=== PATIENT | female | born 1975 | race Caucasian/White ===

== ENCOUNTER 2023-07-14 08:49 | Outpatient (OUT) | payer OTHER, SELFPAY ==
[2023-07-14 09:16] LABS: Bilirubin Urine NEGATIVE (NEGATIVE); Blood Urine SMALL (NEGATIVE); Clarity Urine CLEAR (CLEAR); Color Urine YELLOW (YELLOW); Glucose Urine UA NEGATIVE (NEGATIVE); Ketones Urine NEGATIVE (NEGATIVE); Leukocyte Esterase Urine NEGATIVE (NEGATIVE); Nitrite Urine NEGATIVE (NEGATIVE); Protein Urine NEGATIVE (NEG/TRACE); Urobilinogen Urine 0.2 EU/dL (0.2-1.0)
[2023-07-14 09:17] LABS: Hematocrit 37.3 % (36.0-48.0); Mean Corpuscular HGB Conc 34.9 g/dL (29.9-35.2); Mean Corpuscular Hemoglobin 34.4 pg (26.7-34.0); Mean Corpuscular Volume 98.7 fL (81.0-99.0); Platelet Count 255 10^3/uL (150-450); Red Blood Count 3.78 10^6/uL (4.20-5.40); Red Cell Distribution Width 11.7 % (11.0-15.0); White Blood Count 5.7 10^3/uL (4.0-11.0)
[2023-07-14 09:28] LABS: Bacteria Urine TRACE #/HPF (NONE SEEN); Cast Seen? NONE SEEN #/LPF (NONE SEEN); Crystals Seen? None Seen #/HPF (None Seen); Mucus Urine NONE SEEN (NONE SEEN); Squamous Epithelial Cell Urine RARE #/LPF (NONE/RARE); WBC Urine NONE SEEN #/HPF (NONE SEEN)
[2023-07-14 10:26] LABS: Albumin Level 3.6 g/dL (3.4-5.0); Anion Gap 10.6; BUN Creatinine Ratio 11.6; Calcium 8.6 mg/dL (8.5-10.1); Chloride 100 mmol/L (98-107); Estimated GFR (African America 58 (>=60); Estimated GFR (Non-African Ame 48 (>=60); Glucose 85 mg/dL (74-106); Magnesium 1.8 mg/dL (1.8-2.4); Potassium 3.6 mmol/L (3.5-5.1); Sodium 135 mmol/L (136-145)
[2023-07-14 11:02] LABS: Creatinine Urine Random 359.44 mg/dL (20.00-300.00); Protein Creatinine Ratio Urine 0.05; Total Protein Urine Random 19.3 mg/dL (<=11.9)
== END 2023-07-14 08:50 | disposition home or self-care (01) ==
LOC: LAB 08:54
PROVIDERS: PCP Family Medicine; Visit Provider Internal Medicine
DX: N18.30 Chronic kidney disease, stage 3 unspecified (principal); K58.9 Irritable bowel syndrome, unspecified; N20.0 Calculus of kidney; E55.9 Vitamin D deficiency, unspecified
CPT/HCPCS: 36415; 80069; 81001; 82306; 82570; 83735; 84156; 85027

== ENCOUNTER 2023-07-27 08:08 | Outpatient (OUT) | payer OTHER, SELFPAY ==
[2023-07-27 09:06] LABS: Bilirubin Urine SMALL (NEGATIVE); Blood Urine SMALL (NEGATIVE); Color Urine LT. YELLOW (YELLOW); Glucose Urine UA NEGATIVE (NEGATIVE); Ketones Urine 15 mg/dL (NEGATIVE); Leukocyte Esterase Urine NEGATIVE (NEGATIVE); Nitrite Urine NEGATIVE (NEGATIVE); Protein Urine NEGATIVE (NEG/TRACE); Urobilinogen Urine 0.2 EU/dL (0.2-1.0); pH Urine 6.5 (5.0-9.0)
[2023-07-27 09:07] LABS: Clarity Urine SLIGHTLY CLOUDY (CLEAR); Sodium Urine Random 74 mmol/L (30-90)
[2023-07-27 09:13] LABS: Bacteria Urine NONE SEEN #/HPF (NONE SEEN); Cast Seen? NONE SEEN #/LPF (NONE SEEN); Crystals Seen? None Seen #/HPF (None Seen); Mucus Urine SMALL (NONE SEEN); RBC Urine 0-2 #/HPF (0-2); Squamous Epithelial Cell Urine FEW #/LPF (NONE/RARE); WBC Urine NONE SEEN #/HPF (NONE SEEN)
[2023-07-27 09:13] LABS: Thyroid Stimulating Hormone 1.006 uIU/mL (0.358-3.740)
[2023-08-01 16:08] LABS: Osmolality, Urine 683 mOsmol/kg (.)
== END 2023-07-27 08:09 | disposition home or self-care (01) ==
LOC: LAB 08:11
PROVIDERS: PCP Family Medicine; Visit Provider Internal Medicine
DX: N18.30 Chronic kidney disease, stage 3 unspecified (principal); R03.0 Elevated blood-pressure reading, without diagnosis of hypertension; N20.0 Calculus of kidney; E55.9 Vitamin D deficiency, unspecified; K58.9 Irritable bowel syndrome, unspecified; E87.1 Hypo-osmolality and hyponatremia; R31.29 Other microscopic hematuria
CPT/HCPCS: 36415; 81001; 82533; 83935; 84300; 84443

== ENCOUNTER 2023-08-01 12:51 | Outpatient (OUT) | payer OTHER, SELFPAY ==
--- NOTE | 2023-08-01 12:54 | US_ITS ---
The [address] [address] Patient Name: DEONTE PORTILLO MRN: [facility]:[id number] date: 1975 Sex: F Assigned Patient Location: US Current Patient Location: Accession/Order Number: [id number] Exam Date: 08/01/2023 12:55 Report Date: 08/02/2023 07:53 At the request of: SYLVESTER DANIEL Procedure: US renal BI EXAMINATION: US renal BI HISTORY: Microscopic Hematuria ; history of kidney stones COMPARISON: Ultrasound kidneys 05/09/2019 TECHNIQUE: Ultrasound examination was performed of the kidneys and urinary bladder. FINDINGS: RIGHT KIDNEY: Mild cortical thinning, 0.8 cm in thickness. No evidence of pelvocaliectasis, mass, or calculi. Incidental small cyst. Normal renal cortical parenchymal echogenicity. Color Doppler demonstrates blood flow within the kidney. Kidney: 10.9 x 4.2 x 4.5 cm LEFT KIDNEY: Limited evaluation due to overlying bowel gas. No evidence of pelvocaliectasis, mass, or calculi. Normal renal cortical parenchymal echogenicity. Color Doppler demonstrates blood flow within the kidney. Kidney: 10.4 x 4.4 x 4.7 cm BLADDER: No visible wall thickening, mass, or calculi. US/US renal BI IMPRESSION: 1. No appreciable urinary tract calculi or acute findings. 2. Mild cortical thinning of right kidney; nonspecific. Electronically authenticated by: KENNETH MONTANA Date: 08/02/2023 07:53
== END 2023-08-01 12:52 | disposition home or self-care (01) ==
LOC: US 12:52
PROVIDERS: PCP Family Medicine; Visit Provider Internal Medicine
DX: R31.29 Other microscopic hematuria (principal)
CPT/HCPCS: 76775

== ENCOUNTER 2023-08-17 07:56 | Outpatient (OUT) | payer OTHER, SELFPAY ==
--- NOTE | 2023-08-17 07:59 | MM_ITS ---
Patient Name DEONTE PORTILLO MR# Age Sex Date Time [id number] F 08/17/2023 08:09 At the Request Of DR EMELY IBARRA RADIOLOGY REPORT PROCEDURE: MM TOMOSYNTHESIS SCREENING BI COMPARISON: MG MAMM SCREEN 3D VERONICA CAD, 08/09/2022. MG MAMM SCREEN 3D VERONICA CAD, 06/01/2021. MG MAMM SCREEN VERONICA W CAD, 05/28/2020. MG MAMM SCREEN VERONICA W CAD, 12/14/2016. INDICATIONS: Screening Calculator Name NCI Breast Cancer Risk Assessment Tool 5 Year Breast Cancer Risk 1.00% Lifetime Breast Cancer Risk 10.30% Personal Breast Cancer No Personal Ovarian Cancer No Treatments None Family Cancers Grandmother-maternal with breast cancer at age ~60; Father with prostate cancer at age 60; Grandmother-paternal with colon cancer at age ~55. LOCATION: [facility] BREAST COMPOSITION: Extremely dense, which lowers the sensitivity of mammography. FINDINGS: DIAGNOSTIC CATEGORY 1--NEGATIVE. RIGHT BREAST: No significant suspicious finding. No significant change has occurred. LEFT BREAST: No significant suspicious finding. No significant change has occurred. RECOMMENDATIONS: ROUTINE MAMMOGRAM AND CLINICAL EVALUATION IN 12 MONTHS. PLEASE NOTE: A NORMAL MAMMOGRAM DOES NOT EXCLUDE THE POSSIBILITY OF BREAST CANCER. A CLINICALLY SUSPICIOUS PALPABLE LUMP SHOULD BE BIOPSIED. Dictated by: Pedro Lora M.D. on 08/17/2023 at 12:35 Approved by: Pedro Lora M.D. on 08/17/2023 at 12:36
== END 2023-08-17 07:57 | disposition home or self-care (01) ==
LOC: LAB 07:56
PROVIDERS: PCP Family Medicine; Visit Provider Obstetrics & Gynecology
DX: Z12.31 Encounter for screening mammogram for malignant neoplasm of breast (principal); Z80.3 Family history of malignant neoplasm of breast; Z80.0 Family history of malignant neoplasm of digestive organs; Z80.42 Family history of malignant neoplasm of prostate
CPT/HCPCS: 77063; 77067

== ENCOUNTER 2023-08-20 08:33 | Outpatient (OUT) | payer OTHER, SELFPAY ==
[2023-08-21 09:07] LABS: FSH 41.4 mIU/mL (.)
== END 2023-08-20 08:34 | disposition home or self-care (01) ==
LOC: LAB 08:34
PROVIDERS: PCP Family Medicine; Visit Provider Family Medicine
DX: N95.1 Menopausal and female climacteric states (principal); N92.6 Irregular menstruation, unspecified
CPT/HCPCS: 36415; 83001

== ENCOUNTER 2023-12-28 10:12 | Outpatient (OUT) | payer OTHER, SELFPAY ==
--- NOTE | 2023-12-28 10:17 | CT_ITS ---
The [address] [address] Patient Name: DEONTE PORTILLO MRN: [id number] date: 1975 Sex: F Assigned Patient Location: CT Current Patient Location: CT Accession/Order Number: [id number] Exam Date: 12/28/2023 10:20 Report Date: 12/28/2023 13:41 At the request of: AROLDO CERDA Procedure: CT abdomen pelvis wo con EXAMINATION: CT abdomen pelvis wo con HISTORY: hematuria R31.21 COMPARISON: No relevant comparison available. TECHNIQUE: Axial, Coronal, and Sagittal images were created without IV contrast. Dose reduction techniques were achieved by using automated exposure control and/or adjustment of mA and/or kV according to patient size and/or use of iterative reconstruction technique. FINDINGS: LUNG BASES: No visible pulmonary or pleural disease. LIVER: No enlargement, atrophy, abnormal density, or significant focal lesion. BILIARY: No dilatation or calcification. PANCREAS: No lesion, fluid collection, ductal dilatation, or atrophy. SPLEEN: No enlargement or focal lesion. ADRENALS: No mass or enlargement. KIDNEYS: Punctate left nonobstructing nephrolithiasis. No hydronephrosis or obstructive uropathy BOWEL/MESENTERY: No visible mass, obstruction, or bowel wall thickening. AORTA/VASCULAR: No aneurysm or dissection. RETROPERITONEUM: No mass or adenopathy. LYMPH NODES: No adenopathy. URINARY BLADDER: No visible focal wall thickening, lesion, or calculus. PELVIC ORGANS: No visible mass. Pelvic organs appropriate for patient age. ABDOMINAL WALL: No mass or hernia. BONES: No bony lesion or fracture. OTHER: Negative noncontrast exam CT/CT abdomen pelvis wo con IMPRESSION: No obstructive uropathy Electronically authenticated by: SHEREE BOLAND Date: 12/28/2023 13:41
--- OUTSIDE RECORDS SUMMARY | 2023-12-28 10:34 | XMS_ITS | CCD ---
Author Organization [facility] Care Team Providers Care [place] Name Role Phone JANESSA BROWER Unavailable Unavailable NO FAMILY DOCTOR, NO FAMILY DOCTOR Unavailable Unavailable CHECONAHUMJANESSA Unavailable Unavailable NO FAMILY DOCTOR, NO FAMILY DOCTOR Unavailable Unavailable Balaji Peraza Primary Care Provider MaríaZhang marksul Unavailable NORMAN OLIVIA Attending Unavailable PETZNICK, CADEN Primary Care Unavailable NORMAN OLIVIA Admitting Unavailable MARÍAETELVINA Attending Unavailable MARÍA, ETELVINA Admitting Unavailable PETZNICK, [facility] Primary Care Unavailable MARÍA, ETELVINA Consulting Unavailable WEST, DR SHEREE Mesa Consulting Unavailable PRINTY, DR HAN Attending Unavailable PRINTY, DR HAN Admitting Unavailable PETZNICK, [facility] Primary Care Unavailable PRINTY, DR HAN Consulting Unavailable WEST, DR SHEREE Mesa Admitting Unavailable WEST, DR SHEREE [place] Consulting Unavailable PETZNICK, [facility] Primary Care Unavailable WEST, DR SHEREE Mesa Attending Unavailable WEST, DR SHEREE Mesa Admitting Unavailable WEST, DR SHEREE [place] Consulting Unavailable PETZNICK, [facility] Primary Care Unavailable WEST, DR SHEREE Mesa Attending Unavailable WEST, DR SHEREE Mes[place] Consulting Unavailable PETZNICK, [facility] Primary Care Unavailable WEST, DR SHEREE Mesa Attending Unavailable WEST, DR SHEREE Mesa Admitting Unavailable Asaad, Imad Unavailable EMELY IBARRA Attending Unavailable MD Bienvenido Yanes Attending Provider [phone] PetznDO Caden jones Primary Care Provider Pettee Caden Primary Care Unavailable Asaad, Imad Attending Unavailable Asaad, Imad Admitting Unavailable PETCADEN MORRELL Primary Care Physician Ginny Sears Unavailable Unavailable Mitali Leach Attending Unavailable MARÍA, ETELVINA Referring Unavailable Deshaun CERDA Admitting Unavailable Deshaun CERDA Attending Unavailable Deshaun CERDA Attending Unavailable Deshaun CERDA Attending Unavailable ETELVINA DANIEL Referring Unavailable Allergies Allergy Classification Reported Allergen(s) Allergy Type Date of Onset Reaction(s) Facility (3 sources) Mold Extract; Translations: [Mold] Drug Allergy Nasal discharge (disorder) [facility] (1 source) No Known Medication Allergies; Translations: [No Known Medication Allergies] Propensity to adverse reactions (disorder) [facility] Repository Medications Current Medications Medication Drug Class(es) Dates Sig (Normalized) Sig (Original) Acetaminophen / oxyCODONE (2 sources) Opioid Agonist Start: 11-20-2021 Percocet 325 mg-5 mg Tab See Instructions, as needed for pain, 40 tab(s), Refill(s) 0, 1-2 tab(s) Oral q4hr, [id number], 157, cm, 11/13/21 8:21:00 EST, Height/Length Dosing, 74.4, kg, 11/13/21 8:21:00 EST, Weight Dosing Start Date: 11/20/21 Status: Ordered Latrice Allergy 180 MG (2 sources) take 1 tablet by mouth once daily Latrice Allergy 180 MG 1 tablet Orally Once a day Active Alpha Lipoic Acid 200 MG (2 sources) Alpha Lipoic Aci d 200 MG as directed Orally once a day Active azelastine hydrochloride 0.137 mg/actuat metered dose nasal spray (10 sources) Histamine-1 Receptor Antagonist Start: 10-17-2023 Azelastine Active 1 SPRAY INTRANASAL Twice daily October 17, 2023 12:00am Start: 11-11-2021 azelastine los al 2 puff(s), Nasal, Daily, Allergy symptoms Start Date: 11/11/21 Status: Ordered Start: 05-22-2018 take 2 puff(s) nasal route twice daily azelastine (ASTELIN,ASTEPRO) 0.1% nasal spray USE 2 PUFFS IN EACH NOSTRIL TWICE A DAY 5 05/22/2018 Active take 1 puff(s) nasal route twice daily Azelastine HCl 137 MCG/SPRAY 1 puff in each nostril Nasally Twice a day Active Comment on above: USE 2 PUFFS IN EACH NOSTRIL TWICE A DAY control pill (2 sources) Start: take 1 dose by mouth once daily control pill control pill, Oral, Daily Start Date: 10/12/16 Status: Ordered celecoxib 100 mg oral capsule (2 sources) Nonsteroidal Anti-inflammatory Drug Start: take 1 capsule by mouth twice daily as needed for pain CeleBREX 100 mg Cap 100 mg = 1 cap(s), Oral, BID, PRN for pain, # 60 cap(s), Refills(s) 0, Pharmacy: [id number], 157, cm, 11/13/21 8:21:00 EST, Height/Length Dosing, 74.4, kg, 11/13/21 8:21:00 EST, Weight Dosing Start Date: 11/20/21 Status: Ordered cholecalciferol 0.05 mg oral capsule (4 sources) Vitamin D Vitamin D3 50 MCG (1999) as directed Orally Active docusate sodium 100 mg oral capsule (2 sources) Start: take 1 capsule by mouth twice daily as needed for constipation Colace 100 mg Cap 100 mg = 1 cap(s), Oral, BID, PRN for constipation, # 20 cap(s), Refills(s) 0, Pharmacy: [id number], 157, cm, 11/13/21 8:21:00 EST, Height/Length Dosing, 74.4, kg, 11/13/21 8:21:00 EST, Weight Dosing Start Date: 11/20/21 Status: Ordered DULoxetine 30 mg delayed release oral capsule (10 sources) Serotonin and Norepinephrine Reuptake Inhibitor Start: take 30 mg by mouth once daily Duloxetine Active 30 MG PO Daily October 17, 2023 12:00am Start: 07-14-2018 take 1 capsule by mo [facility] once daily DULoxetine (CYMBALTA) 60 mg capsule Take 1 capsule by mouth once daily. 0 07/14/2018 Active Start: 10-07-2016 take 30 mg by mouth once daily Cymbalta 30 mg, Oral, Daily, Refills(s) 0, Depression Start Date: 10/07/16 Status: Ordered take 1 capsule by [facility] every twenty-four hours Cymbalta 30 MG 1 capsule Orally Once a day Active Comment on above: Take 1 capsule by mo [facility] once daily. Estradiol (2 sources) Estrogen Start: 4 estradiol Refills(s) 0 Start Date: 12/21/23 Status: Ordered ethinyl estradiol 0.005 mg / norethindrone acetate 1 mg oral tablet (1 source) Estrogen Start: 4 take 1 tablet by mouth once daily Norethindrone Ac-Eth Estradiol (Fyavolv) 1-5 mg-mcg tablet Active 1 TAB PO Daily October 17, 2023 12:00am fexofenadine hydrochloride 30 mg oral tablet (2 sources) Histamine-1 Receptor Antagonist Start: 2 take 30 mg by mouth once daily Latrice 30 mg, Oral, Daily, Allergy symptoms Start Date: 11/11/21 Status: Ordered krill oil 500 mg oral capsule (2 sources) Krill Oil [place]- 3 500 MG as directed Orally once a day Active L-Glutamine - (1 source) L-Glutamine - as directed Active Claritin (7 sources) Start: 4 Claritin Daily, Refills(s) 0 Start Date: 12/21/23 Status: Ordered Start: 10-17-2023 take 1 tablet by milo [facility] once daily Loratadine (Claritin) 10 mg Tablet Active 10 MG PO Daily October 17, 2023 12:00am take 1 tablet by milo every twenty-four hours Claritin 10 MG 1 tablet Orally Once a day Active Multi Vitamin Daily - (6 sources) take 1 tablet by mouth once daily Multi Vitamin Daily - 1 tablet Orally Once a day Active Multi Vitamin+ (2 sources) Start: 12-21-2023 Multi Vitamin+ Refill(s) 0 Start Date: 12/21/23 Status: Ordered polyethylene glycol 3350 230891 mg / potassium chloride 2970 mg / sodium bicarbonate 6740 mg / sodium chloride 5860 mg / sodium sulfate 33693 mg powder for oral solution (2 sources) Osmotic Laxative Start: 07-29-2023 take 236 g by mouth once daily PEG-3350/Electroly lisha 236 GM 4000 ML Orally once daily for 1 days Jul, Active Turmeric extract (1 source) Turmeric 400 MG as directed Orally Active Vitamin B Complex (6 sources) Vitamin B Comple x - as directed Orally Active Vitamin D (2 sources) Start: 12-21-2023 Vitamin D International_Unit , Oral, qWeek, Refills(s) 0 Start Date: 12/21/23 Status: Ordered Vitamin D3 125 MCG (5000 UT) (1 source) Vitamin D3 125 M CG (5000 UT) as directed Orally Active Vitamin D3 50 MCG (2000 UT) (1 source) Vitamin D3 50 MC G (1999 UT) as directed Orally Active Completed/Discontinued Medications Medication Drug Class(es) Dates Sig (Normalized) Sig (Original) ciprofloxacin 500 mg oral tablet (2 sources) Quinolone Antimicrobial Start: 12-21-2023 Cipro 500 mg Tab 500 mg = 1 tab(s), Oral, As Directed, Patient to take 1 tab the day before procedure and the 2nd tab the day of procedure once completed, # 2 tab(s), Refills(s) 0, Pharmacy: [id number], 158, cm, 12/21/23 9:03:00 EDT, Height/Length Dosing, 71.5, kg, 12/21/23 9:03:00 EDT, Weight Dosing Start Date: 12/21/23 Status: Ordered Ethinyl Estradiol / Ferrous fumarate / Norethindrone (7 sources) Estrogen Start: 06-07-2018 JUNEL FE 10/29, , 1 mg-20 mcg (21)/75 mg (7) per tablet take 1 tablet by milo th every twenty-four hours Lo Loestrin Fe 1 MG-10 MCG / 10 MCG 1 tablet Orally Once a day Active Problems Active Problems Problem Classification Problem Date Documented Da te Episodic/Chronic Anxiety disorders (2 sources) Anxiety 11-11-2021 Chronic Calculus of urinary tract (13 sources) Kidney stone; Translations: [Calculus of kidney] Onset: 08-13-2021 Resolved: 08-13-2021 Episodic Chronic kidney disease (7 sources) Chronic kidney disease stage 3; Translations: [Chronic kidney disease, stage 3 unspecified] 12-19-2023 Chronic Essential hypertension (2 sources) Hypertensive disorder 12-19-2023 Chronic Fluid and electrolyte disorders (4 sources) Hypo-osmolality and hyponatremia; Translations: [Hyponatremia] Episodic Genitourinary symptoms and ill-defined conditions (8 sources) Other microscopic hematuria; Translations: [Microscopic hematuria] Onset: 12-21-2023 Episodic Malaise and fatigue (1 source) Fatigue; Translations: [Chronic fatigue, unspecified] Onset: 05-18-2018 07-14-2018 Chronic Nutritional deficiencies (13 sources) Vitamin D deficiency; Translations: [Vitamin D deficiency, unspecified] Onset: 08-13-2021 Resolved: 08-13-2021 Chronic Other circulatory disease (3 sources) Elevated blood-pressure reading, without diagnosis of hypertension Episodic Other diseases of kidney and ureters (2 sources) Cyst of kidney 12-21-2023 Episodic Other diseases of kidney and ureters (1 source) Acquired renal cyst without neoplastic change; Translations: [Cyst of kidney, acquired] Onset: 12-21-2023 Episodic Other gastrointestinal disorders (8 sources) Irritable bowel syndrome; Translations: [Irritable bowel syndrome without diarrhea] 11-11-2021 Chronic Other gastrointestinal disorders (5 sources) Irritable bowel syndrome without diarrhea; Translations: [IRRITABLE BOWEL SYND W/O DIARRHEA] Onset: 08-13-2021 Resolved: 08-13-2021 Chronic Thyroid disorders (3 sources) Non-toxic uninodular goiter; Translations: [Nontoxic single thyroid nodule] Chronic Thyroid disorders (3 sources) Sick-euthyroid syndrome; Translations: [Sick-euthyroid syndrome] Onset: 05-18-2018 07-14-2018 Episodic Unclassified (2 sources) Superior glenoid labrum lesion of right shoulder, init / S43.431A(ICD-9) Onset: 10-05-2017 Unclassified (1 source) Strain of musc/fasc/tend long hd bicep, right arm, init / S46.111A(ICD-9) Onset: 10-05-2017 Unclassified (1 source) CHRN KIDNEY DISEASE STG 3 UNSP; Translations: [CHRN KIDNEY DISEASE STG 3 UNSP] Onset: 08-12-2022 Unclassified (1 source) Encounter for screening for malignant neoplasm of colon; Translations: [Encounter for screening for malignant neoplasm of colon] Onset: 10-17-2023 Unclassified (2 sources) Asymptomatic microscopic hematuria 12-21-2023 Past or Other Problems Problem Classification Problem Date Documented Date Episodic/Chronic Chronic kidney disease (5 sources) Chronic kidney disease; Translations: [Chronic kidney disease, stage 3 unspecified] Onset: 08-13-2021 Resolved: 08-13-2021 Other screening for suspected conditions (not mental disorders or infectious disease) (4 sources) Encounter for screening mammogram for malignant neoplasm of breast; Translations: [ENC SCR MAMMO MALIG NEOPLASM BREAST] Onset: 08-09-2022 Episodic Residual codes; unclassified (1 source) Family history of malignant neoplasm of breast; Translations: [FAMILY HX MALIG NEOPLASM OF BREAST] Onset: 08-12-2022 Episodic Residual codes; unclassified (1 source) Family history of malignant neoplasm of digestive organs; Translations: [FAM HX MALIG NEOPLASM DIGESTIV ORGN] Onset: 08-12-2022 Episodic Residual codes; unclassified (1 source) Family history of malignant neoplasm of prostate; Translations: [FAMILY HX MALIG NEOPLASM PROSTATE] Onset: 08-12-2022 Episodic Residual codes; unclassified (4 sources) Other specified postprocedural states; Translations: [OTH SPECIFIED POSTPROCEDURAL STATES] Onset: 01-04-2022 Episodic Unclassified (1 source) Superior glenoid labrum lesion of right shoulder, init; Translations: [Superior glenoid labrum lesion of right shoulder, init] Onset: 10-05-2017 Results Test Name Value Interpretation Reference Range Facility Urine Cytology ([facility])on 0 12-27-2023 Microscopic exam Cytology (U) [Interp] Diagnosis Info Invalid Interpretation Code [facility] Comment on above: Result Comment: A:Ur ine,Urine:Voided Interpretation - MicroScopic Description - Adequacy - Gross Description Site ID:A color Yellow fixative Alcohol Specimen designated Urine received in alcohol preservative and labeled with the patient?s name, consists of 50ml slightly cloudy yellow fluid. Electronically signed by : on: 12/27/2023 09:07:17 Performed By: #### 1 [id number] #### [facility] [address] [place] [address] Ambulatory Visit Summaryon 0 12-21-2023 Ambulatory Visit Summary DEONTE PORTILLO :1975 Visit Date:12/21/2023 Ambulatory Visit Instructions Your Diagnosis Asymptomatic microscopic hematuria Renal cyst Weak urine stream Tests Performed CT Abdomen/Pelvis w/o Contrast -- Results Pending -- Please visit your patient portal for your results or contact your primary care physician. Your Care Team Attending Physician - Deshaun CERDA MD Primary Care Physician - CADEN BENAVIDES DO Referring Physician - MARÍA TRAMMELL, ETELVINA This Is Your Medications List Non-Formulary Medication ( control pill) acetaminophen-oxycod one (Percocet 325 mg-5 mg Tab) azelastine nasal celecoxib (CeleBREX 100 mg Cap) docusate (Colace 100 mg Cap) duloxetine (Cymbalta) ergocalciferol (Vitamin D) estradiol fexofenadine (Latrice) loratadine (Claritin) multivitamin (Multi Vitamin+) Procedures Performed Adenoidectomy, Arthroscopy of shoulder, Colonoscopy, EGD - esophagogastroduoden oscopy, Oral surgery. Discharge Vitals Heart Rate (Peripheral) 58 Blood Pressure 130/88 Height 62 in Height 158 cm Weight 157.3 lb Weight 71.5 kg BMI 28.64 What to do next You Need to Schedule the Following Appointments Follow Up with PRASHANT TRAMMELL, Deshaun Aguirre, URL When: Where: [facility] [address], [place] [address]- Medications What How Much When Instructions Unchanged acetaminophen-oxycod one (Percocet 325 mg-5 mg Tab) See instructions 1-2 tab(s) Oral q4hr Unchanged azelastine nasal 2 Puffs Nasal Inhalation Every day Unchanged celecoxib (CeleBREX 100 mg Cap) 1 Capsules By Mouth 2 times a day as needed for for pain Unchanged docusate (Colace 100 mg Cap) 1 Capsules By Mouth 2 times a day as needed for for constipation Unchanged duloxetine (Cymbalta) 30 Milligram By Mouth Every day Unchanged ergocalciferol (Vitamin D) By Mouth Every week Unchanged estradiol Unchanged fexofenadine (Latrice) 30 Milligram By Mouth Every day Unchanged loratadine (Claritin) Every day Unchanged multivitamin (Multi Vitamin+) Unchanged Non-Formulary Medication ( control pill) By Mouth Every day Allergies Mold (Runny nose) Problems Ongoing - Any problem that you are currently receiving treatment for. Anxiety Asymptomatic microscopic hematuria CKD (chronic kidney disease) Euthyroid sick syndrome High blood pressure Hyponatremia Hypothyroid IBS (irritable bowel syndrome) Microscopic hematuria Nephrolithiasis Renal cyst Vitamin D deficiency Weak urine stream Patient Survey You may receive a survey via text or e-mail asking about your office visit. Please share your experience with us by completing your survey. We appreciate your feedback and thank you for choosing us for your care. Education Materials Hematuria, Adult Hematuria is blood in the urine. Blood may be visible in the urine, or it may be identified with a test. This condition can be caused by infections of the bladder, urethra, kidney, or prostate. Other possible causes include: ? Kidney stones. ? Cancer of the urinary tract. ? Too much calcium in the urine. ? Conditions that are passed from parent to child (inherited conditions). ? Exercise that requires a lot of energy. Infections can usually be treated with medicine, and a kidney stone usually will pass through your urine. If neither of these is the cause of your hematuria, more tests may be needed to identify the cause of your symptoms. It is very important to tell your health care provider about any blood in your urine, even if it is painless or the blood stops without treatment. Blood in the urine, when it happens and then stops and then happens again, can be a symptom of a very serious condition, including cancer. There is no pain in the initial stages of many urinary cancers. Follow these instructions at home: Medicines ? Take ykso-paw-tpdkrtv and prescription medicines only as told by your health care provider. ? If you were prescribed an antibiotic medicine, take it as told by your health care provider. Do not stop taking the antibiotic even if you start to feel better. Eating and drinking ? Drink enough fluid to keep your urine pale yellow. It is recommended that you drink 3?4 quarts (2.8?3.8 L) a day. If you have been diagnosed with an infection, drinking cranberry juice in addition to large amounts of water is recommended. ? Avoid caffeine, tea, and carbonated beverages. These tend to irritate the bladder. ? Avoid alcohol because it may irritate the prostate (in males). General instructions ? If you have been diagnosed with a kidney stone, follow your health care provider's instructions about straining your urine to catch the stone. ? Empty your bladder often. Avoid holding urine for long periods of time. ? If you are female: ? After a bowel movement, wipe from front to back and use each piece of toilet paper only once. (more content not included)... Normal [facility] Formson 12-21-2023 Forms [id number] #1.00TIFF Normal [facility] Patient Educationon 12-21-19 24 Patient Education Urology Hematuria, Adult Hematuria is blood in the urine. Blood may be visible in the urine, or it may be identified with a test. This condition can be caused by infections of the bladder, urethra, kidney, or prostate. Other possible causes include: ? Kidney stones. ? Cancer of the urinary tract. ? Too much calcium in the urine. ? Conditions that are passed from parent to child (inherited conditions). ? Exercise that requires a lot of energy. Infections can usually be treated with medicine, and a kidney stone usually will pass through your urine. If neither of these is the cause of your hematuria, more tests may be needed to identify the cause of your symptoms. It is very important to tell your health care provider about any blood in your urine, even if it is painless or the blood stops without treatment. Blood in the urine, when it happens and then stops and then happens again, can be a symptom of a very serious condition, including cancer. There is no pain in the initial stages of many urinary cancers. Follow these instructions at home: Medicines ? Take nasj-ora-hhvsnzi and prescription medicines only as told by your health care provider. ? If you were prescribed an antibiotic medicine, take it as told by your health care provider. Do not stop taking the antibiotic even if you start to feel better. Eating and drinking ? Drink enough fluid to keep your urine pale yellow. It is recommended that you drink 3?4 quarts (2.8?3.8 L) a day. If you have been diagnosed with an infection, drinking cranberry juice in addition to large amounts of water is recommended. ? Avoid caffeine, tea, and carbonated beverages. These tend to irritate the bladder. ? Avoid alcohol because it may irritate the prostate (in males). General instructions ? If you have been diagnosed with a kidney stone, follow your health care provider's instructions about straining your urine to catch the stone. ? Empty your bladder often. Avoid holding urine for long periods of time. ? If you are female: ? After a bowel movement, wipe from front to back and use each piece of toilet paper only once. ? Empty your bladder before and after sex. ? Pay attention to any changes in your symptoms. Tell your health care provider about any changes or any new symptoms. ? It is up to you to get the results of any tests. Ask your health care provider, or the department that is doing the test, when your results will be ready. ? Keep all follow-up visits. This is important. Contact a health care provider if: ? You develop back pain. ? You have a fever or chills. ? You have nausea or vomiting. ? Your symptoms do not improve after 3 days. ? Your symptoms get worse. Get help right away if: ? You develop severe vomiting and are unable to take medicine without vomiting. ? You develop severe pain in your back or abdomen even though you are taking medicine. ? You pass a large amount of blood in your urine. ? You pass blood clots in your urine. ? You feel very weak or like you might faint. ? You faint. Summary ? Hematuria is blood in the urine. It has many possible causes. ? It is very important that you tell your health care provider about any blood in your urine, even if it is painless or the blood stops without treatment. ? Take qlyp-oap-archebi and prescription medicines only as told by your health care provider. ? Drink enough fluid to keep your urine pale yellow. This information is not intended to replace advice given to you by your health care provider. Make sure you discuss any questions you have with your health care provider. Document Revised: 05/27/2021 Document Reviewed: 05/27/2021 [employer] Patient Education ? 2022 [employer] Normal [facility] Physician Referralon 024 Physician Referral [id number] 7#1.00TIFF Normal [facility] Urine Cytology ([facility])on 0 12-21-2023 Method of Extraction Voided Normal [facility] Comment on above: Performed By: #### 1 [id number] #### [facility] [address] [place] [address] Number of Jars 1 Invalid Interpretation Code [facility] Comment on above: Performed By: #### 1 [id number] #### [facility] [address] [place] [address] Specimen Urine Normal [facility] Comment on above: Performed By: #### 1 [id number] #### [facility] [address] Type of Service Technical Only Normal [facility] Comment on above: Performed By: #### 1 [id number] #### [facility] [address] [place] [address] HCG ( test) IA.rapi d Ql (U)Ordered By: Bienvenido Asaad on 10-17-2023 HCG ( test) Ql (U) Negative [facility] HCG,Urineon 10-17-2023 Beta HCG ( test) Ql (U) Negative Normal [facility] Comment on above: Result Comment: PERF ORMED BY: [place] [address] PATHOLOGIST LICENSED VETERINARY TECHNICIAN CHRISTIANO BALLARD M.D. Performed By: #### U HCG #### [address] HEMOGRAM AND PLATELon 2021 Hematocrit (Bld) [Volume fraction] 37.7 % Normal 36.0-48.0 [facility] Comment on above: Performed By: #### H H #### [facility] [address] [place] [address] Dr. Clarke Chung Hemoglobin (Bld) [Mass/Vol] 13.5 g/dL Normal 12.0-16.0 [facility] Comment on above: Performed By: #### H H #### [facility] [address] [place] [address] Dr. Clarke Chung MCH (RBC) [Entitic mass] 34.4 pg Critically high 26.7-34.0 [facility] Comment on above: Performed By: #### H H #### [facility] [address] [place] [address] Dr. Clarke Chung MCHC (RBC) [Mass/Vol] 35.8 g/dL Critically high 29.9-35.2 [facility] Comment on above: Performed By: #### H H #### [facility] [address] [place] [address] Dr. Clarke Chung MCV (RBC) [Entitic vol] 95.9 fL Normal 81.0-99.0 [facility] Comment on above: Performed By: #### H H #### [facility] [address] [address] [address] Clarke Chung PLT 262 103/ul Normal 150-450 [facility] Comment on above: Performed By: #### H H #### [facility] [address] [address] [address] Clarke Chung RBC 3.93 106/ul Critically low 4.20-5.40 [facility] Comment on above: Performed By: #### H H #### [facility] [address] [address] [address] Clarke Chung WBC 6.5 103/ul Normal 4.0-11.0 [facility] Comment on above: Performed By: #### H H #### [facility] [address] [place] [address] Dr. Clarke Chung MAGNESIUMon 08-09-2022 Magnesium [Mass/Vol] 1.9 mg/dL Normal 1.8-2.4 [facility] Comment on above: Performed By: #### M G, RENAL #### [facility] [address] [place] [address] Dr. Clarke Chung MG MAMM SCREEN 3D VERONICA CADon 08-09-2022 MG MAMM SCREEN 3D VERONICA CAD Patient: DEONTE PORTILLO Exam Date: 08/09/2022 : 1975 Gender:F Ordering : DR EMELY IBARRA Admission #: [id number] Family : Order #: [id number] CLICK HERE TO VIEW EXAM RADIOLOGY REPORT PROCEDURE: MAMMOGRAM SCREENING 3D BILATERAL CAD COMPARISON: MG MAMM SCREEN 3D VERONICA CAD, 06/01/2021. MG MAMM SCREEN VERONICA W CAD, 05/28/2020. INDICATIONS: Screening mammography Calculator Name NCI Breast Cancer Risk Assessment Tool 5 Year Breast Cancer Risk 0.90% Lifetime Breast Cancer Risk 10.50% Personal Breast Cancer No Personal Ovarian Cancer No Treatments None Family Cancers Grandmother-maternal with breast cancer at age 60; Father with prostate cancer at age 60; Grandmother-paternal with colon cancer at age 55. LOCATION: [facility] BREAST COMPOSITION: Extremely dense, which lowers the sensitivity of mammography. FINDINGS: DIAGNOSTIC CATEGORY 1--NEGATIVE. NO CHANGE FROM COMPARISON ASSESSMENT. Scattered benign-appearing lymph nodes are present. RIGHT BREAST: No significant suspicious finding. LEFT BREAST: No significant suspicious finding. RECOMMENDATIONS: ROUTINE MAMMOGRAM AND CLINICAL EVALUATION IN 12 MONTHS. PLEASE NOTE: A NORMAL MAMMOGRAM DOES NOT EXCLUDE THE POSSIBILITY OF BREAST CANCER. A CLINICALLY SUSPICIOUS PALPABLE LUMP SHOULD BE BIOPSIED. Dictated by: Sheree Boland MD on 08/09/2022 at 14:11 Approved by: Sheree Boland MD on 08/09/2022 at 14:13 Normal [facility] RENAL FUNCTION PANELon 08-09 Albumin [Mass/Vol] 3.7 g/dL Normal 3.4-5.0 [facility] Comment on above: Performed By: #### M G, RENAL #### [facility] [address] [address] [address] Clarke Chung Calcium [Mass/Vol] 8.8 mg/dL Normal 8.5-10.1 [facility] Comment on above: Performed By: #### M G, RENAL #### [facility] [address] [address] [address] Clarke Chung Chloride [Moles/Vol] 101 mmol/L Normal 98-107 [facility] Comment on above: Performed By: #### M G, RENAL #### [facility] [address] [address] [address] Clarke hCung CO2 [Moles/Vol] 29.7 mmol/L Normal 21.0-32.0 [facility] Comment on above: Performed By: #### M G, RENAL #### [facility] [address] [address] [address] Clarke Chung Creatinine [Mass/Vol] 1.07 mg/dL Critically high 0.55-1.02 [facility] Comment on above: Performed By: #### M G, RENAL #### [facility] [address] [address] [address] Clarke Chung EGFR-AF EGYPTIAN >60 Normal >=60 [facility] Comment on above: Performed By: #### M G, RENAL #### [facility] [address] [address] [address] Clarke Chung EGFR-NON AF EGYPTIAN 55 mL/min/1.73m2 Critically low >=60 [facility] Comment on above: Performed By: #### M G, RENAL #### [facility] [address] [address] [address] Clarke Chung Glucose [Mass/Vol] 79 mg/dL Normal 74-106 [facility] Comment on above: Performed By: #### M G, RENAL #### [facility] [address] [address] [address] Clarke Chung Phosphate [Mass/Vol] 2.6 mg/dL Normal 2.6-4.7 [facility] Comment on above: Performed By: #### M G, RENAL #### [facility] [address] [address] [address] Clarke Chung Potassium [Moles/Vol] 3.8 mmol/L Normal 3.5-5.1 [facility] Comment on above: Performed By: #### M G, RENAL #### [facility] [address] [address] [address] Clarke Chung Sodium [Moles/Vol] 134 mmol/L Critically low 136-[address] [facility] Comment on above: Performed By: #### M G, RENAL #### [facility] [address] [address] [address] Clarke Chung Urea nitrogen [Mass/Vol] 14.0 mg/dL Normal 7.0-18.0 [facility] Comment on above: Performed By: #### M G, RENAL #### [facility] [address] [address] [address] Clarke Chung UA RANDOM W/MICROSCOPICon BACTERIA TRACE Abnormal NONE SEEN [facility] Comment on above: Performed By: #### U AMIC #### [facility] [address] [address] [address] Clarke Chung Bilirubin Ql (U) Negative Normal NEGATIVE [facility] Comment on above: Performed By: #### U AMIC #### [facility] [address] [address] [address] Clarke Chung CAST NONE SEEN Normal NONE SEEN [facility] Comment on above: Performed By: #### U AMIC #### [facility] [address] [address] [address] Clarke Chung Clarity (U) CLEAR Normal CLEAR [facility] Comment on above: Performed By: #### U AMIC #### [facility] [address] [address] [address] Clarke Chung Color (U) DK. YELLOW Normal YELLOW [facility] Comment on above: Performed By: #### U AMIC #### [facility] [address] [place] [address] Dr. Clarke Chung Crystals LM Nom (Urine sed) NONE SEEN Normal NONE SEEN [facility] Comment on above: Performed By: #### U AMIC #### [facility] [address] [address] [address] Clarke Chung Epithelial cells LM Ql (Urine sed) RARE Normal NONE SEEN /RARE [facility] Comment on above: Performed By: #### U AMIC #### [facility] [address] [place] [address] Dr. Clarke Chung Glucose Ql (U) Negative Normal NEGATIVE [facility] Comment on above: Performed By: #### U AMIC #### [facility] [address] [address] [address] Clarke Chung Hemoglobin Ql (U) Negative Normal NEGATIVE [facility] Comment on above: Performed By: #### U AMIC #### [facility] [address] [address] [address] Clarke Chung Ketones Ql (U) 15 mg/dl Abnormal NEGATIVE [facility] Comment on above: Performed By: #### U AMIC #### [facility] [address] [place] [address] Dr. Clarke Chung LEUKOCYTES Negative Normal NEGATIVE [facility] Comment on above: Performed By: #### U AMIC #### [facility] [address] [place], [place] [id number] Dr. Clarke Chung MUCOUS NONE SEEN Normal NONE SEEN [facility] Comment on above: Performed By: #### U AMIC #### [facility] [address] [address] [address] Clarke Chung Nitrite Ql (U) Negative Normal NEGATIVE [facility] Comment on above: Performed By: #### U AMIC #### [facility] [address] [place] [address] Dr. Clarke Chung pH (U) 7.5 [pH] Normal 5-9 [facility] Comment on above: Performed By: #### U AMIC #### [facility] [address] [place] [address] Dr. Clarke Chung RBC 0-2 Normal 0-2 [facility] Comment on above: Performed By: #### U AMIC #### [facility] [address] [place] [address] Dr. Clarke Chung SPEC GRAVITY 1.010 Normal 1.005-<=1.025 [facility] Comment on above: Performed By: #### U AMIC #### [facility] [address] [place] [address] Dr. Clarke Chung UA PROTEIN Negative Normal NEGATIVE/ TRACE [facility] Comment on above: Performed By: #### U AMIC #### [facility] [address] [place] [address] Dr. Clarke Chung Urobilinogen Qn (U) 0.2 {Jhonny'U}/dL Normal 0.2 - 1.0 [facility] Comment on above: Performed By: #### U AMIC #### [facility] [address] [place] [address] Dr. Clarke Chung WBC 0-2 Abnormal NONE SEEN [facility] Comment on above: Performed By: #### U AMIC #### [facility] [address] [place] [address] Dr. Clarke Chung URINE T PROTEIN CREAT RATIOo n 08-09-2022 Protein (U) [Mass/Vol] 13.8 mg/dL Critically high <=12.0 [facility] Comment on above: Performed By: #### U RTPCR #### [facility] [address] [address] [address] Clarke Chung UR PROT CREAT RAT 0.13 Normal [facility] Comment on above: Performed By: #### U RTPCR #### [facility] [address] [address] [address] Clarke Chung URINE CREAT 106.93 mg/dL Normal 20.00-300.00 [facility] Comment on above: Performed By: #### U RTPCR #### [facility] [address] [address] [address] Clarke Chung VITAMIN D 25 OHon 08-09-2022 VIT D 25-OH 69.2 ng/mL Normal [facility] Comment on above: Performed By: #### V ITAD #### [facility] [address] [place] [address] Dr. Clarke Chung VIT D RANGES SEE BELOW Normal [facility] Comment on above: Result Comment: <20 ng/mL Vit D deficient 20 - <30 ng/mL Vit D insufficient 30 - 100 ng/mL Vit D sufficient >100 ng/mL Potential Toxicity Performed By: #### V ITAD #### [facility] [address] [place] [address] Dr. Clarke Chung Vital Signs Date Time Vital Sign Value Performing Clinician Facility 12-21-2023 09:14-0400 Diastolic blood pressure 88 mm[Hg] Deshaun CERDA [facility] 12-21-2023 09:14-0400 Mean blood pressure 102 mm[Hg] Deshaun CERDA [facility] 12-21-2023 09:14-0400 Systolic blood pressure 130 mm[Hg] Deshaun CERDA [facility] 12-21-2023 09:00-0400 Blood Pressure Location Deshaun CERDA [facility] 12-21-2023 09:00-0400 Diastolic blood pressure 102 mm[Hg] Deshaun CERDA [facility] 12-21-2023 09:00-0400 Heart rate 58 /min Deshaun CERDA [facility] 12-21-2023 09:00-0400 Systolic blood pressure 140 mm[Hg] Deshaun CERDA [facility] 10-17-2023 09:50-0500 Diastolic blood pressure 73 mm[Hg] DO Caden Petznick Work Phone: [facility] 10-17-2023 09:50-0500 Heart rate 702 /min DO Caden Petznick Work Phone: [facility] 10-17-2023 09:50-0500 Respiratory rate 20 /min DO Caden Petznick Work Phone: [facility] 10-17-2023 09:50-0500 SaO2% (BldA) [Mass fraction] 99 % DO Caden Petznick Work Phone: [facility] 10-17-2023 09:50-0500 Systolic blood pressure 131 mm[Hg] DO Caden Petznick Work Phone: [facility] 10-17-2023 07:28-0500 Body height 157.48 cm DO Caden Petznick Work Phone: [facility] 10-17-2023 07:28-0500 Body temperature 97.8 [degF] DO Caden Petznick Work Phone: [facility] 10-17-2023 07:28-0500 Body weight 70.3 kg DO Caden Petznick Work Phone: [facility] 07-21-2023 09:00-0400 Body height 157.48 cm Etelvina Daniel Other [facility] 07-21-2023 09:00-0400 Body mass index (BMI) [Ratio] 29.52 kg/m2 Etelvina María Other [facility] 07-21-2023 09:00-0400 Body temperature 98.2 [degF] Etelvina María Other [facility] Other 07-21-2023 09:00-0400 Body weight 73.21 kg Etelvina María Other [facility] Other 07-21-2023 09:00-0400 Diastolic blood pressure 89 mm[Hg] Etelvina María Other [facility] Other 07-21-2023 09:00-0400 Respiratory rate 18 /min Etelvina María Other [facility] Other 07-21-2023 09:00-0400 SaO2% (BldA) [Mass fraction] 99 % Etelvina María Other [facility] 07-21-2023 09:00-0400 Systolic blood pressure 138 mm[Hg] Etelvina María Other [facility] 08-19-2022 10:00-0500 Body height 157.48 cm Etelvina María Other [facility] Other 08-19-2022 10:00-0500 Body mass index (BMI) [Ratio] 29.77 kg/m2 Etelvina María Other [facility] Other 08-19-2022 10:00-0500 Body temperature 97.9 [degF] Etelvina María Other [facility] Other 08-19-2022 10:00-0500 Body weight 73.85 kg Etelvina María Other [facility] Other 08-19-2022 10:00-0500 Diastolic blood pressure 95 mm[Hg] Etelvina María Other [facility] Other 08-19-2022 10:00-0500 Respiratory rate 18 /min Etelvina María Other [facility] Other 08-19-2022 10:00-0500 SaO2% (BldA) [Mass fraction] 97 % Etelvina María Other [facility] Other 08-19-2022 10:00-0500 Systolic blood pressure 148 mm[Hg] Etelvina María Other [facility] Other 08-13-2021 10:00-0400 Body height 157.48 cm Etelvina María Other [facility] Other 08-13-2021 10:00-0400 Body mass index (BMI) [Ratio] 29.04 kg/m2 Etelvina María Other [facility] Other 08-13-2021 10:00-0400 Body temperature 97.4 [degF] Etelvina María Other [facility] Other 08-13-2021 10:00-0400 Body weight 72.03 kg Etelvina María Other [facility] Other 08-13-2021 10:00-0400 Diastolic blood pressure 90 mm[Hg] Etelvina María Other [facility] Other 08-13-2021 10:00-0400 Respiratory rate 18 /min Etelvina María Other [facility] Other 08-13-2021 10:00-0400 SaO2% (BldA) [Mass fraction] 99 % Etelvina María Other [facility] Other 08-13-2021 10:00-0400 Systolic blood pressure 140 mm[Hg] Etelvina María Other [facility] Other Encounters Encounter Date Encounter Type Care Provider Facility Start: 01-24-2024 ambulatory Deshaun CERDA Facili ty:[facility] Start: 12-21-2023 End: 12-22-2023 ambulatory Deshaun CERDA Facility:[facility] Start: 12-21-2023 End: 12-21-2023 Lab Drop off Deshaun CERDA [facility] Start: 12-21-2023 End: 12-21-2023 Patient encounter procedure Deshaun CERDA [facility] Start: 11-09-2023 ambulatory Mitali M. Lue Facility:[facility] Start: 10-21-2023 ambulatory Mitali Lue Facility:[facility] Start: 10-17-2023 End: 10-17-2023 ambulatory Caden Benavides Facility:[facility] Start: 10-17-2023 End: 10-17-2023 Admission to same day surgery center DO Caden Benavides Work Phone: [facility] Work Phone: Start: 10-17-2023 End: 10-17-2023 ambulatory DO Caden Benavides Work Phone: [facility] Work Phone: Start: 10-11-2023 End: 10-11-2023 ambulatory EMELY J PRINTY Not Available Start: 09-05-2023 End: 09-05-2023 ambulatory EMELY PRINTY Not Available Start: 08-04-2023 End: 08-04-2023 ambulatory Etelvina María Other [facility] Other Start: 08-04-2023 Telephone encounter Etelvina María [facility] Start: 08-02-2023 ambulatory Mitali Leach Facility:[facility] Start: 07-27-2023 End: 07-27-2023 ambulatory Imad Asaad Other [facility] Other Start: 07-27-2023 Telephone encounter Imad Asaad [facility] Start: 07-21-2023 End: 07-21-2023 ambulatory Etelvina María Other [facility] Other Start: 07-21-2023 Office outpatient visit 15 minutes Etelvina María [facility] Start: 12-02-[address] SHEREE BOLAND Facilit y:[facility] Start: 08-19-2022 End: 08-19-2022 ambulatory Etelvina María Other [facility] Other Start: 08-19-2022 Office outpatient visit 15 minutes Etelvina María [facility] Start: 08-09-2022 End: 08-10-2022 ambulatory ETELVINA MARÍA Facility:[facility] Start: 07-15-2022 End: 10-24-[address] SHEREE BOLAND Facility:[facility] Start: 02-12-2022 End: 05-24-[address] SHEREE BOLAND Facility:[facility] Start: 01-04-2022 End: 03-19-2022 ambulatory NORMAN OLIVIA Facility:[facility] Start: 08-13-2021 End: 08-13-2021 ambulatory Etelvina Daniel Other [facility] Other Start: 08-13-2021 Office outpatient visit 15 minutes Etelvina María [facility] Start: 07-15-2018 End: 07-15-2018 Telephone encounter Carrie Tran MD Work Phone: Endocrinology Comment on above: Radiology US Start: 11-16-2017 Ambulatory JANESSA BROWER Facility :8 Start: 10-05-2017 Ambulatory JANESSA KESSLERANHUM Facility :8 Procedures Date Procedure Procedure Detail Performing Clinician Start: 10-17-2023 Screening colonoscopy DO Caden Robbietee Work Phone: Start: 02-07-2017 Mammography Carrie Tran MD Work Phone: Adenoid excision Deshaun ASH Arthroscopy of shoulder Gayatri CERDA Comment on above: LEFT SHOULDER ARTHROSCOPY WITH SUBOCROMI AL DECOMPRESSION AND LABRAL REPAIR Colonoscopy Deshaun CERDA Esophagogastroduodenoscopy P jac CERDA Oral surgery (qualifier value) Deshaun CERDA Plan of Treatment Date Care Activity Detail Author Start: 10-17-2023 [facility] Start: 11-10-2021 HPV TESTING HPV TESTING [facility] Start: 11-10-2021 PAP TESTING PAP TESTING [facility] Start: 06-10-2021 Influenza vaccination INFLUENZ A (Season Ended) [facility] Start: 02-07-2018 Mammography MAMMOGRAM [facility] Start: 1995 Urine microalbumin profile DTAP,TDAP,TD (1 - Tdap) [facility] Start: 1994 HEPATITIS C [facility] Start: 1994 HIV SCREENING HIV SCREENING [facility] Start: 1988 Adult depression screening assessment DEPRESSION SCREENING [facility] Patient Education Hemorrhoids (DC) [facility] Work Phone: Immunizations Immunization Date Immunization Notes Care Provider Mary Ann andre 08-01-2023 influenza virus vaccine, unspecified formulation Deshaungregg CERDA [facility] 07-11-2022 influenza virus vaccine, unspecified formulation Deshaun PRASHANT [facility] 07-31-2021 SARS-CoV-2 (COVID-19 ) mRNA-1273 vaccine Deshaun CERDA [facility] 11-06-2020 SARS-CoV-2 (COVID-19 ) mRNA-1273 vaccine Deshaun CERDA [facility] 10-08-2020 SARS-CoV-2 (COVID-19 ) mRNA-1273 vaccine Deshaun PRAHSANT [facility] 08-10-2017 influenza virus vaccine, unspecified formulation Deshaun CERDA [facility] 07-23-2016 influenza virus vaccine, unspecified formulation Deshaun CERDA [facility] Payers Date Payer Category Payer Self-pay [id number] 2017 Unknown MMO MMO [place] [id number] 2017-Present PPO [id number] 1975 Unknown [id number] 1975 Unknown [id number] [id number] 1975 Unknown [id number] [id number] 1975 Unknown [id number] [id number] 1975 Unknown [id number] [id number] 1975 Unknown [id number] [id number] 1975 Unknown [id number] [id number] 1975 Unknown [id number] 2.16.840.1.291945.3.579.2.1259 1975 Unknown [id number] 2.16.840.1.501433.3.579.2.727 1975 Unknown [id number] [id number] 1975 Unknown [id number] [id number] 1975 Unknown [id number] [id number] 1975 Unknown [id number] 2.16.840.1.157434.3.579.2.727 1975 Unknown [id number] [id number] 1959 Self-pay [id number] 1959 Unknown [id number] [id number] Unknown [id number] Unknown [employer] [id number] Unknown [id number] Social History Date Type Detail Facility Start: 07-14-2018 End: 12-21-2023 Tobacco smoking status WVIS Never smoker [facility] Start: 07-14-2018 Tobacco use and exposure Never used [facility] Start: 07-14-2018 Alcohol intake Current non-dr dinker of alcohol (finding) [facility] Start: 1975 Sex Assigned At Not on file C [facility] Sex Assigned At [facility] Start: 1975 Sex Assigned At Female F [facility] Tobacco smoking status Never [facility] Medical Equipment Procedure Code Equipment Code Equipment Origin al Text Equipment Identifier Dates SHOULDER ARTHROS COPY W/ POSSIBLE REPAIR Norman Olivia DO 11/20/21 Non Biological Shoulder L [id number] FDA Start: 11-20-2021 Goals Date Patient Goal Desired Activity /State Functional Status Date Assessment Result Facility 12-21-2023 Functional Status N/A [facility] Clinical Notes 07-17-2018 to 12-21-2023 Note Date & Type Note Facility 12-21-2023 Note Chief Complaint Referral HPI Staff Deonte is a 48 y.o. female new patient here for persistent microscopic hematuria. Referred by María Main. BUN 14.0 & CRE 1.21 done on 07/14/23. Renal US done on 08/01/23 @ [facility]. Dysuria: denies pain or burning Incomplete bladder emptying: sometimes Hematuria: denies visible blood, UA shows SMALL Frequency: 5x a day Urgency: denies Nocturia: denies Stream: denies hesitancy, sometimes has weak stream Leaking: yes Post void dripping: denies Wearing pads/ Depends: denies Urge incontinence: denies Stress incontinence: yes Incontinence without Sensory Awareness: denies Abdominal pain: denies Flank pain: denies Sexual complaints: denies History of Present Illness Tests reviewed: reviewed UA, referral records, GUERITA, blood work I have reviewed the previous health record information and history for this patient from Dr. María Main. I have reviewed and verified the staff HPI to be accurate for this encounter. There have been no associated fever, chills, flank pain, or blood in the urine. Denies any urinary infections since last encounter. Review of Systems PHQ Score Initial Depression Screen Score: 0 SCORE ROS - Provider Constitutional: denies weight loss, denies hot flashes. Eyes: denies eye problems. Gastrointestinal: denies nausea, denies vomiting. Cardiovascular: denies chest pain or angina. Integumentary: no dryness Musculoskeletal: denies musculoskeletal symptoms. ENMT: denies otolaryngeal symptoms. Respiratory: no shortness of breath. Heme/Lymph: denies easy bleeding tendency, denies easy bruising tendency. Psychiatric: no confusion, no anxiety. Genitourinary: See HPI. Physical Exam Vitals & Measurements HR: 58(Peripheral) BP: 130/88 HT: 62 in HT: 158 cm WT: 71.5 kg WT: 157.3 lb BMI: 28.64 General Appearance: alert , no acute distress, well nourished, well developed female. Head: normocephalic . Eyes: normal orbit and globe. ENMT: normal examination of external ears. Chest: Lungs CTA, respirations non labored . Cardiovascular: regular rate and rhythm. Abdomen: soft , non distended, no tenderness, no mass or organomegaly, no hernia. Genitourinary: bladder nonpalpable, no flank tenderness. Lymph Nodes: unremarkable palpation of the cervical area. Skin: warm, dry, no bruising. Psychiatric: cooperative, affect appropriate for age, normal judgement, euthymic mood. Assessment/Plan Deonte is a 48 yo female new pt referred by Dr. María Main due to persistent microscopic hematuria. 1. Asymptomatic microscopic hematuria (R31.21: Asymptomatic microscopic hematuria) 07/14/23 - BUN 14. Crea 1.21. eGFR 58. Micro UA 07/14/23 - RBC 2-5. WBC none. Squam Epi rare. Bacteria trace. Micro UA 07/27/23 - RBC 0-2. WBC none. Squam Epi few. Bacteria none. GUERITA 08/01/23 [facility] - No appreciable urinary tract calculi or acute findings. Mild cortical thinning of R kidney, nonspecific. Incidental small R renal cyst. UA shows small blood, neg for infection. Denies gross hematuria. Started seeing Dr. Daniel 3-4 yrs ago to frequently having high blood creatinine. Has only had one UTI. Reviewed GUERITA with pt. Mild cortical thinning likely related to subpar kidney function. Shares she had another GUERITA in the past that showed kidney stones but current GUERITA was not as clear due to bowel content. Has never passed stones that she is aware of. Has had incidents where she voids granular particles. Shares when she drinks a lot of fluids, she voids [id number] but when she doesn't drink a lot she voids q2-3hr. Explained hematuria workup. The patient is aware that a distinct etiology of the hematuria may not be clear upon conclusion of the workup. Will initiate hematuria workup to include upper urinary tract imaging, as well as evaluation of the urinary cells with urine cytology and possible a FISH test. A cystoscopy will be scheduled to rule out lower urinary tract pathology. The rationale for this workup has been discussed, and all questions have been answered. Informed consent will be obtained. Prophylactic antibiotics will be given. -Will schedule CT AP wo con. -Will send urine for cytology. -Will schedule cysto with possible UD. The risks and benefits for cystoscopy have been discussed. The risks include bleeding, infection, and irritation of the bladder and urinary channel, among others. The patient, after being informed of procedural details and after questions have been answered, wishes to proceed. Full informed consent has been obtained. Will order Local anesthesia. Prophylactic abx sent to [facility]. 2. Renal cyst (N28.1: Cyst of kidney, acquired) [facility] 08/01/23 [facility] - Incidental small R renal cyst. 3. Weak urine stream (R39.12: Poor urinary stream) Shares sometimes it takes a long time to empty and has a weak stream. Feels she empties completely unless she holds her bladder. Follow-up With When Contact Information Deshaun CERDA MD, L [facility] [address], (more content not included)... [facility] Comment on above: Result Comment: Elec tronically Signed By: Deshaun CERDA MD\.br\Date and Time Signed: 12/21/23 09:37 EDT\.br\Electronically Co-Signed By: Kady Macdonald\.br\Date and Time Co-Signed: 12/21/23 09:36 EDT 12-21-2023 Hospital Discharg e instructions Patient Education 12/21/2023 08:39:34 Hematuria, Adult Hematuria, Adult Hematuria is blood in the urine. Blood may be visible in the urine, or it may be identified with a test. This condition can be caused by infections of the bladder, urethra, kidney, or prostate. Other possible causes include: Kidney stones. Cancer of the urinary tract. Too much calcium in the urine. Conditions that are passed from parent to child (inherited conditions). Exercise that requires a lot of energy. Infections can usually be treated with medicine, and a kidney stone usually will pass through your urine. If neither of these is the cause of your hematuria, more tests may be needed to identify the cause of your symptoms. It is very important to tell your health care provider about any blood in your urine, even if it is painless or the blood stops without treatment. Blood in the urine, when it happens and then stops and then happens again, can be a symptom of a very serious condition, including cancer. There is no pain in the initial stages of many urinary cancers. Follow these instructions at home: Medicines Take ybkg-jah-ydsbmof and prescription medicines only as told by your health care provider. If you were prescribed an antibiotic medicine, take it as told by your health care provider. Do not stop taking the antibiotic even if you start to feel better. Eating and drinking Drink enough fluid to keep your urine pale yellow. It is recommended that you drink 3 4 quarts (2.8 3.8 L) a day. If you have been diagnosed with an infection, drinking cranberry juice in addition to large amounts of water is recommended. Avoid caffeine, tea, and carbonated beverages. These tend to irritate the bladder. Avoid alcohol because it may irritate the prostate (in males). General instructions If you have been diagnosed with a kidney stone, follow your health care provider's instructions about straining your urine to catch the stone. Empty your bladder often. Avoid holding urine for long periods of time. If you are female: ?After a bowel movement, wipe from front to back and use each piece of toilet paper only once. ?Empty your bladder before and after sex. Pay attention to any changes in your symptoms. Tell your health care provider about any changes or any new symptoms. It is up to you to get the results of any tests. Ask your health care provider, or the department that is doing the test, when your results will be ready. Keep all follow-up visits. This is important. Contact a health care provider if: You develop back pain. You have a fever or chills. You have nausea or vomiting. Your symptoms do not improve after 3 days. Your symptoms get worse. Get help right away if: You develop severe vomiting and are unable to take medicine without vomiting. You develop severe pain in your back or abdomen even though you are taking medicine. You pass a large amount of blood in your urine. You pass blood clots in your urine. You feel very weak or like you might faint. You faint. Summary Hematuria is blood in the urine. It has many possible causes. It is very important that you tell your health care provider about any blood in your urine, even if it is painless or the blood stops without treatment. Take sete-nnr-akouvlx and prescription medicines only as told by your health care provider. Drink enough fluid to keep your urine pale yellow. This information is not intended to replace advice given to you by your health care provider. Make sure you discuss any questions you have with your health care provider. Document Revised: 05/27/2021 Document Reviewed: 05/27/2021 [employer] Patient Education 2022 [employer]. Follow Up Care 09/06/2023 12:54:24 With:PRASHANT TRAMMELL, Deshaun Aguirre, URL Address: [facility] [address] [place] [address]- When: Unknown [facility] 10-17-2023 Procedure note [facility] 07-21-2023 Evaluation note Encounter Date Diagnosis Assessment Notes Jul, Chronic kidney disease, stage 3 unspecified (ICD-10 - N18.30) She has a longstanding CKD with b/l serum creatinine 1.0-1.2 mg/dL. She has no evidence of proteinuria on UA. Her renal ultrasound showed normal echogenicity of renal, with no no evidence of obstructive uropathy or mass.. Suspicion for chronic glomerulonephritis is low as she has stable renal function with bland UA. I will not pursue for kidney biopsy now as it would be low yield. Jul, High blood pressure (not hypertension) (ICD-10 - R03.0) Her blood pressure sometimes runs high in the office but been normal at home. I advised to continue to monitor blood pressure at home and stays above 140/90 mmHg then call office will start on antihypertensive medication. Jul, Nephrolithiasis (ICD-10 - N20.0) I have advised her to adequately hydrate herself and drinks close to 64 ounces of fluids. Jul, Vitamin D deficiency (ICD-10 - E55.9) Her vitamin D level is high normal but calcium phosphorus within normal limit. Advised her to decrease the vitamin D to 1000 unit daily Jul, IBS (irritable bowel syndrome) (ICD-10 - K58.9) Continue to follow with PCP Jul, Hyponatremia (ICD-10 - E87.1) She has hyponatremia either due to the medication induced SIADH or primary polydipsia. Other differential diagnoses are hypothyroidism and adrenal insufficiency. I have ordered urine sodium and urine osmolarity, TSH and cortisol. Jul, Microscopic hematuria (ICD-10 - R31.29) He has a microscopic hematuria possibly due to the passage of the gravels. We will repeat the UA. She denies any symptoms of UTI or menstruation. [facility] 10-12-2023 Evaluation note* Encounter Date Diagnosis Assessment Notes Treatment Notes Treatment Clinical Notes Jul, Chronic kidney disease, stage 3 unspecified (ICD-10 - N18.30) She has a longstanding CKD with b/l serum creatinine 1.0-1.2 mg/dL. She has no evidence of proteinuria on UA. Her renal ultrasound showed normal echogenicity of renal, with no no evidence of obstructive uropathy or mass.. Advised her to avoid NSAIDs or any other nephrotoxic medications. Jul, High blood pressure (not hypertension) (ICD-10 - R03.0) Her blood pressure sometimes runs high in the office but been normal at home. I advised to continue to monitor blood pressure at home and stays above 140/90 mmHg then call office will start on antihypertensive medication. Jul, Nephrolithiasis (ICD-10 - N20.0) I have advised her to adequately hydrate herself and drinks close to 64 ounces of fluids. Jul, Vitamin D deficiency (ICD-10 - E55.9) Her vitamin D level is high normal but calcium phosphorus within normal limit. Advised her to decrease the vitamin D to 1000 unit daily Jul, IBS (irritable bowel syndrome) (ICD-10 - K58.9) Continue to follow with PCP Jul, Hyponatremia (ICD-10 - E87.1) She has hyponatremia either due to the medication induced SIADH or primary polydipsia. Other differential diagnoses are hypothyroidism and adrenal insufficiency. I have ordered urine sodium and urine osmolarity, TSH and cortisol. Jul, Microscopic hematuria (ICD-10 - R31.29) He has a microscopic hematuria possibly due to the passage of the gravels. We will repeat the UA. She denies any symptoms of UTI or menstruation. [facility] 11-10-2022 Evaluation note* Encounter Date Diagnosis Assessment Notes Treatment Notes Treatment Clinical Notes Aug, Chronic kidney disease, stage 3 unspecified (ICD-10 - N18.30) She has a longstanding CKD with b/l serum creatinine 1.0-1.2 mg/dL. She has no evidence of proteinuria hematuria on UA. Her renal ultrasound showed normal echogenicity of renal, with no no evidence of obstructive uropathy or mass.. Suspicion for chronic glomerulonephritis as she has stable renal function with bland UA. I will not pursue for kidney biopsy now as it would be low yield. I have advised her to contact me if she gets diagnosis of any autoimmune disease. She has a burning sensation in the urine but no evidence of UTI. Advised that if she continues to have symptoms she may benefit with a urology evaluation for urethral stricture. Aug, High blood pressure (not hypertension) (ICD-10 - R03.0) Her blood pressure runs high but been normal at home. I advised to continue to monitor blood pressure at home and stays above 140/90 mmHg then call office will start on antihypertensive medication. Aug, Nephrolithiasis (ICD-10 - N20.0) I have advised her to adequately hydrate herself and drinks close to 72 ounces of fluids. Aug, Vitamin D deficiency (ICD-10 - E55.9) She currently takes oral vitamin D supplement. We will check the serum calcium and PTH. Aug, IBS (irritable bowel syndrome) (ICD-10 - K58.9) Continue to follow with PCP [facility] 11-04-2021 Evaluation note* Encounter Date Diagnosis Assessment Notes Treatment Notes Treatment Clinical Notes Aug, Chronic kidney disease, stage 3 unspecified (ICD-10 - N18.30) She has a longstanding CKD with b/l serum creatinine 1.2 mg/dL. She has no evidence of proteinuria hematuria on UA. Her renal ultrasound showed normal echogenicity of renal, with no no evidence of obstructive uropathy or mass.. Suspicion for chronic glomerulonephritis as she has stable renal function with bland UA. I will not pursue for kidney biopsy now as it would be low yield. I have advised her to contact me if she gets diagnosis of any autoimmune disease. Aug, IBS (irritable bowel syndrome) (ICD-10 - K58.9) Continue to follow with PCP Aug, Nephrolithiasis (ICD-10 - N20.0) I have advised her to adequately hydrate herself and drinks close to 72 ounces of fluids. Aug, Vitamin D deficiency (ICD-10 - E55.9) She currently takes oral vitamin D supplement. We will check the serum calcium and PTH. [facility] 10-08-2018 Miscellaneous Notes* Telephone Encounter - Kayy Hernandez - 07/17/2018 2:36 PM EDT Called patient to schedule US she is going to have the US done at another facility. She wanted the order faxed to [phone]. Order was faxed on 07-17-2018. * Telephone Encounter - Carrie Tran - 07/15/2018 5:01 PM EDT Please schedule US thyroid. [facility] Future Appointments Appointment Date:01/24/2024 01:30:00 PM Scheduled Provider:Deshaun CERDA MD [facility] Type:URO Procedure 15 min Diagnostic Tests Pending * Urine Cytology ([facility]) [facility] Future App[facility]ments Appointment Date:01/24/2024 01:30:00 PM Scheduled Provider:Deshaun CERDA MD [facility] Appoint[facility] Type:URO Procedure 15 min [facility] Evaluation note* Diagnosis Nontoxic single thyroid nodule- Primary Nontoxic uninodular goiter documented in this encounter [facility] noteNo InformationNort [employer] Other Evaluation noteNo assessment information available [facility] Work Phone: History and physical note Author Bienvenido Yanes [facility] October 17, 2023 8:49am Note Date/Time October 17, 2023 8: 49am [facility] [address] [place] [address] Gastroenterology H&P Signed Patient: Deonte Portillo MR#: [id number] : 1975 Acct:[id number] Age/Sex: 48 / F Adm Date: 4 Loc: Room: Type: [facility] Attending Dr: Bienvenido Yanes MD Copies to: MD Caden Sarmiento, DO~ Date of Service: 10/17/2023 HISTORY & PHYSICAL: Patient's history with special attention to the cardiovascular, pulmonary systems and the current problem was reviewed with the patient immediately prior to the procedure. Present medications and doses reviewed in the EMR. Allergies and pertinent laboratory tests were also reviewedat this time in the EMR. The physical examination, as below, was then performed. Indication, assessment and HPI: 48-year-old female with history of colonic polyps here for surveillance colonoscopy Family history of GI malignancy? No PHYSICAL EXAMINATION Mouth and Pharynx : Moist mucus membranes, normal dentition Cardiac: Regular rate, regular rhythm Pulmonary: Clear to auscultation bilaterally, no wheezing Neurological: Alert and oriented x3, no focal deficits noted Abdomen: Abdomen soft, non-tender REVIEW OF SYSTEMS Constitutional: Denies malaise, fevers Cardiovascular: Denies chest pain, palpitations Respiratory: Denies shortness of breath, wheezing Gastrointestinal: Per HPI Genitourinary: Denies dysuria, polyuria Musculoskeletal: Denies joint swelling, joint stiffness Neurological: Denies numbness, tingling Integumentary: Denies rashes, skin lesions Endocrine: Denies fatigue, weight loss Written informed consent obtained from the patient. Risks (including but not limited to perforation, infection, bloating, bleeding, need for emergent surgeryand loss of life), benefits and alternatives explained and questions answered. The patient verbalized understanding. Based on history patient is an appropriate candidate for the procedure. Bienvenido Yanes M.D. Documented By: Bienvenido Yanes MD 10/17/23848 Signed By: <Electronically signed by Bienvenido Yanes MD> 10/17/23848 [facility] Work Phone: [facility] general Narrative - Reported* Type Description Date Medical History anxiety Medical History euthyroid syndrome Medical History MODERATE DYSPLASIA Medical History IRRITABLE BOWEL SYNDROME Medical History HYPOTHYROID Medical History NEPHROLISTHASIS Medical History ESS 2014 Medical History ABNORMAL PAP 2013 Surgical History adenoidectomy Surgical History COLONOSCOPY X4 WITH BIOPSY Surgical History LEEP Surgical History EGD 1999 Surgical History X2 Hospitalization History childbirth X 2 Hospitalization History SEE ABOVE [facility] N[facility] - Reported* Type Description Date Medical History anxiety Medical History euthyroid syndrome Medical History MODERATE DYSPLASIA Medical History IRRITABLE BOWEL SYNDROME Medical History HYPOTHYROID Medical History NEPHROLISTHASIS Medical History ESS 2014 Medical History ABNORMAL PAP 2013 Surgical History adenoidectomy Surgical History COLONOSCOPY X4 WITH BIOPSY Surgical History LEEP Surgical History EGD 1999 Surgical History X2 Surgical History LEFT SHOULDER SURGERY 11/2021 Hospitalization History childbirth X 2 Hospitalization History SEE ABOVE [facility] Hospital course Narrative No data available for this section [facility] Hospital Discharge instructions Additional Instructions DISCHARGE INSTRUCTIONS FOR COLONOSCOPY WHAT TO EXPECT: - You may feel full, gassy or cramping after your procedure. In some cases, this may be from a few hours to a day. Walking may help relieve the discomfort. - If you have polyp(s) removed you may note some minor bloody discharge after your first bowel movements. - You should begin to recover from anesthesia within 1 hour of the procedure, however may feel groggy for the next 24 hours. DO's AND DON'Ts: - Call your doctor right away if you have a hard abdomen, severe pain, are passing lots of bright red blood or clots. - Call your doctor if you develop any rashes, hives or difficulty breathing. - Let your doctor know if you have not had a bowel movement by 3 days after your procedure. - If you take 81 mg aspirin for your heart it is safe to resume this medication. - If you take other blood thinner medications your doctor will instruct you when these can safely be resumed. - Do NOT drive for 24 hours. - Do NOT operate machinery such as power tools, lawn mowers, snow blowers, sewing machines, etc. for 24 hours. - Avoid alcoholic beverages and drugs for allergies, nerves, or sleep. - Do NOT stay alone. Do NOT leave your child unattended. - Do NOT make important personal or business decisions or sign any legal documents. - Eat solid foods and drink liquids in smaller amounts than usual until normal appetite returns. If you should experience an upset stomach, liquids high in sugar content (soda, Petar-Aid, non-acid juices) are recommended. - You can resume normal activities tomorrow. FOLLOW UP & RECOMMENDATIONS: -Notify the doctor if you have any problems. -Repeat colonoscopy in 5 years. -Follow up with PCP. -Office number [phone]. [facility] Work Phone: Hospital Discharge instructions No data available for this section [facility] No data available for this section [facility] [place] Summary Purpose Family History No Family History Records Found Relationship Condition Age at Onset Recorded Date/T katelyn grandparent Malignant neoplasm of colon Unknown family member Malignant neoplasm of colon Unknown father Malignant neoplasm of prostate Unknown Not Specified Family history of thyroid disease Unknow n grandparent Malignant neoplasm of breast Unknown Multiple sclerosis Unknown grandparent Cerebrovascular accident (CVA) Unknown grandparent Pulmonary emphysema Unknown Advance Directives No Advanced Directives Records Found Advance Directive Response Recorded Date/ Time Advance Directives No September 1:12pm Chief Complaint and Reason for Visit Chief Complaint Screening Additional Source Comments INFORMATION SOURCE (unrecogn ized section and content) DATE CREATED AUTHOR 04/03/2018 [facility] DATE CREATED AUTHOR AUTHOR'S ORGANIZ ATION 12/03/2022 [facility] DATE CREATED AUTHOR AUTHOR'S ORGANIZ ATION 10/12/2023 [facility] DATE CREATED AUTHOR AUTHOR'S ORGANIZ ATION 10/28/2023 [facility] DATE CREATED AUTHOR AUTHOR'S ORGANIZ ATION 12/28/2023 Mike Salas [facility] Source Comments (unrecognize d section and content) In the event this informatio n is protected by the Federal Confidentiality of Alcohol and Drug Abuse Patient Records regulations: The Federal rules restrict any use of the information to criminally investigate or prosecute any alcohol or drug abuse patient.[facility] Reason for Visit (unrecogniz ed section and content) Reason Onset Date Comments Radiology US 07/15/2018 Care Teams (unrecognized sec tion and content) Team Status: Active Member Role Status Dates Caden Benavides DO Primary Care Provider Active Team Status: Inactive Member Role Status Dates Bienvenido Yanes MD Attending Provider Active Caden Benavides DO Primary Care Provider Active FOR RECORDS PERTAINING TO PATIENTS WHO ARE OR HAVE BEEN ENROLLED IN A CHEMICAL DEPENDENCY/SUBSTANCEABUSE PROGRAM, SOME INFORMATION MAY BE OMITTED. This clinical summary was aggregated from multiple sources. Caution should be exercised in using it in the provision of clinical care. This summary normalizes information from multiple sources, and as a consequence, information in this document may materially change the coding, format and clinical context of patient data. In addition, data may be omitted in some cases. CLINICAL DECISIONS SHOULD BE BASED ON THE PRIMARY CLINICAL RECORDS. [facility]. provides no warranty or guarantee of the accuracy or completeness of information in this document.
== END 2023-12-28 10:13 | disposition home or self-care (01) ==
LOC: CT 10:12
PROVIDERS: PCP Family Medicine; Visit Provider Urology
DX: R31.21 Asymptomatic microscopic hematuria (principal)
CPT/HCPCS: 74176

== ENCOUNTER 2024-02-04 09:15 | Outpatient (OUT) | payer OTHER, SELFPAY ==
--- OUTSIDE RECORDS SUMMARY | 2024-02-04 09:19 | XMS_ITS | CCD ---
Author Organization [facility] Care Team Providers Care Strategy Lead Name Role Phone JANESSA BROWER Unavailable Unavailable NO FAMILY DOCTOR, NO FAMILY DOCTOR Unavailable Unavailable CHECONAHUMJANESSA Unavailable Unavailable NO FAMILY DOCTOR, NO FAMILY DOCTOR Unavailable Unavailable Balaji Peraza Primary Care Provider [phone] MaríaZhangul Unavailable NORMAN OLIVIA Attending Unavailable PETZNICK, CADEN Primary Care Unavailable NORMAN OLIVIA Admitting Unavailable MARÍAETELVINA Attending Unavailable MARÍA, ETELVINA Admitting Unavailable PETZNICK, [facility] Primary Care Unavailable MARÍA, ETELVINA Consulting Unavailable WEST, DR SHEREE Mesa Consulting Unavailable PRINTY, DR HAN Attending Unavailable PRINTY, DR HAN Admitting Unavailable PETZNICK, [facility] Primary Care Unavailable PRINTY, DR HAN Consulting Unavailable WEST, DR SHEREE Mesa Admitting Unavailable WEST, DR SHEREE Mesa Consulting Unavailable PETZNICK, [facility] Primary Care Unavailable WEST, DR SHEREE Mesa Attending Unavailable WEST, DR SHEREE Mesa Admitting Unavailable WEST, DR SHEREE Mesa Consulting Unavailable PETZNICK, [facility] Primary Care Unavailable WEST, DR SHEREE Mesa Attending Unavailable WEST, DR SHEREE Mesa Consulting Unavailable PETZNICK, [facility] Primary Care Unavailable WEST, DR SHEREE Mesa Attending Unavailable WEST, DR SHEREE Mesa Admitting Unavailable Asaad, Imad Unavailable EMELY IBARRA Attending Unavailable MD Bienvenido Yanes Attending Provider PetDO Caden oliveira Primary Care Provider [phone] Pettee Caden Primary Care Unavailable Asaad, Imad Attending Unavailable Asaad, Imad Admitting Unavailable CADEN BENAVIDES Primary Care Physician Ginny Sears Unavailable Unavailable Deshaun SANTOS Attending Unavailable MARÍA, ETELVINA Referring Unavailable Deshaun SANTOS Attending Unavailable ETELVINA DANIEL Referring Unavailable Mitali Leach Attending Deshaun Simons Attending Deshaun Simons Admitting Unavailable Deshaun SANTOS Attending Unavailable Allergies Allergy Classification Reported Allergen(s) Allergy Type Date of Onset Reaction(s) Facility (4 sources) Mold Extract; Translations: [Mold] Drug Allergy Nasal discharge (disorder) [facility] (1 source) No Known Medication Allergies; Translations: [No Known Medication Allergies] Propensity to adverse reactions (disorder) [facility] Repository Medications Current Medications Medication Drug Class(es) Dates Sig (Normalized) Sig (Original) Acetaminophen / oxyCODONE (3 sources) Opioid Agonist Start: 11-20-2021 Percocet 325 [...] hydrochloride 0.137 mg/actuat metered dose nasal spray (11 sources) Histamine-1 Receptor Antagonist Start: 10-17-2023 Azelastine [...] EACH NOSTRIL TWICE A DAY control pill (3 sources) Start: 017 take 1 dose by mouth once daily control pill control pill, Oral, Daily Start Date: 10/12/16 Status: Ordered celecoxib 100 mg oral capsule (3 sources) Nonsteroidal Anti-inflammatory Drug Start: take 1 capsule by mouth twice daily as needed for pain CeleBREX 100 mg Cap 100 mg = 1 cap(s), Oral, BID, PRN for pain, # 60 cap(s), Refills(s) 0, Pharmacy: [facility]/pharmacy #[id number], 157, cm, 11/13/21 8:21:00 EST, Height/Length Dosing, 74.4, kg, 11/13/21 8:21:00 EST, Weight Dosing Start Date: 11/20/21 Status: Ordered cholecalciferol 0.05 mg oral capsule (4 sources) Vitamin D Vitamin D3 50 MCG (1999) as directed Orally Active docusate sodium 100 mg oral capsule (3 sources) Start: take 1 capsule by mouth twice daily as needed for constipation Colace 100 mg Cap 100 mg = 1 cap(s), Oral, BID, PRN for constipation, # 20 cap(s), Refills(s) 0, Pharmacy: [facility]/pharmacy #[id number], 157, cm, 11/13/21 8:21:00 EST, Height/Length Dosing, 74.4, kg, 11/13/21 8:21:00 EST, Weight Dosing Start Date: 11/20/21 Status: Ordered DULoxetine 30 mg delayed release oral capsule (11 sources) Serotonin and Norepinephrine Reuptake Inhibitor Start: take 30 mg by mouth once daily Duloxetine Active 30 MG PO Daily October 17, 2023 12:00am Start: 07-14-2018 take 1 capsule by mo [facility] once daily DULoxetine (CYMBALTA) 60 mg capsule Take 1 capsule by mouth once daily. 0 07/14/2018 Active Start: 10-07-2016 take 30 mg by mouth once daily Cymbalta 30 mg, Oral, Daily, Refills(s) 0, Depression Start Date: 10/07/16 Status: Ordered take 1 capsule by [facility] every twenty-four hours Cymbalta 30 MG 1 capsule Orally Once a day Active Comment on above: Take 1 capsule by mo [facility] once daily. Estradiol (3 sources) Estrogen Start: 4 estradiol Refills(s) 0 Start Date: 12/21/23 Status: Ordered ethinyl estradiol 0.005 mg / norethindrone acetate 1 mg oral tablet (1 source) Estrogen Start: 4 take 1 tablet by mouth once daily Norethindrone Ac-Eth Estradiol (Fyavolv) 1-5 mg-mcg tablet Active 1 TAB PO Daily October 17, 2023 12:00am fexofenadine hydrochloride 30 mg oral tablet (3 sources) Histamine-1 Receptor Antagonist Start: 2 take 30 mg by mouth once daily Latrice 30 mg, Oral, Daily, Allergy symptoms Start Date: 11/11/21 Status: Ordered krill oil 500 mg oral capsule (2 sources) Krill Oil [place]- 3 500 MG as directed Orally once a day Active L-Glutamine - (1 source) L-Glutamine - as directed Active Claritin (8 sources) Start: 4 Claritin Daily, Refills(s) 0 Start Date: 12/21/23 Status: Ordered Start: 10-17-2023 take 1 tablet by [facility] once daily Loratadine (Claritin) 10 mg Tablet Active 10 MG PO Daily October 17, 2023 12:00am take 1 tablet by milo every twenty-four hours Claritin 10 MG 1 tablet Orally Once a day Active Multi Vitamin Daily - (6 sources) take 1 tablet by mouth once daily Multi Vitamin Daily - 1 tablet Orally Once a day Active Multi Vitamin+ (3 sources) Start: 12-21-2023 Multi Vitamin+ Refill(s) 0 Start Date: 12/21/23 Status: Ordered polyethylene glycol 3350 [id number] mg / potassium chloride 2970 mg / sodium bicarbonate 6740 mg / sodium chloride 5860 mg / sodium sulfate 80760 mg powder for oral solution (2 sources) Osmotic Laxative Start: 07-29-2023 take 236 g by mouth once daily PEG-3350/Electroly lisha 236 GM 4000 ML Orally once daily for 1 days Jul, Active Turmeric extract (1 source) Turmeric 400 MG as directed Orally Active Vitamin B Complex (6 sources) Vitamin B Comple x - as directed Orally Active Vitamin D (3 sources) Start: 12-21-2023 Vitamin D International_Unit , Oral, qWeek, Refills(s) 0 Start Date: 12/21/23 Status: Ordered Vitamin D3 125 MCG (5000 UT) (1 source) Vitamin D3 125 M CG (5000 UT) as directed Orally Active Vitamin D3 50 MCG (2000 UT) (1 source) Vitamin D3 50 MC G (2000 UT) as directed Orally Active Completed/Discontinued Medications Medication Drug Class(es) Dates Sig (Normalized) Sig (Original) ciprofloxacin 500 mg oral tablet (2 sources) Quinolone Antimicrobial Start: 12-21-2023 Cipro 500 mg Tab 500 mg = 1 tab(s), Oral, As Directed, Patient to take 1 tab the day before procedure and the 2nd tab the day of procedure once completed, # 2 tab(s), Refills(s) 0, Pharmacy: [id number], 158, cm, 12/21/23 9:03:00 EDT, Height/Length Dosing, 71.5, kg, 12/21/23 9:03:00 EDT, Weight Dosing Start Date: 12/21/23 Status: Ordered Ethinyl Estradiol / Ferrous fumarate / Norethindrone (7 sources) Estrogen Start: 06-07-2018 FE 10/29, 28, 1 mg-20 mcg (21)/75 mg (7) per tablet take 1 tablet by milo th every twenty-four hours Lo Loestrin Fe 1 MG-10 MCG / 10 MCG 1 tablet Orally Once a day Active Problems Active Problems Problem Classification Problem Date Documented Da te Episodic/Chronic Anxiety disorders (3 sources) Anxiety 11-11-2021 Chronic Calculus of urinary tract (15 sources) Kidney stone; Translations: [Calculus of kidney] Onset: 08-13-2021 Resolved: 08-13-2021 Episodic Chronic kidney disease (8 sources) Chronic kidney disease stage 3; Translations: [Chronic kidney disease, stage 3 unspecified] 12-19-2023 Chronic Essential hypertension (3 sources) Hypertensive disorder 12-19-2023 Chronic Fluid and electrolyte disorders (5 sources) Hypo-osmolality and hyponatremia; Translations: [Hyponatremia] Episodic Genitourinary symptoms and ill-defined conditions (12 sources) Other microscopic hematuria; Translations: [Microscopic hematuria] Onset: 03-13-2024 Episodic Malaise and fatigue (1 source) Fatigue; Translations: [Chronic fatigue, unspecified] Onset: 05-18-2018 07-14-2018 Chronic Nutritional deficiencies (14 sources) Vitamin D deficiency; Translations: [Vitamin D deficiency, unspecified] Onset: 08-13-2021 Resolved: 08-13-2021 Chronic Other circulatory disease (3 sources) Elevated blood-pressure reading, without diagnosis of hypertension Episodic Other diseases of kidney and ureters (3 sources) Cyst of kidney 12-21-2023 Episodic Other diseases of kidney and ureters (2 sources) Acquired renal cyst without neoplastic change; Translations: [Cyst of kidney, acquired] Onset: 12-21-2023 Episodic Other gastrointestinal disorders (9 sources) Irritable bowel syndrome; Translations: [Irritable bowel syndrome without diarrhea] 11-11-2021 Chronic Other gastrointestinal disorders (5 sources) Irritable bowel syndrome without diarrhea; Translations: [IRRITABLE BOWEL SYND W/O DIARRHEA] Onset: 08-13-2021 Resolved: 08-13-2021 Chronic Thyroid disorders (4 sources) Non-toxic uninodular goiter; Translations: [Nontoxic single thyroid nodule] Chronic Thyroid disorders (4 sources) Sick-euthyroid syndrome; Translations: [Sick-euthyroid syndrome] Onset: [...] malignant neoplasm of colon] Onset: 10-17-2023 Unclassified (3 sources) Asymptomatic microscopic hematuria 12-21-2023 Past or [...] Test Name Value Interpretation Reference Range Facility Consent for Procedure/Surger yon 01-25-2024 Consent for Procedure/Surgery [id number] #1.00TIFF Normal [facility] Ambulatory Visit Summaryon 0 01-24-2024 Ambulatory Visit Summary DEONTE PORTILLO :1975 Visit Date:01/24/2024 Ambulatory Visit Instructions Your Diagnosis Asymptomatic microscopic hematuria Nephrolithiasis Renal cyst Weak urine stream Tests Performed XR Abdomen 1 View -- Results Pending -- Please visit your patient portal for your results or contact your primary care physician. Your Care Team Attending Physician - Deshaun SANTOS MD Primary Care Physician - CADEN BENAVIDES DO This Is Your Medications List Contact prescribing physician if questions or concerns Non-Formulary Medication ( control pill) acetaminophen-oxycod one (Percocet 325 mg-5 mg Tab) azelastine nasal celecoxib (CeleBREX 100 mg Cap) docusate (Colace 100 mg Cap) duloxetine (Cymbalta) ergocalciferol (Vitamin D) estradiol fexofenadine (Latrice) loratadine (Claritin) multivitamin (Multi Vitamin+) [Image Removed: STOP]Stop taking these medications ciprofloxacin (Cipro 500 mg Tab) Procedures Performed Cystoscopy (01/24/2024), Adenoidectomy, Arthroscopy of shoulder, Colonoscopy, EGD - esophagogastroduoden oscopy, Oral surgery. Discharge Vitals Temperature (Temporal Artery) 37 ?C Heart Rate (Peripheral) 70 Respiratory Rate 16 Blood Pressure 118/93 Height 158 cm Height 62 in Weight 71 kg Weight 156.2 lb BMI 28.44 What to do next Scheduled Follow-Up Appointments Tuesday 10:45 AM EDT With: Deshaun SANTOS MD Where: [facility] Ambulatory Visit Summary DEONTE PORTILLO :1975 Visit Date:01/24/2024 Ambulatory Visit Instructions Your Diagnosis Asymptomatic microscopic hematuria Nephrolithiasis Renal cyst Weak urine stream Tests Performed XR Abdomen 1 View -- Results Pending -- Please visit your patient portal for your results or contact your primary care physician. Your Care Team Attending Physician - Deshaun SANTOS MD Primary Care Physician - CADEN BENAVIDES DO This Is Your Medications List Contact prescribing physician if questions or concerns Non-Formulary Medication ( control pill) acetaminophen-oxycod one (Percocet 325 mg-5 mg Tab) azelastine nasal celecoxib (CeleBREX 100 mg Cap) docusate (Colace 100 mg Cap) duloxetine (Cymbalta) ergocalciferol (Vitamin D) estradiol fexofenadine (Latrice) loratadine (Claritin) multivitamin (Multi Vitamin+) [Image Removed: STOP]Stop taking these medications ciprofloxacin (Cipro 500 mg Tab) Procedures Performed Cystoscopy (01/24/2024), Adenoidectomy, Arthroscopy of shoulder, Colonoscopy, EGD - esophagogastroduoden oscopy, Oral surgery. Discharge Vitals Temperature (Temporal Artery) 37 ?C Heart Rate (Peripheral) 70 Respiratory Rate 16 Blood Pressure 118/93 Height 158 cm Height 62 in Weight 71 kg Weight 156.2 lb BMI 28.44 What to do next You Need to Schedule the Following Appointments Follow Up with Deshaun SANTOS MD R, URL When: Where: [facility] [address], [place] [address]- [phone] Medications What How Much When Instructions Unchanged acetaminophen-oxycod one (Percocet 325 mg-5 mg Tab) See instructions 1-2 tab(s) Oral q4hr Contact prescribing physician if questions or concerns Unchanged azelastine nasal 2 Puffs Nasal Inhalation Every day Contact prescribing physician if questions or concerns Unchanged celecoxib (CeleBREX 100 mg Cap) 1 Capsules By Mouth 2 times a day as needed for for pain Contact prescribing physician if questions or concerns Unchanged docusate (Colace 100 mg Cap) 1 Capsules By Mouth 2 times a day as needed for for constipation Contact prescribing physician if questions or concerns Unchanged duloxetine (Cymbalta) 30 Milligram By Mouth Every day Contact prescribing physician if questions or concerns Unchanged ergocalciferol (Vitamin D) By Mouth Every week Contact prescribing physician if questions or concerns Unchanged estradiol Contact prescribing physician if questions or concerns Unchanged fexofenadine (Latrice) 30 Milligram By Mouth Every day Contact prescribing physician if questions or concerns Unchanged loratadine (Claritin) Every day Contact prescribing physician if questions or concerns Unchanged multivitamin (Multi Vitamin+) Contact prescribing physician if questions or concerns Unchanged Non-Formulary Medication ( control pill) By Mouth Every day Contact prescribing physician if questions or concerns What How Much When Comments Stop Taking ciprofloxacin (Cipro 500 mg Tab) 1 Tablets By Mouth As Directed Patient to take 1 tab the day before procedure and the 2nd tab the day of procedure once completed Medications and Immunizations Administered Given lidocaine Top 2% Gel w/Appl 6 mL, 6 mL, Topical. For: Asymptomatic microscopic hematuria Allergies Mold (Runny nose) Problems Ongoing - [...] choosing us for your care. Education Materials Cystoscopy Cystoscopy is a procedure that is used to help diagnose and sometimes treat conditions that affect the lower urinary tract. The lower urinary tract includes the bladder and the urethra. The urethra is the tube that drains urine from the bladder. Cystoscopy is done using a thin, tube-shaped instrument with a light and camera at the end (cystoscope). The cystoscope may be hard or flexible, depending on the goal of the procedure. The cystoscope is inserted through the urethra, into the bladder. Cystoscopy may be recommended if you have: ? Urinary tract infections that keep coming back. ? Blood in the urine (hematuria). ? An inability to control when you urinate (urinary incontinence) or an overactive bladder. ? Unusual cells found in a urine sample. ? A blockage in the urethra, such as a urinary stone. ? Painful urination. ? An abnormality in the bladder found during an intravenous pyelogram (IVP) or CT scan. Cystoscopy may also be done to remove a s (more content not included)... Normal [facility] Urology Office/Clinic Noteon 01-24-2024 Urology Office/Clinic Note Chief Complaint Pt is here for cystoscopy HPI Staff Cystoscopy. Abx taken. CT done 12/28/23 showed punctate nonobstructing left nephrolithiasis. Negative cytology done 12/21/23 History of Present Illness Tests reviewed: reviewed CT scan, cytology I have reviewed the previous health record information and history for this patient from Dr. Santos. I have reviewed and verified the staff HPI to be accurate for this encounter. Review of Systems PHQ Score Initial [...] See HPI. Physical Exam Vitals & Measurements T: 37 ?C(Temporal Artery) HR: 70(Peripheral) RR: 16 BP: 118/93 HT: 62 in HT: 158 cm WT: 71 kg WT: 156.2 lb BMI: 28.44 General Appearance: alert , no acute distress, well nourished, well developed female. Genitourinary: bladder nonpalpable, no flank pain. Procedure Operative Information Anesthesia Type: Local Procedure: Local Cystoscopy Complications: None Surgical risks, benefits, details of the procedure have been explained to the patient. Full informed consent has been obtained. Intraoperative Information Prepped: Patient is brought back to the endoscopy suite. Patient is placed in modified dorso/lithotomy position. Patient prepped in the usual fashion with Betadine solution. 2% Xylocaine Jelly is placed per Urethra. After waiting several minutes, the Cystoscope is introduced. The Urethra is: Tight, barely able to accommodate scope but no dilation required The Bladder: No tumors or stones, Trabeculated: None (0) mod uterine imprint noted posteriorly The Ureteral orifices: Show efflux of clear urine Specimens Removed: None Removal: Cystoscope is removed. The patient tolerated it well. Postoperative Information Patient is discharged home with antibiotic coverage. Follow up arranged. Assessment/Plan Initially referred by Dr. María Main due to [...] kidney, nonspecific. Incidental small R renal cyst. Started seeing Dr. Daniel 3-4 yrs ago to frequently having high blood creatinine. Has only had one UTI. Cytology 12/22/23 - neg. CT AP wo con 12/28/23 [facility] - No bladder wall thickening, lesion, or calculus. Reviewed imaging results, not suspicious for bladder malignancy. Pt had IO cysto today without complications. Prophy abx taken prior to procedure. No bladder tumors or stones found. Overall hematuria workup is negative. 2. Nephrolithiasis (N20.0: Calculus of kidney) GUERITA 08/01/23 [facility] - No appreciable urinary tract calculi or acute findings. CT AP wo con 12/28/23 [facility] - Punctate nonobstructing L renal stones. No hydro. Shared she had a GUERITA in the past that showed kidney stones but current GUERITA was not as clear due to bowel content. Has never passed stones that she is aware of. Has had incidents where she voids granular particles. Reviewed CT scan results. No indication for intervention given size of stone. -KUB in 1 year 3. Renal cyst (N28.1: Cyst of kidney, acquired) GUERITA 08/01/23 [facility] - Incidental small R renal cyst. [1] 4. Weak urine stream (R39.12: Poor urinary stream) Shares sometimes it takes a long time to empty and has a weak stream. Feels she empties completely unless she holds her bladder. [2] Follow-up With When Contact Information Deshaun SANTOS MD, URL [facility] [address], [place] [address] [phone] Additional Instructions: 1 yr w/ KUB Patient Education Cystoscopy I, Rissa Hill, personally scribed for Dr. Santos on 01/24/2024 14:26:23. . Documentation recorded by the scribe, Rissa Hill, accurately reflects the services(s) I performed and decisions made by me. Authenticated by Dr. Santos on 01/24/2024 14:28:10. Problem List/Past Medical History Ongoing Anxiety Asymptomatic microscopic hematuria CKD (chronic kidney disease) Euthyroid sick syndrome High blood pressure Hyponatremia Hypothyroid IBS (irritable bowel syndrome) Microscopic hematuria Nephrolithiasis Renal cyst Vitamin D deficiency Weak urine stream Historical No qualifying data Procedure/Surgical History (more content not included)... Normal [facility] Comment on above: Result Comment: Elec tronically Signed By: Deshaun SANTOS MD\.br\Date and Time Signed: 01/24/24 14:28 EDT\.br\Electronically Co-Signed By: Rissa Hill\.br\Date and Time Co-Signed: 01/24/24 14:26 EDT RAD - CT Reporton 12-29-2023 RAD - CT Report [id number] #1.00TIFF Normal [facility] Urine Cytology ([facility])on 0 12-27-2023 Microscopic exam Cytology (U) [Interp] Diagnosis Info Invalid Interpretation Code [facility] Comment on above: Result Comment: A:Ur ine,Urine:Voided Interpretation - MicroScopic Description - Adequacy - Gross Description Site ID:A color Yellow fixative Alcohol Specimen designated Urine received in alcohol preservative and labeled with the patient?s name, consists of 50ml slightly cloudy yellow fluid. Electronically signed by : on: 12/27/2023 09:07:17 Performed By: #### 1 [id number] #### [facility] [address] [place] [address] Ambulatory Visit Summaryon 0 12-21-2023 Ambulatory Visit Summary DEONTE PORTILLO :1975 Visit Date:12/21/2023 Ambulatory Visit Instructions Your Diagnosis Asymptomatic microscopic hematuria Renal cyst Weak urine stream Tests Performed CT Abdomen/Pelvis w/o Contrast -- Results Pending -- Please visit your patient portal for your results or contact your primary care physician. Your Care Team Attending Physician - PRASHANT TRAMMELL, Deshaun Aguirre Primary Care Physician - CADEN BENAVIDES DO [...] Follow Up with PRASHANT TRAMMELL, Deshaun Aguirre, YAIMA When: Where: [facility] [address] [place] [address]- Medications What How Much When Instructions Unchanged [...] these instructions at home: Medicines ? Take xdes-rkz-gxrbdrb and prescription medicines only as told by [...] only once. (more content not included)... Normal [facility] Formson 12-21-2023 Forms [id number] #1.00TIFF Normal [facility] Patient Educationon 12-21-19 24 Patient Education Urology [...] these instructions at home: Medicines ? Take fpiz-typ-ffzwnnj and prescription medicines only as told by [...] the blood stops without treatment. ? Take srdt-qfn-bmbmmqi and prescription medicines only as told by your health care provider. ? Drink enough fluid to keep your urine pale yellow. This information is not intended to replace advice given to you by your health care provider. Make sure you discuss any questions you have with your health care provider. Document Revised: 05/27/2021 Document Reviewed: 05/27/2021 [employer] Patient Education ? 2022 [employer] Normal [facility] Physician Referralon 024 Physician Referral [id number] 7#1.00TIFF Normal [facility] Urine Cytology ([facility])on 0 12-21-2023 [facility] Method of Extraction Voided Normal [facility] Comment on above: Performed By: #### 1 [id number] #### [facility] [address] Number of Jars 1 Invalid Interpretation Code [facility] Comment on above: Performed By: #### 1 [id number] #### [facility] [address] Specimen Urine Normal [facility] Comment on above: Performed By: #### 1 [id number] #### [facility] [address] [place] [address] Type of Service Technical Only Normal [facility] Comment on above: Performed By: #### 1 [id number] #### [facility] [address] [place] [address] HCG ( test) IA.rapi d Ql (U)Ordered By: Bienvenido Yanes on 10-17-2023 HCG ( test) Ql (U) Negative [facility] HCG,Urineon 10-17-2023 Beta HCG ( test) Ql (U) Negative Normal [facility] Comment on above: Result Comment: PERF ORMED BY: [address] [address] PATHOLOGIST MICROSCOPIST CHRISTIANO BALLARD M.D. Performed By: #### U HCG #### [address] [address] [facility] HEMOGRAM AND PLATELon 2021 Hematocrit (Bld) [Volume fraction] 37.7 % Normal 36.0-48.0 [facility] Comment on above: Performed By: #### H H #### [facility] [address] [place] [address] Dr. Clarke Chung Hemoglobin (Bld) [Mass/Vol] 13.5 g/dL Normal 12.0-16.0 [facility] Comment on above: Performed By: #### H H #### [facility] [address] [place] [address] Dr. Clarke Chung MCH (RBC) [Entitic mass] 34.4 pg Critically high 26.7-34.0 [facility] Comment on above: Performed By: #### H H #### [facility] [address] [place] [address] Dr. Clarke Chung MCHC (RBC) [Mass/Vol] 35.8 g/dL Critically high 29.9-35.2 [facility] Comment on above: Performed By: #### H H #### [facility] [address] [place] [address] Dr. Clarke Chung MCV (RBC) [Entitic vol] 95.9 fL Normal 81.0-99.0 [facility] Comment on above: Performed By: #### H H #### [facility] [address] [place] [address] Dr. Clarke Chung PLT 262 103/ul Normal 150-450 [facility] Comment on above: Performed By: #### H H #### [facility] [address] [place] [address] Dr. Clarke Chung RBC 3.93 106/ul Critically low 4.20-5.40 [facility] Comment on above: Performed By: #### H H #### [facility] [address] [place] [address] Dr. Clarke Chung WBC 6.5 103/ul Normal 4.0-11.0 [facility] Comment on above: Performed By: #### H H #### [facility] [address] [place] [address] Dr. Clarke Chung MAGNESIUMon 08-09-2022 Magnesium [Mass/Vol] 1.9 mg/dL Normal 1.8-2.4 [facility] Comment on above: Performed By: #### M G, RENAL #### [facility] [address] [address] [address] Clarke Chung MG MAMM SCREEN 3D VERONICA CADon 08-09-2022 MG MAMM SCREEN 3D VERONICA CAD Patient: DEONTE PORTILLO Exam Date: 08/09/2022 : 1975 Gender:F Ordering : DR EMELY IBARRA Admission #: [id number] Family : Order #: [id number] CLICK HERE TO VIEW EXAM RADIOLOGY REPORT [...] colon cancer at age 56. LOCATION: [facility] BREAST COMPOSITION: Extremely dense, which lowers the [...] MD on 08/09/2022 at 14:13 Normal [facility] RENAL FUNCTION PANELon 08-09 Albumin [Mass/Vol] 3.7 g/dL Normal 3.4-5.0 [facility] Comment on above: Performed By: #### M G, RENAL #### [facility] [address] [address] [address] Clarke Chung Calcium [Mass/Vol] 8.8 mg/dL Normal 8.5-10.1 [facility] Comment on above: Performed By: #### M G, RENAL #### [facility] [address] [address] [address] Clarke Chung Chloride [Moles/Vol] 101 mmol/L Normal 98-107 [facility] Comment on above: Performed By: #### M G, RENAL #### [facility] [address] [place] [address] Dr. Clarke Chung CO2 [Moles/Vol] 29.7 mmol/L Normal 21.0-32.0 [facility] Comment on above: Performed By: #### M Ramo, RENAL #### [facility] [address] [address] [address] Clarke Chung Creatinine [Mass/Vol] 1.07 mg/dL Critically high 0.55-1.02 [facility] Comment on above: Performed By: #### Claribel Ralph, RENAL #### [facility] [address] [place] [address] Dr. Clarke Chung EGFR-AF NAMIBIAN >60 Normal >=60 [facility] Comment on above: Performed By: #### Claribel Ralph, RENAL #### [facility] [address] [place] [address] Dr. Clarke Chung EGFR-NON AF NAMIBIAN 55 mL/min/1.73m2 Critically low >=60 [facility] Comment on above: Performed By: #### Claribel Ralph, RENAL #### [facility] [address] [place] [address] Dr. Clarke Chung Glucose [Mass/Vol] 79 mg/dL Normal 74-106 [facility] Comment on above: Performed By: #### Claribel Ralph, RENAL #### [facility] [address] [place] [address] Dr. Clarke Chung Phosphate [Mass/Vol] 2.6 mg/dL Normal 2.6-4.7 [facility] Comment on above: Performed By: #### Claribel Ralph, RENAL #### [facility] [address] [place] [address] Dr. Clarke Chung Potassium [Moles/Vol] 3.8 mmol/L Normal 3.5-5.1 [facility] Comment on above: Performed By: #### Claribel Ralph, RENAL #### [facility] [address] [place] [address] Dr. Clarke Chung Sodium [Moles/Vol] 134 mmol/L Critically low 136-145 [facility] Comment on above: Performed By: #### M G, RENAL #### [facility] [address] [place] [address] Dr. Clarke Chung Urea nitrogen [Mass/Vol] 14.0 mg/dL Normal 7.0-18.0 [facility] Comment on above: Performed By: #### M G, RENAL #### [facility] [address] [place] [address] Dr. Clarke Chung UA RANDOM W/MICROSCOPICon BACTERIA TRACE Abnormal NONE SEEN [facility] Comment on above: Performed By: #### U AMIC #### [facility] [address] [place] [address] Dr. Clarke Chung Bilirubin Ql (U) Negative Normal NEGATIVE [facility] Comment on above: Performed By: #### U AMIC #### [facility] [address] [place] [address] Dr. Clarke Chung CAST NONE SEEN Normal NONE SEEN [facility] Comment on above: Performed By: #### U AMIC #### [facility] [address] [place] [address] Dr. Clarke Chung Clarity (U) CLEAR Normal CLEAR [facility] Comment on above: Performed By: #### U AMIC #### [facility] [address] [place] [address] Dr. Clarke Chung Color (U) DK. YELLOW Normal YELLOW [facility] Comment on above: Performed By: #### U AMIC #### [facility] [address] [place] [address] Dr. Clarke Chung Crystals LM Nom (Urine sed) NONE SEEN Normal NONE SEEN [facility] Comment on above: Performed By: #### U AMIC #### [facility] [address] [place] [address] Dr. Clarke Chung Epithelial cells LM Ql (Urine sed) RARE Normal NONE SEEN /RARE [facility] Comment on above: Performed By: #### U AMIC #### [facility] [address] [place], [place] [id number] Dr. Clarke Chung Glucose Ql (U) Negative Normal NEGATIVE [facility] Comment on above: Performed By: #### U AMIC #### [facility] [address] [address] [address] Clarke Chung Hemoglobin Ql (U) Negative Normal NEGATIVE [facility] Comment on above: Performed By: #### U AMIC #### [facility] [address] [address] [address] Clarke Chung Ketones Ql (U) 15 mg/dl Abnormal NEGATIVE [facility] Comment on above: Performed By: #### U AMIC #### [facility] [address] [address] [address] Clarke Chung LEUKOCYTES Negative Normal NEGATIVE [facility] Comment on above: Performed By: #### U AMIC #### [facility] [address] [place] [address] Dr. Clarke Chung MUCOUS NONE SEEN Normal NONE SEEN [facility] Comment on above: Performed By: #### U AMIC #### [facility] [address] [address] [address] Clarke Chung Nitrite Ql (U) Negative Normal NEGATIVE [facility] Comment on above: Performed By: #### U AMIC #### [facility] [address] [place] [address] Dr. Clarke Chung pH (U) 7.5 [pH] Normal 5-9 [facility] Comment on above: Performed By: #### U AMIC #### [facility] [address] [place] [address] Dr. Clarke Chung RBC 0-2 Normal 0-2 [facility] Comment on above: Performed By: #### U AMIC #### [facility] [address] [place] [address] Dr. Clarke Chung SPEC GRAVITY 1.010 Normal 1.005-<=1.025 [facility] Comment on above: Performed By: #### U AMIC #### [facility] [address] [place] [address] Dr. Clarke Chung UA PROTEIN Negative Normal NEGATIVE/ TRACE [facility] Comment on above: Performed By: #### U AMIC #### [facility] [address] [address] [address] Clarke Chung Urobilinogen Qn (U) 0.2 {Jhonny'U}/dL Normal 0.2 - 1.0 [facility] Comment on above: Performed By: #### U AMIC #### [facility] [address] [place] [address] Dr. Clarke Chung WBC 0-2 Abnormal NONE SEEN [facility] Comment on above: Performed By: #### U AMIC #### [facility] [address] [place] [address] Dr. Clarke Chung URINE T PROTEIN CREAT RATIOo n 08-09-2022 Protein (U) [Mass/Vol] 13.8 mg/dL Critically high <=12.0 [facility] Comment on above: Performed By: #### U RTPCR #### [facility] [address] [place] [address] Dr. Clarke Chung UR PROT CREAT RAT 0.13 Normal [facility] Comment on above: Performed By: #### U RTPCR #### [facility] [address] [place] [address] Dr. Clarke Chung URINE CREAT 106.93 mg/dL Normal 20.00-300.00 [facility] Comment on above: Performed By: #### U RTPCR #### [facility] [address] [place] [address] Dr. Clarke Chung VITAMIN D 25 OHon 08-09-2022 VIT D 25-OH 69.2 ng/mL Normal [facility] Comment on above: Performed By: #### V ITAD #### [facility] [address] [place] [address] Dr. Clarke Chung VIT D RANGES SEE BELOW Normal [facility] Comment on above: Result Comment: <20 ng/mL Vit D deficient 20 - <30 ng/mL Vit D insufficient 30 - 100 ng/mL Vit D sufficient >100 ng/mL Potential Toxicity Performed By: #### V ITAD #### [facility] [address] [address] [address] Clarke Chung Vital Signs Date Time Vital Sign Value Performing Clinician Facility 01-24-2024 13:15-0400 Body temperature 98.6 [degF] Deshaun SANTOS [facility] 01-24-2024 13:15-0400 Diastolic blood pressure 93 mm[Hg] Deshaun SANTOS [facility] 01-24-2024 13:15-0400 Heart rate 70 /min Deshaun SANTOS [facility] 01-24-2024 13:15-0400 Respiratory rate 16 /min Deshaun SANTOS [facility] 01-24-2024 13:15-0400 Systolic blood pressure 118 mm[Hg] Deshaun SANTOS [facility] 12-21-2023 09:14-0400 Diastolic blood pressure 88 mm[Hg] Deshaun SANTOS [facility] 12-21-2023 09:14-0400 Mean blood pressure 102 mm[Hg] Deshaun SANTOS [facility] 12-21-2023 09:14-0400 Systolic blood pressure 130 mm[Hg] Deshaun SANTOS [facility] 12-21-2023 09:00-0400 Blood Pressure Location Deshaun SANTOS [facility] 12-21-2023 09:00-0400 Diastolic blood pressure 102 mm[Hg] Deshaun SANTOS [facility] 12-21-2023 09:00-0400 Heart rate 58 /min Deshaun SANTOS [facility] 12-21-2023 09:00-0400 Systolic blood pressure 140 mm[Hg] Deshaun SANTOS [facility] 10-17-2023 09:50-0500 Diastolic blood pressure 73 mm[Hg] DO Caden Petznick Work Phone: [facility] 10-17-2023 09:50-0500 Heart rate 702 /min DO Caden Petznick Work Phone: [facility] 10-17-2023 09:50-0500 Respiratory rate 20 /min DO Caden Petznick Work Phone: [facility] 10-17-2023 09:50-0500 SaO2% (BldA) [Mass fraction] 99 % DO Caden Petznick Work Phone: [facility] 10-17-2023 09:50-0500 Systolic blood pressure 131 mm[Hg] DO Caden Petznick Work Phone: [facility] 10-17-2023 07:28-0500 Body height 157.48 cm DO Caden Petznick Work Phone: [facility] 10-17-2023 07:28-0500 Body temperature 97.8 [degF] DO Caden Petznick Work Phone: [facility] 10-17-2023 07:28-0500 Body weight 70.3 kg DO Caden Petznick Work Phone: [facility] 07-21-2023 09:00-0400 Body height 157.48 cm Etelvina María Other [facility] Other 07-21-2023 09:00-0400 Body mass index (BMI) [Ratio] 29.52 kg/m2 Etelvina María Other [facility] Other 07-21-2023 09:00-0400 Body temperature 98.2 [degF] Etelvina María Other [facility] Other 07-21-2023 09:00-0400 Body weight 73.21 kg Etelvina María Other [facility] Other 07-21-2023 09:00-0400 Diastolic blood pressure 89 mm[Hg] Etelvina María Other [facility] Other 07-21-2023 09:00-0400 Respiratory rate 18 /min Etelvina María Other [facility] Other 07-21-2023 09:00-0400 SaO2% (BldA) [Mass fraction] 99 % Etelvina María Other [facility] Other 07-21-2023 09:00-0400 Systolic blood pressure 138 mm[Hg] Etelvina María Other [facility] Other 08-19-2022 10:00-0500 Body height 157.48 cm Etelvina María Other [facility] Other 08-19-2022 10:00-0500 Body mass index (BMI) [Ratio] 29.77 kg/m2 Etelvina María Other [facility] Other 08-19-2022 10:00-0500 Body temperature 97.9 [degF] Etelvina María Other [facility] Other 08-19-2022 10:00-0500 Body weight 73.85 kg Etelvina María Other [facility] Other 08-19-2022 10:00-0500 Diastolic blood pressure 95 mm[Hg] Etelvina María Other [facility] Other 08-19-2022 10:00-0500 Respiratory rate 18 /min Etelvina María Other [facility] Other 08-19-2022 10:00-0500 SaO2% (BldA) [Mass fraction] 97 % Etelvina María Other [facility] Other 08-19-2022 10:00-0500 Systolic blood pressure 148 mm[Hg] Etelvina María Other [facility] Other 08-13-2021 10:00-0400 Body height 157.48 cm Etelvina María Other [facility] Other 08-13-2021 10:00-0400 Body mass index (BMI) [Ratio] 29.04 kg/m2 Etelvina María Other [facility] Other 08-13-2021 10:00-0400 Body temperature 97.4 [degF] Etelvina María Other [facility] Other 08-13-2021 10:00-0400 Body weight 72.03 kg Etelvina María Other [facility] Other 08-13-2021 10:00-0400 Diastolic blood pressure 90 mm[Hg] Etelvina María Other [facility] Other 11-04-2021 10:00-0400 Respiratory rate 18 /min Etelvina María Other [facility] Other 08-13-2021 10:00-0400 SaO2% (BldA) [Mass fraction] 99 % Etelvina María Other [facility] Other 08-13-2021 10:00-0400 Systolic blood pressure 140 mm[Hg] Etelvina María Other [facility] Other Encounters Encounter Date Encounter Type Care Provider Facility Start: 01-21-2025 ambulatory Deshaun Toddi ty:[facility] Start: 01-24-2024 End: 01-25-2024 ambulatory Deshaun SANTOS Facility:[facility] Start: 01-24-2024 End: 01-24-2024 Patient encounter procedure Deshaun SANTOS [facility] Start: 12-21-2023 End: 12-22-2023 ambulatory Deshaun SANTOS Facility:[facility] Start: 12-21-2023 End: 12-21-2023 Lab Drop off Deshaun SANTOS [facility] Start: 12-21-2023 End: 12-21-2023 Patient encounter procedure Deshaun SANTOS [facility] Start: 11-09-2023 ambulatory ETELVINA MARÍA Facility:[facility] Start: 10-21-2023 ambulatory Deshaun SANTOS Facility :[facility] Start: 10-17-2023 End: 10-17-2023 ambulatory Caden Benavides Facility:[facility] Start: 10-17-2023 End: 10-17-2023 Admission to same day surgery center DO Caden Benavides Work Phone: [facility] Work Phone: Start: 10-17-2023 End: 10-17-2023 ambulatory DO Caden Benavides Work Phone: [facility] Work Phone: Start: 10-11-2023 End: 10-11-2023 ambulatory EMELY J PRINTY Not Available Start: 09-05-2023 End: 09-05-2023 ambulatory EMELY PRINTY Not Available Start: 08-04-2023 End: 08-04-2023 ambulatory Etelvina María Other [facility] Other Start: 08-04-2023 Telephone encounter Etelvina María [facility] Start: 08-02-2023 ambulatory Deshaun PRASHANT Facility :[facility] Start: 07-27-2023 End: 07-27-2023 ambulatory Imad Asaad Other [facility] Other Start: 07-27-2023 Telephone encounter Imad Asaad [id number] Start: 07-21-2023 End: 07-21-2023 ambulatory Etelvina María Other [facility] Other Start: 07-21-2023 Office outpatient visit 15 minutes Etelvina María [facility] Start: 12-02-[address] SHEREE BOLAND Facilit y:[facility] Start: 08-19-2022 End: 08-19-2022 ambulatory Etelvina María Other [facility] Other Start: 08-19-2022 Office outpatient visit 15 minutes Etelvina María [facility] Start: 08-09-2022 End: 08-10-2022 ambulatory ETELVINA MARÍA Facility:[facility] Start: 07-15-2022 End: 10-24-[address] SHEREE BOLAND Facility:[facility] Start: 02-12-2022 End: 05-24-[address] SHEREE BOLAND Facility:[facility] Start: 01-04-2022 End: 03-19-2022 ambulatory NORMAN OLIVIA Facility:[facility] Start: 08-13-2021 End: 08-13-2021 ambulatory Etelvina María Other [employer] [employer] Other Start: 08-13-2021 Office outpatient visit 15 minutes Etelvina María [facility] Start: 07-15-2018 End: 07-15-2018 Telephone encounter Carrie Tran MD Work Phone: Endocrinology Comment on above: Radiology US Start: 11-16-2017 Ambulatory JANESSA BROWER Facility :8 Start: 10-05-2017 Ambulatory JANESSA LEONARDA Facility :8 Procedures Date Procedure Procedure Detail Performing Clinician Start: 01-24-2024 Transurethral cystoscopy Deshaun SANTOS Start: 10-17-2023 Screening colonoscopy DO Caden Benavides Work Phone: Start: 02-07-2017 Mammography Carrie Tran MD Work Phone: Adenoid excision Deshaun ASH Arthroscopy of shoulder Patr robert SANTOS Comment on above: LEFT SHOULDER ARTHROSCOPY WITH SUBOCROMI AL DECOMPRESSION AND LABRAL REPAIR Colonoscopy Deshaun SANTOS Esophagogastroduodenoscopy P jac SANTOS Oral surgery (qualifier value) Deshaun SANTOS Plan of Treatment Date Care Activity Detail Author Start: 10-17-[address] [facility] Start: 11-10-2021 HPV TESTING HPV TESTING [facility] Start: 11-10-2021 PAP TESTING PAP TESTING [facility] Start: 06-10-2021 Influenza vaccination INFLUENZ A (Season Ended) [facility] Start: 02-07-2018 Mammography MAMMOGRAM [facility] Start: 1995 Urine microalbumin profile DTAP,TDAP,TD (1 - Tdap) [facility] Start: 1994 HEPATITIS C SCREENING HEPATITIS C SC REENING [facility] Start: 1994 HIV SCREENING HIV SCREENING [facility] Start: 1988 Adult depression screening assessment DEPRESSION SCREENING [facility] Patient Education Hemorrhoids (DC) [facility] Work Phone: Immunizations Immunization Date Immunization Notes Care Provider Mary Ann andre 08-01-2023 influenza virus vaccine, unspecified formulation Deshaun SANTOS [facility] 07-11-2022 influenza virus vaccine, unspecified formulation Deshaun SANTOS [facility] 07-31-2021 SARS-CoV-2 (COVID-19 ) mRNA-1273 vaccine Deshaun SANTOS [facility] 11-06-2020 SARS-CoV-2 (COVID-19 ) mRNA-1273 vaccine Deshaun SANTOS [facility] 10-08-2020 SARS-CoV-2 (COVID-19 ) mRNA-1273 vaccine Deshaun SANTOS [facility] 08-10-2017 influenza virus vaccine, unspecified formulation Deshaun SANTOS [facility] 07-23-2016 influenza virus vaccine, unspecified formulation Deshaun SANTOS [facility] Payers Date Payer Category Payer Self-pay [id number] 2017 Unknown MMO MMO [place] [id number] 2017-Present PPO [id number] 1975 Unknown [id number] 1975 Unknown [id number] [id number] 1975 Unknown [id number] [id number] 1975 Unknown [id number] [id number] 1975 Unknown [id number] 2.16.840.1.127938.3.579.2.593 1975 Unknown [id number] 2.16.840.1.196630.3.579.2.593 1975 Unknown [id number] 2.16.840.1.085754.3.579.2.1259 1975 Unknown [id number] 2.16.840.1.101415.3.579.2.1259 1975 Unknown [id number] 2.16.840.1.631675.3.579.2.727 1975 Unknown [id number] 2.16.840.1.037443.3.579.2.727 1975 Unknown [id number] 2.16.840.1.648072.3.579.2.727 1975 Unknown [id number] 2.16.840.1.784571.3.579.2.727 1975 Unknown [id number] 2.16.840.1.704756.3.579.2.727 1975 Unknown [id number] 2.16.840.1.055432.3.579.2.727 1975 Unknown [id number] [id number] 1958 Self-pay [id number] 1959 Unknown [id number] [id number] Unknown [id number] Unknown [employer] [id number] Unknown [id number] Social History Date Type Detail Facility Start: 07-14-2018 End: 01-24-2024 Tobacco smoking status NHIS Never smoker 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 Start: 1975 Sex Assigned At Female F [facility] Tobacco smoking status Never [facility] Medical Equipment Procedure Code Equipment Code Equipment Origin al Text Equipment Identifier Dates SHOULDER ARTHROS COPY W/ POSSIBLE REPAIR Norman Olivia DO William 11/20/21 Non Biological Shoulder L [id number] [facility] Start: 11-20-2021 Goals Date Patient Goal Desired Activity /State Functional Status Date Assessment Result Facility 01-24-2024 Functional Status N/A [facility] 12-21-2023 Functional Status N/A [facility] Clinical Notes 07-17-2018 to 01-24-2024 Note Date & Type Note Facility 01-24-2024 Hospital Discharg e instructions Patient Education 01/24/2024 14:10:04 Cystoscopy Cystoscopy Cystoscopy is a procedure that is used to help diagnose and sometimes treat conditions that affect the lower urinary tract. The lower urinary tract includes the bladder and the urethra. The urethra is the tube that drains urine from the bladder. Cystoscopy is done using a thin, tube-shaped instrument with a light and camera at the end (cystoscope). The cystoscope may be hard or flexible, depending on the goal of the procedure. The cystoscope is inserted through the urethra, into the bladder. Cystoscopy may be recommended if you have: Urinary tract infections that keep coming back. Blood in the urine (hematuria). An inability to control when you urinate (urinary incontinence) or an overactive bladder. Unusual cells found in a urine sample. A blockage in the urethra, such as a urinary stone. Painful urination. An abnormality in the bladder found during an intravenous pyelogram (IVP) or CT scan. Cystoscopy may also be done to remove a sample of tissue to be examined under a microscope (biopsy). Tell a health care provider about: Any allergies you have. All medicines you are taking, including vitamins, herbs, eye drops, creams, and ygxt-ial-brvnyva medicines. Any problems you or family members have had with anesthetic medicines. Any blood disorders you have. Any surgeries you have had. Any medical conditions you have. Whether you are or may be . What are the risks? Generally, this is a safe procedure. However, problems may occur, including: Infection. Bleeding. Allergic reactions to medicines. Damage to other structures or organs. What happens before the procedure? Medicines Ask your health care provider about: Changing or stopping your regular medicines. This is especially important if you are taking diabetes medicines or blood thinners. Taking medicines such as aspirin and ibuprofen. These medicines can thin your blood. Do not take these medicines unless your health care provider tells you to take them. Taking cqrf-bro-gfypcpl medicines, vitamins, herbs, and supplements. Tests You may have an exam or testing, such as: X-rays of the bladder, urethra, or kidneys. CT scan of the abdomen or pelvis. Urine tests to check for signs of infection. General instructions Follow instructions from your health care provider about eating or drinking restrictions. Ask your health care provider what steps will be taken to help prevent infection. These steps may include: ?Washing skin with a germ-killing soap. ?Taking antibiotic medicine. Plan to have a responsible adult take you home from the hospital or clinic. What happens during the procedure? You will be given one or more of the following: ?A medicine to help you relax (sedative). ?A medicine to numb the area (local anesthetic). The area around the opening of your urethra will be cleaned. The cystoscope will be passed through your urethra into your bladder. Germ-free (sterile) fluid will flow through the cystoscope to fill your bladder. The fluid will stretch your bladder so that your health care provider can clearly examine your bladder pérez. Your doctor will look at the urethra and bladder. Your doctor may take a biopsy or remove stones. The cystoscope will be removed, and your bladder will be emptied. The procedure may vary among health care providers and hospitals. What can I expect after the procedure? After the procedure, it is common to have: Some soreness or pain in your abdomen and urethra. Urinary symptoms. These include: ?Mild pain or burning when you urinate. Pain should stop within a few minutes after you urinate. This may last for up to 1 week. ?A small amount of blood in your urine for several days. ?Feeling like you need to urinate but producing only a small amount of urine. Follow these instructions at home: Medicines Take qxvn-fcx-tcmwyro and prescription medicines only as told by your health care provider. If you were prescribed an antibiotic medicine, take it as told by your health care provider. Do not stop taking the antibiotic even if you start to feel better. General instructions Return to your normal activities as told by your health care provider. Ask your health care provider what activities are safe for you. If you were given a sedative during the procedure, it can affect you for several hours. Do not drive or operate machinery until your health care provider says that it is safe. Watch for any blood in your urine. If the amount of blood in your urine increases, call your health care provider. Follow instructions from your health care provider about eating or drinking restrictions. If a tissue sample was removed for testing (biopsy) during your procedure, it is up to you to get your test results. Ask your health care provider, or the department that is doing the test, when your results will be ready. Drink enough fluid to keep your urine pale yellow. Keep all follow-up visits. This is important. Contact a health care provider if: You have pain that gets worse or does not get better with medicine, especially pain when you urinate. You have trouble urinating. You have more blood in your urine. Get help right away if: You have blood clots in your urine. You have abdominal pain. You have a fever or chills. You are unable to urinate. Summary Cystoscopy is a procedure that is used to help diagnose and sometimes treat conditions that affect the lower urinary tract. Cystoscopy is done using a thin, tube-shaped instrument with a light and camera at the end. After the procedure, it is common to have some soreness or pain in your abdomen and urethra. Watch for any blood in your urine. If the amount of blood in your urine increases, call your health care provider. If you were prescribed an antibiotic medicine, take it as told by your health care provider. Do not stop taking the antibiotic even if you start to feel better. This information is not intended to replace advice given to you by your health care provider. Make sure you discuss any questions you have with your health care provider. Document Revised: 06/09/2022 Document Reviewed: 05/08/2021 [employer] Patient Education 2022 [employer]. Follow Up Care 12/21/2023 09:45:00 With:PRASHATN TRAMMELL, Deshaun Aguirre, URL Address: [facility] [address], [place] [address]- [phone] When: Unknown [facility]na 01-24-2024 Note Urology Cystoscopy Cystoscopy is a procedure that is used to help diagnose and sometimes treat conditions that affect the lower urinary tract. The lower urinary tract includes the bladder and the urethra. The urethra is the tube that drains urine from the bladder. Cystoscopy is done using a thin, tube-shaped instrument with a light and camera at the end (cystoscope). The cystoscope may be hard or flexible, depending on the goal of the procedure. The cystoscope is inserted through the urethra, into the bladder. Cystoscopy may be recommended if you have: ? Urinary tract infections that keep coming back. ? Blood in the urine (hematuria). ? An inability to control when you urinate (urinary incontinence) or an overactive bladder. ? Unusual cells found in a urine sample. ? A blockage in the urethra, such as a urinary stone. ? Painful urination. ? An abnormality in the bladder found during an intravenous pyelogram (IVP) or CT scan. Cystoscopy may also be done to remove a sample of tissue to be examined under a microscope (biopsy). Tell a health care provider about: ? Any allergies you have. ? All medicines you are taking, including vitamins, herbs, eye drops, creams, and sugd-vom-owxjodp medicines. ? Any problems you or family members have had with anesthetic medicines. ? Any blood disorders you have. ? Any surgeries you have had. ? Any medical conditions you have. ? Whether you are or may be . What are the risks? Generally, this is a safe procedure. However, problems may occur, including: ? Infection. ? Bleeding. ? Allergic reactions to medicines. ? Damage to other structures or organs. What happens before the procedure? Medicines Ask your health care provider about: ? Changing or stopping your regular medicines. This is especially important if you are taking diabetes medicines or blood thinners. ? Taking medicines such as aspirin and ibuprofen. These medicines can thin your blood. Do not take these medicines unless your health care provider tells you to take them. ? Taking dmge-yme-vbmhesf medicines, vitamins, herbs, and supplements. Tests You may have an exam or testing, such as: ? X-rays of the bladder, urethra, or kidneys. ? CT scan of the abdomen or pelvis. ? Urine tests to check for signs of infection. General instructions ? Follow instructions from your health care provider about eating or drinking restrictions. ? Ask your health care provider what steps will be taken to help prevent infection. These steps may include: ? Washing skin with a germ-killing soap. ? Taking antibiotic medicine. ? Plan to have a responsible adult take you home from the hospital or clinic. What happens during the procedure? ? You will be given one or more of the following: ? A medicine to help you relax (sedative). ? A medicine to numb the area (local anesthetic). ? The area around the opening of your urethra will be cleaned. ? The cystoscope will be passed through your urethra into your bladder. ? Germ-free (sterile) fluid will flow through the cystoscope to fill your bladder. The fluid will stretch your bladder so that your health care provider can clearly examine your bladder pérez. ? Your doctor will look at the urethra and bladder. Your doctor may take a biopsy or remove stones. ? The cystoscope will be removed, and your bladder will be emptied. The procedure may vary among health care providers and hospitals. What can I expect after the procedure? After the procedure, it is common to have: ? Some soreness or pain in your abdomen and urethra. ? Urinary symptoms. These include: ? Mild pain or burning when you urinate. Pain should stop within a few minutes after you urinate. This may last for up to 1 week. ? A small amount of blood in your urine for several days. ? Feeling like you need to urinate but producing only a small amount of urine. Follow these instructions at home: Medicines ? Take dmev-oov-mwgbmfq and prescription medicines only as told by your health care provider. ? If you were prescribed an antibiotic medicine, take it as told by your health care provider. Do not stop taking the antibiotic even if you start to feel better. General instructions ? Return to your normal activities as told by your health care provider. Ask your health care provider what activities are safe for you. ? If you were given a sedative during the procedure, it can affect you for several hours. Do not drive or operate machinery until your health care provider says that it is safe. ? Watch for any blood in your urine. If the amount of blood in your urine increases, call your health care provider. ? Follow instructions from your health care provider about eating or drinking restrictions. ? If a tissue sample was removed for testing (biopsy) during your procedure, it is up to you to get your test results. Ask your health care provider, or the department th (more content not included)... [facility] 12-21-2023 Note Chief Complaint Referral HPI Staff Deonte is a 48 y.o. female new patient here for persistent microscopic hematuria. Referred by María Main. BUN 14.0 & CRE 1.21 done on 07/14/23. Renal US done on 08/01/23 @ [facility]. Dysuria: denies pain or burning Incomplete bladder [...] drinks a lot of fluids, she voids [id number] but when she doesn't drink a lot [...] order Local anesthesia. Prophylactic abx sent to [facility]. 2. Renal cyst (N28.1: Cyst of kidney, acquired) GUERITA 08/01/23 TB - Incidental small R renal cyst. 3. Weak urine stream (R39.12: Poor urinary stream) Shares sometimes it takes a long time to empty and has a weak stream. Feels she empties completely unless she holds her bladder. Follow-up With When Contact Information Deshaun SANTOS MD, [facility] [address], (more content not included)... [facility] Comment on above: Result Comment: Elec tronically Signed By: Deshaun SANTOS MD\.br\Date and Time Signed: 12/21/23 09:37 EDT\.br\Electronically [...] Follow these instructions at home: Medicines Take hyql-dty-aqmihof and prescription medicines only as told by [...] or the blood stops without treatment. Take lnbd-fbr-jkoiyil and prescription medicines only as told by your health care provider. Drink enough fluid to keep your urine pale yellow. This information is not intended to replace advice given to you by your health care provider. Make sure you discuss any questions you have with your health care provider. Document Revised: 05/27/2021 Document Reviewed: 05/27/2021 [employer] Patient Education 2022 [employer]. Follow Up Care 09/06/2023 12:54:24 With:PRASHANT TRAMMELL, Deshaun Aguirre, ARLYNL Address: [facility] [address] , [place] [address]- When: Unknown [facility] 10-17-2023 Procedure [address] [facility] 07-21-2023 Evaluation note Encounter Date Diagnosis Assessment [...] denies any symptoms of UTI or menstruation. [facility] Other 10-12-2023 Evaluation note* Encounter Date Diagnosis [...] denies any symptoms of UTI or menstruation. [facility] Other 11-10-2022 Evaluation note* Encounter Date Diagnosis [...] - K58.9) Continue to follow with PCP [facility] 11-04-2021 Evaluation note* Encounter Date Diagnosis [...] will check the serum calcium and PTH. [facility] Other 10-08-2018 Miscellaneous Notes* Telephone Encounter - Kayy Hernandez - 07/17/2018 2:36 PM EDT Called patient to schedule US she is going to have the US done at another facility. She wanted the order faxed to [phone]. Order was faxed on 07-17-2018. * Telephone Encounter - Carrie Tran - 07/15/2018 5:01 PM EDT Please schedule US thyroid. [facility] Future Appointments Appointment Date:01/24/2024 01:30:00 PM Scheduled Provider:Deshaun SANTOS MD Location:[facility] Appointment Type:URO Procedure 15 min Diagnostic Tests Pending * Urine Cytology [facility]ments Appointment Date:01/24/2024 01:30:00 PM Scheduled Provider:Deshaun SANTOS MD Location:[facility] Appointment Type:URO Procedure 15 min [facility] Evaluation + Plan note Future Appointments Appointment Date:01/21/2025 10:45:00 AM Scheduled Provider:Deshaun SANTOS MD Location:[facility] Appointment Type:URO Office Visit [facility] Evaluation note* Diagnosis Nontoxic single thyroid nodule- Primary Nontoxic uninodular goiter documented in this encounter [facility] noteNo InformationNorth Soapets Other Evaluation noteNo assessment information available [facility] Work Phone: History and physical note Author Bienvenido Yanes [facility] October 17, 2023 8:49am Note Date/Time October 17, 2023 8: 49am [facility] [address] [place] [address] Gastroenterology H&P Signed Patient: Deonte Portillo MR#: [id number] : 1975 Acct:[id number] Age/Sex: 48 / F Adm Date: 4 Loc: Room: Type: [facility] Attending Dr: Bienvenido Yanes MD Copies to: MD Caden Sarmiento, ~ Date of Service: 10/17/2023 HISTORY & PHYSICAL: [...] <Electronically signed by Bienvenido Yanes MD> 10/17/23848 [facility] Work Phone: [facility] general Narrative - Reported* Type Description Date [...] childbirth X 2 Hospitalization History SEE ABOVE [facility] Other [facility] general Narrative - Reported* Type Description Date [...] childbirth X 2 Hospitalization History SEE ABOVE [facility] Other Hospital course Narrative No data available for this section [facility] Hospital Discharge instructions Additional Instructions DISCHARGE INSTRUCTIONS [...] NOT operate machinery such as power tools, [employer] mowers, snow blowers, sewing machines, etc. for [...] years. -Follow up with PCP. -Office number [phone]. [facility] Work Phone: Hospital Discharge instructions No data available for this section [facility] No data available for this section [facility] Summary Purpose Family History No Family History [...] section and content) DATE CREATED AUTHOR 04/03/2018 [facility] DATE CREATED AUTHOR AUTHOR'S ORGANIZ ATION 12/03/2022 [facility] DATE CREATED AUTHOR AUTHOR'S ORGANIZ ATION 10/12/2023 [facility] DATE CREATED AUTHOR AUTHOR'S ORGANIZ ATION 10/28/2023 [facility] DATE CREATED AUTHOR AUTHOR'S ORGANIZ ATION 01/25/2024 Mike Salas [facility] Source Comments (unrecognize d section and content) In the event this informatio n is protected by the Federal Confidentiality of Alcohol and Drug Abuse Patient Records regulations: The Federal rules restrict any use of the information to criminally investigate or prosecute any alcohol or drug abuse patient.[facility] Reason for Visit (unrecogniz ed section [...] BE BASED ON THE PRIMARY CLINICAL RECORDS. [employer] provides no warranty or guarantee of the accuracy or completeness of information in this document.
[2024-02-04 10:18] LABS: Creatinine Urine Random 84.46 mg/dL (20.00-300.00); Protein Creatinine Ratio Urine 0.14; Total Protein Urine Random 11.5 mg/dL (<=11.9)
[2024-02-04 12:01] LABS: Magnesium 1.9 mg/dL (1.8-2.4); Phosphorus 3.4 mg/dL (2.6-4.7); Uric Acid 4.5 mg/dL (2.6-6.0)
[2024-02-04 12:30] LABS: Bilirubin Urine NEGATIVE (NEGATIVE); Blood Urine TRACE-I (NEGATIVE); Clarity Urine CLEAR (CLEAR); Color Urine LT. YELLOW (YELLOW); Glucose Urine UA NEGATIVE (NEGATIVE); Ketones Urine NEGATIVE (NEGATIVE); Leukocyte Esterase Urine NEGATIVE (NEGATIVE); Nitrite Urine NEGATIVE (NEGATIVE); Protein Urine NEGATIVE (NEG/TRACE); Specific Gravity Urine 1.015 (1.005-1.025); Urobilinogen Urine 0.2 EU/dL (0.2-1.0); pH Urine 7.5 (5.0-9.0)
[2024-02-04 12:43] LABS: Bacteria Urine TRACE #/HPF (NONE SEEN); Cast Seen? NONE SEEN #/LPF (NONE SEEN); Crystals Seen? None Seen #/HPF (None Seen); Mucus Urine NONE SEEN (NONE SEEN); Squamous Epithelial Cell Urine FEW #/LPF (NONE/RARE); WBC Urine 0-2 #/HPF (NONE SEEN)
[2024-02-05 16:07] LABS: PTH, Intact 16 pg/mL (15-65)
== END 2024-02-04 09:16 | disposition home or self-care (01) ==
PROVIDERS: PCP Family Medicine; Visit Provider Internal Medicine
DX: N18.30 Chronic kidney disease, stage 3 unspecified (principal); R03.0 Elevated blood-pressure reading, without diagnosis of hypertension; N20.0 Calculus of kidney; E55.9 Vitamin D deficiency, unspecified; K58.9 Irritable bowel syndrome, unspecified; E87.1 Hypo-osmolality and hyponatremia; R31.29 Other microscopic hematuria
CPT/HCPCS: 36415; 81001; 82306; 82570; 83735; 83970; 84100; 84156; 84550; 85027

== ENCOUNTER 2024-02-04 09:36 | Outpatient (OUT) | payer OTHER, SELFPAY ==
--- OUTSIDE RECORDS SUMMARY | 2024-02-04 09:39 | XMS_ITS | CCD ---
Author Organization [facility] Care Team Providers Care Cloth Finisher Name Role Phone JANESSA BROWER Unavailable Unavailable NO FAMILY DOCTOR, NO FAMILY DOCTOR Unavailable Unavailable CHECONAHUMJANESSA Unavailable Unavailable NO FAMILY DOCTOR, NO FAMILY DOCTOR Unavailable Unavailable Balaji Peraza Primary Care Provider MaríaZhangul Unavailable NORMAN OLIVIA Attending Unavailable PETZNICK, CADEN Primary Care Unavailable NORMAN OLIVIA Admitting Unavailable MARÍAETELVINA Attending Unavailable MARÍA, ETELVINA Admitting Unavailable PETZNICK, [facility] Primary Care Unavailable MARÍA, ETELVINA Consulting Unavailable WEST, DR SHEREE Mesa Consulting Unavailable PRINTY, DR HAN Attending Unavailable PRINTY, DR HAN Admitting Unavailable PETZNICK, [facility] Primary Care Unavailable PRINTY, DR HAN Consulting Unavailable WEST, DR SHEREE Mes[place] Admitting Unavailable WEST, DR SHEREE [place] Consulting Unavailable PETZNICK, [facility] Primary Care Unavailable WEST, DR SHEREE Mesa Attending Unavailable WEST, DR SHEREE Mesa Admitting Unavailable WEST, DR SHEREE [place] Consulting Unavailable PETZNICK, [facility] Primary Care Unavailable WEST, DR SHEREE Mesa Attending Unavailable WEST, DR SHEREE Mesa Consulting Unavailable PETZNICK, [facility] Primary Care Unavailable WEST, DR SHEREE Mesa Attending Unavailable WEST, DR SHEREE Mesa Admitting Unavailable Asaad, Imad Unavailable EMELY IBARRA Attending Unavailable MD Bienvenido Yanes Attending Provider PetDO Caden oliveira Primary Care Provider Pettee Caden Primary Care [...] Translations: [Mold] Drug Allergy Nasal discharge (disorder) [facility] (1 source) No Known Medication Allergies; Translations: [No Known Medication Allergies] Propensity to adverse reactions (disorder) [facility] Repository Medications Current Medications Medication Drug Class(es) [...] # 60 cap(s), Refills(s) 0, Pharmacy: [facility]/pharmacy #[id number], 157, cm, 11/13/21 8:21:00 EST, Height/Length [...] # 20 cap(s), Refills(s) 0, Pharmacy: [facility]/pharmacy #[id number], 157, cm, 11/13/21 8:21:00 EST, Height/Length Dosing, 74.4, kg, 11/13/21 8:21:00 EST, Weight Dosing Start Date: 11/20/21 Status: Ordered DULoxetine 30 mg delayed release oral capsule (11 sources) Serotonin and Norepinephrine Reuptake Inhibitor Start: take 30 mg by mouth once daily Duloxetine Active 30 MG PO Daily October 17, 2023 12:00am Start: 07-14-2018 take 1 capsule by mo [facility] once daily DULoxetine (CYMBALTA) 60 mg capsule Take 1 capsule by mouth once daily. 0 07/14/2018 Active Start: 10-07-2016 take 30 mg by mouth once daily Cymbalta 30 mg, Oral, Daily, Refills(s) 0, Depression Start Date: 10/07/16 Status: Ordered take 1 capsule by [facility] every twenty-four hours Cymbalta 30 MG 1 capsule Orally Once a day Active Comment on above: Take 1 capsule by mo [facility] once daily. Estradiol (3 sources) Estrogen Start: [...] mg oral capsule (2 sources) Krill Oil [place]- 3 500 MG as directed Orally once [...] Date: 12/21/23 Status: Ordered polyethylene glycol 3350 814297 mg / potassium chloride 2970 mg / sodium bicarbonate 6740 mg / sodium chloride 5860 mg / sodium sulfate 87033 mg powder for oral solution (2 sources) [...] completed, # 2 tab(s), Refills(s) 0, Pharmacy: [facility], 158, cm, 12/21/23 9:03:00 EDT, Height/Length [...] for Procedure/Surger yon 01-25-2024 Consent for Procedure/Surgery [id number] #1.00TIFF Normal [facility] Ambulatory Visit Summaryon 0 01-24-2024 Ambulatory Visit [...] Deshaun SANTOS MD Where: [facility] Ambulatory Visit Summary DEONTE PORTILLO [...] [facility] [address], [place] [address]- [phone] Medications What How Much When Instructions Unchanged [...] a s (more content not included)... Normal [facility] Urology Office/Clinic Noteon 01-24-2024 Urology Office/Clinic Note [...] Urology [address], [place] [address] [phone] Additional Instructions: 2 yr w/ KUB Patient [...] Procedure/Surgical History (more content not included)... Normal [facility] Comment on above: Result Comment: Elec tronically Signed By: Deshaun SANTOS MD\.br\Date and Time Signed: 01/24/24 14:28 EDT\.br\Electronically Co-Signed By: Rissa Hill\.br\Date and Time Co-Signed: 01/24/24 14:26 EDT RAD - CT Reporton 12-29-2023 RAD - CT Report [id number] #1.00TIFF Normal [facility] Urine Cytology ([facility])on 0 12-27-2023 Microscopic exam Cytology (U) [Interp] Diagnosis Info Invalid Interpretation Code [facility] Comment on above: Result Comment: A:Ur ine,Urine:Voided Interpretation - MicroScopic Description - Adequacy - Gross Description Site ID:A color Yellow fixative Alcohol Specimen designated Urine received in alcohol preservative and labeled with the patient?s name, consists of 50ml slightly cloudy yellow fluid. Electronically signed by : on: 12/27/2023 09:07:17 Performed By: #### 1 [id number] #### [facility] [address] [place] [address] Ambulatory Visit Summaryon 0 12-21-2023 Ambulatory Visit [...] When: Where: [facility] [address] [place] [address]- Medications What How Much When Instructions Unchanged [...] these instructions at home: Medicines ? Take isai-syy-usufqnc and prescription medicines only as told by [...] only once. (more content not included)... Normal [facility] Formson 12-21-2023 Forms [id number] #1.00TIFF Normal [facility] Patient Educationon 12-21-19 24 Patient Education Urology [...] these instructions at home: Medicines ? Take qycc-hxw-ukhjzwg and prescription medicines only as told by [...] the blood stops without treatment. ? Take mthi-mpg-dwnttjv and prescription medicines only as told by your health care provider. ? Drink enough fluid to keep your urine pale yellow. This information is not intended to replace advice given to you by your health care provider. Make sure you discuss any questions you have with your health care provider. Document Revised: 05/27/2021 Document Reviewed: 05/27/2021 [employer] Patient Education ? 2022 [employer] Normal [facility] Physician Referralon 024 Physician Referral [id number] 7#1.00TIFF Normal [facility] Urine Cytology ([facility])on 0 12-21-2023 UC Method of Extraction Voided Normal [facility] Comment on above: Performed By: #### 1 [id number] #### [facility] [address] Number of Jars 1 Invalid Interpretation Code [facility] Comment on above: Performed By: #### 1 [id number] #### [facility] [address] Specimen Urine Normal [facility] Comment on above: Performed By: #### 1 [id number] #### [facility] [address] [place] [address] Type of Service Technical Only Normal [facility] Comment on above: Performed By: #### 1 [id number] #### [facility] [address] [place] [address] HCG ( test) IA.rapi d Ql (U)Ordered By: Bienvenido Yanes on 10-17-2023 HCG ( test) Ql (U) Negative [facility] HCG,Urineon 10-17-2023 Beta HCG ( test) Ql (U) Negative Normal [facility] Comment on above: Result Comment: PERF ORMED BY: [address] [address] PATHOLOGIST TYPER CHRISTIANO BALLARD M.D. Performed By: #### U HCG #### [address] [address] [facility] HEMOGRAM AND PLATELon 2021 Hematocrit (Bld) [Volume fraction] 37.7 % Normal 36.0-48.0 [facility] Comment on above: Performed By: #### H H #### [facility] [address] [place] [address] Dr. Clarke Chung Hemoglobin (Bld) [Mass/Vol] 13.5 g/dL Normal 12.0-16.0 [facility] Comment on above: Performed By: #### H H #### [facility] [address] [place] [address] Dr. Clarke Chung MCH (RBC) [Entitic mass] 34.4 pg Critically high 26.7-34.0 [facility] Comment on above: Performed By: #### H H #### [facility] [address] [place] [address] Dr. Clarke Chung MCHC (RBC) [Mass/Vol] 35.8 g/dL Critically high 29.9-35.2 [facility] Comment on above: Performed By: #### H H #### [facility] [address] [place] [address] Dr. Clarke Chung MCV (RBC) [Entitic vol] 95.9 fL Normal 81.0-99.0 [facility] Comment on above: Performed By: #### H H #### [facility] [address] [place] [address] Dr. Clarke Chung PLT 262 103/ul Normal 150-450 [facility] Comment on above: Performed By: #### H H #### [facility] [address] [place] [address] Dr. Clarke Chung RBC 3.93 106/ul Critically low 4.20-5.40 The [facility] Comment on above: Performed By: #### H H #### [facility] [address] [place] [address] Dr. Clarke Chung WBC 6.5 103/ul Normal 4.0-11.0 [facility] Comment on above: Performed By: #### H H #### [facility] [address] [place] [address] Dr. Clarke Chung MAGNESIUMon 08-09-2022 Magnesium [Mass/Vol] 1.9 mg/dL Normal 1.8-2.4 [facility] Comment on above: Performed By: #### M G, RENAL #### [facility] [address] [address] [address] Clarke Chung MG MAMM SCREEN 3D VERONICA CADon 08-09-2022 MG MAMM SCREEN 3D VERONICA CAD Patient: DEONTE PORTILLO Exam Date: 08/09/2022 : 1975 Gender:F Ordering : DR EMELY IBARRA Admission #: [id number] Family : Order #: [id number] CLICK HERE TO VIEW EXAM RADIOLOGY REPORT [...] colon cancer at age 56. LOCATION: [facility] BREAST COMPOSITION: Extremely dense, which lowers [...] PALPABLE LUMP SHOULD BE BIOPSIED. Dictated by: Shreee Boland MD on 08/09/2022 at 14:11 Approved by: Sheree Boland MD on 08/09/2022 at 14:13 Normal [facility] RENAL FUNCTION PANELon 08-09 Albumin [Mass/Vol] 3.7 g/dL Normal 3.4-5.0 The [facility] Comment on above: Performed By: #### M G, RENAL #### [facility] [address] [address] [address] Clarke Chung Calcium [Mass/Vol] 8.8 mg/dL Normal 8.5-10.1 [facility] Comment on above: Performed By: #### M G, RENAL #### [facility] [address] [address] [address] Clarke Chung Chloride [Moles/Vol] 101 mmol/L Normal 98-107 [facility] Comment on above: Performed By: #### M G, RENAL #### [facility] [address] [place] [address] Dr. Clarke Chung CO2 [Moles/Vol] 29.7 mmol/L Normal 21.0-32.0 [facility] Comment on above: Performed By: #### M Ramo, RENAL #### [facility] [address] [address] [address] Clarke Chung Creatinine [Mass/Vol] 1.07 mg/dL Critically high 0.55-1.02 [facility] Comment on above: Performed By: #### Claribel Ralph, RENAL #### [facility] [address] [place] [address] Dr. Clarke Chung EGFR-AF CYMRAES >60 Normal >=60 [facility] Comment on above: Performed By: #### Claribel Ralph, RENAL #### [facility] [address] [place] [address] Dr. Clarke Chung EGFR-NON AF CYMRAES 55 mL/min/1.73m2 Critically low >=60 [facility] Comment on above: Performed By: #### Claribel Ralph, RENAL #### [facility] [address] [place] [address] Dr. Clarke Chung Glucose [Mass/Vol] 79 mg/dL Normal 74-106 [facility] Comment on above: Performed By: #### Claribel Ralph, RENAL #### [facility] [address] [place] [address] Dr. Clarke Chung Phosphate [Mass/Vol] 2.6 mg/dL Normal 2.6-4.7 [facility] Comment on above: Performed By: #### Claribel Ralph, RENAL #### [facility] [address] [place] [address] Dr. Clarke Chung Potassium [Moles/Vol] 3.8 mmol/L Normal 3.5-5.1 [facility] Comment on above: Performed By: #### Claribel Ralph, RENAL #### [facility] [address] [place] [address] Dr. Clarke Chung Sodium [Moles/Vol] 134 mmol/L Critically low 136-145 Th e [facility] Comment on above: Performed By: #### M G, RENAL #### [facility] [address] [place] [address] Dr. Clarke Chung Urea nitrogen [Mass/Vol] 14.0 mg/dL Normal 7.0-18.0 [facility] Comment on above: Performed By: #### M G, RENAL #### [facility] [address] [place] [address] Dr. Clarke Chung UA RANDOM W/MICROSCOPICon BACTERIA TRACE Abnormal NONE SEEN [facility] Comment on above: Performed By: #### U AMIC #### [facility] [address] [place] [address] Dr. Clarke Chung Bilirubin Ql (U) Negative Normal NEGATIVE [facility] Comment on above: Performed By: #### U AMIC #### [facility] [address] [place] [address] Dr. Clarke Chung CAST NONE SEEN Normal NONE SEEN [facility] Comment on above: Performed By: #### U AMIC #### [facility] [address] [place] [address] Dr. Clarke Chung Clarity (U) CLEAR Normal CLEAR [facility] Comment on above: Performed By: #### U AMIC #### [facility] [address] [place] [address] Dr. Clarke Chung Color (U) DK. YELLOW Normal YELLOW [facility] Comment on above: Performed By: #### U AMIC #### [facility] [address] [place] [address] Dr. Clarke Chung Crystals LM Nom (Urine sed) NONE SEEN Normal NONE SEEN [facility] Comment on above: Performed By: #### U AMIC #### [facility] [address] [place] [address] Dr. Clarke Chung Epithelial cells LM Ql (Urine sed) RARE Normal NONE SEEN /RARE [facility] Comment on above: Performed By: #### U AMIC #### [facility] [address] [place], [place] [id number] Dr. Clarke Chung Glucose Ql (U) Negative Normal NEGATIVE The [facility] Comment on above: Performed By: #### U AMIC #### [facility] [address] [address] [address] Clarke Chung Hemoglobin Ql (U) Negative Normal NEGATIVE [facility] Comment on above: Performed By: #### U AMIC #### [facility] [address] [address] [address] Clarke Chung Ketones Ql (U) 15 mg/dl Abnormal NEGATIVE The [facility] Comment on above: Performed By: #### U AMIC #### [facility] [address] [address] [address] Clarke Chung LEUKOCYTES Negative Normal NEGATIVE [facility] Comment on above: Performed By: #### U AMIC #### [facility] [address] [place] [address] Dr. Clarek Chung MUCOUS NONE SEEN Normal NONE SEEN [facility] Comment on above: Performed By: #### U AMIC #### [facility] [address] [address] [address] Clarke Chung Nitrite Ql (U) Negative Normal NEGATIVE The [facility] Comment on above: Performed By: #### U AMIC #### [facility] [address] [place] [address] Dr. Clarke Chung pH (U) 7.5 [pH] Normal 5-9 [facility] Comment on above: Performed By: #### U AMIC #### [facility] [address] [place] [address] Dr. Clarke Chung RBC 0-2 Normal 0-2 [facility] Comment on above: Performed By: #### U AMIC #### [facility] [address] [place] [address] Dr. Clarke Chung SPEC GRAVITY 1.010 Normal 1.005-<=1.025 [facility] Comment on above: Performed By: #### U AMIC #### [facility] [address] [place] [address] Dr. Clarke Chung UA PROTEIN Negative Normal NEGATIVE/ TRACE [facility] Comment on above: Performed By: #### U AMIC #### [facility] [address] [address] [address] Clarke Chung Urobilinogen Qn (U) 0.2 {Jhonny'U}/dL Normal 0.2 - 1.0 [facility] Comment on above: Performed By: #### U AMIC #### [facility] [address] [place] [address] Dr. Clarke Chung WBC 0-2 Abnormal NONE SEEN [facility] Comment on above: Performed By: #### U AMIC #### [facility] [address] [place] [address] Dr. Clarke Chung URINE T PROTEIN CREAT RATIOo n 08-09-2022 Protein (U) [Mass/Vol] 13.8 mg/dL Critically high <=12.0 [facility] Comment on above: Performed By: #### U RTPCR #### [facility] [address] [place] [address] Dr. Clarke Chung UR PROT CREAT RAT 0.13 Normal [facility] Comment on above: Performed By: #### U RTPCR #### [facility] [address] [place] [address] Dr. Clarke Chung URINE CREAT 106.93 mg/dL Normal 20.00-300.00 [facility] Comment on above: Performed By: #### U RTPCR #### [facility] [address] [place] [address] Dr. Clarke Chung VITAMIN D 25 OHon 08-09-2022 VIT D 25-OH 69.2 ng/mL Normal [facility] Comment on above: Performed By: #### V ITAD #### [facility] [address] [place] [address] Dr. Clarke Chung VIT D RANGES SEE BELOW Normal [facility] Comment on above: Result Comment: <20 ng/mL Vit D deficient 20 - <30 ng/mL Vit D insufficient 30 - 100 ng/mL Vit D sufficient >100 ng/mL Potential Toxicity Performed By: #### V ITAD #### [facility] [address] [address] [address] Clarke Chung Vital Signs Date Time Vital Sign Value Performing Clinician Facility 01-24-2024 13:15-0400 Body temperature 98.6 [degF] Deshaun SANTOS [facility] 01-24-2024 13:15-0400 Diastolic blood pressure 93 mm[Hg] Deshaun SANTOS [facility] 01-24-2024 13:15-0400 Heart rate 70 /min Deshaun SANTOS [facility] 01-24-2024 13:15-0400 Respiratory rate 16 /min Deshaun SANTOS [facility] 01-24-2024 13:15-0400 Systolic blood pressure 118 mm[Hg] Deshaun SANTOS [facility] 12-21-2023 09:14-0400 Diastolic blood pressure 88 mm[Hg] Deshaun SANTOS [facility] 12-21-2023 09:14-0400 Mean blood pressure 102 mm[Hg] Deshaun SANTOS [facility] 12-21-2023 09:14-0400 Systolic blood pressure 130 mm[Hg] Deshaun SANTOS [facility] 12-21-2023 09:00-0400 Blood Pressure Location Deshaun SANTOS [facility] 12-21-2023 09:00-0400 Diastolic blood pressure 102 mm[Hg] Deshaun SANTOS [facility] 12-21-2023 09:00-0400 Heart rate 58 /min Deshaun SANTOS [facility] 12-21-2023 09:00-0400 Systolic blood pressure 140 mm[Hg] Deshaun SANTOS [facility] 10-17-2023 09:50-0500 Diastolic blood pressure 73 mm[Hg] DO Caden Petznick Work Phone: [facility] 10-17-2023 09:50-0500 Heart rate 702 /min DO Caden Petznick Work Phone: [facility] 10-17-2023 09:50-0500 Respiratory rate 20 /min DO Caden Petznick Work Phone: [facility] 10-17-2023 09:50-0500 SaO2% (BldA) [Mass fraction] 99 % DO Caden Petznick Work Phone: [facility] 10-17-2023 09:50-0500 Systolic blood pressure 131 mm[Hg] DO Caden Petznick Work Phone: [facility] 10-17-2023 07:28-0500 Body height 157.48 cm DO Caden Petznick Work Phone: [facility] 10-17-2023 07:28-0500 Body temperature 97.8 [degF] DO Caden Petznick Work Phone: [facility] 10-17-2023 07:28-0500 Body weight 70.3 kg DO Caden Petznick Work Phone: [facility] 07-21-2023 09:00-0400 Body height 157.48 cm Etelvina María Other [facility] Other 07-21-2023 09:00-0400 Body mass index (BMI) [Ratio] 29.52 kg/m2 Etelvina María Other [facility] Other 07-21-2023 09:00-0400 Body temperature 98.2 [degF] Etelvina María Other [facility] Other 07-21-2023 09:00-0400 Body weight 73.21 kg Etelvina María Other [facility] Other 07-21-2023 09:00-0400 Diastolic blood pressure 89 mm[Hg] Etelvina María Other [facility] Other 07-21-2023 09:00-0400 Respiratory rate 18 /min Etelvina María Other [facility] Other 07-21-2023 09:00-0400 SaO2% (BldA) [Mass fraction] 99 % Etelvina María Other [facility] Other 07-21-2023 09:00-0400 Systolic blood pressure 138 mm[Hg] Etelvina María Other [facility] Other 08-19-2022 10:00-0500 Body height 157.48 cm Etelvina María Other [facility] Other 08-19-2022 10:00-0500 Body mass index (BMI) [Ratio] 29.77 kg/m2 Etelvina María Other [facility] Other 08-19-2022 10:00-0500 Body temperature 97.9 [degF] Etelvina María Other [facility] Other 08-19-2022 10:00-0500 Body weight 73.85 kg Etelvina María Other [facility] Other 08-19-2022 10:00-0500 Diastolic blood pressure 95 mm[Hg] Etelvina María Other [facility] Other 08-19-2022 10:00-0500 Respiratory rate 18 /min Etelvina María Other [facility] Other 08-19-2022 10:00-0500 SaO2% (BldA) [Mass fraction] 97 % Etelvina María Other [facility] Other 08-19-2022 10:00-0500 Systolic blood pressure 148 mm[Hg] Etelvina María Other [facility] Other 08-13-2021 10:00-0400 Body height 157.48 cm Etelvina María Other [facility] Other 08-13-2021 10:00-0400 Body mass index (BMI) [Ratio] 29.04 kg/m2 Etelvina María Other [facility] Other 08-13-2021 10:00-0400 Body temperature 97.4 [degF] Etelvina María Other [facility] Other 08-13-2021 10:00-0400 Body weight 72.03 kg Etelvina María Other [facility] Other 08-13-2021 10:00-0400 Diastolic blood pressure 90 mm[Hg] Etelvina María Other [facility] Other 11-04-2021 10:00-0400 Respiratory rate 18 /min Etelvina María Other [facility] Other 08-13-2021 10:00-0400 SaO2% (BldA) [Mass fraction] 99 % Etelvina María Other [facility] Other 08-13-2021 10:00-0400 Systolic blood pressure 140 mm[Hg] Etelvina María Other [facility] Other Encounters Encounter Date Encounter Type Care Provider Facility Start: 01-21-2025 ambulatory Deshaun Toddi ty:[facility] Start: 01-24-2024 End: 01-25-2024 ambulatory Deshaun SANTOS Facility:[facility] Start: 01-24-2024 End: 01-24-2024 Patient encounter procedure Deshaun SANTOS [facility] Krishna Start: 12-21-2023 End: 12-22-2023 ambulatory Deshaun SANTOS [place] Start: 12-21-2023 End: 12-21-2023 Lab Drop off Deshaun SANTOS [facility] Start: 12-21-2023 End: 12-21-2023 Patient encounter procedure Deshaun SANTOS [facility] Krishna Start: 11-09-2023 ambulatory ETELVINA MARÍA Facility:[facility] Start: 10-21-2023 ambulatory Deshaun SANTOS Facility :[facility] Start: 10-17-2023 End: 10-17-2023 ambulatory Caden Benavides Facility:[facility] Start: 10-17-2023 End: 10-17-2023 Admission to same day surgery center DO Caden Benavides Work Phone: [facility] Work Phone: Start: 10-17-2023 End: 10-17-2023 ambulatory DO Caden Benavides Work Phone: [facility] Work Phone: Start: 10-11-2023 End: 10-11-2023 ambulatory EMELY J PRINTY Not Available Start: 09-05-2023 End: 09-05-2023 ambulatory EMELY PRINTY Not Available Start: 08-04-2023 End: 08-04-2023 ambulatory Etelvina Mraía Other [facility] Other Start: 08-04-2023 Telephone encounter Etelvina María [facility] Start: 08-02-2023 ambulatory Deshaun PRASHANT Facility :[facility] Start: 07-27-2023 End: 07-27-2023 ambulatory Imad Asaad Other [facility] Other Start: 07-27-2023 Telephone encounter Imad Asaad [facility] Start: 07-21-2023 End: 07-21-2023 ambulatory Etelvina María Other [facility] Other Start: 07-21-2023 Office outpatient visit 15 minutes Etelvina María [facility] Start: 12-02-[address] SHEREE BOLAND Facilit y:[facility] Start: 08-19-2022 End: 08-19-2022 ambulatory Etelvina María Other [facility] Other Start: 08-19-2022 Office outpatient visit 15 minutes Etelvina María [facility] Start: 08-09-2022 End: 08-10-2022 ambulatory ETELVINA MARÍA Facility:[facility] Start: 07-15-2022 End: 10-24-[address] SHEREE BOLAND Facility:[facility] Start: 02-12-2022 End: 05-24-[address] SHEREE BOLAND Facility:[facility] Start: 01-04-2022 End: 03-19-2022 ambulatory NORMAN OLIVIA Facility:[facility] Start: 08-13-2021 End: 08-13-2021 ambulatory Etelvina María Other [place] [employer] Other Start: 08-13-2021 Office outpatient visit 15 [...] Date Care Activity Detail Author Start: 10-17-2023 [facility] Start: 11-10-2021 HPV TESTING HPV TESTING [facility] Start: 11-10-2021 PAP TESTING PAP TESTING [facility] Start: 06-10-2021 Influenza vaccination INFLUENZ A (Season Ended) [facility] Start: 02-07-2018 Mammography MAMMOGRAM [facility] Start: 1995 Urine microalbumin profile DTAP,TDAP,TD (1 - Tdap) [facility] Start: 1994 HEPATITIS C SCREENING HEPATITIS C SC REENING [facility] Start: 1994 HIV SCREENING HIV SCREENING [facility] Start: 1988 Adult depression screening assessment DEPRESSION SCREENING [facility] Patient Education Hemorrhoids (DC) [facility] Work Phone: Immunizations Immunization Date Immunization Notes Care Provider Mary Ann andre 08-01-2023 influenza virus vaccine, unspecified formulation Deshaun SANTOS [facility] 07-11-2022 influenza virus vaccine, unspecified formulation Deshaun SANTOS [facility] 07-31-2021 SARS-CoV-2 (COVID-19 ) mRNA-1273 vaccine Deshaun SANTOS [facility] 11-06-2020 SARS-CoV-2 (COVID-19 ) mRNA-1273 vaccine Deshaun SANTOS [facility] 10-08-2020 SARS-CoV-2 (COVID-19 ) mRNA-1273 vaccine Deshaun SANTOS [facility] 08-10-2017 influenza virus vaccine, unspecified formulation Deshaun SANTOS [facility] 07-23-2016 influenza virus vaccine, unspecified formulation Deshaun SANTOS [facility] Payers Date Payer Category Payer Self-pay [id number] 2017 Unknown MMO MMO [place] [id number] 2017-Present PPO [id number] 1976 Unknown [id number] [id number] 1976 Unknown [id number] 2.16.840.1.173869.3.579.2.593 1976 Unknown [id number] 2.16.840.1.488764.3.579.2.593 1976 Unknown [id number] 2.16.840.1.233577.3.579.2.593 1976 Unknown [id number] 2.16.840.1.705860.3.579.2.593 1976 Unknown [id number] 2.16.840.1.240883.3.579.2.593 1976 Unknown [id number] 2.16.840.1.003636.3.579.2.1259 1976 Unknown [id number] 2.16.840.1.224582.3.579.2.1259 1976 Unknown [id number] 2.16.840.1.476451.3.579.2.727 1976 Unknown [id number] 2.16.840.1.855589.3.579.2.727 1976 Unknown [id number] 2.16.840.1.915632.3.579.2.727 1976 Unknown [id number] 2.16.840.1.645694.3.579.2.727 1976 Unknown [id number] 2.16.840.1.569024.3.579.2.727 1976 Unknown [id number] 2.16.840.1.535277.3.579.2.727 1976 Unknown [id number] 2.16.840.1.982545.3.579.2.727 1959 Self-pay [id number] 1959 Unknown [id number] 2.16.840.1.487993.19 Unknown [id number] Unknown [employer] [id number] Unknown [id number] 2.16.840.1.966241.3.579.2.531 Social History Date Type Detail Facility Start: 07-14-2018 End: 01-24-2024 Tobacco smoking status NHIS Never smoker [facility] Start: 07-14-2018 Tobacco use and exposure Never used [facility] Start: 07-14-2018 Alcohol intake 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 Tobacco smoking status Never [facility] Medical Equipment Procedure Code Equipment Code Equipment Origin al Text Equipment Identifier Dates SHOULDER ARTHROS COPY W/ POSSIBLE REPAIR Noramn Olivia DO William 11/20/21 Non Biological Shoulder L [id number] [facility] Start: 11-20-2021 Goals Date Patient Goal Desired Activity /State Functional Status Date Assessment Result Facility 01-24-2024 Functional Status N/A [facility] 12-21-2023 Functional Status N/A [facility] Clinical Notes 07-17-2018 to 01-24-2024 Note Date [...] including vitamins, herbs, eye drops, creams, and epur-med-mvatbeb medicines. Any problems you or family members [...] provider tells you to take them. Taking rwgo-ptf-wyabplk medicines, vitamins, herbs, and supplements. Tests You [...] Follow these instructions at home: Medicines Take saak-cwh-bwyftep and prescription medicines only as told by [...] provider. Document Revised: 06/09/2022 Document Reviewed: 05/08/2021 [employer] Patient Education 2022 [employer]. Follow Up Care 12/21/2023 09:45:00 With:PRASHANT TRAMMELL, Deshaun Aguirre, URL Address: [facility] [address], [place] [address]- [phone] When: Unknown [facility] Krishna 01-24-2024 Note Urology Cystoscopy [...] including vitamins, herbs, eye drops, creams, and zfwu-rhf-sqcfnlq medicines. ? Any problems you or family [...] tells you to take them. ? Taking qswk-vnb-fuyrgbo medicines, vitamins, herbs, and supplements. Tests You [...] these instructions at home: Medicines ? Take cdfb-sgy-dgvsaed and prescription medicines only as told by [...] the department th (more content not included)... [facility] 12-21-2023 Note Chief Complaint Referral HPI Staff Deonte is a 48 y.o. female new patient here for persistent microscopic hematuria. Referred by María Main. BUN 14.0 & CRE 1.21 done on 07/14/23. Renal US done on 08/01/23 @ [facility]. Dysuria: denies pain or burning Incomplete bladder [...] drinks a lot of fluids, she voids i47wzc-7wj but when she doesn't drink a lot [...] order Local anesthesia. Prophylactic abx sent to [facility]. 2. Renal cyst (N28.1: Cyst of kidney, acquired) [facility] 08/01/23 TB - Incidental small R renal cyst. 3. Weak urine stream (R39.12: Poor urinary stream) Shares sometimes it takes a long time to empty and has a weak stream. Feels she empties completely unless she holds her bladder. Follow-up With When Contact Information Deshaun SANTOS MD, [facility] [address], (more content not included)... [facility] Comment on above: Result Comment: Elec tronically [...] Follow these instructions at home: Medicines Take ipsq-rft-pvhjbbr and prescription medicines only as told by [...] or the blood stops without treatment. Take asaw-otw-mpnzpws and prescription medicines only as told by your health care provider. Drink enough fluid to keep your urine pale yellow. This information is not intended to replace advice given to you by your health care provider. Make sure you discuss any questions you have with your health care provider. Document Revised: 05/27/2021 Document Reviewed: 05/27/2021 [employer] Knowledge Patient Education 2022 [employer]. Follow Up Care 09/06/2023 12:54:24 With:PRASHANT TRAMMELL, Deshaun Aguirre, ARLYNL Address: [facility] [address] , [place] [address]- When: Unknown [facility] 10-17-2023 Procedure note [facility] 07-21-2023 Evaluation note Encounter Date [...] denies any symptoms of UTI or menstruation. [facility] Other 10-12-2023 Evaluation note* Encounter Date Diagnosis [...] denies any symptoms of UTI or menstruation. [facility] Other 11-10-2022 Evaluation note* Encounter Date Diagnosis [...] - K58.9) Continue to follow with PCP [facility] Other 11-04-2021 Evaluation note* Encounter Date Diagnosis [...] will check the serum calcium and PTH. [facility] Other 10-08-2018 Miscellaneous Notes* Telephone Encounter - Kayy Hernandez - 07/17/2018 2:36 PM EDT Called patient to schedule US she is going to have the US done at another facility. She wanted the order faxed to [phone]. Order was faxed on 07-17-2018. * Telephone Encounter - Carrie Tran - 07/15/2018 5:01 PM EDT Please schedule US thyroid. [facility] Future Appointments Appointment Date:01/24/2024 01:30:00 PM Scheduled Provider:Deshaun SANTOS MD Location:[facility] Appointment Type:URO Procedure 15 min Diagnostic Tests Pending * Urine Cytology [facility]) [facility] App[facility]ments Appointment Date:01/24/2024 01:30:00 PM Scheduled Provider:Deshaun SANTOS MD Location:[facility] Appointment Type:URO Procedure 15 min [facility] Evaluation + Plan note Future Appointments Appointment Date:01/21/2025 10:45:00 AM Scheduled Provider:Deshaun SANTOS MD Location:[facility] Appointment Type:URO Office Visit [facility] Evaluation note* Diagnosis Nontoxic single thyroid nodule- Primary Nontoxic uninodular goiter documented in this encounter [facility] noteNo InformationNorth [employer] Other Evaluation noteNo assessment information available [facility] Work Phone: History and physical note Author Bienvenido Yanes [facility] October 17, 2023 8:49am Note Date/Time October 17, 2023 8: 49am [facility] [address] [place] [address] Gastroenterology H&P Signed Patient: Deonte Portillo MR#: [id number] : 1975 Acct:[id number] Age/Sex: 48 / F Adm Date: 4 Loc: Room: Type: [facility] Attending Dr: Bienvenido Yanes MD Copies [...] <Electronically signed by Bienvenido Yanes MD> 10/17/23848 [facility] Work Phone: [facility] general Narrative - Reported* Type Description Date [...] childbirth X 2 Hospitalization History SEE ABOVE [facility] Other [place] general Narrative - Reported* Type Description Date [...] childbirth X 2 Hospitalization History SEE ABOVE [facility] Other Hospital course Narrative No data available for this section [facility] Hospital Discharge instructions Additional Instructions [...] NOT operate machinery such as power tools, [employer] mowers, snow blowers, sewing machines, etc. for [...] years. -Follow up with PCP. -Office number [phone]. [facility] Work Phone: Hospital Discharge instructions No data available for this section [facility] No data available for this section [facility] Summary Purpose Family History No Family History [...] section and content) DATE CREATED AUTHOR 04/03/2018 [facility] DATE CREATED AUTHOR AUTHOR'S ORGANIZ ATION 12/03/2022 [facility] DATE CREATED AUTHOR AUTHOR'S ORGANIZ ATION 10/12/2023 [facility] DATE CREATED AUTHOR AUTHOR'S ORGANIZ ATION 10/28/2023 [facility] DATE CREATED AUTHOR AUTHOR'S ORGANIZ ATION 01/25/2024 Mike Salas [facility] Source Comments (unrecognize d section and content) In the event this informatio n is protected by the Federal Confidentiality of Alcohol and Drug Abuse Patient Records regulations: The Federal rules restrict any use of the information to criminally investigate or prosecute any alcohol or drug abuse patient.[facility] Reason for Visit (unrecogniz ed section and [...] BE BASED ON THE PRIMARY CLINICAL RECORDS. [employer] provides no warranty or guarantee of the accuracy or completeness of information in this document.
[2024-02-04 10:27] LABS: Chol HDL Ratio 2.1; Cholesterol 164 mg/dL (<=200); HDL Cholesterol 79 mg/dL (40-60); Triglycerides 23 mg/dL (<=150); VLDL CHOLESTEROL 4.6 mg/dL
[2024-02-04 11:09] LABS: Basophils Percent Auto 0.8 % (0.2-2.0); Eosinophils Absolute Auto 0.2 10^3/uL (0.0-0.7); Eosinophils Percent Auto 3.3 % (0.9-7.0); Hematocrit 36.1 % (36.0-48.0); Hemoglobin 12.6 g/dL (12.0-16.0); Immature Granulocytes Abs Auto 0.01 10^3/uL (0.00-0.03); Immature Granulocytes Pct Auto 0.2 % (0.0-0.5); Lymphocytes Absolute Auto 2.8 10^3/uL (1.2-3.8); Lymphocytes Percent Auto 57.2 % (20.5-60.0); Mean Corpuscular HGB Conc 34.9 g/dL (29.9-35.2); Mean Corpuscular Volume 97.3 fL (81.0-99.0); Mean Platelet Volume 9.9 fL (9.5-13.5); Monocytes Absolute Auto 0.4 10^3/uL (0.3-0.8); Monocytes Percent Auto 8.1 % (1.7-12.0); Neutrophils Absolute Auto 1.5 10^3/uL (1.4-6.5); Neutrophils Percent Auto 30.4 % (43.0-75.0); Platelet Count 253 10^3/uL (150-450); Red Blood Count 3.71 10^6/uL (4.20-5.40); Red Cell Distribution Width 11.5 % (11.0-15.0); White Blood Count 4.8 10^3/uL (4.0-11.0)
[2024-02-04 12:01] LABS: Alanine Aminotransferase 23 U/L (14-59); Albumin Globulin Ratio 0.9; Albumin Level 3.7 g/dL (3.4-5.0); Alkaline Phosphatase 53 U/L (46-116); Anion Gap 11.8; Aspartate Amino Transferase 23 U/L (15-37); BUN Creatinine Ratio 19.1; Bilirubin Total 0.6 mg/dL (0.2-1.0); Calcium 9.6 mg/dL (8.5-10.1); Carbon Dioxide 28.4 mmol/L (21.0-32.0); Chloride 103 mmol/L (98-107); Estimated GFR (African America >60 (>=60); Estimated GFR (Non-African Ame 53 (>=60); Globulin 4.1 g/dL; Glucose 102 mg/dL (74-106); Potassium 4.2 mmol/L (3.5-5.1); Sodium 139 mmol/L (136-145); Total Protein 7.8 g/dL (6.4-8.2)
== END 2024-02-04 09:37 | disposition home or self-care (01) ==
LOC: LAB 09:37
PROVIDERS: PCP Family Medicine; Visit Provider Family Medicine
DX: Z00.00 Encounter for general adult medical examination without abnormal findings (principal); N18.30 Chronic kidney disease, stage 3 unspecified; R03.0 Elevated blood-pressure reading, without diagnosis of hypertension; N20.0 Calculus of kidney; E55.9 Vitamin D deficiency, unspecified; K58.9 Irritable bowel syndrome, unspecified; E87.1 Hypo-osmolality and hyponatremia; R31.29 Other microscopic hematuria
CPT/HCPCS: 36415; 80053; 80061; 81001; 82306; 82570; 83735; 83970; 84100; 84156; 84550; 85025

== ENCOUNTER 2024-08-28 09:24 | Outpatient (OUT) | payer OTHER, SELFPAY ==
--- NOTE | 2024-08-28 09:27 | MM_ITS ---
Patient Name: DEONTE PORTILLO MR#: [id number] : 1975 Exam Date: 08/28/2024 Ordering Doctor: DR EMELY IBARRA RADIOLOGY REPORT PROCEDURE: MM TOMOSYNTHESIS SCREENING BI COMPARISON: MM TOMOSYNTHESIS SCREENING BI, 08/17/2023. MG MAMM SCREEN 3D VERONICA CAD, 08/09/2022. MG MAMM SCREEN 3D VERONICA CAD, 06/01/2021. MG MAMM SCREEN VERONICA W CAD, 12/14/2016. INDICATIONS: Screening Calculator Name NCI Breast Cancer Risk Assessment Tool 5 Year Breast Cancer Risk 1.00% Lifetime Breast Cancer Risk 10.20% Personal Breast Cancer No Personal Ovarian Cancer No Treatments None Family Cancers Grandmother-maternal with breast cancer at age ~60; Father with prostate cancer at age 60; Grandmother-paternal with colon cancer at age ~55. LOCATION: [facility] BREAST COMPOSITION: The breasts are extremely dense, which lowers the sensitivity of mammography. FINDINGS: DIAGNOSTIC CATEGORY 1--NEGATIVE. RIGHT BREAST: No significant suspicious finding. No significant change has occurred. LEFT BREAST: No significant suspicious finding. No significant change has occurred. RECOMMENDATIONS: ROUTINE MAMMOGRAM AND CLINICAL EVALUATION IN 12 MONTHS. PLEASE NOTE: A NORMAL MAMMOGRAM DOES NOT EXCLUDE THE POSSIBILITY OF BREAST CANCER. A CLINICALLY SUSPICIOUS PALPABLE LUMP SHOULD BE BIOPSIED. Dictated by: Pedro Lora M.D. on 08/28/2024 at 15:44 Approved by: Pedro Lora M.D. on 08/28/2024 at 15:45
== END 2024-08-28 09:25 | disposition home or self-care (01) ==
LOC: MAMMO 09:24
PROVIDERS: PCP Family Medicine; Visit Provider Obstetrics & Gynecology
DX: Z12.31 Encounter for screening mammogram for malignant neoplasm of breast (principal); Z80.3 Family history of malignant neoplasm of breast; Z80.42 Family history of malignant neoplasm of prostate; Z80.0 Family history of malignant neoplasm of digestive organs
CPT/HCPCS: 77063; 77067

== ENCOUNTER 2025-02-07 07:54 | Outpatient (OUT) | payer OTHER, SELFPAY ==
[2025-02-07 08:21] LABS: Hematocrit 37.6 % (36.0-48.0); Hemoglobin 13.2 g/dL (12.0-16.0); Mean Corpuscular HGB Conc 35.1 g/dL (29.9-35.2); Mean Corpuscular Hemoglobin 34.6 pg (26.7-34.0); Mean Corpuscular Volume 98.7 fL (81.0-99.0); Mean Platelet Volume 9.3 fL (9.5-13.5); Platelet Count 207 10^3/uL (150-450); Red Blood Count 3.81 10^6/uL (4.20-5.40); Red Cell Distribution Width 11.4 % (11.0-15.0); White Blood Count 4.6 10^3/uL (4.0-11.0)
[2025-02-07 09:17] LABS: Creatinine Urine Random 151.76 mg/dL (20.00-300.00); Protein Creatinine Ratio Urine 0.11; Total Protein Urine Random 16.3 mg/dL (<=11.9)
[2025-02-07 09:18] LABS: Bilirubin Urine NEGATIVE (NEGATIVE); Blood Urine TRACE-I (NEGATIVE); Clarity Urine CLEAR (CLEAR); Color Urine LT. YELLOW (YELLOW); Glucose Urine UA NEGATIVE (NEGATIVE); Ketones Urine NEGATIVE (NEGATIVE); Leukocyte Esterase Urine NEGATIVE (NEGATIVE); Nitrite Urine NEGATIVE (NEGATIVE); Protein Urine NEGATIVE (NEG/TRACE); Specific Gravity Urine 1.015 (1.005-1.025); Urobilinogen Urine 0.2 EU/dL (0.2-1.0); pH Urine 7.5 (5.0-9.0)
[2025-02-07 09:54] LABS: Bacteria Urine TRACE #/HPF (NONE SEEN); Mucus Urine NONE SEEN (NONE SEEN); WBC Urine 0-2 #/HPF (NONE SEEN)
[2025-02-07 09:55] LABS: Cast Seen? NONE SEEN #/LPF (NONE SEEN); Crystals Seen? None Seen #/HPF (None Seen); Squamous Epithelial Cell Urine FEW #/LPF (NONE/RARE); Urine Culture Indicated NO
[2025-02-07 10:30] LABS: Albumin Level 3.7 g/dL (3.4-5.0); Anion Gap 10.3; BUN Creatinine Ratio 14.5; Calcium 8.8 mg/dL (8.5-10.1); Carbon Dioxide 29.8 mmol/L (21.0-32.0); Chloride 103 mmol/L (98-107); Estimated GFR (African America 60 (>=60 mL/min/1.73m^2); Estimated GFR (Non-African Ame 49 (>=60 mL/min/1.73m^2); Glucose 99 mg/dL (74-106); Magnesium 1.8 mg/dL (1.8-2.4); Phosphorus 2.8 mg/dL (2.6-4.7); Potassium 4.1 mmol/L (3.5-5.1); Sodium 139 mmol/L (136-145); Uric Acid 3.2 mg/dL (2.6-6.0)
[2025-02-08 11:08] LABS: PTH, Intact 24 pg/mL (15-65)
== END 2025-02-07 07:55 | disposition home or self-care (01) ==
LOC: LAB 08:01
PROVIDERS: PCP Family Medicine; Visit Provider Internal Medicine
DX: N20.0 Calculus of kidney (principal); R03.0 Elevated blood-pressure reading, without diagnosis of hypertension; K58.9 Irritable bowel syndrome, unspecified; R31.29 Other microscopic hematuria; E87.1 Hypo-osmolality and hyponatremia; E55.9 Vitamin D deficiency, unspecified
CPT/HCPCS: 36415; 80069; 81001; 82306; 82570; 83735; 83970; 84156; 84550; 85027

== ENCOUNTER 2025-09-09 08:25 | Outpatient (OUT) | payer OTHER, SELFPAY ==
--- OUTSIDE RECORDS SUMMARY | 2025-08-26 14:20 | XMS_ITS | Encounter Summary ---
Author Organization [facility] Address [address] [place] [id number] Care Team Providers Care A R Collections Rep Name Role Phone Lisandro Plunkett DO Primary Care Provid er Source Comments In the event this information is protected by the Federal Confidentiality of Alcohol and Drug AbusePatient Records regulations: The Federal rules restrict any use of the information to criminally investigate or prosecute any alcohol or drug abuse patient.[facility] Reason for Visit * ReasonCommentsNew PatientSecond opinion for increased creatinine level Encounter Details DateTypeDepartmentCare Team (Latest Contact Info)Rorgbguypvy75/17/2025 2:20 PM ESTOffice Visit Kidney Medicine [address] [place] [address] Silke Cornejo MD [address] [place] [address] Personal history of kidney stones (Primary Dx); Elevated serum creatinine; Depression, unspecified depression type Social History Tobacco UseTypesPacks/DayYears UsedDateSmoking Tobacco: NeverSmokeless Tobacco: NeverAlcohol UseStandard Drinks/WeekCommentsNo0 (1 standard drink = 0.6 oz pure alcohol)Area Deprivation IndexAnswerDate RecordedNational Score (1-100), lower number is lower lakp678601/14/2025State Score (1-10), lower number is lower risk4 01/14/2025Data from: https://www.neighborhoodatlas.medicine.[facility]/. Last address used for [address] [facility] [address]CommentsNoSex and Gender InformationValueDate RecordedSex Assigned at BirthNot on fileLegal Sex Rvfnxm1411/21/2014 11:11 AM ESTGender IdentityNot on fileSexual OrientationNot on filedocumented as of this encounter Last Filed Vital Signs Vital SignReadingTime TakenCommentsBlood Pptmmhpp692/8708/26/2025 2:15 PM EST rlvvlwpKjgrc9852/17/2025 2:15 PM ESTaverageTemperature--Respiratory Rate--Oxygen Saturation--Inhaled Oxygen Concentration--Onptyi98.5 kg (151 lb 0.2 oz) 08/26/2025 2:15 PM LZFJbcvzu374.8 cm (5' 2.5 )08/26/2025 2:15 PM ESTBody Mass Index27.18110/26/2024 2:15 PM ESTdocumented in this encounter [place] Notes * Silke Cornejo MD - 08/26/2025 2:40 PM EST [facility] REASON FOR CONSULT: I am asked to see this patient in consultation for my opinion regarding elevated creatinine. My recommendations will be communicated by way of shared medical record, fax, or mail. REQUESTING PHYSICIAN: No ref. provider found PRIMARY CARE PHYSICIAN: Lisandro Plunkett, DO, DO CHIEF COMPLAINT: Elevated creatinine HPI: Ms. Donovan is a 50 year old female with depression on duloxetine and personal history of incidental kidney stones ( around 5 mm) found on renal US came for second opinion regarding elevated creatinine level. Pt reports remote history of using NSAID over 10 years ago for pain which she stopped long before creatinine elevation. No hx of HF, DM, HTN or other chronic illness. She exercises ad her weight is at goal. As per chart review, her creatinine has been around 1.1 - 1.2 over last 4 years. No proteinuria andother electrolytes are stable. PAST MEDICAL HISTORY: No past medical history on file. PAST SURGICAL HISTORY: PAST SURGICAL HISTORY Procedure Laterality Date PAST SURGICAL HISTORY OF 2021 Shoulder sx FAMILY HISTORY: FAMILY HISTORY Problem Relation Age of Onset Difficulty with anesthesia No Family History SOCIAL HISTORY: SOCIAL HISTORY[1] MEDICATIONS: Cholecalciferol, Vitamin D3, 25 mcg (1,000 unit) cap Take 500 Units by mouth once daily. norethindrone acetate-ethinyl estradiol 1-5 mg-mcg tab Take 1 tablet by mouth once daily. fexofenadine (LEON) 180 mg tablet Take 1 tablet by mouth once daily. DULoxetine (CYMBALTA) 60 mg capsule Take 1 capsule by mouth once daily. azelastine 0.1% nasal spray Use 1 spray in each nostril two times a day. fluticasone (FLONASE ALLERGY RELIEF) 50 mcg/actuation nasal spray Use 1 spray in each nostril once daily. azelastine (ASTELIN,ASTEPRO) 0.1% nasal spray USE 2 PUFFS IN EACH NOSTRIL TWICE A DAY ALLERGIES: ALLERGIES Allergen Reactions Cat Dander Intolerance, Unknown Mold Intolerance, Other: See Comments, Unknown REVIEW OF SYSTEMS: Constitutional: No chills and fever. HENT: No congestion, hearing loss and sinus pressure. Eyes: No pain and visual disturbance. Respiratory: No cough, chest tightness or shortness of breath. Cardiovascular: No chest pain and leg swelling. Gastrointestinal: No abdominal pain, constipation, nausea or vomiting. Genitourinary: No dysuria and frequency. Musculoskeletal: No joint swelling and myalgias. Neurological: No focal weakness or numbness PHYSICAL EXAM: BP 136/87 (BP Site: Right Arm, BP Position: Sitting, BP Cuff Size: Regular Adult) Pulse 81 Ht 158.8 cm (5' 2.5 ) Wt 68.5 kg (151 lb 0.2 oz) BMI 27.18 kg/m?? @BPTRU@ GA: No Acute Distress Skin: Warm, Moist HEENT: [place] Conj. CV- RRR, +S1/S2 Lungs - Normal effort, Good air entry Abd- Soft, non tender, + Bowel sounds Extr- No edema. Neuro- Awake and alert DATA: Diagnostic tests reviewed for today's visit: Creatinine 1.2 stable over last 4 - 5 years. ASSESSMENT: 1. Elevated creatinine - creatinine around 1.2 with eGFR in upper 50's over last several years. Hadhx of NSAID use several years before she was told to have lower eGFR. No proteinuria. CKD cause unclear, likely from under estimation due to muscle mass. Will check Cystatin c eGFR and RFP as well quantify proteinuria. 2. Personal Hx of Kidney stones - pt reports kidney stones found on renal US. 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 Advised her to keep adequate hydration and follow up with her weighbridge operator regarding further work and management. 3. Depression - controlled on current meds. CC: REFERRING PROVIDER: No ref. provider found PRIMARY CARE PHYSICIAN: Lisandro Plunkett DO, DO [1] Social History Tobacco Use Smoking status: Never Smokeless tobacco: Never Vaping Use Vaping status: Never Used Substance Use Topics Alcohol use: No Drug use: No documented in this encounter Plan of Treatment NameTypePriorityAssociated DiagnosesOrder ScheduleCYSTATIN CLabRoutine Personal history of kidney stones Elevated serum creatinine Depression, unspecified depression type Expected: 08/26/2025, Expires: 11/25/2025RENAL FUNCTION PANELLabRoutine Personal history of kidney stones Elevated serum creatinine Depression, unspecified depression type Expected: 08/26/2025, Expires: 11/25/2025PROTEIN / CREATININE RATIOLabRoutine Personal history of kidney stones Elevated serum creatinine Depression, unspecified depression type Expected: 11/26/2025, Expires: 02/25/2026LBUMIN/CREATININE RATIO, URINELab Routine Personal history of kidney stones Elevated serum creatinine Depression, unspecified depression type Expected: 08/26/2025, Expires: 11/25/2025documented as of this encounter Visit Diagnoses Diagnosis Personal history of kidney stones- Primary Personal history of urinary calculi Elevated serum creatinine Other nonspecific findings on examination of blood Depression, unspecified depression type documented in this encounter Care Teams Team MemberRelationshipSpecialtyStart DateEnd Date Lisandro Plunkett DO [address] [place] [address] PCP - GeneralFamily Medicine03/20/25documented as of this encounter
--- NOTE | 2025-09-09 08:27 | MM_ITS ---
Patient Name: DEONTE PORTILLO MR#: [id number] : 1975 Exam Date: 09/09/2025 Ordering Doctor: DR EMELY IBARRA RADIOLOGY REPORT PROCEDURE: MM TOMOSYNTHESIS SCREENING BI COMPARISON: MM TOMOSYNTHESIS SCREENING BI, 08/28/2024. MM TOMOSYNTHESIS SCREENING BI, 08/17/2023. MG MAMM SCREEN 3D VERONICA CAD, 08/09/2022. MG MAMM SCREEN VERONICA W CAD, 12/14/2016. INDICATIONS: Screening Calculator Name NCI Breast Cancer Risk Assessment Tool 5 Year Breast Cancer Risk 1.00% Lifetime Breast Cancer Risk 10.00% Personal Breast Cancer No Personal Ovarian Cancer No Treatments None Family Cancers Grandmother-maternal with breast cancer at age ~60; Father with prostate cancer at age 60; Grandmother-paternal with colon cancer at age ~55. LOCATION: [facility] BREAST COMPOSITION: The breasts are extremely dense, which lowers the sensitivity of mammography. FINDINGS: RIGHT BREAST: No significant suspicious finding. LEFT BREAST: No significant suspicious finding. DIAGNOSTIC CATEGORY 1--NEGATIVE. NO CHANGE FROM COMPARISON ASSESSMENT. RECOMMENDATIONS: ROUTINE MAMMOGRAM AND CLINICAL EVALUATION IN 12 MONTHS. Dictated by: Dejon Dixon MD on 09/09/2025 at 13:22 Approved by: Dejon Dixon MD on 09/09/2025 at 13:29
--- OUTSIDE RECORDS SUMMARY | 2025-09-09 08:28 | XMS_ITS | Clinical Summary ---
Author Organization [facility] Address [address] [place] [address] Care Team Providers Care Grape Picker Name Role Phone Lisandro Plunkett DO Unavailable [phone] Lisandro Plunkett DO Primary Care Provider [phone]- [phone] Otis Valdivia MD Unavailable [phone] Allergies Active AllergyReactionsCriticalityNoted DateCommentsCat HexykkDqewgim21/15/2021 Dust Mite GsvctilFpprzad70/15/2021Molds & SmutsRunny nose,Mzbrirg6408/24/2021 Medications MedicationSigDispense QuantityRefillsLast FilledStart DateEnd DateStatus DULoxetine (Cymbalta) [address] capsule Indications:Major depressive disorder, single episode, mild,AnxietyTake 1 capsule (20 mg) by mouth Daily Do not crush or chew. 90 capsule 5Active loratadine (Claritin) 10 MG tablet Take by mouthActive norethindrone-ethinyl estradiol (Femhrt 1/5) 1-5 MG-MCG tablet Indications:Menopausal symptomsTake 1 tablet by mouth Daily 84 tablet 5Active azelastine (Astelin) 0.1 % nasal spray 08/21/2025Discontinued(Therapy completed) norethindrone-ethinyl estradiol (Femhrt 1/5) 1-5 MG-MCG tablet Indications:Menopausal symptomsTake 1 tablet by mouth Daily 84 tablet Discontinued(Reorder) DULoxetine (Cymbalta) [address] capsule Indications:AnxietyTake 1 capsule (30 mg) by mouth Daily Do not crush or chew. 90 capsule Discontinued(Therapy completed) Active Problems ProblemNoted DateDiagnosed DateAsymptomatic microscopic detsyevjq65/30/2025High blood hyjfgett56/30/7055Gwbgxoqltyrk82/30/2025Vitamin D zppyaeyimj57/30/2025Weak urine cpgqro0705/08/2025Irritable bowel aybygram94/30/2025Nephrolithiasis 05/08/2025Renal cyst05/08/2025Euthyroid sick /30/2025Hypothyroid 05/08/2025KD (chronic kidney disease)05/08/20255005Ybdujuu74/23/2025llergic rhinitis due to dust mite01/24/2025llergic rhinitis due to animal hair and adbysa3701/24/2025llergic rhinitis due to mold01/24/2025llergic rhinitis due to animal (cat) (dog) hair and njjxtz7204/18/2023eviated nasal xmqkhq0808/24/2021Major depressive disorder, single episode, mild04/22/2021Kidney stone05/14/2019Stage 3 chronic kidney rarninw6905/14/2019Hypertrophy of nasal qhwrwacnfq40/26/2019Other specified disorders of nose and nasal rwvvynm8301/02/2019Poisoning by other pfly-jfzohh-pnil drugs, accidental (unintentional), initial zkzugaigr20/26/2019 Chronic ucyzdyaf42/26/9875Rppymalhau46/14/2018Internal derangement of right rtdpvnco84/29/2017Seasonal allergic xeknpxqc90/08/8448Ygcfunmwns72/04/2016 Chronic hkuevcx1408/19/2015Irritable bowel syndrome with constipation and diarrhea 08/19/2015Raynaud's paapyugv50/10/2015Sick-euthyroid cqlgcovw17/10/2015 Encounters DateTypeDepartmentCare NdttGfmcjluztlk21/12/2025 4:15 PM ESTOffice Visit [facility] [address] [place] [address] Otis Valdivia MD Well woman exam with routine gynecological exam (Primary Dx); Cervical cancer screening; Screening for HPV (human papillomavirus); Other screening mammogram; Menopausal /12/2025amboo flowsheet [facility] [address] [place] [address] Otis Valdivia MD 08/21/2025Travelfrom Last 3 Months Family History Medical HistoryRelationNameCommentsNo Known ProblemsBrotherNo Known Problems DaughterCancerFatherTom meachamProstate cancerFatherTom meachamprostateBreast cancerFather's SisterToni FraileyColon cancerFather's SisterToni FraileyStroke Maternal GrandfatherGrandfatherBreast cancerMaternal GrandmotherGrandmother Mental illnessMaternal GrandmotherGrandmotherThyroid diseaseMotherMother HypertensionOtherspouseColon cancerPaternal GrandmotherGrandmotherRheum arthritisPaternal GrandmotherGrandmotherNo Known ProblemsSonRelationNameStatus CommentsBrother1 brotherDaughterAlive1 daughterFatherTom meachamAliveFather's SisterToni FraileyMaternal GrandfatherGrandfatherMaternal GrandmotherGrandmother MotherMotherAliveOtherspousePaternal GrandmotherGrandmotherSonAlive1 son Social History Tobacco UseTypesPacks/DayYears UsedDateSmoking Tobacco: NeverSmokeless Tobacco: Never Tobacco Cessation:Counseling Given: No Alcohol UseStandard Drinks/WeekCommentsNot Currently2 (1 standard drink = 0.6 oz pure alcohol)1-2 drinks less than monthly in the past year, Caffeine intake: 1-2 cups per day energy drinkSocial Connection and Isolation PanelAnswerDate RecordedIn a typical week, how many times do you talk on the phone with family, friends, or neighbors?More than three times a week12/04/2023How often do you get together with friends or relatives?Once a week12/04/2023How often do you attend samaritan or sabianist services?1 to 4 times per year12/04/2023o you belong to any clubs or organizations such as samaritan groups, unions, fraternal or athletic melchor ups, or school groups?No12/04/2023How often do you attend meetings of the clubs or organizations you belong to?Patient lxfzptek19/25/2024re you , , , , never , or living with a partner? 12/04/2023UDIT-CAnswerDate RecordedQ1: How often do you have a drink containing alcohol?2-4 times a month12/04/2023Q2: How many drinks containing alcohol do you have on a typical day when you are drinking?1 or Q3: How often do you have six or more drinks on one occasion?Less than wumisrm5412/04/2023Overall Financial Resource Strain (CARDIA)AnswerDate RecordedHow hard is it for you to pay for the very basics like food, housing, medical care, and heating?Not hard at all12/04/2023HQ-2AnswerDate RecordedPatient Health Questionnaire-2 Score0 05/08/2025[facility] [place] [facility] - Occupational Stress QuestionnaireAnswerDate RecordedDo you feel stress - tense, restless, nervous, or anxious, or unable to sleep at night because yourmind is troubled all the time - these days?Only a rdikvo7412/04/2023Exercise Vital SignAnswerDate Recorded On average, how many days per week do you engage in moderate to strenuous exercise (like a brisk walk)?6 days12/04/2023On average, how many minutes do you engage in exercise at this level?60 min12/04/2023Hunger Vital SignAnswerDate RecordedWithin the past 12 months, you worried that your food would run out before you got the money to buymore.Never true12/04/2023Within the past 12 months, the food you bought just didn't last and you didn't have money to get more.Never true12/04/2023RAPARE - TransportationAnswerDate RecordedIn the past 12 months, has lack of transportation kept you from medical appointments or from getting medications?No12/04/2023In the past 12 months, has lack of transportation kept you from meetings, work, or from getting things needed for daily living?No12/04/2023Housing Stability Vital SignAnswerDate RecordedIn the last 12 months, was there a time when you were not able to pay the mortgage or rent on time?No12/04/2023In the last 12 months, how many places have you lived?1 12/04/2023In the last 12 months, was there a time when you did not have a steady place to sleep or slept in ashelter (including now)?No4Comments NoSex and Gender InformationValueDate RecordedSex Assigned at BirthFemale 04/18/2023 8:42 AM EDTLegal LbnNrmfqj13/15/2023 7:20 PM EDTGender IdentityFemale 04/18/2023 8:42 AM EDTSexual VwkqfdkglmrBqjzxszd73/10/2023 8:42 AM EDT Last Filed Vital Signs Vital SignReadingTime TakenCommentsBlood Kpcfjroi462/7808/21/2025 4:06 PM EST Iijzb8214/30/2025 9:36 AM MMJAqcaoskoxde57.9 ??C (98.5 ??F)05/08/2025 9:36 AM EDTRespiratory Rate--Oxygen Zbriyvcirc64%05/08/2025 9:36 AM EDTInhaled Oxygen Concentration--Qdsecg98.7 kg (147 lb)08/21/2025 4:06 PM YSJHmiaaf881.5 cm (5' 2 )05/08/2025 9:36 AM EDTBody Mass Index26.8905/08/2025 9:36 AM EDT Plan of Treatment DateTypeDepartmentCare Team (Latest Contact Info)Goxqotuoaxf46/16/2026 10:00 AM ESTOffice Visit [facility] [address] [place] [address] Otis Valdivia MD [address] [place] [address] Health MaintenanceDue DateLast DoneCommentsCT Tsadrvgujflt1975FIT-DNA 1975FIT1975FOBT04/13/19767686Lrehhpqsdextm1976COVID-19 Vaccine ( season), 11/06/2020, 10/08/2020Pap Smear08/03/2025 08/03/20221039Nevbeftau50/19/583468/, 08/28/2024, 08/17/2023, Additional history existsCervical Cancer Qaenbiukf19/12/2030HPV/Wsssnf45 Vimbrlhgcrv59/08/774301/olorectal Cancer Zcjyeuibn31/08/2034Influenza FqtmawmEkcatatgr89/02/2025, 08/14/2024, 08/01/2023, Additional history exists Pneumococcal Vaccine: Pediatrics (0 to 5 Years) and At-Risk Patients (6 to 64 Years)Aged OutNo longer eligible based on patient's age to complete this topic Procedures Procedure NamePriorityDate/TimeAssociated DiagnosisCommentsIGP, APT HPV,RFX 16/18,22Sbmvgdd56/12/2025 12:00 AM EST Cervical cancer screening Screening for HPV (human papillomavirus) BI MAMMOGRAM SCREENING PNIQOKBIBDwqmgyp17/19/2024 9:37 AM ESTCOLONOSCOPYRoutine 10/17/2023 9:23 AM ESTTHINPREP TIS PAP AND HPV MRNA E6/E7 REFLEX HPV 16,18/45 (87380)Wafbsol0708/03/2022 from Last 3 Months or Most Recently Relevant to Health Maintenance Results * IGP, APT HPV,RFX 16/18,45 (08/21/2025 12:00 AM EST)ComponentValueRef RangeTest MethodAnalysis TimePerformed AtPathologist SignatureDiagnosis:CommentLABCORP Comment:NEGATIVE FOR INTRAEPITHELIAL LESION OR MALIGNANCY.Specimen Adequacy: CommentLABCORPComment: Satisfactory for evaluation. ??Endocervical and/or squamous metaplastic cells (endocervical component) are present. Clinician Provided ICD10:CommentLABCORPComment: Z12.4 Z11.51 Performed By:CommentLABCORPComment:Feroz Ocampo, Senior Web Analyst (ASCP)Cyto Comments. LABCORPNote:CommentLABCORPComment: The Pap smear is a screening test designed to aid in the detection of premalignant and malignant conditions of the uterine cervix. ??It is not a diagnostic procedure and should not be used as the sole means of detecting cervical cancer. ??Both false-positive and false-negative reports do occur. Test Methodology:CommentLABCORPComment: This liquid based ThinPrep(R) pap test was interpreted using the e[employer](R) Genius(TM) Cervical Algorithm whole slide imaging system. HPV AptimaNegativeNegativeLABCORPComment: This nucleic acid amplification test detects fourteen high-risk HPV types (16,18,31,33,35,39,45,51,52,56,58,59,66,68) without differentiation. Specimen (Source)Anatomical Location / LateralityCollection Method / Volume Collection TimeReceived TimeVaginal Fluid/ Narrative [facility] - 08/23/2025 9:08 AM EST Performed at: 01 - [address] ??[id number] Material Worker: Padmaja Russ MD, Phone: ??[phone] Performed at: ??02 - [facility] ??[id number] Material Worker: Padmaja Russ MD, Phone: ??[phone] Specimen Comment: No. of containers..01 ThinPrep Vial Authorizing ProviderResult TypeResult StatusOtis Valdivia MDLAB BLOOD ORDERABLESFinal ResultPerforming OrganizationAddressCity/State/ZIP CodePhone Number [facility] * Bilateral screening mammogram (08/28/2024 9:37 AM EST)Anatomical Region LateralityModalityBreastBilateralMammography Narrative Authorizing ProviderResult TypeResult StatusMattaida Plunkett DOIMG BI PROCEDURESFinal Result * Colonoscopy (10/17/2023 9:23 AM EST)Anatomical RegionLateralityModality Endoscopy Narrative Authorizing ProviderResult TypeResult StatusMattaida Plunkett DOENDOSCOPY PROCEDURE ORDERABLESFinal Result * THINPREP TIS PAP AND HPV MRNA E6/E7 REFLEX HPV 16,18/45 (63739) (08/03/2022) ComponentValueRef RangeTest MethodAnalysis TimePerformed AtPathologist SignatureCLINICAL INFORMATION:None givenNOMS LEGACY EXTERNAL LABLMP:None given [facility] LABPREV. PAP:None givenN[facility] EXTERNAL LABPREV. BX: None givenN[facility] EXTER[facility] LABSOURCE:None givenN[facility] STATEMENT OF ADEQUACY:SEE COMMENTNOMS LEGACY EXTERNAL LABComment: Satisfactory for evaluation. Endocervical/transformation zone component present. INTERPRETATION/RESULT:Negative for intraepithelial lesion or malignancy.[facility] LABCOMMENT:This Pap test has been evaluated with computer assisted technology.[facility] LABCYTOTECHNOLOGIST:SEE COMMENTNOMS LEGACY EXTERNAL LABComment: GUILLERMINA DUONG(ASCP) CT Screening Location: [facility] [address], [place] [address]. COMMENTSEE COMMENTNOMS LEGACY EXTERNAL LABComment: EXPLANATORY NOTE: The Pap is a screening test for cervical cancer. It is not a diagnostic test and is subject to false negative and false positive results. It is most reliable when a satisfactory sample, regularly obtained, is submitted with relevant clinical findings and history, and when the Pap result is evaluated along with historic and current clinical information. HPV MRNA E6/E7Not DetectedNot DetectedNOMS LEGACY EXTERNAL LABComment: Methodology: Host And Hostess-Mediated Amplification This assay detects E6/E7 viral messenger RNA (mRNA) from 14 high-risk HPV types (16,18,31,33,35,39,45,51,52,56,58,59,66,68). Cervical sources are required for HPV testing. If a vaginal source from a patient who has had a total hysterectomy with removal of cervix was submitted, please contact the testing laboratory for alternative testing options. For additional information, please refer to http://education.ioSafe.HUNT Mobile Ads/faq/GQO912r2 (This link if provided for information/ educational purposes only.) Specimen (Source)Anatomical Location / LateralityCollection Method / Volume Collection TimeReceived Time08/03/2022 Narrative Authorizing ProviderResult TypeResult StatusOtis COLINDRES LABSFinal ResultPerforming OrganizationAddressCity/State/ZIP CodePhone Number [facility] from Last 3 Months or Most Recently Relevant to Health Maintenance Insurance * Guarantor: Dayanna Donovan AAccount TypeRelation to PatientDate of BirthPhone Billing AddressPersonal/PobcypOymz1975 [address] [address] Care Teams Team MemberRelationshipSpecialtyStart DateEnd Lisandro Plunkett DO [address] [facility] [address] [place] [address] PCP - Medical [place] [employer]03/10/2312 Lisandro Plunkett DO [address] [facility] [address] [place] [address] PCP - General04/18/23 Otis Valdivia MD [address] [facility] [address] [place] [address] Obstetrics and Gynecology11/01/23
--- OUTSIDE RECORDS SUMMARY | 2025-09-09 08:28 | XMS_ITS | Clinical Summary ---
Author Organization [facility] Address [address] [place] [address] Phone Care Team Providers Care Family Preservation Worker Name Role Phone Unavailable Primary Care Provider Unavailabl e Social History Tobacco UseTypesPacks/DayYears UsedDateSmoking Tobacco: Never Assessed CommentsUnknownSex and Gender InformationValueDate RecordedSex Assigned at Not on fileLegal IxlGhndxt24/26/2022 3:25 PM ESTGender IdentityNot on fileSexual OrientationNot on file Plan of Treatment Not on file
--- OUTSIDE RECORDS SUMMARY | 2025-09-09 08:28 | XMS_ITS | Clinical Summary ---
Author Organization [facility] Address [address] [place] [address] Care Team Providers Care Flake Or Shred Roll Operator Name Role Phone Lisandro Plunkett Primary Care Provid er Allergies Active AllergyReactionsCriticalityNoted DateCommentsCat DanderIntolerance, Fkgttgd6408/24/2021MoldIntolerance,Other: See Comments,Bquuquh3008/24/2021 Medications MedicationSigDispense QuantityRefillsLast FilledStart DateEnd DateStatus azelastine (ASTELIN,ASTEPRO) 0.1% nasal spray USE 2 PUFFS IN EACH NOSTRIL TWICE A FJU100Active DULoxetine (CYMBALTA) 60 mg capsule Take 1 capsule by mouth once daily.07/14/2018Active fluticasone (FLONASE ALLERGY RELIEF) 50 mcg/actuation nasal spray Use 1 spray in each nostril once daily. 1 each 5Active azelastine 0.1% nasal spray Use 1 spray in each nostril two times a day. 90 mL 5Active fexofenadine (LEON) 180 mg tablet Take 1 tablet by mouth once daily. 30 tablet 5Active norethindrone acetate-ethinyl estradiol 1-5 mg-mcg tab Take 1 tablet by mouth once daily.4Active Cholecalciferol, Vitamin D3, 25 mcg (1,000 unit) cap Take 500 Units by mouth once daily.4Active Active Problems ProblemNoted DateDiagnosed SjglLpbvalv35/23/2025 Assessment & Plan (04/01/2025 1:37 PM EDT): Assessment: Controlled with cymbalta Allergic rhinitis due to animal hair and qrqkui9901/24/2025llergic rhinitis due to mold01/24/2025llergic rhinitis due to dust mite01/24/2025Deviated nasal vqsgng6801/14/2025Hypertrophy of nasal nbgwmesphq04/07/2025hronic fatigue 05/18/2018Sick-euthyroid ktymjqfg43/09/2018 Encounters DateTypeDepartmentCare KhzkIjwibotuhnn96/17/2025 2:20 PM ESTOffice Visit [facility] [address] [place] [address] Silke Cornejo MD Personal history of kidney stones (Primary Dx); Elevated serum creatinine; Depression, unspecified depression type08/19/2025Travelfrom Last 3 Months Family History Medical HistoryRelationCommentsDifficulty with anesthesiaNo Family History Social History Tobacco UseTypesPacks/DayYears UsedDateSmoking Tobacco: NeverSmokeless Tobacco: NeverAlcohol UseStandard Drinks/WeekCommentsNo0 (1 standard drink = 0.6 oz pure alcohol)Area Deprivation IndexAnswerDate RecordedNational Score (1-100), lower number is lower taij440601/14/2025State Score (1-10), lower number is lower risk4 01/14/2025Data from: https://www.neighborhoodatlas.medicine.[facility].edu/. Last address used for [address] [facility] [address]01/14/2025CommentsNoSex and Gender InformationValueDate RecordedSex Assigned at BirthNot on fileLegal Sex Jgiwmw2911/21/2014 11:11 AM ESTGender IdentityNot on fileSexual OrientationNot on file Last Filed Vital Signs Vital SignReadingTime TakenCommentsBlood Bgthcldn394/8708/26/2025 2:15 PM EST fjqzexkDgvim1479/17/2025 2:15 PM YKHivydcszDpxpoyfsyus28.7 ??C (99.9 ??F) 04/19/2025 12:34 PM EDTRespiratory Uurr335804/19/2025 1:45 PM EDTOxygen Saturation 96%04/19/2025 1:45 PM EDTInhaled Oxygen Concentration--Gohshm19.5 kg (151 lb 0.2 oz)08/26/2025 2:15 PM CEDUhvngg343.8 cm (5' 2.5 )08/26/2025 2:15 PM ESTBody Mass Index27.18110/26/2024 2:15 PM EST Plan of Treatment Health MaintenanceDue DateLast DoneCommentsDepression Rjwlldtaz82/05/1994HIV Slsztnjbx55/05/1994Hepatitis C Smhrkmzvq88/05/1994DTaP,Tdap,Td Vaccine (1 - Tdap)1995Hepatitis B Vaccine (1 of 3 - 19+ 3-dose series)1995 Cervical Cancer Cqdtgmzfl33CT Tgfgubfeqjha46/05/2021Cologuard (FIT-DNA)04/13/20214906Egidxvxealn80/05/2021olorectal Cancer Hcajjuuev32/05/2021 Diabetes Pqyjpjlow57/05/2021Fecal Occult Blood2021ipid Screening 04/13/20219688Czdohbedwpllg21/05/2021ovid-19 Vaccine ( season)2025 08/08/2023, 07/31/2021, 11/06/2020, Additional history existsInfluenza Vaccine (#1)511/02/2024, 08/01/2023, 07/11/2022, Additional history exists Mammogram Yjyrwnnto07, 08/09/2022, 08/03/2022, Additional history exists Insurance Care Teams Team MemberRelationshipSpecialtyStart DateEnd Date Lisandro Plunkett DO [address] [facility] [address] [place] [address] PCP - GeneralFamily Medicine03/20/25
--- OUTSIDE RECORDS SUMMARY | 2025-09-09 08:29 | XMS_ITS | CCD ---
Author Organization [facility] Care Team Providers Care Supervisor [employer] Name Role Phone JANESSA BROWER Unavailable Unavailable NO FAMILY DOCTOR, NO FAMILY DOCTOR Unavailable Unavailable JANESSA BROWER Unavailable Unavailable NO FAMILY DOCTOR, NO FAMILY DOCTOR Unavailable Unavailable Balaji Peraza Primary Care Provider [phone] MaríaZhang marksul Unavailable NORMAN TALBERT Attending Unavailable PETZNROBERT, ACDEN Primary Care Unavailable NORMAN TALBERT Admitting Unavailable MARÍAETELVINA Attending Unavailable MARÍAETELVINA Admitting Unavailable PETZNICK, CADEN Primary Care Unavailable MARÍA, ETELVINA Consulting Unavailable WEST, DR SHEREE [place] Consulting Unavailable PRINTY, DR HAN Attending Unavailable PRINTY, DR HAN Admitting Unavailable PETZNICK, [facility] Primary Care Unavailable PRINTY, DR HAN Consulting Unavailable WEST, DR SHEREE Mes[place] Admitting Unavailable WEST, DR SHEREE [place] Consulting Unavailable PETZNICK, [facility] Primary Care Unavailable WEST, DR SHEREE Mesa Attending Unavailable WEST, DR SHEREE Mesa Admitting Unavailable WEST, DR SHEREE [place] Consulting Unavailable PETZNICK, [facility] Primary Care Unavailable WEST, DR SHEREE Mesa Attending Unavailable WEST, DR SHEREE Mes[place] Consulting Unavailable PETZNICK, [facility] Primary Care Unavailable WEST, DR SHEREE Mesa Attending Unavailable WEST, DR SHEREE Mesa Admitting Unavailable Asaad, Imad Unavailable MD Bienvenido Yanes Attending Provider [phone] DO Caden Benavides Primary Care Provider [phone] PetCaden oliveira Primary Care Unavailable Asaad, Imad Attending Unavailable Asahomer, Imad Admitting Unavailable CADEN BENAVIDES Primary Care Physician [phone] Ginny Sears Unavailable Unavailable Deshaun CERDA Attending Unavailable MARÍA, ETELVINA Referring Unavailable Deshaun CERDA Attending Unavailable ETELVINA DANIEL Referring Unavailable Mitali Leach Attending Unavailable Deshaun CERDA Attending Unavailable Deshaun CERDA R Admitting Unavailable Deshaun CERDA R Attending Unavailable Caden Benavides DO Unavailable PetCaden oliveira DO Primary Care Provider Otis Ibarra MD Unavailable [phone] Amanda TRAMMELL, Balaji Fan Primary Care Provider Caden Benavides DO Primary Care Provid er NOEMI, EDDIE W Admitting Unavailable NGO, EDDIE W Attending Unavailable PETZNICK, CADEN TAPIA Primary Care Unavai lablisa NGO, EDDIE W Referring Unavailable PETZNICK, CADEN TAPIA [facility] Unavai lablisa NGO, EDDIE W Attending Unavailable NGO, EDDIE W Referring Unavailable PETZNICK, CADEN TAPIA [facility] NAKUL Mann Attending Unavailable AMANDA, [facility] Unavailab lisa NGO, EDDIE W Attending Unavailable CHARIK, MOHAMAD Referring Unavailable [facility] Unavailab le RE, RIM S Attending Unavailable FRANCO GRACIAD Referring Unavailable [facility] Unavailab CADEN Luna Attending Unavailable OTIS IBARRA Attending Unavailable Allergies Allergy ClassificationReported Allergen(s)Allergy TypeDate of OnsetReaction(s) Facility (12 sources)Mold Extract; Translations: [Mold]Drug Temqqvi84-11-1893Auaer discharge (disorder), Intolerance, Other: See Comments, [facility] ([facility])No Known Medication Allergies; Translations: [No Known Medication Allergies]Propensity to adverse reactions (disorder)[facility] Repository (7 sources)House dust miteAllergy to flvynlrgs44-27-9800ApyxkhmDPWP Healthcare (7 sources)Mold ExtractDrug Hydabby07-57-2486Vkkxe nose, [facility] (7 sources)Cat Hair ExtractAllergy to pzfiqdzxd99-62-4354AfymqskDGWD Healthcare Work Phone: (6 sources)Beninese house dust mite allergenic extract / house dust mite allergenic extract; Translations: [ALLERG XT,D.FARINAE-D.PTERONYS]Drug Ibbiqde00-60-8172RnugqndGwtgnquot Clinic (8 sources)Cat Dander; Translations: [CAT DANDER]Drug Gzbuejz49-78-4272 Intolerance, [facility] Medications Current Medications MedicationDrug Class(es)DatesSig (Normalized)Sig (Original)Acetaminophen / oxyCODONE (3 sources)Opioid AgonistStart: 09-23-2348Mpkgwzuh 325 mg-5 mg Tab See Instructions, as needed for pain, 40 tab(s), Refill(s) 0, 1-2 tab(s) Oral q4hr, [id number], 157, cm, 11/13/21 8:21:00 EST, Height/Length Dosing, 74.4, kg, 11/13/21 8:21:00 EST, Weight Dosing Start Date: 11/20/21 Status: Ordered Latrice Allergy 180 MG (2 sources)take 1 tablet by mouth once dailyAllegra Allergy 180 MG 1 tablet Orally Once a day ActiveAlpha Lipoic Acid 200 MG (2 sources)Alpha Lipoic Acid 200 MG as directed Orally once a day Active azelastine hydrochloride 0.137 mg/actuat metered dose nasal spray (20 sources)Histamine-1 Receptor AntagonistStart: 78-07-7385xgav 1 spray(s) nasal route twice dailyazelastine 0.1% nasal spray Use 1 spray in each nostril two times a day. 90 mL 3 01/24/2025 ActiveStart: 49-12-3755Qsywldcnkz 137 mcg (0.1 %) aerosol,spray Active 1 SPRAY INTRANASAL Twice daily October 17, 2023 1:00amStart: 11-90-6868ipqurqkzfy nasal 2 puff(s), Nasal, Daily, Allergy symptoms Start Date: 11/11/21 Status: OrderedStart: 02-61-7218qlvt 2 puff(s) nasal route twice dailyazelastine (ASTELIN,ASTEPRO) 0.1% nasal spray USE 2 PUFFS IN EACH NOSTRIL TWICE A DAY 5 05/22/2018 Activeazelastine (Astelin) 0.1 % nasal spray Activetake 1 puff(s) nasal route twice dailyAzelastine HCl 137 MCG/SPRAY 1 puff in each nostril Nasally Twice a day ActiveComment on above:USE 2 PUFFS IN EACH NOSTRIL TWICE A DAYbirth control pill (3 sources)Start: 41-99-9828ltxw 1 dose by mouth once dailybirth control pill control pill, Oral, Daily Start Date: 10/12/16 Status: Orderedcefadroxil 500 mg oral capsule (1 source)Cephalosporin AntibacterialStart: 04-19-2025 End: 71-59-4150pjpk 1 capsule by mouth twice dailycefADROxil (DURICEF) 500 mg capsule Take 1 capsule by mouth two times a day for 7 days. 14 capsule 0 04/19/2025 04/26/2025 Activecelecoxib 100 mg oral capsule (3 sources)Nonsteroidal Anti-inflammatory DrugStart: 56-38-0505pkem 1 capsule by mouth twice daily as needed for painCeleBREX 100 mg Cap 100 mg = 1 cap(s), Oral, BID, PRN for pain, # 60 cap(s), Refills(s) 0, Pharmacy: [id number], 157, cm, 11/13/21 8:21:00 EST, Height/Length Dosing, 74.4, kg, 11/13/21 8:21:00 EST, Weight Dosing Start Date: 11/20/21 Status: Orderedcholecalciferol 0.025 mg oral capsule (6 sources)Vitamin DStart: 56-02-5012zomd 1 capsule by mouth once daily Cholecalciferol (Vitamin D3) 25 mcg (1,000 unit) capsule Active 25 MCG PO Daily February 16, 2024 12:00amVitamin D3 50 MCG (2000 UT) as directed Orally Active docusate sodium 100 mg oral capsule (3 sources)Start: 70-16-7885rrlu 1 capsule by mouth twice daily as needed for constipationColace 100 mg Cap 100 mg = 1 cap(s), Oral, BID, PRN for constipation, # 20 cap(s), Refills(s) 0, Pharmacy: [facility]/pharm[facility] #[id number], 157, cm, 11/13/21 8:21:00 EST, Height/Length Dosing, 74.4, kg, 11/13/21 8:21:00 EST, Weight Dosing Start Date: 11/20/21 Status: OrderedDULoxetine 20 mg delayed release oral capsule (20 sources)Serotonin and Norepinephrine Reuptake InhibitorStart: 05-08-2025 End: 49-82-5256huvd 1 capsule by mouth once dailyDULoxetine (Cymbalta) [address] capsule Indications: Major depressive disorder, single episode, mild, Anxiety Take 1 capsule (20 mg) by mouth Daily Do not crush or chew. 90 capsule 3 05/08/2025 08/06/2025 ActiveStart: 03-54-0710nlmm 1 capsule by mouth once daily DULoxetine (Cymbalta) [address] capsule Indications: Anxiety Take 1 capsule (30 mg) by mouth Daily Do not crush or chew. 90 capsule 04/30/2025 ActiveStart: 10-17-2023 End: 65-06-2784oqoe 1 capsule by mouth once dailyDuloxetine 30 mg capsule,delayed release(DR/EC) Active 30 MG PO Daily October 17, 2023 1:00am Start: 37-81-1219yjpb 1 capsule by mouth once dailyDULoxetine (CYMBALTA) 60 mg capsule Take 1 capsule by mouth once daily. 07/14/2018 ActiveStart: 10-07-2016 take 30 mg by mouth once dailyCymbalta 30 mg, Oral, Daily, Refills(s) 0, Depression Start Date: 10/07/16 Status: Orderedtake 1 capsule by mouth every twenty-four hoursCymbalta 30 MG 1 capsule Orally Once a day ActiveComment on above:Take 1 capsule by mouth once daily.Estradiol (3 sources)EstrogenStart: 94-37-3105tvoavqzhv Refills(s) 0 Start Date: 12/21/23 Status: Orderedethinyl estradiol 0.005 mg / norethindrone acetate 1 mg oral tablet (14 sources)EstrogenStart: 10-17-2023 End: 74-82-9526peauidgevzhbw-ethinyl estradiol (Femhrt 1/) 1-5 MG-MCG tablet Indications: Menopausal symptoms Take 1 tablet by mouth Daily 84 tablet 3 08/14/2024 Activefexofenadine hydrochloride 180 mg oral tablet (7 sources)Histamine-1 Receptor AntagonistStart: 77-50-9813dxrl 1 tablet by mouth once dailyfexofenadine (LATRICE) 180 mg tablet Take 1 tablet by mouth once daily. 30 tablet 3 01/24/2025 ActiveStart: 32-59-7731llsb 30 mg by mouth once dailyAllegra 30 mg, Oral, Daily, Allergy symptoms Start Date: 11/11/21 Status: Orderedfluticasone propionate 0.05 mg/actuat metered dose nasal spray (6 sources)CorticosteroidStart: 50-45-0778qvvx 1 spray(s) nasal route once daily fluticasone (FLONASE ALLERGY RELIEF) 50 mcg/actuation nasal spray Use 1 spray in each nostril once daily. 1 each 3 01/14/2025 Activekrill oil 500 mg oral capsule (2 sources)Krill Oil Hustle-3 500 MG as directed Orally once a day ActiveL- Glutamine - (1 source)L-Glutamine - as directed ActiveClaritin (10 sources)Start: 34-46-5914Emvchyfd Daily, Refills(s) 0 Start Date: 12/21/23 Status: OrderedStart: 15-10-1435hmut 1 tablet by mouth once dailyLoratadine (Claritin) 10 mg Tablet Active 10 MG PO Daily October 17, 2023 1:00amtake 1 tablet by mouth every twenty-four hoursClaritin 10 MG 1 tablet Orally Once a day ActiveMulti Vitamin Daily - (6 sources)take 1 tablet by mouth once dailyMulti Vitamin Daily - 1 tablet Orally Once a day ActiveMulti Vitamin+ (3 sources)Start: 12-08-6630Lceib Vitamin+ Refill(s) 0 Start Date: 12/21/23 Status: OrderedMultivitamin (Daily Multi-Vitamin) tablet (2 sources)Start: 47-85-5004vwex 1 tablet by mouth once dailyMultivitamin (Daily Multi-Vitamin) tablet Active 1 TAB PO Daily February 16, 2024 12:00ampolyethylene glycol 3350 844389 mg / potassium chloride 2970 mg / sodium bicarbonate 6740 mg / sodium chloride 5860 mg / sodium sulfate 50524 mg powder for oral solution (2 sources)Osmotic LaxativeStart: 45-81-8170bwug 236 g by mouth once dailyPEG- 3350/Electrolytes 236 GM 4000 ML Orally once daily for 1 days Jul, Activesodium chloride 0.111 meq/ml nasal spray (1 source)Start: 04-19-2025 End: 92-63-6737cmbrsl chloride (SALINE NASAL) 0.65 % nasal spray Use 3 sprays in the nose every 2 hours while awake. 405 mL 04/19/2025 05/19/2025 ActiveTurmeric extract (1 source)Turmeric 400 MG as directed Orally ActiveVitamin B Comp And C No.3 (B Complex Plus Vitamin C) 91-14-16-5-300 mg capsule (2 sources)Start: 50-95-1909Qmiriko B Comp And C No.3 (B Complex Plus Vitamin C) 59-35-40-5-300 mg capsule Active 1 CAP PO Daily February 16, 2024 12:00am give with food (meal/snack)Vitamin B Complex (6 sources)Vitamin B Complex - as directed Orally ActiveVitamin D (3 sources)Start: 21-41-9482Ftaqpfu D International_Unit, Oral, qWeek, Refills(s) 0 Start Date: 12/21/23 Status: OrderedVitamin D3 125 MCG (5000 UT) (1 source)Vitamin D3 125 MCG (5000 UT) as directed Orally ActiveVitamin D3 50 MCG (2000 UT) (1 source)Vitamin D3 50 MCG (2000 UT) as directed Orally Active Completed/Discontinued Medications MedicationDrug Class(es)DatesSig (Normalized)Sig (Original)ciprofloxacin 500 mg oral tablet (2 sources)Quinolone AntimicrobialStart: 32-01-0292Ynxpe 500 mg Tab 500 mg = 1 tab(s), Oral, As Directed, Patient to take 1 tab the day before procedure and the 2nd tab the day of procedure once completed, # 2 tab(s), Refills(s) 0, Pharmacy: [id number], 158, cm, 12/21/23 9:03:00 EDT, Height/Length Dosing, 71.5, kg, 12/21/23 9:03:00 EDT, Weight Dosing Start Date: 12/21/23 Status: OrderedEthinyl Estradiol / Ferrous fumarate / Norethindrone (12 sources)EstrogenStart: 06-07-2018 End: 51-41-2430XZIOP FE 10/29, 28, 1 mg-20 mcg (21)/75 mg (7) per tablet 06/07/2018 04/01/2025 DiscontinuedStart: 10-76-4356SDHSA FE 1/20, 28, 1 mg-20 mcg (21)/75 mg (7) per tablet 06/07/2018 ActiveStart: 07-79-5374QGNWN FE 1/20, 28, 1 mg-20 mcg (21)/75 mg (7) per tablettake 1 tablet by mouth every twenty- four hoursLo Loestrin Fe 1 MG-10 MCG / 10 MCG 1 tablet Orally Once a day Active Problems Active Problems Problem ClassificationProblemDateDocumented DateEpisodic/ChronicAnxiety disorders (12 sources)Anxiety; Translations: [Anxiety disorder, unspecified]Onset: 261335-35-0061MuzoegmBlxzenpm of urinary tract (20 sources)Kidney stone; Translations: [Calculus of kidney]Onset: 05-14-2019 Resolved: 88-72-4113NltmecakCnuzlth kidney disease (20 sources)Chronic kidney disease stage 3; Translations: [Chronic kidney disease, stage 3 unspecified]Onset: 288375-67-0245PwhsjgrYpciexdoi hypertension (6 sources)Hypertensive disorder; Translations: [Essential (primary) hypertension]Onset: 710761-65-8918PvhhrikRepqs and electrolyte disorders (12 sources)Hypo-osmolality and hyponatremia; Translations: [Hyponatremia]Onset: 76-68-4220DkpqxponEpilxdopjhahv symptoms and ill-defined conditions (20 sources)Other microscopic hematuria; Translations: [Microscopic hematuria] Onset: 80-09-6017XonqpnjbKlerhsu and fatigue (14 sources)Fatigue; Translations: [Chronic fatigue, unspecified]Onset: 209747-33-0471AnlqncpPvhusdkiag disorders (2 sources)Menopausal symptom; Translations: [Menopausal and female climacteric states]71-64-5048ByvlshjXcah disorders (16 sources)Depressive disorder; Translations: [Depression]Onset: 05-13-2016 69-83-9483RgcdqpfKcruchlfpfr deficiencies (20 sources)Vitamin D deficiency; Translations: [Vitamin D deficiency, unspecified]Onset: 08-13-2021 Resolved: 81-52-0890WgklsoiXugex circulatory disease (7 sources)Raynaud's disease; Translations: [Raynaud's syndrome without gangrene]Onset: 343523-78-8132YkhnyxqCpzag circulatory disease (4 sources)Elevated blood-pressure reading, without diagnosis of hypertension; Translations: [Elevated blood pressure reading without diagnosis of hypertension]EpisodicOther circulatory disease (2 sources)Elevated blood-pressure reading without diagnosis of hypertension; Translations: [Elevated blood-pressure reading, without diagnosis of hypertension]68-57-8319NuazxtfvUdvnw diseases of kidney and ureters (6 sources)Cyst of kidney; Translations: [Cyst of kidney, acquired]Onset: 177613-50-2137RuehreufVjfcb diseases of kidney and ureters (2 sources)Acquired renal cyst without neoplastic change; Translations: [Cyst of kidney, acquired]Onset: 81-41-4731NjgxzeupZezgq gastrointestinal disorders (20 sources)Irritable bowel syndrome; Translations: [Irritable bowel syndrome without diarrhea]Onset: 231956-62-1075TyzlnubVbtln gastrointestinal disorders (7 sources)Irritable bowel syndrome without diarrhea; Translations: [Irritable bowel syndrome]Onset: 08-13-2021 Resolved: 78-25-1081IpcbcwiRtmcy nervous system disorders (1 source)Other acute postprocedural pain; Translations: [Acute post-operative pain]Onset: 94-36-0664HweiicqcAxhzf non-traumatic joint disorders (7 sources)Derangement of right shoulder joint; Translations: [Other specific joint derangements of right shoulder, not elsewhere classified]Onset: 09-07-2017 81-71-2680NtynqkdXuezu screening for suspected conditions (not mental disorders or infectious disease) (6 sources)Encounter for screening mammogram for malignant neoplasm of breast; Translations: [Breast neoplasm screening status]Onset: 77-53-6732OsscnkiuZznlk upper respiratory disease (15 sources)Allergic rhinitis due to animal hair and dander; Translations: [Allergic rhinitis due to animal (cat) (dog) hair and dander]Onset: 04-18-2023 90-25-3796LkllaeyPbgok upper respiratory disease (7 sources)Chronic rhinitis; Translations: [Chronic rhinitis]Onset: 01-02-2019 62-14-1126CpfzthlVjsyb upper respiratory disease (7 sources)Seasonal allergic rhinitis; Translations: [Other seasonal allergic rhinitis]Onset: 646727-55-2423JssciwrEnkjq upper respiratory disease (2 sources)Allergic rhinitis; Translations: [Allergic rhinitis, unspecified] 05-06-3940LioglfkUyczg upper respiratory disease (8 sources)Allergic rhinitis caused by mold; Translations: [Other allergic rhinitis]Onset: 275870-37-0051QrulmciBsvnr upper respiratory disease (8 sources)Allergic rhinitis due to house dust mite; Translations: [Other allergic rhinitis]Onset: 598435-96-3980HmudrcjFizis upper respiratory disease (1 source)Chronic rhinitis; Translations: [Chronic rhinitis]Onset: 01-24-2025 ChronicOther upper respiratory disease (1 source)Allergic rhinitis, unspecified; Translations: [Allergic rhinitis, unspecified seasonality, unspecified trigger]Onset: 37-72-6403MflkfgtHnmem upper respiratory disease (3 sources)Incompetence of nasal valve; 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] 75-12-5367KaalhwopOzapb upper respiratory disease (2 sources)Nasal obstruction; Translations: [Other specified disorders of nose and nasal sinuses]86-00-5884KtvsuesfJylmz upper respiratory disease (1 source)Other specified disorders of nose and nasal sinuses; Translations: [Nasal obstruction]Onset: 94-85-9523XtzgcibaJitwuhm disorders (7 sources)Non-toxic uninodular goiter; Translations: [Nontoxic single thyroid nodule]Onset: 62-86-8714AkgmaxbDgzzwmo disorders (20 sources)Sick-euthyroid syndrome; Translations: [Sick-euthyroid syndrome] Onset: 763921-10-8665LhfcfkobKsdsglpxviod (2 sources)Superior glenoid labrum lesion of right shoulder, init / S43.431A(ICD-9)Onset: 37-99-2126Fawgxlegzvwi (1 source)Strain of musc/fasc/tend long hd bicep, right arm, init / S46.111A(ICD-9)Onset: 58-97-3012Xwgyshhgciyp (1 source)CHRN KIDNEY DISEASE STG 3 UNSP; Translations: [CHRN KIDNEY DISEASE STG 3 UNSP]Onset: 44-07-3070Nfcsmcnhgcuo (1 source)Encounter for screening for malignant neoplasm of colon; Translations: [Encounter for screening formalignant neoplasm of colon]Onset: 10-17-2023 Unclassified (3 sources)Asymptomatic microscopic zbfupyklx19-72-0216Yxyovwufafcr (1 source)Nasal valve collapse; 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]Onset: 01-21-2025 Past or Other Problems Problem ClassificationProblemDateDocumented DateEpisodic/ChronicChronic kidney disease (5 sources)Chronic kidney disease; Translations: [Chronic kidney disease, stage 3 unspecified]Onset: 08-13-2021 Resolved: 20-68-5507Ywwib nutritional; endocrine; and metabolic disorders (7 sources)Overweight; Translations: [Overweight]Onset: EpisodicOther upper respiratory disease (15 sources)Deviated nasal septum; Translations: [Deviated nasal septum]Onset: 033131-81-0375TvdjindaRrrma upper respiratory disease (15 sources)Hypertrophy of nasal turbinates; Translations: [Hypertrophy of nasal turbinates]Onset: 795438-00-7804AcalchtkFoxbu upper respiratory disease (7 sources)Disorder of face; Translations: [Other specified disorders of nose and nasal sinuses]Onset: 093419-01-5968QzebpyyyYrprajbwt by other medications and drugs (7 sources)Poisoning by drug AND/OR medicinal substance; Translations: [Poisoning by other dbzx-ksjjir-tqsd drugs, accidental (unintentional), initial encounter]Onset: 669151-46-1484EryzjjoiGxmfqofa codes; unclassified (1 source)Family history of malignant neoplasm of breast; Translations: [FAMILY HX MALIG NEOPLASM OF BREAST]Onset: 88-30-7312GlejkjwnClfuhkmt codes; unclassified (1 source)Family history of malignant neoplasm of digestive organs; Translations: [FAM HX MALIG NEOPLASM DIGESTIV ORGN]Onset: 38-21-8420Tmzsltef Residual codes; unclassified (1 source)Family history of malignant neoplasm of prostate; Translations: [FAMILY HX MALIG NEOPLASM PROSTATE]Onset: 57-11-8976DnbwdqwsVlzeswgd codes; unclassified (4 sources)Other specified postprocedural states; Translations: [OTH SPECIFIED POSTPROCEDURAL STATES]Onset: 30-29-2676XpfadkxaVmoeevddbyvw (1 source)Superior glenoid labrum lesion of right shoulder, init; Translations: [Superior glenoid labrum lesion of right shoulder, init]Onset: 10-05-2017 Results Test NameValueInterpretationReference RangeFacilityCNOVon 94-05-0564NLZKWmoazd Visit (OTOLMN) DEONTE DONOVAN ([id number]) 1975 F Date Time Provider Department 04/26/25 4:00 PM EDDIE NGO OTOLMN During your visit today, we recorded the following information about you: Leonora Richard OCCA 04/26/2025 5:39 PM Signed Tobacco Use: Never Was smoking cessation packet given? N/A - Patient is a non-smoker or quit >1 year ago. Was a referral initiated?N/A Patient is a non-smoker Eddie Ngo MD 04/26/2025 5:39 PM Signed Section of Facial Plastic AND Reconstructive Surgery Head and Neck [place], [facility] FOLLOW-UP VISIT CC: post-op HISTORY: Deonte Donovan is a 50 year old female who returns today following nasal surgery. Overall, recovering well. No significant concerns or complaints. Facial Plastic History ID: 04/19/25 1. Repair of nasal vestibular stenosis, bilateral 2. Septoplasty 3. Bilateral inferior turbinate reduction and out fracture I reviewed the patient's past medical history, past surgical history, social history, family medical history, allergies, and current medications. PHYSICAL EXAM: vitals were not taken for this visit. Nose - Aquaplast, steri-strips and Griffin splints removed. Columellar sutures trimmed. Expected post-operative swelling of dorsum and tip; incisions well healing; septum is straight and bilateral nasal cavities are patent after suctioning of mucoid debris; turbinates well reduced and lateralized IMAGING: I personally reviewed the following radiologic exams: NA IMPRESSION AND PLAN: Deonte Donovan is a 50 year old female that is recovering well following nasal surgery. We discussed continued care for the nose with ointment and nasal saline spray and use of humidifier. Return to clinic in 3 months Eddie Ngo MD Facial Plastic and Reconstructive Surgery Head and Neck [place] [facility] 04/26/2025 PROCEDURES: NA Referring Provider: EDDIE NGO [[id number]] Allergies As of Date: 04/26/2025 Noted Allergy Reaction CAT DANDER 08/24/2021 5 - Intolerance 16 - Unknown MOLD 08/24/2021 5 - Intolerance 14 - Other: See Comments 16 - Unknown Date Reviewed: 04/26/2025 Reviewed by: Leonora Richard OCCA - Fully Assessed Reason for Visit: Follow Up [171] Cmt: Post op, patient has some discomfort Primary Visit Diagnosis:Nasal obstruction [J34.89] Prescriptions as of 04/26/2025 - sodium chloride (SALINE NASAL) 0.65 % nasal spray Use 3 sprays in the nose every 2 hours while awake. - cefADROxil (DURICEF) 500 mg capsule Take 1 capsule by mouth two times a day for 7 days. - norethindrone acetate-ethinyl estradiol 1-5 mg-mcg tab Take 1 tablet by mouth once daily. - azelastine 0.1% nasal spray Use 1 spray in each nostril two times a day. - fexofenadine (LATRICE) 180 mg tablet Take 1 tablet by mouth once daily. - fluticasone (FLONASE ALLERGY RELIEF) 50 mcg/actuation nasal spray Use 1 spray in each nostril once daily. - azelastine (ASTELIN,ASTEPRO) 0.1% nasal spray USE 2 PUFFS IN EACH NOSTRIL TWICE A DAY - DULoxetine (CYMBALTA) 60 mg capsule Take 1 capsule by mouth once daily. 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 Author Type: Registered Nurse Type: [id number] Filed: 04/19/2025 08:57 Note Text: Scopolamine Patch Removal Keep the patch in place for up to 72 hours following surgery. Be sure to wash your hands thoroughly with soap and water after handling the patch, and clean the area behind the ear where the patch was originally attached. Medication residue on fingers can lead to pupils dilating if fingers come in contact with your eyes. At the end of 3 days, or when the scopolamine patch is no longer needed, (usually the day after surgery) remove the patch and throw it away. Wrap the patch in tissue or paper to avoid exposing anyone else to the remaining medication. Wash your hands and the area behind your ear thoroughly to remove any traces of scopolamine from the area. When it is time to discard the patch, throw in the trash away from children or pets. What side effects can this medication cause? Scopolamine patches may cause side effects. Tell your doctor if any of these symptoms are severe or do not go away: drowsiness disorientation dry mouth blurred vision dilated pupils confusion hallucinations difficulty urinating rash If you experience any of the following symptoms, remove the patch and call your doctor immediately: eye pain dizziness rapid pulseNormalAvon HospitalANES POSTPROC EVALon 90-56-8232IFKD POSTPROC EVAL HNO ID: [id number] Author: POOJA MORRIS MD Service: Anesthesiology Author Type: Physician Type: Anesthesia Postprocedure Evaluation Filed: 04/19/2025 16:23 Note Text: POST ANESTHESIA EVALUATION NOTE : 1975 Procedure Summary Date: 04/19/25 Room / Location: AV OR03 / AV OR Anesthesia Start: 952 Anesthesia Stop: 1234 Procedures: REPAIR NASAL VESTIBULAR STENOSIS (Bilateral: Nose) ABLATION, INFERIOR TURBINATES, BY TISSUE VOLUME REDUCTION; SUBMUCOSAL (Bilateral: Nose) SEPTOPLASTY (Nose) Diagnosis: Nasal valve collapse Nasal septal deviation Nasal obstruction Hypertrophy of both inferior nasal turbinates (Nasal valve collapse [J34.829]) (Nasal septal deviation [J34.2]) (Nasal obstruction [J34.89]) (Hypertrophy of both inferior nasal turbinates [J34.3]) Surgeons: Eddie Ngo MD Responsible Provider: Pooja Morris MD Anesthesia Type: general ASA Status: 2 Anesthesia Type: general Airway Type: ETT Last Vitals Vitals Value Taken Time BP 105/60 04/19/25 1330 Temp 37.7 ?C (99.9 ?F) 04/19/25 1234 Pulse 87 04/19/25 1315 Resp 16 04/19/25 1345 SpO2 96 % 04/19/25 1345 Post Anesthesia Patient Status Patient Evaluation: PACU. PACU/ICU Patient Condition: stable. Anticipated Disposition: phase 2 then home. Neurological Status: aware and responsive. Pulmonary Status: breathing comfortably on room air Airway Control: returned to baseline unsupported. Cardiovascular Status: stable. Pain Management: clinically adequate Postoperative Hydration: acceptable. Intraoperative Events: no significant anesthesia events Post Operative Nausea/Vomiting Status: no significant post operative nausea or vomiting Recommendation: further care per PACU/ICU/floor team. Anesthesia Observations No Documentation SIGNATURE: Pooja Morris MD PATIENT NAME: Deonte Donovan DATE: April 19, 2025 TIME: 4:23 PM CSN: [id number] Hill [facility] Center PRE-OPon [id number] PRE-OPHNO ID: [id number] Author: POOJA MORRIS MD Service: Anesthesiology Author Type: Physician Type: Anesthesia Preprocedure Evaluation Filed: 04/19/2025 08:59 Note Text: ANESTHESIOLOGY DAY OF SURGERY NOTE : 1975 Procedure Information Date/Time: 04/19/25 0915 Procedures: REPAIR NASAL VESTIBULAR STENOSIS (Bilateral: Nose) ABLATION, INFERIOR TURBINATES, BY TISSUE VOLUME REDUCTION; SUBMUCOSAL (Bilateral: Nose) SEPTOPLASTY (Nose) Location: AV OR03 / AV OR Surgeons: Eddie Ngo MD Estimated body mass index is 27.25 kg/m? as calculated from the following: Height as of this encounter: 157.5 cm (5' 2 ). Weight as of this encounter: 67.6 kg (149 lb). Most recent hematocrit and potassium results: No results found for this basename: HCT,HEMATOCRIT,K,POTASSIUM Relevant Problems ANESTHESIA (within normal limits) PULMONARY (+) Deviated nasal septum ENT (+) Hypertrophy of nasal turbinates Endocrinology (+) Sick-euthyroid syndrome Other (+) Chronic fatigue I - PHYSICAL EVALUATION AIRWAY Patient intubated: No. Tracheostomy tube not present Mallampati: III. TM distance: >3 FB. Neck ROM: full ROM without neurological symptoms. Mouth opening: adequate. Short neck: no. Thick neck: no DENTAL Dental findings: teeth intact. Additional exam findings: yes. CARDIOVASCULAR Rhythm: regular Rate: normal PULMONARY Breath sounds clear to auscultation. II - ANESTHESIA PLAN ASA Score: 2 Anesthetic Plan: general Airway type: ETT The patient is not a current smoker. NPO Status: adequate Beta Padma Monitoring Plan Monitoring plan: standard ASA. Post Procedure Analgesic Plan Postoperative analgesic plan: multimodal analgesia and per surgical service. Informed Consent Anesthetic risks, benefits, alternatives, personnel and consent discussed: yes. Patient / Responsible Republican agrees to proceed: yes Patient / Surrogate agrees to blood products: Yes DNR status not reviewed with patient and/or family prior to surgery. Significant changes in the patient condition since the History and Physical, not otherwise documented in primary service progress note: no. Potential Anesthesia issues that may suggest increased risk of complications or contraindication to planned procedure: surgical field avoidance. field avoidance. The anesthetic will be complicated due to field avoidance because the surgical procedure will be around the airway (head, neck, or shoulder girdle). There will be no direct access to the patient's airway therefore increasing the technical difficulty. Vitals Value Taken Time BP 127/81 04/19/25816 Pulse Resp 18 04/19/25816 Temp 36.4 ?C (97.5 ?F) 04/19/25816 SpO2 100 % 04/19/25816 Facility-Administered Medications as of 04/19/2025 Medication Dose Route Frequency lidocaine (PF) 10 mg/mL (1 %) 1-2 mg injection (XYLOCAINE) 0.1-0.2 mL INTRADERMAL PRN lactated ringers iv infusion 5-30 mL/hr INTRAVENOUS CONTINUOUS NaCl 0.9% iv flush bag 20 mL INTRAVENOUS PRN ceFAZolin iv piggyback 2 g in D5W (iso-osmotic) 100 mL (ANCEF) 2 g INTRAVENOUS Pre-Op Once [COMPLETED] acetaminophen 1,000 mg tab(s) (TYLENOL) 1,000 mg ORAL Pre-Op Once scopolamine (delivers 1 mg over 3 days) 1 patch (TRANSDERM-SCOP) 1 patch TRANSDERMAL ONCE scopolamine - VERIFY patch OTHER q 8 H [START ON 04/20/2025] scopolamine - REMOVE PATCH OTHER ONCE Outpatient Medications as of 04/19/2025 Medication Sig norethindrone acetate-ethinyl estradiol 1-5 mg-mcg tab Take 1 tablet by mouth once daily. fluticasone (FLONASE ALLERGY RELIEF) 50 mcg/actuation nasal spray Use 1 spray in each nostril once daily. azelastine (ASTELIN,ASTEPRO) 0.1% nasal spray USE 2 PUFFS IN EACH NOSTRIL TWICE A DAY DULoxetine (CYMBALTA) 60 mg capsule Take 1 capsule by mouth once daily. I have interviewed and examined the patient. I have reviewed the medical record and/or the pre-anesthesia evaluation, pertinent labs, and test results. This contains updated information obtained within 48 hours of Surgery/Procedure. SIGNATURE: Pooja Morris MD PATIENT NAME: Deonte Donovan DATE: April 19, 2025 TIME: 8:35 AM CSN: [id number] of [facility] PHYSICALon 04-19-2025 HISTORY PHYSICALHNO ID: [id number] Author: EDDIE NGO MD Service: Otolaryngology Author Type: Physician Type: H&P Filed: 04/19/2025 09:31 Note Text: PATIENT NAME: Deonte Donovan UPDATED HISTORY AND PHYSICAL EXAMINATION SERVICE DATE: 04/19/2025 SERVICE TIME: 9:30 AM PHYSICAL EXAM MUST BE COMPLETED ON ADMISSION The History and Physical (completed in the past 30 days) has been reviewed and the patient has been examined. The contents accurately reflect the patient's condition with the following additions or revisions since the HANDP was completed. Examination indicates no changes. This HANDP can be found in the Electronic Medical Record. Eddie Ngo MD Facial Plastic and Reconstructive Surgery Head [facility] Neck [place] [facility] HospitalOPERATIVE NOon [id number] NOHNO ID: [id number] Author: EDDIE NGO MD Service: Otolaryngology Author Type: Physician Type: Operative Report Filed: 04/19/2025 12:18 Note Text: [facility] OPERATIVE/PROCEDURE REPORT LOG ID: [id number] SURGERY/PROCEDURE DATE: 04/19/2025 INCISION/PROCEDURE START TIME: 10:21 AM INCISION CLOSE/PROCEDURE END TIME: SURGEON(S)/PROCEDURALIST(S) AND MEDICAL RECORD ADMINISTRATOR(S): Surgeons and Role: * Eddie Ngo MD - Primary * Vahe Blanco MD - Resident - Assisting No Additional Staff ANESTHESIA: General [facility] OP REPORT Performed by: Eddie Ngo MD Authorized by: Eddie Ngo MD Functional Nasal Surgery with Valve Repair 1. Repair of nasal vestibular stenosis, bilateral 2. Septoplasty 3. Bilateral inferior turbinate reduction and out fracture Pre-Op Diagnosis/Indication: Nasal obstruction, Nasal valve collapse, Deviated nasal septum and Turbinate hypertrophy Post-Op Diagnoses: Same as pre-op OPERATIVE FINDINGS/ADDITIONAL DETAILS The patient was identified in the preoperative holding area by name and date of . The patient was brought into the operating room and placed in the supine position on the operating table. The anesthesia team performed induction and endotracheal intubation. A time-out was performed to again confirm the correct patient, planned procedure, and necessary equipment. The columella was marked for a chevron-type incision. The skin and soft tissue envelope (SSTE), the septum, and the inferior turbinates were injected with 1% lidocaine with epinephrine 1:100:000. The nose was prepped and draped. Bilateral marginal incisions were made. The columella incision was made at the marked site and carried along the medial crura into the marginal incisions bilaterally. From midline, dissection was carried over both lower lateral cartilages deep to the SMAS. The SSTE was then retracted superiorly as it was released off the lower lateral and upper lateral cartilages up to the bony dorsum. The lower lateral cartilages were to define the anterior septal angle. A knife was used to gain access to the subperichondrial plane of the septum bilaterally and wide flaps were raised back to the bony septum and down to the maxillary crest. A 1 cm dorsal-caudal L strut was preserved and the remainder of the quadrangular cartilage was harvested for grafting. Remaining cartilaginous and bony deflection of the septum and maxillary crest were removed. Attention was turned to the reconstruction. The caudal portion of the L-strut was secured in midline to the nasal spine. A caudal septal extension graft was affxied to the caudal aspect of the septum. The lateral aspects of the lower lateral cartilages were scored and and then slide under flaps were made. The lower lateral cartilages were then reapproximated. Alar rim grafts were fashioned and placed into precise tunnels bilaterally. The marginal, vestibular, and columellar incisions were closed. A quilting stitch was used to close the septum. Finally, attention was turned to the inferior turbinate reduction. Stab incisions were made at the head of each inferior turbinate. A submucosal tunnel was created. The microdebrider was used to perform a submucosal resection of both bony and soft tissue. The turbinates were then outfractured bilaterally. Griffin splints were placed bilaterally and secured across the septum. Steri-strips and an aquaplast splint was placed over the dorsum. This concluded the procedure. The patient was handed back to the anesthesia team for emergence. Primary - Open Preservation: No Grafts - Structure: septal extension (CSEG) Lateral Crural Repositioning: No Extracorporeal septoplasty / subtotal septal reconstruction: No Cartilage grafts: septal only Functional Valve repair: Yes Osteotomies: No Turbinate Reduction: Yes Septal Perf Repair: No Flaring Suture: Yes POST PROCEDURE DETAILS Patient Tolerance of Procedure: patient tolerated the procedure well with no immediate complications Sponge/Instrument/Needle Counts: Final Counts Correct Estimated Blood Loss (mLs): 20 Specimens: None Surgeon/Rad Technologist Participation: The primary Surgeon/Proceduralist performed the procedure with assistance. COMPLETED BY: Eddie Ngo MD PATIENT NAME: Deonte Donovan DATE: April 19, 2025 TIME: 12:14 PM [facility]GE: 50 [facility]HIST[facility]ICALon [facility]-2025 HISTORY PHYSICALHNO ID: [id number] Author: KARIE LÓPEZ APRN.CNP Service: ? Author Type: Nurse Practitioner Type: H&P Filed: 04/01/2025 13:38 Note Text: HISTORY AND PHYSICAL EXAMINATION SERVICE DATE: 04/01/2025 SERVICE TIME: 1:21 PM PRIMARY CARE PHYSICIAN: Caden Benavides DO DO REASON FOR VISIT: Deonte Donovan is a 49 year old female who is scheduled for Bilateral - REPAIR NASAL VESTIBULAR STENOSIS Bilateral - ABLATION, INFERIOR TURBINATES, BY TISSUE VOLUME REDUCTION; SUBMUCOSAL SEPTOPLASTY at the request of Dr. Eddie Ngo for consultation. My final recommendation will be communicated back to the requesting physician by way of shared medical record or letter. Assessment Patient has the following medical conditions which may affect benoit-operative course: Anxiety Assessment: Controlled with cymbalta ANESTHESIA FINDINGS: Intubation History: No history of difficult intubation Significant Anesthesia Considerations: none Airway History: No history of difficult airway [place] Activity Status Index: METS: Walk indoors, such as around the house (1.75 METs) Do light work around the house, such as dusting or washing dishes (2.70 METs) Take care of self; that is eating, dressing, bathing, using the toilet (2.75 METs) Walk a block or two on level ground (2.75 METs) Do moderate work around the house, such as vacuuming, sweeping floors, or carrying in groceries (3.50 METs) Climb a flight of stairs or walk up a hill (5.50 METs) DASI Score: 18.95 Patient denies any chest pain or undue shortness of breath with the above physical activity. STOP-Bang Score: Denies snoring loudly Denies feeling tired, fatigued, or sleepy during the daytime Has not been observed to stop breathing or choking/gasping during sleep Denies having high blood pressure BMI less than or equal to 35 kg/m2 Patient 50 years old or younger Does not have a large neck Non-male patient STOP-Bang Score: 0 [id number] Score: Age: <65 Sex: female CHF history: No Hypertension history: No Stroke/TIA/thromboembolism history: No Vascular disease history: No Diabetes history: No [id number] Score: 1 ARISCAT Score: Age: <=50 Preoperative SpO2: >=96% Preoperative anemia: No Surgical incision: peripheral Duration of surgery: 2-3 hrs Emergency procedure: No ARISCAT Score: I - PHYSICAL EVALUATION AIRWAY Patient intubated: No. Tracheostomy tube not present Mallampati: I. TM distance: >3 FB. Neck ROM: full ROM without neurological symptoms. Mouth opening: adequate. Short neck: no. Thick neck: no Lip Bite Test: I Microretrognathia/Micronagthia/Recessed Chin: No DENTAL Dental findings: teeth intact. II - ANESTHESIA PLAN Beta Padma Monitoring Plan Post Procedure Analgesic Plan Prepared for surgery: This patient is optimally prepared for surgery. CONSULTS: Patient does not require consults for optimization at this time. The Following Tests/Procedures Have Been Initiated: Labs not indicated per [facility] protocol, EKG not indicated per [facility] protocol Planned Anesthetic: Per anesthesia choice Subjective CHIEF COMPLAINT: Nasal valve collapse/Nasal obstruction HPI: 49 year old year old presents to [facility] for evaluation. Patient has had nasal congestion for many years. Has elected for surgical intervention. No past medical history on file. PAST SURGICAL HISTORY Procedure Laterality Date PAST SURGICAL HISTORY OF 2021 Shoulder sx FAMILY HISTORY Problem Relation Age of Onset Difficulty with anesthesia No Family History SOCIAL HISTORY: Social History Tobacco Use Smoking status: Never Smokeless tobacco: Never Substance Use Topics Alcohol use: No Drug use: No Prior to Admission medications as of 01/21/25 1334 Medication Sig Last Dose Taking norethindrone acetate-ethinyl estradiol 1-5 mg-mcg tab Take 1 tablet by mouth once daily. Yes azelastine 0.1% nasal spray Use 1 spray in each nostril two times a day. Yes fexofenadine (LATRICE) 180 mg tablet Take 1 tablet by mouth once daily. Yes fluticasone (FLONASE ALLERGY RELIEF) 50 mcg/actuation nasal spray Use 1 spray in each nostril once daily. Yes azelastine (ASTELIN,ASTEPRO) 0.1% nasal spray USE 2 PUFFS IN EACH NOSTRIL TWICE A DAY Yes DULoxetine (CYMBALTA) 60 mg capsule Take 1 capsule by mouth once daily. Yes No medication comments found. ALLERGIES Allergen Reactions Allerg Xt,D.Farinae* Unknown Cat Dander Intolerance, Unknown Mold Intolerance, Other: See Comments, Unknown Covid Immunization Dates Current Care Gaps Covid-19 Vaccine ( season) Overdue since 06/10/2024 08/08/2023 Outside Immunization: COVID-19, mRNA, LNP-S, PF, 50 mcg/0.5 mL 07/31/2021 Imm Admin: COVID-19 original vaccine, full dose, monovalent (MODERNA) 11/06/2020 Imm Admin: COVID-19 original vaccine, full dose, monovalent (MODERNA) 10/08/2020 Imm Admin: COVID-19 original vaccine, full dose, monovalent (MODERNA) (more content not included)...NormalSt. Mary'S Medical Center, Ironton CampusErythrocyte distribution width Auto (RBC) [Ratio]on 99-93-8374Nqtaunvzrxt distribution width (RBC) [Ratio]Erythrocyte distribution width [Ratio] by Automated count11.0-15.0 [facility] HospitalEstimated glomerular filtration rate (GFR) non- Americanon 70-93-1542YOY/1.73 sq M.predicted among non-blacks MDRD (S/P/Bld) [Vol rate/Area]Estimated glomerular filtration rate (GFR) non- AmericanLow>=60 mL/min/1.73m 2FGalion HospitalHematocrit Auto (Bld) [Volume fraction]on 56-78-4480Pyccmyhsht (Bld) [Volume fraction]Hematocrit [Volume Fraction] of Blood by Automated count36.0-48.0[facility] HospitalHemoglobin [Mass/volume] in Bloodon 57-90-4099Jlcatbjtpe (Bld) [Mass/Vol] Hemoglobin [Mass/volume] in Blood12.0-16.0[facility] - Chemistry and Chemistry - challengeon 24-56-6463Zlyedqd [Mass/Vol] 3.7 g/dL3.4-5.0[facility] HospitalCalcium [Mass/Vol]8.8 mg/dL 8.5-10.1FGalion HospitalChloride [Moles/Vol]103 mmol/L98-107 [facility] HospitalCO2 [Moles/Vol]29.8 mmol/L21.0-32.0[facility] HospitalCreatinine [Mass/Vol]1.17 mg/dLHigh0.55-1.02[facility] HospitalGFR/1.73 sq M.predicted MDRD (S/P/Bld) [Vol rate/Area]60 mL/min/{1.73_m2}>=60 mL/min/1.73m 2FGalion HospitalGlucose [Mass/Vol]99 mg/bF79-862CkxvxywwjAultman HospitalMagnesium [Mass/Vol]1.8 mg/dL1.8-2.4FGalion HospitalPotassium [Moles/Vol]4.1 mmol/L 3.5-5.1FTrumbull Memorial Hospitalodium [Moles/Vol]139 mmol/E634-639 [facility] HospitalUrate [Mass/Vol]3.2 mg/dL2.6-6.0[facility] HospitalUrea nitrogen [Mass/Vol]17.0 mg/dL7.0-18.0[facility] HospitalUrea nitrogen/Creatinine [Mass ratio]14.5 mg/mgAultman HospitalLaboratory - Urinalysison 75-05-8794Dcwypwt (U) [Mass/Vol]16.3 mg/dLHigh<=11.9[facility] HospitalLeukocytes [#/volume] corrected for nucleated erythrocytes in Blood by Automated counon 23-40-7059UHO corrected for nucl RBC Auto (Bld) [#/Vol]Leukocytes [#/volume] corrected for nucleated erythrocytes in Blood by Automated coun4.0-11.0[facility] HospitalMCH Auto (RBC) [Entitic mass]on 57-34-9310OVJ (RBC) [Entitic mass]MCH [Entitic mass] by Automated rjyzxMztm96.7-34.0[facility] HospitalMCHC Auto (RBC) [Mass/Vol]on 77-90-3613DNXC (RBC) [Mass/Vol]MCHC [Mass/volume] by Automated count29.9-35.2FGalion HospitalMCV Auto (RBC) [Entitic vol]on 38-87-4165EXK (RBC) [Entitic vol] MCV [Entitic volume] by Automated count81.0-99.0[facility] HospitalNo Panel Informationon 553296-Ttwctks Vitamin D Total84.6 ng/mL [facility] HospitalComment on above:<20 ng/mL Vit D lpekoqhmq11- <30 ng/mL Vit D bhphpcxadjzh02-470 ng/mL Vit D sufficient>100 ng/mL Potential ToxicityParathyroid Hormone (Intact)24 pg/oI85-92BlqbuamvnAultman HospitalComment on above:Performed at: [place] [facility] [address] [id number] Director: Martir Duarte PhD, Phone: [phone] Phosphorus Level2.8 mg/dL2.6-4.7FGalion HospitalUrine Random Kcaddgmngg092.76 mg/dL20.00-300.00[facility] HospitalPlatelet mean volume Auto (Bld) [Entitic vol]on 06-31-7927Ocenwfda mean volume (Bld) [Entitic vol]Platelet mean volume [Entitic volume] in Blood by Automated countLow9.5-13.5 [facility] HospitalPlatelets Auto (Bld) [#/Vol]on 02-07-2025 Platelets (Bld) [#/Vol]Platelets [#/volume] in Blood by Automated qjekl419-078 [facility] HospitalRBC Auto (Bld) [#/Vol]on 94-93-9546RJU (Bld) [#/Vol]Erythrocytes [#/volume] in Blood by Automated countLow4.20-5.40[facility] Children's Hospitalerum or plasma anion gap determinationon 90-71-9441Immqm gap [Moles/Vol]Serum or plasma anion gap determinationAultman HospitalUrine protein/creatinine ratioon 41-69-2037Gyeoqwg/Creatinine (U) [Ratio]Urine protein/creatinine ratioAultman HospitalCNOVon 27-55-3272PMCFNxeohs Visit (OTPREJ) DEONTE DONOVAN ([id number]) 1975 F Date Time Provider Department 01/21/25 1:30 PM EDDIE NGO OTPREJ During your visit today, we recorded the following information about you: Eddie Ngo MD 01/22/2025 11:01 PM Signed Section of Facial Plastic AND Reconstructive Surgery Head and Neck [place], [facility] NEW PATIENT CONSULTATION CC: nasal obstruction Referring Provider: Nakul Gracia [address] [facility] [id number] My recommendations will be communicated to the referring provider via the electronic medical record or US mail. HISTORY OF PRESENT ISSUE: Deonte Donovan is a 49 year old female who presents for evaluation of nasal congesiton. Longstanding Right side worse No nasal surgery or injury Was using afrin but has recently stopped Now on flonase and astelin No significant improvement on nasal sprays She does have allergies, and is scheduled to see Allergy No sinusitis No cosmetic concerns I reviewed the patient's past medical history, past surgical history, social history, family medical history, allergies, and current medications. PHYSICAL EXAM: General vitals were not taken for this visit. Head and Neck Nose - External Thin pinched midvault, cephalic malposition of lower lateral cartilages with parentheses deformity and minimal external nasal valve support Anterior rhinoscopy Septum - caudally midline; posteriorly right, left spur Inferior turbinates - ++ hypertrophy Internal nasal valve - narrow right ; narrow left Mucosa - pink Maneuvers Forceful inspiration - severe collapse of the internal and external nasal valve(s) Modified Peter maneuver - + right; + left IMAGING: I personally reviewed the following radiologic exams: None REVIEW OF RECORDS: I personally reviewed the office encounters from 1 independent providers: Nyla IMPRESSION AND PLAN: Deonte Donovan is a 49 year old female who presents with nasal obstruction secondary to nasal septal deviation, severe bilateral nasal valve collapse, and inferior turbinate hypertrophy. She would benefit from a septoplasty, nasal valve repair, and turbinate reduction to improve her nasal airway. Adolescent Coordinator grafts, caudal septal extension, battens vs alar rim grafts. She understands the goal of surgery is not to change the appearance of her nose. Risks, benefits, alternatives and personnel were discussed with the patient and he would like to proceed with the procedure. surgical request was submitted to the surgical schedulers. Eddie Ngo MD Facial Plastic and Reconstructive Surgery Head and Neck [place] [facility] 01/21/2025 Referring Provider: NAKUL GRACIA [[id number]] Allergies As of Date: 01/21/2025 Noted Allergy Reaction ALLERG XT,D.FARINAE-D.PTERONYS 08/24/2021 16 - Unknown CAT DANDER 08/24/2021 5 - Intolerance 16 - Unknown MOLD 08/24/2021 5 - Intolerance 14 - Other: See Comments 16 - Unknown Date Reviewed: 01/21/2025 Reviewed by: Kathie Forman OCCA - Fully Assessed Reason for Visit: Consult [173] Primary Visit Diagnosis:Nasal septal deviation [J34.2] Other Visit Diagnoses:Nasal valve collapse [J34.829] Nasal obstruction [J34.89] Hypertrophy of both inferior nasal turbinates [J34.3] Order(s):CONSULT TO ENT [9008] Order #: [id number]: 1 SURGICAL REQUEST - ELECTIVE (05/2020) [2093252] Order #: [id number]: 1 Prescriptions as of 01/22/2025 - fluticasone (FLONASE ALLERGY RELIEF) 50 mcg/actuation nasal spray Use 1 spray in each nostril once daily. - azelastine (ASTELIN,ASTEPRO) 0.1% nasal spray USE 2 PUFFS IN EACH NOSTRIL TWICE A DAY - , 1 mg-20 mcg (21)/75 mg (7) per tablet - DULoxetine (CYMBALTA) 60 mg capsule Take 1 capsule by mouth once daily. Problem List As Of Date 01/21/2025 Noted Resolved Chronic fatigue [R53.82] 05/18/2018 Sick-euthyroid syndrome [E07.81] 05/18/2018 Deviated nasal septum [J34.2] 01/14/2025 Hypertrophy of nasal turbinates [J34.3] 01/14/2025 Level of Service: OFFICE/OP CONSLTJ NEW/EST PT MOD MDM 40 MINUTES [35902] Encounter Status:Closed by EDDIE NGO on 01/22/25[facility] Dom [id number] Visit (OTOLLN) DEONTE DONOVAN ([id number]) 1975 F Date Time Provider Department 01/14/25 3:50 PM NAKUL GRACIA During your visit today, we recorded the following information about you: Temperature 98.2 degrees Nakul Gracia MD 01/14/2025 3:54 PM Signed SECTION OF RHINOLOGY, SINUS AND SKULL BASE SURGERY Head and Neck [place] NOTE HPI: Patient is a 49 year old F with history of nasal congestion and septal deviation as well as nasal valve collapse diagnosed by Ent in [facility] and apparently that did not solvethe situation, Still has nasal congestion. She is currently taking Azelastine doing well with that nasal spray but still nasal congtestion Has difficulty breathing at night. Has history of allergic rhinitis. In terms of sinus problems, she complains of On afrin daily No past medical history on file. No past surgical history on file. No family history on file. Social History Tobacco Use Smoking status: Never Smokeless tobacco: Never Substance Use Topics Alcohol use: No Drug use: No Current Outpatient Medications Medication Sig Dispense Refill fluticasone (FLONASE ALLERGY RELIEF) 50 mcg/actuation nasal spray Use 1 spray in each nostril once daily. 1 each 3 azelastine (ASTELIN,ASTEPRO) 0.1% nasal spray USE 2 PUFFS IN EACH NOSTRIL TWICE A DAY 10/29, 28, 1 mg-20 mcg (21)/75 mg (7) per tablet DULoxetine (CYMBALTA) 60 mg capsule Take 1 capsule by mouth once daily. No current facility-administered medications for this visit. ALLERGIES Allergen Reactions Allerg Xt,D.Farinae* Unknown Cat Dander Intolerance, Unknown Mold Intolerance, Other: See Comments, Unknown ROS: CONSTITUTIONAL: No fevers, chills, nightsweats, unintended weight loss EYES: No diplopia or blurry vision. PHYSICAL EXAM: 01/14/25 1546 Temp: 36.8 ?C (98.2 ?F) ? General appearance: well developed, well nourished, without obvious deformities ? Nasal exam: The mucosa is pink, the septum is Yes deviated, and the visible turbinates are Yes hypertrophied on anterior rhinoscopy + MODIFIED PETER MANEUVER ? Oral cavity and oropharynx: the oral mucosa, tongue, tonsil area, and posterior pharyngeal mucosa are without lesions. SNOT-22 Nasal Score Ear/Facial Score Sleep Score Function Score Emotion Score Total Score 01/09/2025 19 4 16 7 7 53 (J30.9) Allergic rhinitis, unspecified seasonality, unspecified trigger (primary encounter diagnosis) (J34.2) Deviated nasal septum (J34.3) Hypertrophy of nasal turbinates - Will need to stop the afrin - No sinonasal complaint other than nasal congestion. 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 moderate to sever Nakul Gracia MD Allergies As of Date: 01/14/2025 Noted Allergy Reaction ALLERG XT,D.FARINAE-D.PTERONYS 08/24/2021 16 - Unknown CAT DANDER 08/24/2021 5 - Intolerance 16 - Unknown MOLD 08/24/2021 5 - Intolerance 14 - Other: See Comments 16 - Unknown Date Reviewed: 01/14/2025 Reviewed by: Le Katz MA - Fully Assessed Reason for Visit: Deviated Septum [3957] Primary Visit Diagnosis:Allergic rhinitis, unspecified seasonality, unspecified trigger [J30.9] Other Visit Diagnoses:Deviated nasal septum [J34.2] Hypertrophy of nasal turbinates [J34.3] Nasal valve collapse [J34.829] Order(s):CONSULT TO ALLERGY/IMMUNOLOGY [9000] Order #: [id number]: 1 FUTURE fluticasone (FLONASE ALLERGY RELIEF) 50 mcg/actuation nasal sprayUse 1 spray in each nostril once daily.Disp: 1 eachRfl: 3 CONSULT TO ENT [9001] Order #: [id number]: 1 FUTURE Prescriptions as of 01/14/2025 - fluticasone (FLONASE ALLERGY RELIEF) 50 mcg/actuation nasal spray Use 1 spray in each nostril once daily. - azelastine (ASTELIN,ASTEPRO) 0.1% nasal spray USE 2 PUFFS IN EACH NOSTRIL TWICE A DAY - 10/29, 28, 1 mg-20 mcg (21)/75 mg (7) per tablet - DULoxetine (CYMBALTA) 60 mg capsule Take 1 capsule by mouth once daily. Problem List As Of Date 01/14/2025 Noted Resolved Chronic fatigue [R53.82] 05/18/2018 Sick-euthyroid syndrome [E07.81] 05/18/2018 Deviated nasal septum [J34.2] 01/14/2025 Hypertrophy of nasal turbinates [J34.3] 01/14/2025 Prescriptions ordered this encounter Disp Refills Start End FLUTICASONE PROPIONATE 50 MCG/ACTUAT* 1 ea* 3 01/14/2025 Route: EACH NOSTRIL Sig: Use 1 spray in each nostril once daily. Encounter Status:Closed by NAKUL GRACIA on 01/14/25[facility] TOMOSYNTHESIS SCREENING BIon [id number] [address] Mammography Report Signed Patient: DEONTE DONOVAN MR#: [id number] : 1975 Acct:[id number] Age/Sex: 49 / F ADM Date: 08/28/24 Loc: MAMMO Attending Dr: OTIS IBARRA Ordering Physician: OTIS IBARRA Results: Date of Service: 08/28/24 Follow Up: Procedure(s): MM tomosynthesis screening BI Accession Number(s): [id number] cc: CADEN BENAVIDES ; OTIS IBARRA Patient Name: DEONTE DONOVAN MR#: [id number] : 1975 Exam Date: 08/28/2024 Ordering Doctor: DR OTIS IBARRA RADIOLOGY REPORT PROCEDURE: MM TOMOSYNTHESIS SCREENING BI COMPARISON: MM TOMOSYNTHESIS SCREENING BI, 08/17/2023. MG MAMM SCREEN 3D VERONICA CAD, 08/09/2022. MG MAMM SCREEN 3D VERONICA CAD, 06/01/2021. MG MAMM SCREEN VERONICA W CAD, 12/14/2016. INDICATIONS: Screening Calculator Name NCI Breast Cancer Risk Assessment Tool 5 Year Breast Cancer Risk 1.00% Lifetime Breast Cancer Risk 10.20% Personal Breast Cancer No Personal Ovarian Cancer No Treatments None Family Cancers Grandmother-maternal with breast cancer at age 60; Father with prostate cancer at age 60; Grandmother-paternal with colon cancer at age 55. LOCATION: [facility] BREAST COMPOSITION: The breasts are extremely dense, which lowers the sensitivity of mammography. FINDINGS: DIAGNOSTIC CATEGORY 1--NEGATIVE. RIGHT BREAST: No significant suspicious finding. No significant change has occurred. LEFT BREAST: No significant suspicious finding. No significant change has occurred. RECOMMENDATIONS: ROUTINE MAMMOGRAM AND CLINICAL EVALUATION IN 12 MONTHS. PLEASE NOTE: A NORMAL MAMMOGRAM DOES NOT EXCLUDE THE POSSIBILITY OF BREAST CANCER. A CLINICALLY SUSPICIOUS PALPABLE LUMP SHOULD BE BIOPSIED. Dictated by: Pedro Lora M.D. on 08/28/2024 at 15:44 Approved by: Pedro Lora M.D. on 08/28/2024 at 15:45 Dictated By: Pedro Lora M.D. Signed By: 08/28/24 1546 DD/ 1545 TD/TT: Relay Tester Helper:TBHRadiology, Radiologist, MD - 08/28/2024 [place] [address] Mammography Report Signed Patient: DEONTE DONOVAN MR#: [id number] : 1975 Acct:[id number] Age/Sex: 49 / F ADM Date: 08/28/24 Loc: MAMMO Attending Dr: OTIS IBARRA Ordering Physician: OTIS IBARRA Results: Date of Service: 08/28/24 Follow Up: Procedure(s): MM tomosynthesis screening BI Accession Number(s): [id number] cc: CADEN BENAVIDES ; OTIS IBARRA Patient Name: DEONTE DONOVAN MR#: [id number] : 1975 Exam Date: 08/28/2024 Ordering Doctor: DR OTIS IBARRA RADIOLOGY REPORT PROCEDURE: MM TOMOSYNTHESIS SCREENING BI COMPARISON: MM TOMOSYNTHESIS SCREENING BI, 08/17/2023. MG MAMM SCREEN 3D VERONICA CAD, 08/09/2022. MG MAMM SCREEN 3D VERONICA CAD, 06/01/2021. MG MAMM SCREEN VERONICA W CAD, 12/14/2016. INDICATIONS: Screening Calculator Name NCI Breast Cancer Risk Assessment Tool 5 Year Breast Cancer Risk 1.00% Lifetime Breast Cancer Risk 10.20% Personal Breast Cancer No Personal Ovarian Cancer No Treatments None Family Cancers Grandmother-maternal with breast cancer at age 60; Father with prostate cancer at age 60; Grandmother-paternal with colon cancer at age 55. LOCATION: [facility] BREAST COMPOSITION: The breasts are extremely dense, which lowers the sensitivity of mammography. FINDINGS: DIAGNOSTIC CATEGORY 1--NEGATIVE. RIGHT BREAST: No significant suspicious finding. No significant change has occurred. LEFT BREAST: No significant suspicious finding. No significant change has occurred. RECOMMENDATIONS: ROUTINE MAMMOGRAM AND CLINICAL EVALUATION IN 12 MONTHS. PLEASE NOTE: A NORMAL MAMMOGRAM DOES NOT EXCLUDE THE POSSIBILITY OF BREAST CANCER. A CLINICALLY SUSPICIOUS PALPABLE LUMP SHOULD BE BIOPSIED. Dictated by: Pedro Lora M.D. on 08/28/2024 at 15:44 Approved by: Pedro Lora M.D. on 08/28/2024 at 15:45 Dictated By: Pedro Lora M.D. Signed By: 08/28/24 1546 DD/ 1545 TD/TT: Relay Tester Helper: [facility] CenterRadiology Study observation (narrative)[facility] TOMOSYNTHESIS SCREENING BIOrdered By: Radiologist Radiology on 27-17-4780CTCQ Spotistic Work Phone: automated epithelial cells count in urine sediment (number/area)on 79-22-6529Rpqdoixmzd cells Auto (Urine sed) [#/Area]FEW #/LPF NONE/RAREAultman HospitalAutomated leukocytes count in urine sediment (number/area)on 03-51-6163BCC Auto (Urine sed) [#/Area]2-5 #/HPF0-2 [facility]ultman HospitalAutomated urine specific gravity by refractometryon 76-59-2877Defnnjmo gravity Refractometry automated (U) [Rel density]1.0151.005-1.025Aultman HospitalBilirubin Auto test strip (U) [Mass/Vol]on 15-73-4033Qowxfrjzr (U) [Mass/Vol]NegativeNEGATIVE [facility] HospitalCast typing in urine sediment by light microscopyon 19-88-1356Edsul LM Nom (Urine sed)NONE SEEN #/LPFNONE SEENAultman HospitalColor Auto (U)on 63-09-0425Asjcj (U)LT. YELLOWYELLOW [facility] HospitalKetones Auto test strip (U) [Mass/Vol]on 20-28-8038Swipqtl (U) [Mass/Vol]NegativeNEGATIVEAultman HospitalLaboratory - Chemistry and Chemistry - challengeon 88-44-4715Rtaycicbw [Mass/Vol]1.9 mg/dL1.8-2.4FGalion HospitalUrate [Mass/Vol]4.5 mg/dL2.6-6.0[facility] HospitalLaboratory - Urinalysison 48-99-0378Jobpklp (U) [Mass/Vol]11.5 mg/dL<=11.9Aultman HospitalMucus LM Ql (Urine sed)on 59-52-0212Iiowv Ql (Urine sed)NONE SEENNONE [facility] HospitalNo Panel Informationon 755020-Qvlpkqf Vitamin D Total69.4 ng/mLAultman HospitalComment on above:<20 ng/mL Vit D -<30 ng/mL Vit D mynoljosutoa93-297 ng/mL Vit D sufficient>100 ng/mL Potential ToxicityParathyroid Hormone (Intact)16 pg/mL15-65 [facility]ult[facility] HospitalComment on above:Performed at: [place] [facility] [place] [id number] Director: Martir Duarte PhD, Phone: [phone] Level3.4 mg/dL2.6-4.7FGalion HospitalUrine Random Onoxfqlcxh49.46 mg/dL20.00-300.00[facility]ultman HospitalProtein Auto test strip (U) [Mass/Vol]on 60-75-3028Robuctj (U) [Mass/Vol] NegativeNEG/TRACEAkron Children's Hospitalpecific gravity Auto test strip (U) [Rel density]on 40-15-8388Jukrhyhm gravity (U) [Rel density]CLEARCLEAR [facility] HospitalUrine bacteria detection by automated methodon 82-13-8361Gihsdawh Auto Ql (U)TRACE #/HPFNONE [facility] CenterUrine glucose measurement by test strip (mass/volume)on 82-25-4581Wnkutav Test strip (U) [Mass/Vol]NegativeNEGATIVEFormerly Memorial Hospital Of Wake Countys Regional Medical CenterUrine hemoglobin detection by automated test stripon 94-37-3621Lubbkrjqpn Auto test strip Ql (U)TRACE-INEGATIVEAultman HospitalUrine nitrite detection by automated test stripon 64-94-4152Qczwdbb Auto test strip Ql (U) NegativeNEGATIVEAultman HospitalUrine protein/creatinine ratio on 84-16-1475Tzbsfbw/Creatinine (U) [Ratio]0.14[facility] Urine sediment crystal identification by light microscopyon 89-31-4844Ryvnyklb LM Nom (Urine sed)None Seen #/HPFNone [facility]HealthUrine sediment leukocyte count by microscopy (number/high power field)on 02-04-2024 WBC LM.HPF (Urine sed) [#/Area]0-2 #/HPFNONE [facility] Medical CenterUrobilinogen Auto test strip (U) [Mass/Vol]on 39-58-8411Pngyamaxcviy Qn (U)0.2 {Jhonny'U}/dL0.2-1.0[facility]ultman HospitalpH Auto test strip (U)on 43-10-6150nZ (U)7.5 [pH]5.0-9.0[facility]ult[facility] HospitalConsent for Procedure/Surgeryon 97-03-5725Baqvcgi for Procedure/Surgery [id number]#1.00[facility] County HospitalAmbulatory Visit Summaryon 21-68-3327Hbrijncksj Visit Summary DEONTE DONOVAN :1975 Visit Date:01/24/2024 Ambulatory Visit Instructions Your [...] or concerns Non-Formulary Medication ( control pill) acetaminophen-oxycodone (Percocet 325 mg-5 mg Tab) azelastine nasal celecoxib (CeleBREX 100 mg Cap) docusate (Colace 100 mg Cap) duloxetine (Cymbalta) ergocalciferol (Vitamin D) estradiol fexofenadine (Latrice) loratadine (Claritin) multivitamin (Multi Vitamin+) [Image Removed: STOP]Stop taking these medications ciprofloxacin (Cipro 500 mg Tab) Procedures Performed Cystoscopy (01/24/2024), Adenoidectomy, Arthroscopy of shoulder, Colonoscopy, EGD - esophagogastroduodenoscopy, Oral surgery. Discharge Vitals Temperature (Temporal Artery) 37 ?C Heart Rate (Peripheral) 70 Respiratory Rate 16 Blood Pressure 118/93 Height 158 cm Height 62 in Weight 71 kg Weight 156.2 lb BMI 28.44 What to do next Scheduled Follow-Up Appointments Tuesday 10:45 AM EDT With: Deshaun CERDA MD [facility] DE[facility]TE DON[facility]AN :1975 Visit Date:01/24/2024 Ambulatory Visit Instructions Your [...] or concerns Non-Formulary Medication ( control pill) acetaminophen-oxycodone (Percocet 325 mg-5 mg Tab) azelastine nasal celecoxib (CeleBREX 100 mg Cap) docusate (Colace 100 mg Cap) duloxetine (Cymbalta) ergocalciferol (Vitamin D) estradiol fexofenadine (Latrice) loratadine (Claritin) multivitamin (Multi Vitamin+) [Image Removed: STOP]Stop taking these medications ciprofloxacin (Cipro 500 mg Tab) Procedures Performed Cystoscopy (01/24/2024), Adenoidectomy, Arthroscopy of shoulder, Colonoscopy, EGD - esophagogastroduodenoscopy, Oral surgery. Discharge Vitals Temperature (Temporal Artery) 37 ?C Heart Rate (Peripheral) 70 Respiratory Rate 16 Blood Pressure 118/93 Height 158 cm Height 62 in Weight 71 kg Weight 156.2 lb BMI 28.44 What to do next You Need to Schedule the Following Appointments Follow Up with PRASHANT TRAMMELL, YAIMA Simms When: Where: [facility] [address], [place] [address]- [phone] Medications What How Much When Instructions Unchanged acetaminophen-oxycodone (Percocet 325 mg-5 mg Tab) See instructions 1- 2 tab(s) Oral q4hr Contact prescribing physician if [...] Mouth Every week Contact prescribing physician if questionsor concerns Unchanged estradiol Contact prescribing physician if [...] to remove a s (more content not included)...Normal [facility] InstituteUrology Office/Clinic Noteon 30-24-6085Qsqmspg Office/Clinic NoteChief Complaint Pt is here for cystoscopy HPI Staff Cystoscopy. Abx taken. CT done 12/28/23 showed punctate nonobstructing left nephrolithiasis. Negative cytology done 12/21/23 History of Present Illness Tests reviewed: reviewed CT scan, cytology I have reviewed the previous health record information and history for this patient from Dr. Cerda. I have reviewed and verified the staff [...] abx taken prior to procedure. No bladder tumorsor stones found. Overall hematuria workup is negative. 2. Nephrolithiasis (N20.0: Calculus of kidney) GUERITA 08/01/23 [facility] - No appreciable urinary tract calculi or acute findings. CT AP wo con 03/20/24 [facility] - Punctate nonobstructing L renal stones. [...] bladder. [2] Follow-up With When Contact Information PRASHANT TRAMMELL, Deshaun Aguirre, URL [facility] [address], [place] [phone] Additional Instructions: 1 yr w/ KUB Patient Education Cystoscopy I, Rissa Hill, personally scribed for Dr. Cerda on 01/24/2024 14:26:23. . Documentation recorded by the scribeRissa, accurately reflects the services(s) I performed and decisions made by me. Authenticated by Dr. Cerda on 01/24/2024 14:28:10. Problem List/Past Medical History Ongoing Anxiety Asymptomatic microscopic hematuria CKD (chronic kidney disease) Euthyroid sick syndrome High blood pressure Hyponatremia Hypothyroid IBS (irritable bowel syndrome) Microscopic hematuria Nephrolithiasis Renal cyst Vitamin D deficiency Weak urine stream Historical No qualifying data Procedure/Surgical History (more content not included)...[facility] SouthwoodsComment on above:Result Comment: Electronically Signed By: Deshaun CERDA MD\.br\Date and Time Signed: 01/24/24 14:28 EDT\.br\Electronically Co-Signed By: Rissa Hill\.br\Date and Time Co-Signed: 01/24/24 14:26 EDTRAD - CT Reporton [id number] - CT Report [id number]#1.00TIFFNoProMedica Bay Park HospitalUrine Cytology ([facility])on 99-52-0337Dtvweurhsdk exam Cytology (U) [Interp]Diagnosis InfoInvalid Interpretation CodeMike [facility] Comment on above:Result Comment: A:Urine,Urine:Voided Interpretation - MicroScopic Description - Adequacy - Gross Description Site ID:A color Yellow fixative Alcohol Specimen designated Urine received in alcohol preservative and labeled with the patient?s name, consists of 50ml slightly cloudy yellow fluid. Electronically signed by : on: 12/27/2023 09:07:17Performed By: #### [id number] #### [facility] [address], [place] [address]Twrswlgdrs Visit Summaryon 37-59-6397Skzbjsjvhn Visit Summary DEONTE DONOVAN :1975 Visit Date:12/21/2023 Ambulatory Visit Instructions Your [...] Medications List Non-Formulary Medication ( control pill) acetaminophen-oxycodone (Percocet 325 mg-5 mg Tab) azelastine nasal celecoxib (CeleBREX 100 mg Cap) docusate (Colace 100 mg Cap) duloxetine (Cymbalta) ergocalciferol (Vitamin D) estradiol fexofenadine (Latrice) loratadine (Claritin) multivitamin (Multi Vitamin+) Procedures Performed Adenoidectomy, Arthroscopy of shoulder, Colonoscopy, EGD - esophagogastroduodenoscopy, Oral surgery. Discharge Vitals Heart Rate (Peripheral) 58 Blood Pressure 130/88 Height 62 in Height 158 cm Weight 157.3 lb Weight 71.5 kg BMI 28.64 What to do next You Need to Schedule the Following Appointments Follow Up with PRASHANT TRAMMELL, Deshaun Aguirre, URL When: Where: [facility] [address] , [place] [address]- Medications What How Much When Instructions Unchanged acetaminophen-oxycodone (Percocet 325 mg-5 mg Tab) See instructions 1- 2 tab(s) Oral q4hr Unchanged azelastine nasal 2 [...] of the bladder, urethra, kidney, or prostate. Otherpossible causes include: ? Kidney stones. ? Cancer [...] blood in your urine, even if it ispainless or the blood stops without treatment. Blood in the urine, when it happens and then stops and then happens again, can be a symptom of a very serious condition, including cancer. There is no pain in the initial stages of many urinary cancers. Follow these instructions at home: Medicines ? Take wvay-nuc-fwocmdl and prescription medicines only as told by your health care provider. ? If you were prescribed an antibiotic medicine, take it as told by your health care provider. Do notstop taking the antibiotic even if you start to feel better. Eating and drinking ? Drink enough fluid to keep your urine pale yellow. It is recommended that you drink 3?4 quarts (2.8?3.8 L) a day. If you have been diagnosed with an infection, drinking cranberry juice in addition tolarge amounts of water is recommended. ? Avoid [...] toilet paper only once. (more content not included)...[facility] SouthwoodsFormson [id number]#1.00TIFFNoProMedica Bay Park HospitalPatient Educationon 42-31-7379Qutkyca EducationUrology Hematuria, Adult Hematuria is blood in the urine. Blood may be visible in the urine, or it may be identified with a test. This condition can be caused by infections of the bladder, urethra, kidney, or prostate. Otherpossible causes include: ? Kidney stones. ? Cancer [...] blood in your urine, even if it ispainless or the blood stops without treatment. Blood in the urine, when it happens and then stops and then happens again, can be a symptom of a very serious condition, including cancer. There is no pain in the initial stages of many urinary cancers. Follow these instructions at home: Medicines ? Take noem-gab-vemnlst and prescription medicines only as told by [...] Ask your health care provider, or the departmentthat is doing the test, when your results [...] the blood stops without treatment. ? Take oyia-imo-asmhgdw and prescription medicines only as told by your health care provider. ? Drink enough fluid to keep your urine pale yellow. This information is not intended to replace advice given to you by your health care provider. Make sure you discuss any questions you have with your health care provider. Document Revised: 05/27/2021 Document Reviewed: 05/27/2021 [employer]FilterEasy Patient Education ? 2022 [employer].[facility] Physician Referralon 12-58-5291Iecetyvwh Referral [id number]#1.00TIFFisher-Titus Medical CenterUrine Cytology ([facility])on 13-11-6995CR Method of ExtractionVoidedNormal [facility] CenterComment on above:Performed By: #### [id number] #### [facility] [address], [place] [address]NX Number of Wgcu7Yhpplbf Interpretation [facility] Medical CenterComment on above:Performed By: #### [id number] #### [facility] [address], [place] [address]ZL SpecimenUrineThe Surgical Hospital at SouthwoodsComment on above:Performed By: #### [id number] #### [facility] [address], [place] [address]NA Type of ServiceTechnical OnlyThe Surgical Hospital at SouthwoodsComment on above:Performed By: #### [id number] #### [facility] [address], [place] [address]PNQ ( test) IA.rapid Ql (U)Ordered By: Imhomer Asaad on 53-86-2955TSP ( test) Ql (U)NegativeAultman Hospital HCG,Urineon 45-46-4846Qjil HCG ( test) Ql (U)NegativeNormKindred Hospital LimaComment on above:Result Comment: PERFORMED BY: [facility] [address] [place] [address] PATHOLOGIST [employer] SERVICE TECHNICIAN CHRISTIANO BALLARD M.D.Performed By: #### UHCG #### [facility] [address] [place] [address] USAHEMOGRAM AND PLATELon 45-29-2711Vgyfcagflq (Bld) [Volume fraction]37.7 %Rzgaab46.0-48.0The [facility] HospitalComment on above:Performed By: #### HH #### [facility] [address] [place] [address] Dr. Clarke ChungHemoglobin (Bld) [Mass/Vol]13.5 g/fAAwwppb08.0-16.0The [facility] HospitalComment on above:Performed By: #### HH #### [facility] [address] [place] [address] Dr. Clarke Quick (RBC) [Entitic mass]34.4 pgCritically high26.7-34.0The [facility] HospitalComment on above:Performed By: #### HH #### [facility] [address] [place] [address] Dr. Clarke Quick (RBC) [Mass/Vol]35.8 g/dLCritically high29.9-35.2The [facility] HospitalComment on above:Performed By: #### HH #### [facility] [address] [place] [address] Dr. Clarke QuickV (RBC) [Entitic vol]95.[address]sqcwg18.0-99[address] HospitalComment on above:Performed By: #### HH #### [facility] [address] [place] [address] Dr. Clarke ChungPLT262 103/wgBxjlpg895-453Reu St. Francis HospitalComment on above: Performed By: #### HH #### [facility] [address] [place] [address] Dr. Clarke ChungRBC3.93 106/ulCritically low4.20-5.40The [facility]. Francis HospitalComment on above:Performed By: #### HH #### [facility] [address] [place] [address] Dr. Clarke ChungWBC6.5 103/ulNormal4.0-11.0The [facility] HospitalComment on above: Performed By: #### HH #### [facility] [address] [place] [address] [address] Clarke ChungMAGNESIUMon 12-71-3117Zqwnhggbc [Mass/Vol]1.9 mg/dLNormal1.8-2.[address] [facility] HospitalComment on above:Performed By: #### MG, RENAL #### [facility] [id number] Clarke ChungMG MAMM SCREEN 3D VERONICA CADon 66-55-7262UA MAMM SCREEN 3D VERONICA CAD Patient: DEONTE DONOVAN Exam Date: 08/09/2022 : 1975 Gender:F Ordering : DR OTIS IBARRA Admission #: [id number] Family : Order #: [id number] CLICK HERE TO VIEW EXAM RADIOLOGY REPORT [...] colon cancer at age 56. LOCATION: [facility] BREAST COMPOSITION: Extremely dense, which lowers [...] LUMP SHOULD BE BIOPSIED. Dictated by: Sheree Saucedo MD on 08/09/2022 at 14:11 Approved by: Sheree Saucedo MD on 08/09/2022 at 14:13NoMer[facility] RENAL FUNCTION PANELon 56-90-5768Jojblor [Mass/Vol]3.7 g/dLNormal3.4-5.0[facility] HospitalComment on above:Performed By: #### MG, RENAL #### [facility] [address] [address] [address] Clarke ChungCalcium [Mass/Vol]8.8 mg/dLNormal8.5-10.1[facility] Comment on above:Performed By: #### MG, RENAL #### [facility] [address] [address] [address] Clarke ChungChloride [Moles/Vol]101 mmol/XTceyse67-848UhgAvita Health System [facility] Comment on above:Performed By: #### MG, RENAL #### [facility] [address] [address] [address] Clarke ChungCO2 [Moles/Vol]29.7 mmol/OBvzlex01.0-32.0[facility] Comment on above:Performed By: #### MG, RENAL #### [facility] [address] [address] [address] Clarke ChungCreatinine [Mass/Vol]1.07 mg/dLCritically high0.55-1.02[facility] HospitalComment on above:Performed By: #### MG, RENAL #### [facility] [address] [place] [address] Dr. Mir ChangEGFR-AF SOUTH KOREAN>60Normal>=60[facility] HospitalComment on above:Performed By: #### MG, RENAL #### [facility] [address] [address] [address] Mir ChangEGFR-NON AF BQGFBLJD80 mL/min/1.84n3Drshuqezrx low>=60The [facility] HospitalComment on above:Performed By: #### MG, RENAL #### [facility] [address] [address] [address] Clarke ChungGlucose [Mass/Vol]79 mg/aNUyvhea50-906HmaAvita Health System [facility] Hospital Comment on above:Performed By: #### MG, RENAL #### [facility] [address] [address] [address] Clarke ChungPhosphate [Mass/Vol]2.6 mg/dLNormal2.6-4.7[facility] Comment on above:Performed By: #### MG, RENAL #### [facility] [address] [place] [address] Dr. Clarke Lawsonassium [Moles/Vol]3.8 mmol/LNormal3.5-5.1[facility] Comment on above:Performed By: #### MG, RENAL #### [facility] [address] [place] [address] Dr. Clarke ChungSodium [Moles/Vol]134 mmol/LCritically fwn806-131Zuc St[facility] HospitalComment on above:Performed By: #### MG, RENAL #### [facility] [address] [place] [address] Dr. Clarke ChungUrea nitrogen [Mass/Vol]14.0 mg/dLNormal7.0-18.0[facility] HospitalComment on above:Performed By: #### MG, RENAL #### [facility] [address] [place] [address] Dr. Clarke Rodriguez RANDOM W/MICROSCOPICon 45-87-2505ZGRULGCKKUIFHGyjvwypoXBWO SEENAvita Health System Galion HospitalComment on above:Performed By: #### UAMIC #### [facility] [address] [place] [address] Dr. Clarke Olsenirubin Ql (U)NegativeNormalNEGATIVEAvita Health System [facility] Hospital Comment on above:Performed By: #### UAMIC #### [facility] [address] [place] [address] Dr. Clarke ChungCASTNONE SEENNormalNONE SEENAvita Health System Galion HospitalComment on above:Performed By: #### UAMIC #### [facility] [address] [place] [address] Dr. Clarke Mark (U)CLEARNormalCLEARThe St. Francis HospitalComment on above: Performed By: #### UAMIC #### [facility] [address] [place] [address] Dr. Clarke Camacho (U)DK. YELLOWNormalYELLOWThe St. Francis HospitalComment on above:Performed By: #### UAMIC #### [facility] [address] [address] [address] Clarke ChungCrystals LM Nom (Urine sed)NONE SEENNormalNONE SEENAvita Health System Galion HospitalComment on above:Performed By: #### UAMIC #### [facility] [address] [address] [address] Mir ChangEpithelial cells LM Ql (Urine sed)RARENormalNONE SEEN /RAREAvita Health System Galion HospitalComment on above:Performed By: #### UAMIC #### [facility] [address] [address] [address] Clarke ChungGlucose Ql (U)NegativeNormalNEGATIVEAvita Health System Galion HospitalComment on above:Performed By: #### UAMIC #### [facility] [address] [place] [address] Dr. Clarke ChungHemoglobin Ql (U)NegativeNormalNEGKettering Health Springfield Comment on above:Performed By: #### UAMIC #### [facility] [address] [place] [address] Dr. Clarke ChungKetones Ql (U)15 mg/dlAbnormalNEGKettering Health Springfield Comment on above:Performed By: #### UAMIC #### [facility] [address] [place] [address] Dr. Clarke ChungLEUKOCYTESNegativeNormalNEGKettering Health SpringfieldComment on above:Performed By: #### UAMIC #### [facility] [address] [address] [address] Clarke ChungMUCOUSNONE SEENNormalNONE SEENAvita Health System Galion HospitalComment on above:Performed By: #### UAMIC #### [facility] [address] [address] [address] Clarke ChungNitrite Ql (U)NegativeNormalNEGATIVEAvita Health System Galion HospitalComment on above:Performed By: #### UAMIC #### [facility] [address] [address] [address] Clarke ChungpH (U)7.5 [pH]Normal5-9The St. Francis HospitalComment on above: Performed By: #### UAMIC #### [facility] [address] [address] [address] Clarke ChungPudvjUYF8-7Uysokn2-5Rhz St. Francis HospitalComment on above:Performed By: #### UAMIC #### [facility] [address] [place] [address] Dr. Clarke ChungSPEC GRAVITY1.413Okkgcm0.005-<=1.025The [facility]. Francis HospitalComment on above:Performed By: #### UAMIC #### [facility] [address] [place] [address] Dr. Clarke Rodriguez PROTEINNegativeNormalNEGATIVE/ TRACEThe St. [facility] Comment on above:Performed By: #### UAMIC #### [facility] [address] [place] [address] Dr. Clarke Odellbilinogen Qn (U)0.2 {Jhonny'U}/dLNormal0.2 - 1.0The [facility] HospitalComment on above:Performed By: #### UAMIC #### [facility] [address] [place] [address] Dr. Clarke ChungWBC0-2Ab[address] Francis HospitalComment on above: Performed By: #### UAMIC #### [facility] [address] [place] [address] Dr. Clarke Dangelo T PROTEIN CREAT RATIOon 28-88-9888Ogkcgdb (U) [Mass/Vol] 13.8 mg/dLCritically high<=12.0The St[facility] HospitalComment on above:Performed By: #### URTPCR #### [facility] [address] [place] [address] Dr. Clarke Kelley PROT CREAT RAT0.13NormalThe St. Francis HospitalComment on above: Performed By: #### URTPCR #### [facility] [address] [place] [address] Dr. Clarke Dangelo PBQLQ484.93 mg/dKRphcpi60.00-300.00[facility] Comment on above:Performed By: #### URTPCR #### [facility] [address] [address] [address] Clarke ChungVITAMIN D 25 OHon 76-59-0391OKB D 25-OH69.2 ng/mLNMercy Health Allen HospitalComment on above:Performed By: #### VITAD #### [facility] [address] [address] [address] Clarke Jaimes D [place] CentervilleComment on above: Result Comment: <20 ng/mL Vit D deficient 20 - <30 ng/mL Vit D insufficient 30 - 100 ng/mL Vit D sufficient >100 ng/mL Potential ToxicityPerformed By: #### VITAD #### [facility] [address] [place] [address] Dr. Clarke Chung Vital Signs Date TimeVital SignValuePerforming KxqfeheypKvjtpoet99-41-1048 09:36-0400Body .5 cmMattneo Benavides DO Work Phone: [facility] CenterHckupfjvjx50-66-3011 09:36-0400Body mass index (BMI) [Ratio]27.8 kg/f4Tjcisugaida Benavides DO Work Phone: [phone] CenterNiqhfncywo52-93-0408 09:36-0400Body temperature 98.49 [degF]Caden Benavides DO Work Phone: [phone] CenterDxaqscnxfi22-91-9753 09:36-0400Body .95 kgMattaida Benavides DO Work Phone: [phone] County Memorial HospitalWcgprnaurj34-08-6384 09:36-0400Diastolic blood sicmiyfo32 mm[Hg]Caden Fangrobert DO Work Phone: FYPike County Memorial HospitalDdpfwoqleo95-53-8828 09:36-0400Heart rate60 /min Cadne Benavides DO Work Phone: DSPike County Memorial HospitalSvvtzxolpx94-17-7772 09:36-2881ToF6% (BldA) [Mass fraction]99 %Caden Benavides DO Work Phone: noPike County Memorial HospitalXnjypbewlw85-42-2655 09:36-0400Systolic blood bbauqqcx010 mm[Hg]Caden Benavides DO Work Phone: noPike County Memorial HospitalDezjqcrdtn13-32-7487 13:21-0400Body xyxers737.5 cmPacc 1 Work Phone: [facility]06-23-2025 13:21-0400Body mass index (BMI) [Ratio]27.42 kg/m2Pacc 1 Work Phone: [facility]06-23-2025 13:21-0400Body temperature 98.4 [degF]Pacc 1 Work Phone: [facility]06-23-2025 13:21-0400Body kg Pacc 1 Work Phone: [facility]06-23-2025 13:21-0400Diastolic blood chxotkap87 mm[Hg]Pacc 1 Work Phone: [facility]06-23-2025 13:21-0400Heart rate78 /min Pacc 1 Work Phone: [facility]06-23-2025 13:21-0400Respiratory rate 16 /minPacc 1 Work Phone: [facility]06-23-2025 13:21-9344GdX9% (BldA) [Mass fraction]99 %Pacc 1 Work Phone: [facility]06-23-2025 13:21-0400Systolic blood uqxebmfz037 mm[Hg]Pacc 1 Work Phone: [facility]05-22-2025 09:32-0400Body .48 [facility]20[facility] 09:32-0400Body mass index (BMI) [Ratio]27.6 kg/r2ThufxyidjAultman Hospital05-22-2025 09:32-0400Body fktouxqoikp57.3 [degF][facility]05-22-2025 09:32-0400Body qxchme30.6 kgAult[facility] Hospital05-22-2025 09:32-0400Diastolic blood mm[Hg][facility]05-22-2025 09:32-0400 Heart rate51 /[facility]05-22-2025 09:32-0400 Respiratory rate16 /[facility]05-22-2025 09:32-0400 SaO2% (BldA) [Mass fraction]97 %[facility]05-22-2025 09:32-0400Systolic blood yhrqwhnh217 mm[Hg][facility] 01-14-2025 15:46-0400Body bcecreekkkr02.2 [degF]Nakul Gracia MD Work Phone: cMain [facility] Medical CenterRgpzgp02-22-5046 11:28-0500Body mass index (BMI) [Ratio]27.25 kg/q6OtsebOtis Ibarra MD Work Phone: [facility] CenterOzgcytzzyd24-32-3494 11:28-0500Body qvzulr52.59 kgOtis Ibarra MD Work Phone: [facility] CenterCjlpsznoex26-72-1718 11:28-0500Diastolic blood bmxpibwi74 mm[Hg]Otis Ibarra MD Work Phone: [facility] CenterEzewslynmf24-21-9200 11:28-0500Systolic blood nymjlneu053 mm[Hg]Otis Ibarra MD Work Phone: [facility] CenterSiopghydcx28-59-4989 09:30-0400Body jqhrko623.48 cmA[facility]05-09-2024 09:30-0400Body mass index (BMI) [Ratio]28.9 kg/g6QjyihxciwAultman Hospital05-09-2024 09:30-0400Body crceqlafhlf92.1 [degF][facility]05-09-2024 09:30-0400Body emdwom42.66 kgAultman Hospital05-09-2024 09:30-0400Diastolic blood khkutiry83 mm[Hg][facility]05-09-2024 09:30-0400 Heart rate58 /[facility]05-09-2024 09:30-0400 Respiratory rate16 /minAultman Hospital05-09-2024 09:30-0400 SaO2% (BldA) [Mass fraction]100 %[facility]05-09-2024 09:30-0400Systolic blood phhugbjx815 mm[Hg][facility] 01-24-2024 13:15-0400Body wswcliazwly61.6 [degF]Deshaun CERDA [facility]04-16-2024 13:15-0400Diastolic blood mm[Hg]Deshaun CERDA [facility]04-16-2024 13:15-0400Heart rate70 /minPatrick CERDA [facility]04-16-2024 13:15-0400Respiratory rate16 /minPatrick CERDA [facility]04-16-2024 13:15-0400Systolic blood pqbwyqbs395 mm[Hg]Deshaun CERDA [facility]03-13-2024 09:14-0400Diastolic blood yjtccoyl95 mm[Hg]Deshaun CERDA [facility]03-13-2024 09:14-0400Mean blood mm[Hg]Deshaun CERDA [facility]03-13-2024 09:14-0400Systolic blood cnbqzlyf516 mm[Hg]Deshaun CERDA [facility]03-13-2024 09:00-0400Blood Pressure LocationPatrick CERDA [facility]03-13-2024 09:00-0400Diastolic blood wzyinall228 mm[Hg]Deshaun CERDA [facility]03-13-2024 09:00-0400Heart rate58 /minPatricdelfina CERDA [facility]03-13-2024 09:00-0400Systolic blood pilkksop549 mm[Hg]Deshaun CERDA [facility]01-08-2024 09:50-0500Diastolic blood ieotehwi46 mm[Hg]DO Caden Petznick Work Phone: [phone] [place], [place] 8914101-08-2024 09:50-0500 Heart bxcl375 /minDO Caden Petznick Work Phone: [phone] [place], [place] 8914101-08-2024 09:50-0500 Respiratory rate20 /minDO Caden Petznick Work Phone: [phone] [place], [place] 8914101-08-2024 09:50-0500 SaO2% (BldA) [Mass fraction]99 %DO Caden Petznick Work Phone: [phone] [place], [place] 8914101-08-2024 09:50-0500 Systolic blood mxfkuktu315 mm[Hg]DO Caden Petznick Work Phone: [phone] [place], [place] 8914101-08-2024 07:28-0500 Body .48 cmDO Caden Petznick Work Phone: [phone] [place], [place] 8914101-08-2024 07:28-0500 Body yysnxavndfq04.8 [degF]DO Caden Petznick Work Phone: [phone] [place], [place] 8914101-08-2024 07:28-0500 Body kumlqf22.3 kgDO Caden Petznick Work Phone: [phone] [place], [place] 8914110-12-2023 09:00-0400 Body gplbya825.48 cmAbdul María Other [employer] Other 10-12-2023 09:00-0400Body mass index (BMI) [Ratio] 29.52 kg/n9Ywwey María Other [employer] Other 10-12-2023 09:00-0400Body qbmopwsutwl86.2 [degF]Etelvina María Other [employer] Other 10-12-2023 09:00-0400Body yisdla96.21 kgAbdul María Other [employer] Other 10-12-2023 09:00-0400Diastolic blood sxnjepcz18 mm[Hg] Etelvina María Other [employer] Other 10-12-2023 09:00-0400Respiratory rate18 /minAbdul María Other [employer] Other 10-12-2023 09:00-3688CjT6% (BldA) [Mass fraction]99 % Etelvina María Other [employer] Other 10-12-2023 09:00-0400Systolic blood dncmrnsi488 mm[Hg] Etelvina María Other [employer] Other 11-10-2022 10:00-0500Body luylef522.48 cmAbdul María Other [employer] Other 11-10-2022 10:00-0500Body mass index (BMI) [Ratio] 29.77 kg/u9Liwpz María Other [employer] Other 11-10-2022 10:00-0500Body bprvprizxwu42.9 [degF]Etelvina María Other [facility] [employer] Other 11-10-2022 10:00-0500Body gkthag21.85 kgAbdul María Other [employer] Other 11-10-2022 10:00-0500Diastolic blood haaiuinp37 mm[Hg] Etelvina María Other [employer] Other 11-10-2022 10:00-0500Respiratory rate18 /minAbdul María Other [employer] Other 11-10-2022 10:00-0206VvM0% (BldA) [Mass fraction]97 % Etelvina María Other [employer] Other 11-10-2022 10:00-0500Systolic blood racsteet356 mm[Hg] Etelvina María Other [employer] Other 11-04-2021 10:00-0400Body .48 cmAbdul María Other [employer] Other 11-04-2021 10:00-0400Body mass index (BMI) [Ratio] 29.04 kg/i5Wwkhz María Other [employer] Other 11-04-2021 10:00-0400Body ztwhnjepsds08.4 [degF]Etelvina Maraí Other [employer] Other 11-04-2021 10:00-0400Body zqagxn64.03 kgAbdul María Other [employer] Other 11-04-2021 10:00-0400Diastolic blood mm[Hg] Etelvina María Other [employer] Other 11-04-2021 10:00-0400Respiratory rate18 /minAbdul María Other [employer] Other 11-04-2021 10:00-9191EeF2% (BldA) [Mass fraction]99 % Etelvina María Other [facility] [employer] Other 11-04-2021 10:00-0400Systolic blood piaxlclk935 mm[Hg] Etelvina María Other [employer] Other Encounters Encounter DateEncounter TypeCare ProviderFacilityStart: 05-08-2025 End: 78-12-8127Zbcght flowsheetMaradha C Petznick DO Work Phone: [facility] 230Start: 05-08-2025 End: 86-40-8977Sabtmo flowsheetMatthew C Petznick DO Work Phone: [facility] 230Start: 05-08-2025 End: 91-84-9814Ckzhcsa encounter statusMattheneo C Petznick DO Work Phone: [facility] Work Phone: Start: 05-08-2025 End: 49-65-6210Zpxtzvzv preventive med est patient 40-64yrsMatthew C Petznick DO Work Phone: [facility] 230Comment on above: Routine general medical examination at a health care facility (Primary Dx); Major depressive disorder, single episode, mild ; Anxiety; Stage 3a chronic kidney disease ([facility])Start: 05-08-2025 End: 90-87-4832dkyrbldiisNEOZKCY Jovita BENAVIDESEfrain AvailableStart: 04-26-2025 End: 17-40-8738Vbkprl follow up visit related to original Lily Ngo MD Work Phone: otolaryngologyComment on above:Nasal obstruction (Primary Dx)Start: 04-26-2025 End: 17-66-7697gxxylyybwtHKWR W LIUFacility:[facility] HospitalStart: 04-19-2025 End: 08-68-6057uwotfxqcicOHDU W LIUFacility:[facility] Hospitaltart: 04-01-2025 End: 46-13-3407Howbimhvo to establishmentPa [place] 1 Work Phone: Pre AnesthesiaStart: 04-01-2025 End: 17-76-8245Lkxdbybonn consultationPa [place] 1 Work Phone: Pre AnesthesiaComment on above:Pre-op evaluation (Primary Dx); AnxietyStart: 04-01-2025 End: 55-57-3192Znknizefrxnrp examination doneProsser [facility] Hospital [place] 1 Work Phone: [facility] Work Phone: Start: 04-01-2025 End: 23-24-1538dzboklhlewDZPY W LIUFacility:[facility] Hospitaltart: 31-75-4647Blqmoqtbg for other preprocedural examinationSJEANETH NGOSt. Mary'S Medical Center, Ironton CampusStart: 03-12-2025 End: 47-68-1828Qemsggqcj to same day surgery centerSjeaneth Ngo MD Work Phone: Facial Plastics/ReconstructionComment on above:Surgery Pre-AuthorizationStart: 03-12-2025 End: 00-48-2043kwrkzizqrqWvst W Liu MD Work Phone: Facial Plastics/ReconstructionStart: 02-28-2025 End: 43-51-3544ncjgrhsbvlVjxhuvgtvKettering Health [facility] Work Phone: Start: 02-28-2025 End: 88-94-9554Qqidqcy encounter procedureAtrium Health [facility] Nephrology Brennan Work Phone: Start: 63-47-4604Vpo-patient / Non-visitAtrium Health [facility] Work Phone: Start: 01-24-2025 End: 48-80-3282Ikkbmn consultation new/estab patient 40 Juan Carlos Sosa MD Work Phone: AllergyComment on above:Allergic rhinitis due to animal hair and dander (Primary Dx); Allergic rhinitis due to mold; Allergic rhinitis due to dust miteStart: 01-24-2025 End: 37-17-8174cvizggwlurOVT S ISHAKFacility:[facility] Hospitaltart: 01-21-2025 End: 80-88-2170Lambtg consultation new/estab patient 61 Sheryl Ngo MD Work Phone: Facial Plastics/ReconstructionComment on above:Nasal septal deviation (Primary Dx); Nasal valve collapse; Nasal obstruction; Hypertrophy of both inferior nasal turbinatesStart: 01-21-2025 End: 39-59-8184exakojrmawSmcgfdg R WATERSFacility:[place]vueStart: 01-14-2025 End: 40-85-8629dlppzzkelkJOOAEYL CHAABANFacility:[facility] Hospitaltart: 01-14-2025 End: 53-67-1433Nwnfrgp encounter procedureNakul Gracia MD Work Phone: OtolaryngologyComment on above:Allergic rhinitis, unspecified seasonality, unspecified trigger (Primary Dx); Deviated nasal septum; Hypertrophy of nasal turbinates; Nasal valve collapseStart: 08-28-2024 End: 57-48-1638Mcztjllyz Result EncounterOtis Ibarra MD Work Phone: [facility] External Department UnsolicitedStart: 08-28-2024 End: 13-78-4748Cyoazcgja Result EncounterOtis Ibarra MD Work Phone: [facility] External Department UnsolicitedStart: 08-14-2024 End: 94-06-9106Kgximm flowsEliezer Ibarra MD Work Phone: [facility] SWS OBStart: 08-14-2024 End: 45-18-8942Xuznef Ann-Marie Ibarra MD Work Phone: [facility] SWS OBStart: 08-14-2024 End: 75-78-7541Qdjyyom encounter procedureOtis Ibarra MD Work Phone: [facility] Work Phone: start: 08-14-2024 End: 89-02-4852Ysasbuoe preventive med est patient 40-64yrsOtis Ibarra MD Work Phone: [facility] OBComment on above:Well woman exam with routine gynecological exam (Primary Dx); Other screening mammogram; Menopausal symptomsStart: 08-14-2024 End: 81-98-9895lwbataimvdEHFYQ J PRINTYNot AvailableStart: 02-16-2024 End: 07-59-0835ceebqxrorfClqqpwadkKettering Health [facility] Work Phone: Start: 02-16-2024 End: 59-50-2263Sugoxlb encounter procedureRaisachildren's hospital [facility] Nephrology Brennan Work Phone: Start: 24-98-8808Dop-patient / Non-visitAtrium Health [facility] Work Phone: Start: 01-24-2024 End: 46-68-9860lfaeolatxnDzueqrs R WATERSFacility:EU [place]Start: 01-24-2024 End: 46-80-2791Efspejh encounter procedureDeshaun CERDA [facility] Sarabjit Start: 12-21-2023 End: 67-15-7408caxxrinbrbLnnlatu R WATERSFacility:FTMCStart: 12-21-2023 End: 42-57-2152Mnz Drop offDeshaun Carla CERDA [facility] Start: 12-21-2023 End: 98-91-7193Vpzysdu encounter procedurePakaity Carla CERDA [facility] Sarabjit Start: 13-80-5856tvqzeckxraBWATC QADIRFacility:EU [place]vueStart: 80-02-4287nshwcybqzjRvbuxle WATERSFacility:EU FauziauskyStart: 10-17-2023 End: 28-07-8886phsfesweedGlqohci PetznickFacility:[facility] Hospitaltart: 10-17-2023 End: 48-39-7765Bxtmnaijm to same day surgery Chavez Benavides Work Phone: [facility] Work Phone: Start: 10-17-2023 End: 06-03-1341dcjfqseexlEQ Matthew Petznick Work Phone: [facility] Work Phone: Start: 08-04-2023 End: 83-38-6347ylqxbyefsvWcfqt María Other [facility] [employer] Other Start: 78-37-9464Aqyaixviu encounterAbdul QadirFPG NephrologyStart: 43-03-1680jkdldwjjzzLcvfqol WATERSFacility:EU [place]vueStart: 07-27-2023 End: 24-56-8956lqxkesbyoeSlsf Asaad Other [facility] [employer] Other Start: 01-96-0980Cfyciahmp encounterImad AsaadFPG Referral CoordinatorStart: 07-21-2023 End: 00-85-4599yvciyyhaevEyoqz María Other nort [employer] Other Start: 71-48-2298Pwqnfo outpatient visit 15 minutes Etelvina QadirFPG Nephrology ClydeStart: 00-10-5005hncikgfyslIS SHEREE [place] Facility:O5Rpcvx: 08-19-2022 End: 86-96-5188kfmaboioblDksdb María Other [facility] [employer] Other Start: 61-83-3967Sxljpa outpatient visit 15 minutes Etelvina QadirFPG Nephrology ClydeStart: 08-09-2022 End: 95-34-0097pkslqjzuinOESQB QADIRFacility:D9Qwapw: 07-15-2022 End: 87-00-7459zhukxaezykDG SHEREE Mesa WOODBURYFacility:T9Avgng: 02-12-2022 End: 74-69-0333xjjbkmpjphTK SHEREE Mesa WESTFacility:M8Crwhj: 01-04-2022 End: 04-98-3453ckdoeclsysSBADP A BROWNFacility:F8Wugzu: 08-13-2021 End: 64-16-3517vynlyotsfpRxsff María Other [facility] [employer] Other Start: 63-05-7181Hbmwqj outpatient visit 15 minutes Etelvina QadirFPG Nephrology ClydeStart: 07-15-2018 End: 52-03-2581Fauvadocm Naun Tran MD Work Phone: EndocrinologyComment on above:Radiology USStart: 13-19-5619AgnhvdxbmvVMYVKW ZANOTTIFacility:8Start: 72-97-2674DovfeongqkYLHJRM ZANOTTIFacility:8 Procedures DateProcedureProcedure DetailPerforming ClinicianStart: 13-34-1456QF TOMOSYNTHESIS SCREENING Edie Ibarra MD Work Phone: start: 65-27-0258CzaxqtmcevaJturxtt Petznick DO Work Phone: Start: 99-67-2692Gmvrymlgvnfdy cystoscopyPakaity CERDA Start: 97-81-1079Mnxmlzybw colonoscopyDO Caden Benavides Work Phone: Start: 77-44-4513EtarvuatzzvHeksg Printy MD Work Phone: start: 98-89-1847DprploqihowNcsdm Printy MD Work Phone: start: 22-06-6516Wvkxuwwetrg observation [Identifier] in Cervix by Cyto stainOtis Ibarra MD Work Phone: start: [phone] Serhal MD Work Phone: Adenoid excisionWhitesburg Ar[facility] Hospitalk PRASHANT arthroscopy of shoulderPatrigg [facility] hospitalk PR[facility]ANT Comment on above:LEFT SHOULDER ARTHROSCOPY WITH SUBOCROMIAL DECOMPRESSION AND LABRAL REPAIRColonoscopyPatrigg county hospitalk PRASHANT [facility]ophag[facility]astroduodenoscopyJes[facility] PR[facility]ANT Oral surgery (qualifier value)Deshaun CERDA Plan of Treatment DateCare ActivityDetailAuthorStart: 57-75-5206Qahjwwoez for malignant neoplasm of colonNOMS HealthcareStart: 33-41-4197Wqbprbelq for malignant neoplasm of breastNewcastle ClinicStart: 08-15-2025 End: 99-21-4378Ufsxkev encounter qzidvsvxy61/06/2025 11:15 AM EST Office Visit [facility] [address] [place] [address] Otis Ibarra MD [address] [place] [address] DAT MADSENNStart: 84-02-8571Ctepqqiwm for malignant neoplasm of cervixNOMS HealthcareStart: 33-15-3695KYPPH-19 Vaccine ( season)COVID-19 Vaccine ( season)NOM HealthcareStart: 93-56-0130Ipjtdomnz vaccinationInfluenza Vaccine (#1)[facility]: 05-08-2025 End: 74-14-9257Kkyqlkq encounter qjmsuqcfh79/30/2025 9:45 AM EDT Office Visit [facility] [address] [place] [address] Caden Benavides, [address] [place] [address] ArrivedNOAtrium Health [facility] 230Comment on above:ArrivedStart: 04-26-2025 End: 02-49-0590Qclpktj encounter aobdmymph01/18/2025 4:00 PM EDT Office Visit Otolaryngology [address] [address] Eddie Ngo MD [address] [place] [address] post opOtolaryngologyComment on above:post opStart: 04-19-2025 End: 45-97-6565Tqqos sof tiss inf turbs uni/bi supfc intramuralABLATION, INFERIOR TURBINATES, BY TISSUE VOLUME REDUCTION; SUBMUCOSAL Nasal valve collapse Nasal septal deviation Nasal obstruction Hypertrophy of both inferior nasal turbinates 04/19/2025 7:30 AM EDTAV ORStart: 04-19-2025 End: 23-93-7777Ketjdytqt to same day surgery [facility] SurgeryComment on above:REPAIR NASAL VESTIBULAR STENOSISStart: 04-19-2025 End: 63-65-9210Vauzgx nasal vestibular stenosisREPAIR NASAL VESTIBULAR STENOSIS Nasal valve collapse Nasal septal deviation Nasal obstruction Hypertrophy of both inferior nasal turbinates 04/19/2025 7:30 AM EDTAV ORStart: 04-19-2025 End: 11-95-6912Vdnapydqjly/submucous resecj w/wo cartilage grfSEPTOPLASTY Nasal valve collapse Nasal septal deviation Nasal obstruction Hypertrophy of both inferior nasal turbinates 04/19/2025 7:30 AM EDTAV ORStart: 90-85-7823Gtaldeuyvd hospital visit by rxtkohjjg29/11/2025 7:30 AM EDT Hospital Encounter [facility] [address] [place] [address] Eddie Ngo MD [address] [place] [address] Nasal valve collapse [J34.829], Nasal septal deviation [J34.2], Nasal obstruction [J34.89], Hypertrophy of both inferior nasal turbinates [J34.3][facility] SurgeryComment on above:Nasal valve collapse [J34.829], Nasal septal deviation [J34.2], Nasal obstruction [J34.89], Hypertrophy of both inferior nasal turbinates [J34.3]Start: 04-01-2025 End: 58-57-7282Pnmafddtmx fgyoxozdhflo50/23/2025 1:40 PM EDT PAT Pre Anesthesia [address] [place] [address] 1, Pacc [place] [address] [place] [address] paccPre AnesthesiaComment on above:paccStart: 01-24-2025 End: 60-62-9751Mssjcuxwe to same day surgery sfapwl0301/24/2025 3:00 PM EDT [facility] [address] [place] [id number] Yuri Sosa MD [address] [facility] [place] [address] Referral from ENT for deviated septum surgeryAllergyComment on above:Referral from ENT for deviated septum surgeryStart: 01-21-2025 End: 99-91-0911Wnrkvxe encounter pbpkoqbtt64/14/2025 1:30 PM EDT Office Visit Facial Plastics/Reconstruction [address] [place] [address] Eddie Ngo MD [address] [place] [address] Nasal valve collapse [J34.829]Facial Plastics/ReconstructionComment on above:Nasal valve collapse [J34.829]Start: 08-18-2024 End: 22-43-0197SFK Breast - bilateral screeningBilateral screening mammogram with tomosynthesis Imaging Routine Other screening mammogram Expected: 08/18/2024, Expires: 10/13/2025N[facility] Healthcare Work Phone: comment on above:Expected: 08/18/2024, Expires: 10/13/2025Start: 82-64-8869Tqlstfcyg for malignant neoplasm of breastMammogram [facility] HealthcareStart: 08-14-2024 End: 09-89-2094Pldcpvh encounter gmxofcbpp58/05/2024 11:30 AM EST Office Visit [facility] [address] [place] [address] Otis Ibarra MD [address] [place] [address] Well woman exam with routine gynecological exam; Other screening mammogramNOMS [facility] OBComment on above:Well woman exam with routine gynecological exam; Other screening mammogramStart: 50-23-5218Hfgsu-19 Vaccine ( season) Covid-19 Vaccine ( season)[facility]: 90-97-6972Pljjxkghc vaccinationInfluenza Vaccine (#1)[facility] HealthcareStart: 08-44-4644PlhfuqahqAkron Children's Hospitaltart: 63-66-8110REI TESTINGHPV TESTINGKettering Health – So[facility] Start: 39-25-8280PJR TESTINGPAP TESTINGCleveland Clinic Lutheran Hospitaltart: 06-10-2021 Influenza vaccinationINFLUENZA (Season Ended)[facility]: 2021 Diabetes ScreeningDiabetes ScreeningCleveland Clinic Lutheran Hospitaltart: 33-96-2119Oohta panel Lipid ScreeningCleveland Clinic Lutheran Hospitaltart: 94-92-6217Ntyhijnwi for malignant neoplasm of colonCleveland Clinic Lutheran Hospitaltart: 26-37-1521Ydmwobugz for malignant neoplasm of cervixCervical Cancer ScreeningCleveland Clinic Lutheran Hospitaltart: 02-87-8947Yxeywlcyvmx MAMMOGRAMCleveland Clinic Lutheran Hospitaltart: 95-20-1856Oftsualhz for malignant neoplasm of cervixHPV/CotestNOMS HealthcareStart: 73-44-2702Vkkcufaid B Vaccine (1 of 3 - 19+ 3-dose series)Hepatitis B Vaccine (1 of 3 - 19+ 3-dose series)[facility]: 78-99-7797Xfsrhjjcy B Vaccines (1 of 3 - 19+ 3-dose series) Hepatitis B Vaccines (1 of 3 - 19+ 3-dose series)[facility] HealthcareStart: 27-04-8056Aackk microalbumin profileCleveland Clinic Lutheran Hospitaltart: 47-47-3908Hrtlrry ScreeningAnxiety ScreeningCleveland Clinic Luther[facility] Hospitaltart: 37-94-0125Xfllknhxmf Screening Depression ScreeningCleveland Clinic Lutheran Hospitaltart: 61-22-9173BKYFRNAJF C SCREENING HEPATITIS C SCREENINGCleveland Clinic Lutheran Hospitaltart: 96-56-9361Txuypxyqw C screening Hepatitis C ScreeningCleveland Clinic Lutheran Hospitaltart: 25-61-6080FXV SCREENINGHIV SCREENING [facility]: 32-38-5457JXS screeningHIV ScreeningKettering Health – [facility] Medical [facility] Start: 75-36-6435Rptek depression screening assessmentDEPRESSION SCREENING [facility]: 76-00-2606SThA/Tdap/Td Vaccines (1 - Tdap)DTaP/Tdap/Td Vaccines (1 - Tdap)[facility] HealthcareStart: 23-41-5544VMH Vaccines (1 of 1 - Standard series)MMR Vaccines (1 of 1 - Standard series)[facility] HealthcareStart: 14-66-3329Osjtrkgpa for malignant neoplasm of colonNOMS HealthcareAbltj sof tiss inf turbs uni/bi supfc intramuralABLATION, INFERIOR TURBINATES, BY TISSUE VOLUME REDUCTION; SUBMUCOSAL Nasal valve collapse Nasal septal deviation Nasal obstruction Hypertrophy of both inferior nasal turbinatesAV ORPatient Education Hemorrhoids (DC)[facility] Work Phone: Renal function 1999 panel - Serum or [facility] DublinRen[facility] function 2000 panel - Serum or [facility] DublinRepair nasal vestibular stenosisREPAIR NASAL VESTIBULAR STENOSIS Nasal valve collapse Nasal septal deviation Nasal obstruction Hyper trophy of both inferior nasal turbinatesAV ORSeptoplasty/submucous resecj w/wo cartilage grfSEPTOPLASTY Nasal valve collapse Nasal septal deviation Nasal obstruction Hypertrophy of both inferior nasal turbinatesCleveland Clinic [facility] Hospital Immunizations Immunization DateImmunizationNotesCare CtbknaujCcsrslsn52-29-7095fohbporck virus vaccine, unspecified Rose Ngo MD Work Phone: [facility] hospitaland Reznvk18-80-8867bwplhbdhm virus vaccine, unspecified formulationKarrot Rewards [facility] [place] 476010-02-2022influenza virus vaccine, unspecified formulationKarrot Rewards [facility] [place] 476010-22-2021SARS-CoV-2 (COVID-19) mRNA-1273 vaccineKarrot Rewards [facility]01-28-2021SARS-CoV-2 (COVID-19) mRNA-1273 vaccineKarrot Rewards [facility]12-30-2020SARS-CoV-2 (COVID-19) mRNA-1273 vaccineKarrot Rewards [facility]11-01-2017influenza virus vaccine, unspecified formulationKar[employer] [facility]10-14-2016influenza virus vaccine, unspecified formulationKar[employer] Rew[employer] [facility] Payers DatePayer CategoryPayerPolicy [id number]-[id number] Health Insurance [id number] MMO SARA [id number] 2017-Present [id number] [id number] 2.16.840.1.322086.3.57[id number] 2.16.840.1.004950.3.57[id number] 2.16.840.1.016444.3.57[id number] 2.16.840.1.028533.3.57[id number] 2.16840.1.295154.3.57[id number] 2.16840.1.483775.3.57[id number] 2.840.1.946621.3.57[id number] 2.16840.1.074859.3.57[id number] 2.16840.1.020319.3.57[id number] 2.16.840.1.154832.3.57[id number] 2.16840.1.650945.3.57[id number] 2.16.840.1.475632.3.57[id number] 2.16840.1.046550.3.57[id number] 2..1.641624.3.57[id number] 2..1.502475.3.579.2.639567-57-2508Ucpj-cei19371773945-00-5931Zrdlugg [id number] .[id number] Insurance [id number] .1.319218.3.579.2.531 Social History DateTypeDetailFacilityStart: 07-14-2018 End: 26-60-9978Ixcwjul smoking status NHISNever smokerAkron Children's Hospitaltart: 07-14-2018 End: 98-22-7755Mbyyrwz use and exposureNever usedCleveland Clinic Lutheran Hospitaltart: 07-14-2018 End: 21-86-9128Ueyjjhv intakeCurrent non-drinker of alcohol (finding)[facility]: 50-89-3117Sov Assigned At [facility]Not on fileC[facility] Clinic Luther[facility] Hospitaltart: 12-04-2023 End: 77-06-1085Pgp Assigned At [facility]tart: 35-17-0559Alt Assigned At [facility]ertart: 69-40-3127Ieodmlu smoking statusNeverExecutive [facility] of [facility] SanduskyStart: 08-13-2024 End: 65-10-6222Nzxpnuamz beverage intakeCurrent drinker of alcohol (finding)[facility] HealthcareStart: 12-04-2023 End: 46-21-3869Vaqdbqqje beverage intakeNOMS HealthcareDo you belong to any clubs or organizations such as buddhism groups, unions, fraternal or athletic melchor ups, or school groups?NoNOMS HealthcareAre you now , , , , never or living with a partner?MarriedNOMS HealthcareHow often to you have a drink containing alcohol?2-4 times a monthNOMS HealthcareHow many standard drinks containing alcohol do you have on a typical day?1 or 2NOMS HealthcareHow often do you have 6 or more drinks on 1 occasion?Less than monthlyNOMS HealthcareDo you feel stress - tense, restless, nervous, or anxious, or unable to sleep at night because yourmind is troubled all the time - these days [OSQ]Only a littleNOMS Healthcare(I/We) worried whether (my/our) food would run out before (I/we) got money to buy more.Never trueNOPR HealthcareStart: 73-80-6837Gxrfczz Comment1-2 drinks less than monthly in the past year, Caffeine intake: 1-2 cups per day energy drinkNOPR HealthcareStart: 43-57-3678Eyeqqj identityIdentifies as female gender (finding)[facility] CenterStart: 04-18-2023 Sexual orientationHeterosexual (finding)[facility] CenterStart: 07-22-4818Vbl Female (finding)[facility]: 98-94-8952Psoonbbgv beverage intakeEx-drinker (finding)[facility] Medical Equipment Procedure CodeEquipment CodeEquipment Original TextEquipment IdentifierDates SHOULDER ARTHROSCOPY W/ POSSIBLE REPAIR Norman Talbert DO 11/20/21 Non Biological Shoulder L{01}[id number] FDAStart: 11-20-2021 Goals DatePatient GoalDesired Activity/State Functional Status AkobXkslagalvkLypuzxZmjdljsy75-02-8912Ndzirau Health Questionnaire 2 item (PHQ- 2) [Reported][facility] CenterXbsbbbimsv57-89-6825Nljsejdmia StatusN/AExec[facility] of [facility]03-13-2024Functional StatusN/AExec[facility] Clinical Notes 07-17-2018 to 05-08-2025 Note Date & ZlvqTiitWqnycned75-96-3209 History of Present illness Narrative* Caden Benavides, DO - 05/08/2025 9:45 AM EDT Images from the original note were not included. Deonte Donovan is a 50 y.o. female presents with chief complaint of Chief Complaint Patient presents with Annual Exam Deonte was seen today for annual exam. Diagnoses and all orders for this visit: Routine general medical examination at a health care facility Major depressive disorder, single episode, mild - DULoxetine (Cymbalta) [address] capsule; Take 1 capsule (20 mg) by mouth Daily Do not crush or chew. Anxiety - DULoxetine (Cymbalta) [address] capsule; Take 1 capsule (20 mg) by mouth Daily Do not crush or chew. Stage 3a chronic kidney disease ([facility]) At [facility] maintanence appointment I reviewed the patients past medical history along with any laboratory and diagnostic testing preformed prior to the visit. During the visit, health care maintanence was reviewed and recommendations made specifically for the patient based on their risk factors. Current colon cancer screening: up-to-date with colonoscopy. Breast cancer screening: up-to-date with screening. Blood work: most recent blood work reviewed . Finally the patient was instructed to call the office if any health issues arise until the next well check/appointment. At the conclusion of the visit all questions were answered which were brought forth. Assessment & Plan 1. Depression. She has been on Cymbalta 30 mg for many years. She is currently on the lowest dose of Cymbalta and expresses fear about discontinuing it due to a previous depressive episode that occurred 3 months after stopping the medication. This incident happened 7 years ago when she was under the care of a different physician who had advised a gradual reduction of the medication. She is uncertain if the tapering process was too rapid. She recalls that this period was particularly challenging as she was unhappy with her job and other aspects of her life. She is open to trying a lower dose of Cymbalta. Thedosage of Cymbalta will be reduced to 20 mg once daily. A prescription for a 90-day supply with refills will be sent to the pharmacy. If she experiences any difficulties or problems, she can increaseit back to 30 mg. 2. Kidney stones. Her creatinine levels have been fluctuating slightly, and she undergoes annual check-ups. Last year, she had 2 visits due to an unusual finding that led to the discovery of kidney stones. However, nosignificant issues were identified from this. Her most recent visit was in 02/2025. Her cholesterollevels were normal 1.5 years ago, so there is no concern in that regard. A reminder will be set in the system for early to mid-01/2026 to send over an order for total cholesterol and thyroid tests. No chest pain, shortness of breath, normal aches and pains. Follow-up: The patient will follow up yearly. MEDICATION SUMMARY: Medication Changes As of 05/08/2025 10:15 AM Refills Start Date End Date DULoxetine HCl Unchanged: DULoxetine (Cymbalta) [address] capsule 0 04/30/2025 -- Take 1 capsule (30 mg) by mouth Daily Do not crush or chew. - Oral Added: DULoxetine (Cymbalta) [address] capsule 3 05/08/2025 08/06/2025 Take 1 capsule (20 mg) by mouth Daily Do not crush or chew. - Oral Medication List at End of Visit As of 05/08/2025 10:15 AM Refills Start Date End Date azelastine (Astelin) 0.1 % nasal spray -- -- Patient-reported medication DULoxetine HCl DULoxetine (Cymbalta) [address] capsule 0 04/30/2025 -- Take 1 capsule (30 mg) by mouth Daily Do not crush or chew. - Oral DULoxetine (Cymbalta) [address] capsule 3 05/08/2025 08/06/2025 Take 1 capsule (20 mg) by mouth Daily Do not crush or chew. - Oral norethindrone-ethinyl estradiol (Femhrt 10/14) 1-5 MG-MCG tablet 3 08/14/2024 -- Take 1 tablet by mouth Daily - Oral CADEN BENAVIDES D.O. This note was entered using [employer] copilot. Grammatical and dictation errors maybe present in translation *I have reviewed and reconciled the history and medication list with the patient today* History of Present Illness Here for yearly well check and blood work. Had labs with Dr Daniel in January. Mammogram last .Colonoscopy last 2023. The patient presents for evaluation of depression and kidney stones. She reports overall good health, with the exception of her kidney condition, which she continues tomonitor. Her creatinine levels have been fluctuating slightly, and she undergoes annual check-ups. Last year, she had two visits due to an unusual finding that led to the discovery of kidney stones. However, no significant issues were identified from this. Her most recent visit was in 02/2025. She is currently on the lowest dose of Cymbalta and expresses fear about discontinuing it due to a previous depressive episode that occurred three months after stopping the medication. This incident happened seven years ago when she was under the care of a different physician who had advised a gradual reduction of the medication. She is uncertain if the tapering process was too rapid. She recallsthat this period was particularly challenging as she was unhappy with her job and other aspects of her life. She is open to trying a lower dose of Cymbalta. She had a deviated septum fixed on 04/19/2025. They also did her turbinates and moved her cartilagearound so she can open up her valves. She had stents in place and took pictures of them. She can breathe so much better now. PAST SURGICAL HISTORY: Deviated septum repair on 04/19/2025 Shoulder surgery (date not specified) SUBJECTIVE: Current Medications: Allergies/Social History: ROS Current Outpatient Medications Medication Instructions azelastine (Astelin) 0.1 % nasal spray DULoxetine (CYMBALTA) 30 mg, Oral, Daily, Do not crush or chew. DULoxetine (CYMBALTA) 20 mg, Oral, Daily, Do not crush or chew. norethindrone-ethinyl estradiol (Femhrt /) 1-5 MG-MCG tablet 1 tablet, Oral, Daily Allergies Allergen Reactions Cat Dander Unknown Dust Mite Extract Unknown Molds & Smuts Runny nose and Unknown Social History Tobacco Use Smoking status: Never Smokeless tobacco: Never Vaping Use Vaping status: Never Used Substance Use Topics Alcohol use: Not Currently Alcohol/week: 2.0 standard drinks of alcohol Types: 2 Glasses of wine per week Comment: 1-2 drinks less than monthly in the past year, Caffeine intake: 1-2 cups per day energy drink Drug use: Never Review of Systems Constitutional: Negative for fatigue. HENT: Negative for rhinorrhea. Respiratory: Negative for cough and shortness of breath. Cardiovascular: Negative for chest pain. Gastrointestinal: Negative for abdominal distention. Skin: Negative for rash. Neurological: Negative for dizziness. All other systems reviewed and are negative. Past Medical History: Surgical History: Depression Screen/FHx Past Medical History: Diagnosis Date Anxiety and depression ESS (euthyroid sick syndrome) 2015 History of abnormal cervical Pap smear 2014 History of medical problems 2014 Moderate Dysplasia Hypothyroid Irritable bowel syndrome Nephrolithiasis Pap smear abnormality of cervix with LGSIL 2009 Past Surgical History: Procedure Laterality Date ADENOIDECTOMY CERVICAL BIOPSY W/ LOOP ELECTRODE EXCISION COLONOSCOPY several over the years one with polyps removed 1999;Dr Ro; 2011, 2016 COLPOSCOPY with biopsy CIN2 EGD 1999 NASAL SEPTUM SURGERY 04/19/2025 SHOULDER SURGERY 11/2021 VAGINAL DELIVERY x 2 Depression: Not at risk (05/08/2025) PHQ-2 PHQ-2 Score: 0 Family History Problem Relation Name Age of Onset Thyroid disease Mother Mother Prostate cancer Father prostate No Known Problems Brother Breast cancer Maternal Grandmother Grandmother Mental illness Maternal Grandmother Grandmother Stroke Maternal Grandfather Grandfather Colon cancer Paternal Grandmother Grandmother Rheum arthritis Paternal Grandmother Grandmother Colon cancer Father's Sister Maury Garza Breast cancer Father's Sister Maury Garza Hypertension Other spouse No Known Problems Son No Known Problems Daughter OBJECTIVE: 05/08/2025 9:36 AM 08/14/2024 11:28 AM 12/05/2023 8:38 AM 10/11/2023 3:09 PM 08/08/2023 11:02 AM 06/28/2023 10:01 AM 04/18/2023 2:12 PM Vitals BMI 27.8 kg/m2 27.25 kg/m2 29.19 kg/m2 29.45 kg/m2 27.98 kg/m2 30 kg/m2 30 kg/m2 BSA (m2) 1.74 m2 1.72 m2 1.78 m2 1.79 m2 1.74 m2 1.8 m2 1.8 m2 Systolic 114 120 122 128 120 Diastolic 66 70 74 78 76 Heart Rate 60 61 SpO2 99 % 98 % Temp 98.5 F 97.5 F Height (in) 5' 2 5' 2 5' 2 5' 2 Weight (lb) 152 149 159.6 161 153 164 164 Visit Report Report Report Report Report Report Report Report Physical Exam Vitals reviewed. Constitutional: General: She is not in acute distress. Appearance: Normal appearance. She is not ill-appearing. HENT: Head: Normocephalic and atraumatic. Nose: Nose normal. Mouth/Throat: Mouth: Mucous membranes are moist. Eyes: General: No scleral icterus. Extraocular Movements: Extraocular movements intact. Cardiovascular: Rate and Rhythm: Normal rate and regular rhythm. Heart sounds: No murmur heard. Pulmonary: Effort: Pulmonary effort is normal. Breath sounds: Normal breath sounds. Musculoskeletal: General: Normal range of motion. Cervical back: Normal range of motion and neck supple. Skin: General: Skin is warm and dry. Findings: No rash. Neurological: General: No focal deficit present. Mental Status: She is alert and oriented to person, place, and time. Mental status is at baseline. Psychiatric: Mood and Affect: Mood normal. Behavior: Behavior normal. Thought Content: Thought content normal. Judgment: Judgment normal. documented in this encounterMineral Area Regional Medical CenterRieqnzgilq36-20-6369 NoteHNO ID: [id number] Author: EDDIE NGO MD Service: ? Author Type: Physician Type: Progress Notes Filed: 04/26/2025 17:39 Note Text: Section of Facial Plastic AND Reconstructive Surgery Head and Neck [place], [facility] FOLLOW-UP VISIT CC: post-op HISTORY: Deonte Donovan is a 50 year old female who returns today following nasal surgery. Overall, recovering well. No significant concerns or complaints. Facial Plastic History ID: 04/19/25 1. Repair of nasal vestibular stenosis, bilateral 2. Septoplasty 3. Bilateral inferior turbinate reduction and out fracture I reviewed the patient's past medical history, past surgical history, social history, family medical history, allergies, and current medications. PHYSICAL EXAM: vitals were not taken for this visit. Nose - Aquaplast, steri-strips and Griffin splints removed. Columellar sutures trimmed. Expected post-operative swelling of dorsum and tip; incisions well healing; septum is straight and bilateral nasal cavities are patent after suctioning of mucoid debris; turbinates well reduced and lateralized IMAGING: I personally reviewed the following radiologic exams: NA IMPRESSION AND PLAN: Deonte Donovan is a 50 year old female that is recovering well following nasal surgery. We discussed continued care for the nose with ointment and nasal saline spray and use of humidifier. Return to clinic in 3 months Eddie Ngo MD Facial Plastic and Reconstructive Surgery Head and Neck [place] [facility] 04/26/2025 PROCEDURES: [facility]07-18-2025 History of Present illness Narrative* Eddie Ngo MD - 04/26/2025 5:39 PM EDT Images from the original note were not included. Section of Facial Plastic & [facility]ive [facility] FO[facility]-UP VISIT CC: post-op HISTORY: Deonte Donovan is a 50 year old female who returns today following nasal surgery. Overall, recoveringwell. No significant concerns or complaints. Facial Plastic History ID: 04/19/25 1. Repair of nasal vestibular stenosis, bilateral 2. Septoplasty 3. Bilateral inferior turbinate reduction and out fracture I reviewed the patient's past medical history, past surgical history, social history, family medical history, allergies, and current medications. PHYSICAL EXAM: vitals were not taken for this visit. Nose - Aquaplast, steri-strips and Griffin splints removed. Columellar sutures trimmed. Expected post-operative swelling of dorsum and tip; incisions well healing; septum is straight and bilateral nasal cavities are patent after suctioning of mucoid debris; turbinates well reduced and lateralized IMAGING: I personally reviewed the following radiologic exams: NA IMPRESSION & PLAN: Deonte Donovan is a 50 year old female that is recovering well following nasal surgery. We discussed continued care for the nose with ointment and nasal saline spray and use of humidifier. Return to clinic in 3 months Eddie Ngo MD Facial Plastic and Reconstructive Surgery Head and [facility] [place] [facility] 04/26/2025 PROCEDURES: NA * Leonora Richard OCCA - 04/26/2025 3:37 PM EDT Tobacco Use: Never Was smoking cessation packet given? N/A - Patient is a non-smoker or quit >1 year ago. Was a referral initiated?N/A Patient is a non-smoker [facility] NoteHNO ID: [id number] Author: LEONORA RICHARD OCCA Service: ? Author Type: Firestopper Installer Type: Progress Notes Filed: 04/26/2025 17:39 Note Text: Tobacco Use: Never Was smoking cessation packet given? N/A - Patient is a non-smoker or quit >1 year ago. Was a referral initiated?N/A 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 Staffing Anesthesiologist: Pooja Morris MD CAA: Ton Mccoy AA Performed by: OLIVIER Indications and Patient Condition Indications for airway management: anesthesia Preoxygenated: yes anesthesia circuit Method: sleep Difficult Mask: No Final Airway Details Final airway type: endotracheal airway Final Endotracheal Airway: ETT Cuffed: yes Successful intubation technique: direct laryngoscopy Blade: Carlos Alberto Blade size: #3 ETT size (mm): 7.0 Measured from: teeth Measurement (cm): 21 Placement verified by: chest auscultation and capnometry Cormack-Lehane Classification: grade I - full view of glottis Number of attempts at approach: 1 Failed airway: no Unrecognized esophageal intubation: no Airway not difficult SIGNATURE: BRENDA Bearden PATIENT NAME: Deonte Donovan DATE: April 19, 2025 TIME: 10:15 AM CSN: [id number] History and physical note* Karie López APRN.[place] - 04/01/2025 1:21 PM EDT Images from the original note were not included. HISTORY AND PHYSICAL EXAMINATION SERVICE DATE: 04/01/2025 SERVICE TIME: 1:21 PM PRIMARY CARE PHYSICIAN: Caden C Petznick, DO, DO REASON FOR VISIT: Deonte Donovan is a 49 year old female who is scheduled for Bilateral - REPAIR NASAL VESTIBULAR STENOSIS Bilateral - ABLATION, INFERIOR TURBINATES, BY TISSUE VOLUME REDUCTION; SUBMUCOSAL SEPTOPLASTY at the request of Dr. Eddie Ngo for consultation. My final recommendation will be communicated back to the requesting physician by way of shared medical record or letter. Assessment Patient has the following medical conditions which may affect benoit-operative course: Anxiety Assessment: Controlled with cymbalta ANESTHESIA FINDINGS: Intubation History: No history of difficult intubation Significant Anesthesia Considerations: none Airway History: No history of difficult airway Gaviria Activity Status Index: METS: Walk indoors, such as around the house (1.75 METs) Do light work around the house, such as dusting or washing dishes (2.70 METs) Take care of self; that is eating, dressing, bathing, using the toilet (2.75 METs) Walk a block or two on level ground (2.75 METs) Do moderate work around the house, such as vacuuming, sweeping floors, or carrying in groceries (3.50 METs) Climb a flight of stairs or walk up a hill (5.50 METs) DASI Score: 18.95 Patient denies any chest pain or undue shortness of breath with the above physical activity. STOP-Bang Score: Denies snoring loudly Denies feeling tired, fatigued, or sleepy during the daytime Has not been observed to stop breathing or choking/gasping during sleep Denies having high blood pressure BMI less than or equal to 35 kg/m^2 Patient 50 years old or younger Does not have a large neck Non-male patient STOP-Bang Score: 0 [id number] Score: Age: <65 Sex: female CHF history: No Hypertension history: No Stroke/TIA/thromboembolism history: No Vascular disease history: No Diabetes history: No [id number] Score: 1 ARISCAT Score: Age: <=50 Preoperative SpO2: >=96% Preoperative anemia: No Surgical incision: peripheral Duration of surgery: 2-3 hrs Emergency procedure: No ARISCAT Score: I - PHYSICAL EVALUATION AIRWAY Patient intubated: No. Tracheostomy tube not present Mallampati: I. TM distance: >3 FB. Neck ROM: full ROM without neurological symptoms. Mouth opening: adequate. Short neck: no. Thick neck: no Lip Bite Test: I Microretrognathia/Micronagthia/Recessed Chin: No DENTAL Dental findings: teeth intact. II - ANESTHESIA PLAN Beta Padma Monitoring Plan Post Procedure Analgesic Plan Prepared for surgery: This patient is optimally prepared for surgery. CONSULTS: Patient does not require consults for optimization at this time. The Following Tests/Procedures Have Been Initiated: Labs not indicated per [facility] protocol, EKG not indicated per [facility] protocol Planned Anesthetic: Per anesthesia choice Subjective CHIEF COMPLAINT: Nasal valve collapse/Nasal obstruction HPI: 49 year old year old presents to [facility] for evaluation. Patient has had nasal congestion for many years. Has elected for surgical intervention. No past medical history on file. PAST SURGICAL HISTORY Procedure Laterality Date PAST SURGICAL HISTORY OF 2021 Shoulder sx FAMILY HISTORY Problem Relation Age of Onset Difficulty with anesthesia No Family History SOCIAL HISTORY: Social History Tobacco Use Smoking status: Never Smokeless tobacco: Never Substance Use Topics Alcohol use: No Drug use: No Prior to Admission medications as of 01/21/25 1334 Medication Sig Last Dose Taking norethindrone acetate-ethinyl estradiol 1-5 mg-mcg tab Take 1 tablet by mouth once daily. Yes azelastine 0.1% nasal spray Use 1 spray in each nostril two times a day. Yes fexofenadine (LATRICE) 180 mg tablet Take 1 tablet by mouth once daily. Yes fluticasone (FLONASE ALLERGY RELIEF) 50 mcg/actuation nasal spray Use 1 spray in each nostril once daily. Yes azelastine (ASTELIN,ASTEPRO) 0.1% nasal spray USE 2 PUFFS IN EACH NOSTRIL TWICE A DAY Yes DULoxetine (CYMBALTA) 60 mg capsule Take 1 capsule by mouth once daily. Yes No medication comments found. ALLERGIES Allergen Reactions Allerg Xt,D.Farinae* Unknown Cat Dander Intolerance, Unknown Mold Intolerance, Other: See Comments, Unknown Covid Immunization Dates Current Care Gaps Covid-19 Vaccine ( season) Overdue since 06/10/2024 08/08/2023 Outside Immunization: COVID-19, mRNA, LNP-S, PF, 50 mcg/0.5 mL 07/31/2021 Imm Admin: COVID-19 original vaccine, full dose, monovalent (MODERNA) 11/06/2020 Imm Admin: COVID-19 original vaccine, full dose, monovalent (MODERNA) 10/08/2020 Imm Admin: COVID-19 original vaccine, full dose, monovalent (MODERNA) REVIEW OF SYSTEMS: PAIN ASSESSMENT: General: No weight loss, malaise or fevers. Neuro: No history of TIA's, stroke, INDOOR LANDSCAPE ARCHITECT tumor, impaired sensorium, hemiplegia, paraplegia or quadraplegia. No neurological symptoms or problems. Respiratory: No history of current cough or dyspnea, or pneumonia in the past 6 weeks. No history of respiratory/pulmonary symptoms or problems. Cardiovascular: Negative for Recent [place], Angina, Chest Pain, PVD, DVT/PE GI: Negative for Nausea, Vomiting, Abdominal pain : Negative for dysuria, incontinence, hematuria, and hesitancy R D INTERN: Negative for abnormal vaginal bleeding, abnormal vaginal discharge. : Denies, No LMP recorded. Patient is perimenopausal. Endocrine: No history of diabetes. Has not taken steroids within the past 30 days. No history of endocrinological symptoms or problems. Hematology: No history of bleeding or clotting disorder. Pt is not taking anti- coagulation or platelet medications. No history of hematological symptoms or problems. Oncology: No history of CA metastasis, chemo within 30 days, or radiotherapy within 90 days. Has not lost 10% of body wt in 6 months. No history of oncological symptoms or problems. Psych: Anxiety Musculoskeletal: Negative for joint pain or swelling, back pain or muscle pain. Skin: Negative for lesions, rash and itching. Objective PHYSICAL EXAM: VITALS: BP 130/74 Pulse 78 Temp (Src) 98.4 (Oral) Resp 16 Ht 5' 2 (1.58m) Wt 149 lb 14.6 oz (68.0kg) SpO2 99% BMI 27.41 kg/(m^2). General: Alert and oriented Skin: Normal color, no rash, no lesions. HEENT: EOM, pupils equal, round and reactive. Cardiovascular: Normal S1 & S2, no rubs, murmurs or gallops. No JVD. Pulse regular. Lungs: Normal breath sounds, no wheezes or crackles. Abdomen: Soft, non-tender, no rigidity. Extremities: No deformity, no edema or tenderness, no joint swelling or clubbing. Neurological: Normal cognition and motor skills. Pulses: Carotid and radial pulses normal +2. Diagnostic tests reviewed for today's visit: No new labs or tests Instructions Given to Patient: Instructions located in the after visit summary. Patient given verbal and written preop instructions and voices comprehension and compliance. SIGNATURE: Karie López APRN.CNP PATIENT NAME: Deonte Donovan DATE: 04/01/2025 TIME: 1:21 PM [facility] History and physical note* Karie López APRN.CNP - 04/01/2025 1:21 PM EDT Images from the original note were not included. HISTORY AND PHYSICAL EXAMINATION SERVICE DATE: 04/01/2025 SERVICE TIME: 1:21 PM PRIMARY CARE PHYSICIAN: Caden Benavides DO, DO REASON FOR VISIT: Deonte Donovan is a 49 year old female who is scheduled for Bilateral - REPAIR NASAL VESTIBULAR STENOSIS Bilateral - ABLATION, INFERIOR TURBINATES, BY TISSUE VOLUME REDUCTION; SUBMUCOSAL SEPTOPLASTY at the request of Dr. Eddie Ngo for consultation. My final recommendation will be communicated back to the requesting physician by way of shared medical record or letter. Assessment Patient has the following medical conditions which may affect benoit-operative course: Anxiety Assessment: Controlled with cymbalta ANESTHESIA FINDINGS: Intubation History: No history of difficult intubation Significant Anesthesia Considerations: none Airway History: No history of difficult airway Gaviria Activity Status Index: METS: Walk indoors, such as around the house (1.75 METs) Do light work around the house, such as dusting or washing dishes (2.70 METs) Take care of self; that is eating, dressing, bathing, using the toilet (2.75 METs) Walk a block or two on level ground (2.75 METs) Do moderate work around the house, such as vacuuming, sweeping floors, or carrying in groceries (3.50 METs) Climb a flight of stairs or walk up a hill (5.50 METs) DASI Score: 18.95 Patient denies any chest pain or undue shortness of breath with the above physical activity. STOP-Bang Score: Denies snoring loudly Denies feeling tired, fatigued, or sleepy during the daytime Has not been observed to stop breathing or choking/gasping during sleep Denies having high blood pressure BMI less than or equal to 35 kg/m^2 Patient 50 years old or younger Does not have a large neck Non-male patient STOP-Bang Score: 0 [id number] Score: Age: <65 Sex: female CHF history: No Hypertension history: No Stroke/TIA/thromboembolism history: No Vascular disease history: No Diabetes history: No [id number] Score: 1 ARISCAT Score: Age: <=50 Preoperative SpO2: >=96% Preoperative anemia: No Surgical incision: peripheral Duration of surgery: 2-3 hrs Emergency procedure: No ARISCAT Score: I - PHYSICAL EVALUATION AIRWAY Patient intubated: No. Tracheostomy tube not present Mallampati: I. TM distance: >3 FB. Neck ROM: full ROM without neurological symptoms. Mouth opening: adequate. Short neck: no. Thick neck: no Lip Bite Test: I Microretrognathia/Micronagthia/Recessed Chin: No DENTAL Dental findings: teeth intact. II - ANESTHESIA PLAN Beta Padma Monitoring Plan Post Procedure Analgesic Plan Prepared for surgery: This patient is optimally prepared for surgery. CONSULTS: Patient does not require consults for optimization at this time. The Following Tests/Procedures Have Been Initiated: Labs not indicated per [facility] protocol, EKG not indicated per [facility] protocol Planned Anesthetic: Per anesthesia choice Subjective CHIEF COMPLAINT: Nasal valve collapse/Nasal obstruction HPI: 49 year old year old presents to [facility] for evaluation. Patient has had nasal congestion for many years. Has elected for surgical intervention. No past medical history on file. PAST SURGICAL HISTORY Procedure Laterality Date PAST SURGICAL HISTORY OF 2021 Shoulder sx FAMILY HISTORY Problem Relation Age of Onset Difficulty with anesthesia No Family History SOCIAL HISTORY: Social History Tobacco Use Smoking status: Never Smokeless tobacco: Never Substance Use Topics Alcohol use: No Drug use: No Prior to Admission medications as of 01/21/25 1334 Medication Sig Last Dose Taking norethindrone acetate-ethinyl estradiol 1-5 mg-mcg tab Take 1 tablet by mouth once daily. Yes azelastine 0.1% nasal spray Use 1 spray in each nostril two times a day. Yes fexofenadine (LATRICE) 180 mg tablet Take 1 tablet by mouth once daily. Yes fluticasone (FLONASE ALLERGY RELIEF) 50 mcg/actuation nasal spray Use 1 spray in each nostril once daily. Yes azelastine (ASTELIN,ASTEPRO) 0.1% nasal spray USE 2 PUFFS IN EACH NOSTRIL TWICE A DAY Yes DULoxetine (CYMBALTA) 60 mg capsule Take 1 capsule by mouth once daily. Yes No medication comments found. ALLERGIES Allergen Reactions Allerg Xt,D.Farinae* Unknown Cat Dander Intolerance, Unknown Mold Intolerance, Other: See Comments, Unknown Covid Immunization Dates Current Care Gaps Covid-19 Vaccine () Overdue since 06/10/2024 08/08/2023 Outside Immunization: COVID-19, mRNA, LNP-S, PF, 50 mcg/0.5 mL 07/31/2021 Imm Admin: COVID-19 original vaccine, full dose, monovalent (MODERNA) 11/06/2020 Imm Admin: COVID-19 original vaccine, full dose, monovalent (MODERNA) 10/08/2020 Imm Admin: COVID-19 original vaccine, full dose, monovalent (MODERNA) REVIEW OF SYSTEMS: PAIN ASSESSMENT: General: No weight loss, malaise or fevers. Neuro: No history of TIA's, stroke, INDOOR LANDSCAPE ARCHITECT tumor, impaired sensorium, hemiplegia, paraplegia or quadraplegia. No neurological symptoms or problems. Respiratory: No history of current cough or dyspnea, or pneumonia in the past 6 weeks. No history of respiratory/pulmonary symptoms or problems. Cardiovascular: Negative for Recent [place], Angina, Chest Pain, PVD, DVT/PE GI: Negative for Nausea, Vomiting, Abdominal pain : Negative for dysuria, incontinence, hematuria, and hesitancy R D INTERN: Negative for abnormal vaginal bleeding, abnormal vaginal discharge. : Denies, No LMP recorded. Patient is perimenopausal. Endocrine: No history of diabetes. Has not taken steroids within the past 30 days. No history of endocrinological symptoms or problems. Hematology: No history of bleeding or clotting disorder. Pt is not taking anti- coagulation or platelet medications. No history of hematological symptoms or problems. Oncology: No history of CA metastasis, chemo within 30 days, or radiotherapy within 90 days. Has not lost 10% of body wt in 6 months. No history of oncological symptoms or problems. Psych: Anxiety Musculoskeletal: Negative for joint pain or swelling, back pain or muscle pain. Skin: Negative for lesions, rash and itching. Objective PHYSICAL EXAM: VITALS: BP 130/74 Pulse 78 Temp (Src) 98.4 (Oral) Resp 16 Ht 5' 2 (1.58m) Wt 149 lb 14.6 oz (68.0kg) SpO2 99% BMI 27.41 kg/(m^2). General: Alert and oriented Skin: Normal color, no rash, no lesions. HEENT: EOM, pupils equal, round and reactive. Cardiovascular: Normal S1 & S2, no rubs, murmurs or gallops. No JVD. Pulse regular. Lungs: Normal breath sounds, no wheezes or crackles. Abdomen: Soft, non-tender, no rigidity. Extremities: No deformity, no edema or tenderness, no joint swelling or clubbing. Neurological: Normal cognition and motor skills. Pulses: Carotid and radial pulses normal +2. Diagnostic tests reviewed for today's visit: No new labs or tests Instructions Given to Patient: Instructions located in the after visit summary. Patient given verbal and written preop instructions and voices comprehension and compliance. SIGNATURE: Karie López APRN.CNP PATIENT NAME: Deonte Donovan DATE: 04/01/2025 TIME: 1:21 PM documented [facility] Instructions* Patient Instructions* Karie López APRN.CNP - 04/01/2025 1:20 PM EDT PATIENT PREOPERATIVE INSTRUCTIONS You Surgeon has scheduled you for your procedure at this surgery center: [facility]: [phone] --[id number] [place] [address]. Please enter through the entrance closest to [facility]. Please read below carefully for your personalized instructions. Dietary Restrictions: - No solid food after midnight. - You may have 12 ounces of clear liquids (water, clear juices such as apple juice or gatorade, carbonated beverages, clear tea, black coffee, jello) until 2 hours before scheduled arrival at facility. Medications: Unless instructed differently below, stay on all of your medications until your surgery. Approved medications to take the morning of surgery with a sip of water: Cymbalta If you are currently using a xklq-wpe-ldol injectable or oral medication for diabetes or weight loss such as Dulaglutide (Trulicity), Exenatide (Byetta, Bydureon), Liraglutide (Victoza, Saxenda), Semaglutide (Ozempic, Wegovy, Rybelsus), or Tirzepatide (Mounjaro), the medicine should be stopped at least 7 days before surgery. These medicines can cause food to remain in your stomach for a very longtime and increase the risks from surgery and anesthesia. Not stopping the medication for a long enough time may result in your surgery being rescheduled. If you start any new medications after today's visit, please contact the surgeon's office. Blood Thinning Medications: - Stop NSAIDS (Ibuprofen, Advil, Aleve, Motrin, Celebrex, Mobic, etc.) 7 days before surgery, as directed by your surgeon. - Stop Aspirin 7 days before surgery, as directed by your surgeon. - Stop Vitamin E, ALL multi-vitamins, herbals and dietary supplements 7 days before surgery. - You may take Tylenol (Acetaminophen) or any of your pain medications that do not contain aspirin or NSAIDS as needed. Important Reminders: - If you are prescribed inhalers for breathing, continue using them. - Candy, mints, and tobacco products are NOT permitted the morning of surgery. - Hearing aids, dentures and glasses may be worn the morning of surgery. - NO jewelry, body piercings, makeup, hairpins or contacts are to be worn the day of surgery. If you develop symptoms such as a fever, cold, or flu, or have other changes to your health within TWO DAYS of scheduled surgery or the morning of surgery, please contact the surgery center above. Personal Belongings: -Please have photo ID and insurance cards. -If you do not have a copy of advance directives on file with us, please bring a copy with you on the day of surgery. - Leave ALL valuables and money at home or with family members. For Outpatient Procedures: - YOU MUST HAVE A RESPONSIBLE FIRE ALARM OPERATOR TAKE YOU HOME. A TITLE ONE TEACHER OR FIRE EXTINGUISHER TESTER CANNOT BE MADE A RESPONSIBLE FIRE ALARM OPERATOR. - We recommend that a responsible person stays with you overnight to take care of you. - You cannot stay in a hotel alone after outpatient surgery. You will not be permitted to have yoursurgery, if you do not have someone to take care of you. Arrival Time for Surgery: - The Surgery Center or hospital where you are having surgery will call the afternoon before surgery (or Tuesday for Tuesday surgery) with a scheduled arrival time. - If you have not heard by 4 pm, please contact the surgery center above. Please be aware that emergency situations arise, which may delay or change your surgical time. If this happens, we will notify you as soon as possible and regret any inconvenience. If you already have an Advance Directive, please fax a copy to [phone] or email to for it to be added to your chart. If you do not have an Advance Directive, you can find the appropriate form and more information at [email or web address]. We recommend that youcomplete the Advance Directive form found on the website and bring it with you the day of your surgery. It can be witnessed and scanned into your chart that day. Karie López APRN.LASHONDA documented in this encounterK[facility]04[facility] History of Present illness Narrative* Yuri Sosa MD - 01/24/2025 3:00 PM EDT Allergy and Immunology This is a virtual visit using Quietly Zoom Video Visit. It required patient- provider interaction for the medical decision making as documented below. I have communicated my name and active licensure. The patient's identity and physical location wereverified at the time of this visit. Either the patient or their legal transportation services representative has been informed of the risks and benefits of -- and alternatives to -- treatment through a remote evaluation andconsents to proceed with the evaluation remotely. Patient Name: Deonte Donovan PRIMARY CARE PHYSICIAN: Balaji Peraza MD, MD REASON FOR CONSULT: chronic rhinitis REQUESTING PHYSICIAN: Nakul Gracia MD My final recommendations will be communicated to the requesting health care provider by way of the shared medical record for internal providers or letter via the [employer]PS for external providers. Deonte Donovan is a 49 year old female with a PMH of deviated septum, chronic fatigue who presents today for evaluation of chronic rhinitis. Patient has had allergic rhinitis symptoms since young childhood. She then outgrew her allergies for many years, until they reappeared when she turned 41 She was skin tested around 5 years ago at [facility] and told she's allergic to cat dander, dust mites and mold She has a cat at home She was told about allergy shots, but could not commit to them at that time She is on Claritin and Astepro Was on Azelastine before that Prescribed Flonase by ENT Overall allergy symptoms are not well controlled Seen by ENT Documentation from ENT note: nasal obstruction secondary to nasal septal deviation, severe bilateral nasal valve collapse, and inferior turbinate hypertrophy. She would benefit from a septoplasty, nasal valve repair, and turbinate reduction to improve her nasal airway. Adolescent Coordinator grafts, caudal septal extension, battens vs alar rim grafts. PAST MEDICAL AND SURGICAL HISTORY: No past medical history on file. No past surgical history on file. ALLERGIES: is allergic to allerg xt,d.farinae-d.pteronys; cat dander; and mold. FAMILY HISTORY: No family history on file. REVIEW OF SYSTEMS: All systems were reviewed and were negative except as listed in the HPI and above. PHYSICAL EXAM: General: The patient is pleasant, well groomed, in no acute distress, breathing comfortably and interactive with the exam. Head: Normocephalic, atraumatic Eyes: Conjunctiva not injected, no drainage. Psych: Appropriate affect. Dermatologic: No rash, urticaria or excoriations. Assessment/Plan: Allergic rhinitis due to animal hair and dander Allergic rhinitis due to mold Allergic rhinitis due to dust mite Previous skin testing at [facility] revealed allergy to dust mites, cats and mold Patient was using afrin daily, but was able to wean off last week Currently using Flonase BID and Astepro and Claritin We discussed allergy shots. Patient lives more than 45 minutes away and it may not be convenience to drive weekly. She will ask her PCP if they can administer shots in their office. If they agree, she will reach out to me and we will bring her in for skin testing and order immunotherapy vials In the meantime, patient will switch from Claritin to Latrice, and I will prescribe Astelin. She will also continue use of Flonase - CONSULT TO ALLERGY/IMMUNOLOGY - azelastine 0.1% nasal spray; Use 1 spray in each nostril two times a day. - fexofenadine (LATRICE) 180 mg tablet; Take 1 tablet by mouth once daily. Discussed medication dosage, usage, side effects, and goals of treatment in detail. Follow-up: Return in about 1 year (around 01/24/2026). Patient advised to call or return sooner should current symptoms worsen or fail to improve or if new symptoms or problems arise. Yuri Sosa MD Allergy and Immunology [facility] I spent a total of 30 minutes on the date of the service which included preparing to see the patient, zklw-bl-mpuy patient care, completing clinical documentation, obtaining and/or reviewing separately obtained history, performing a medically appropriate examination, counseling and educating the pat ient/family/caregiver, ordering medications, tests, or procedures, independently interpreting results (not separately reported), and communicating results to the patient/family/caregiver. documented in this encounterK[facility]04-17-[facility]25 NoteHNO ID: [id number] Author: YURI SOSA MD Service: ? Author Type: Physician Type: Progress Notes Filed: 01/24/2025 20:45 Note Text: Allergy and Immunology This is a virtual visit using [employer] ([employer]om Video Visit. It required patient-provider interaction for the medical decision making as documented below. I have communicated my name and active licensure. The patient's identity and physical location were verified at the time of this visit. Either the patient or their legal transportation services representative has been informed of the risks and benefits of -- and alternatives to -- treatment through a remote evaluation and consents to proceed with the evaluation remotely. Patient Name: Deonte Donovan PRIMARY CARE PHYSICIAN: Balaji Peraza MD, MD REASON FOR CONSULT: chronic rhinitis REQUESTING PHYSICIAN: Nakul Gracia MD My final recommendations will be communicated to the requesting health care provider by way of the shared medical record for internal providers or letter via the USPS for external providers. Deonte Donovan is a 49 year old female with a PMH of deviated septum, chronic fatigue who presents today for evaluation of chronic rhinitis. Patient has had allergic rhinitis symptoms since young childhood. She then outgrew her allergies for many years, until they reappeared when she turned 41 She was skin tested around 5 years ago at [facility] and told she's allergic to cat dander, dust mites and mold She has a cat at home She was told about allergy shots, but could not commit to them at that time She is on Claritin and Astepro Was on Azelastine before that Prescribed Flonase by ENT Overall allergy symptoms are not well controlled Seen by ENT Documentation from ENT note: nasal obstruction secondary to nasal septal deviation, severe bilateral nasal valve collapse, and inferior turbinate hypertrophy. She would benefit from a septoplasty, nasal valve repair, and turbinate reduction to improve her nasal airway. Adolescent Coordinator grafts, caudal septal extension, battens vs alar rim grafts. PAST MEDICAL AND SURGICAL HISTORY: No past medical history on file. No past surgical history on file. ALLERGIES: is allergic to allerg xt,d.farinae-d.pteronys; cat dander; and mold. FAMILY HISTORY: No family history on file. REVIEW OF SYSTEMS: All systems were reviewed and were negative except as listed in the HPI and above. PHYSICAL EXAM: General: The patient is pleasant, well groomed, in no acute distress, breathing comfortably and interactive with the exam. Head: Normocephalic, atraumatic Eyes: Conjunctiva not injected, no drainage. Psych: Appropriate affect. Dermatologic: No rash, urticaria or excoriations. Assessment/Plan: Allergic rhinitis due to animal hair and dander Allergic rhinitis due to mold Allergic rhinitis due to dust mite Previous skin testing at [facility] revealed allergy to dust mites, cats and mold Patient was using afrin daily, but was able to wean off last week Currently using Flonase BID and Astepro and Claritin We discussed allergy shots. Patient lives more than 45 minutes away and it may not be convenience to drive weekly. She will ask her PCP if they can administer shots in their office. If they agree, she will reach out to me and we will bring her in for skin testing and order immunotherapy vials In the meantime, patient will switch from Claritin to Latrice, and I will prescribe Astelin. She will also continue use of Flonase - CONSULT TO ALLERGY/IMMUNOLOGY - azelastine 0.1% nasal spray; Use 1 spray in each nostril two times a day. - fexofenadine (LATRICE) 180 mg tablet; Take 1 tablet by mouth once daily. Discussed medication dosage, usage, side effects, and goals of treatment in detail. Follow-up: Return in about 1 year (around 01/24/2026). Patient advised to call or return sooner should current symptoms worsen or fail to improve or if new symptoms or problems arise. Yuri Sosa MD Allergy and Immunology [facility] I spent a total of 30 minutes on the date of the service which included preparing to see the patient, blcs-hc-uvfj patient care, completing clinical documentation, obtaining and/or reviewing separately obtained history, performing a medically appropriate examination, counseling and educating the patient/family/caregiver, ordering medications, tests, or procedures, independently interpreting results (not separately reported), and communicating results to the patient/family/caregiver.[facility]04-14-2025 NoteHNO ID: [id number] Author: EDDIE NGO MD Service: ? Author Type: Physician Type: Progress Notes Filed: 01/22/2025 23:01 Note Text: Section of Facial Plastic AND Reconstructive Surgery Head and Neck [place], [facility] NEW PATIENT CONSULTATION CC: nasal obstruction Referring Provider: Nakul Manuel [facility] [id number] My recommendations will be communicated to the referring provider via the electronic medical record or [place] mail. HISTORY OF PRESENT ISSUE: Deonte Donovan is a 49 year old female who presents for evaluation of nasal congesiton. Longstanding Right side worse No nasal surgery or injury Was using afrin but has recently stopped Now on flonase and astelin No significant improvement on nasal sprays She does have allergies, and is scheduled to see Allergy No sinusitis No cosmetic concerns I reviewed the patient's past medical history, past surgical history, social history, family medical history, allergies, and current medications. PHYSICAL EXAM: General vitals were not taken for this visit. Head and Neck Nose - External Thin pinched midvault, cephalic malposition of lower lateral cartilages with parentheses deformity and minimal external nasal valve support Anterior rhinoscopy Septum - caudally midline; posteriorly right, left spur Inferior turbinates - ++ hypertrophy Internal nasal valve - narrow right ; narrow left Mucosa - pink Maneuvers Forceful inspiration - severe collapse of the internal and external nasal valve(s) Modified Peter maneuver - + right; + left IMAGING: I personally reviewed the following radiologic exams: None REVIEW OF RECORDS: I personally reviewed the office encounters from 1 independent providers: Nyla IMPRESSION AND PLAN: Deonte Donovan is a 49 year old female who presents with nasal obstruction secondary to nasal septal deviation, severe bilateral nasal valve collapse, and inferior turbinate hypertrophy. She would benefit from a septoplasty, nasal valve repair, and turbinate reduction to improve her nasal airway. Adolescent Coordinator grafts, caudal septal extension, battens vs alar rim grafts. She understands the goal of surgery is not to change the appearance of her nose. Risks, benefits, alternatives and personnel were discussed with the patient and he would like to proceed with the procedure. surgical request was submitted to the surgical schedulers. Eddie Ngo MD Facial Plastic and Reconstructive Surgery Head and Neck [place] [facility] 01/21/2025[facility]04-14-2025 History of Present illness Narrative* Eddie Ngo MD - 01/21/2025 1:45 PM EDT Section of Facial Plastic & Reconstructive Surgery Head and Neck [place], [facility] NEW PATIENT CONSULTATION CC: nasal obstruction Referring Provider: Nakul Gracia [id number] [facility] [id number] My recommendations will be communicated to the referring provider via the electronic medical recordor [place] mail. HISTORY OF PRESENT ISSUE: Deonte Donovan is a 49 year old female who presents for evaluation of nasal congesiton. Longstanding Right side worse No nasal surgery or injury Was using afrin but has recently stopped Now on flonase and astelin No significant improvement on nasal sprays She does have allergies, and is scheduled to see Allergy No sinusitis No cosmetic concerns I reviewed the patient's past medical history, past surgical history, social history, family medical history, allergies, and current medications. PHYSICAL EXAM: General vitals were not taken for this visit. Head and Neck Nose - External Thin pinched midvault, cephalic malposition of lower lateral cartilages with parentheses deformity and minimal external nasal valve support Anterior rhinoscopy Septum - caudally midline; posteriorly right, left spur Inferior turbinates - ++ hypertrophy Internal nasal valve - narrow right ; narrow left Mucosa - pink Maneuvers Forceful inspiration - severe collapse of the internal and external nasal valve(s) Modified Peter maneuver - + right; + left IMAGING: I personally reviewed the following radiologic exams: None REVIEW OF RECORDS: I personally reviewed the office encounters from 1 independent providers: Nyla IMPRESSION & PLAN: Deonte Donovan is a 49 year old female who presents with nasal obstruction secondary to nasal septal deviation, severe bilateral nasal valve collapse, and inferior turbinate hypertrophy. She would benefit from a septoplasty, nasal valve repair, and turbinate reduction to improve her nasal airway. Adolescent Coordinator grafts, caudal septal extension, battens vs alar rim grafts. She understands the goal of surgery is not to change the appearance of her nose. Risks, benefits, alternatives and personnel were discussed with the patient and he would like to proceed with the procedure. surgical request was submitted to the surgical schedulers. Eddie Ngo MD Facial Plastic and Reconstructive Surgery Head and Neck [place] [facility] 01/21/2025 documented in this encounterK[facility]04-07-2025 NoteHNO ID: [id number] Author: NAKUL GRACIA MD Service: ? Author Type: Physician Type: Progress Notes Filed: 01/14/2025 15:54 Note Text: SECTION OF RHINOLOGY, SINUS AND SKULL BASE SURGERY Head and Neck [place], [facility] CLINIC NOTE HPI: Patient is a 49 year old F with history of nasal congestion and septal deviation as well as nasal valve collapse diagnosed by Ent in [facility] and apparently that did not solvethe situation, Still has nasal congestion. She is currently taking Azelastine doing well with that nasal spray but still nasal congtestion Has difficulty breathing at night. Has history of allergic rhinitis. In terms of sinus problems, she complains of On afrin daily No past medical history on file. No past surgical history on file. No family history on file. Social History Tobacco Use Smoking status: Never Smokeless tobacco: Never Substance Use Topics Alcohol use: No Drug use: No Current Outpatient Medications Medication Sig Dispense Refill fluticasone (FLONASE ALLERGY RELIEF) 50 mcg/actuation nasal spray Use 1 spray in each nostril once daily. 1 each 3 azelastine (ASTELIN,ASTEPRO) 0.1% nasal spray USE 2 PUFFS IN EACH NOSTRIL TWICE A DAY 10/29, 28, 1 mg-20 mcg (21)/75 mg (7) per tablet DULoxetine (CYMBALTA) 60 mg capsule Take 1 capsule by mouth once daily. No current facility-administered medications for this visit. ALLERGIES Allergen Reactions Allerg Xt,D.Farinae* Unknown Cat Dander Intolerance, Unknown Mold Intolerance, Other: See Comments, Unknown ROS: CONSTITUTIONAL: No fevers, chills, nightsweats, unintended weight loss EYES: No diplopia or blurry vision. PHYSICAL EXAM: 01/14/25 1546 Temp: 36.8 ?C (98.2 ?F) ? General appearance: well developed, well nourished, without obvious deformities ? Nasal exam: The mucosa is pink, the septum is Yes deviated, and the visible turbinates are Yes hypertrophied on anterior rhinoscopy + MODIFIED PETER MANEUVER ? Oral cavity and oropharynx: the oral mucosa, tongue, tonsil area, and posterior pharyngeal mucosa are without lesions. SNOT-22 Nasal Score Ear/Facial Score Sleep Score Function Score Emotion Score Total Score 01/09/2025 19 4 16 7 7 53 (J30.9) Allergic rhinitis, unspecified seasonality, unspecified trigger (primary encounter diagnosis) (J34.2) Deviated nasal septum (J34.3) Hypertrophy of nasal turbinates - Will need to stop the afrin - No sinonasal complaint other than nasal congestion. 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 moderate to sever Nakul Gracia [facility]04-07-2025 History of Present illness Narrative* Nakul Gracia MD - 01/14/2025 3:44 PM EDT Images from the original note were not included. SECTION OF RHINOLOGY, SINUS AND SKULL BASE SURGERY Head and Neck [place], [facility] NOTE HPI: Patient is a 49 year old F with history of nasal congestion and septal deviation as well as nasal valve collapse diagnosed by Ent in [facility] and apparently that did not solvethe situation, Still has nasal congestion. She is currently taking Azelastine doing well with that nasal spray butstill nasal congtestion Has difficulty breathing at night. Has history of allergic rhinitis. In terms of sinus problems, she complains of On afrin daily No past medical history on file. No past surgical history on file. No family history on file. Social History Tobacco Use Smoking status: Never Smokeless tobacco: Never Substance Use Topics Alcohol use: No Drug use: No Current Outpatient Medications Medication Sig Dispense Refill fluticasone (FLONASE ALLERGY RELIEF) 50 mcg/actuation nasal spray Use 1 spray in each nostril once daily. 1 each 3 azelastine (ASTELIN,ASTEPRO) 0.1% nasal spray USE 2 PUFFS IN EACH NOSTRIL TWICE A DAY 10/29, 28, 1 mg-20 mcg (21)/75 mg (7) per tablet DULoxetine (CYMBALTA) 60 mg capsule Take 1 capsule by mouth once daily. No current facility-administered medications for this visit. ALLERGIES Allergen Reactions Allerg Xt,D.Farinae* Unknown Cat Dander Intolerance, Unknown Mold Intolerance, Other: See Comments, Unknown ROS: CONSTITUTIONAL: No fevers, chills, nightsweats, unintended weight loss EYES: No diplopia or blurry vision. PHYSICAL EXAM: 01/14/25 1546 Temp: 36.8 C (98.2 F) General appearance: well developed, well nourished, without obvious deformities Nasal exam: The mucosa is pink, the septum is Yes deviated, and the visible turbinates are Yes hypertrophied on anterior rhinoscopy + MODIFIED PETER MANEUVER Oral cavity and oropharynx: the oral mucosa, tongue, tonsil area, and posterior pharyngeal mucosa are without lesions. SNOT-22 Nasal Score Ear/Facial Score Sleep Score Function Score Emotion Score Total Score 01/09/2025 19 4 16 7 7 53 (J30.9) Allergic rhinitis, unspecified seasonality, unspecified trigger (primary encounter diagnosis) (J34.2) Deviated nasal septum (J34.3) Hypertrophy of nasal turbinates - Will need to stop the afrin - No sinonasal complaint other than nasal congestion. 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 moderate to sever Nakul Gracia MD documented in this encounterKettering [facility]11-05-2024 History of Present illness Narrative* Otis Ibarra MD - 08/14/2024 11:30 AM EST Images from the original note were not included. Otis Ibarra MD Obstetrics and Gynecology Patient: Deonte Donovan, : 1975 (49 y.o.) DOS 08/14/24 Exam Date: 08/14/2024 HPI: Yearly exam She is pleased with HRT. She has BTB when she forgets her pill Visit Vitals BP 120/70 Wt 149 lb LMP (LMP Unknown) BMI 27.25 kg/m OB Status Postmenopausal Smoking Status Never BSA 1.72 m OB History Para Term AB Living 4 2 2 0 0 2 SAB IAB Ectopic Multiple Live Births 0 0 0 0 2 # Outcome Date GA Lbr Gus/2nd Weight Sex Type Anes PTL Lv 4 2005 F Vag-Spont 3 2001 M Vag-Spont 2 Term 1 Term Obstetric Comments Pap: 07/31-Neg EDITH: HPV Neg Mammo: 08/17/23-Neg (TB) Menopausal Medication and Allergies Medication Documentation Review Audit Reviewed by Ness Kennedy MA (Firestopper Installer) on 08/14/24 at 1132 Medication Order Taking? Sig Documenting Provider Last Dose Status azelastine (Astelin) 0.1 % nasal spray [id number] No Historical Provider, Taking Active DULoxetine (Cymbalta) [address] capsule [id number] Take 1 capsule (30 mg) by mouth Daily Do not crush or chew. Caden Benavides, Active norethindrone-ethinyl estradiol (Femhrt 10/14) 1-5 MG-MCG tablet [id number] Take 1 tablet by mouth Daily Otis Ibarra MD Active Allergies Allergen Reactions Cat Hair Extract Unknown Dust Mite Extract Unknown Molds & Smuts Runny nose and Unknown Past Medical History: Diagnosis Date Anxiety and depression (CMS/HCC) ESS (euthyroid sick syndrome) 2015 History of abnormal cervical Pap smear 2014 History of medical problems 2014 Moderate Dysplasia Hypothyroid (CMS/HCC) Irritable bowel syndrome Nephrolithiasis Pap smear abnormality of cervix with LGSIL 2009 Past Surgical History: Procedure Laterality Date ADENOIDECTOMY CERVICAL BIOPSY W/ LOOP ELECTRODE EXCISION COLONOSCOPY several over the years one with polyps removed 1999;Dr Ro; 2011, 2016 COLPOSCOPY with biopsy CIN2 EGD 1999 SHOULDER SURGERY 11/2021 VAGINAL DELIVERY x 2 Physical Exam: Objective Physical Exam Constitutional: Appearance: Normal appearance. Genitourinary: Vulva normal. Vaginal bleeding present. No vaginal discharge. Right Adnexa: not palpable. Left Adnexa: not palpable. No cervical lesion. Uterus is not enlarged or tender. Breasts: Right: Normal. Left: Normal. Pulmonary: Effort: Pulmonary effort is normal. Abdominal: General: Abdomen is flat. Palpations: Abdomen is soft. Neurological: Mental Status: She is alert. Associated Treatments and Results - ICD-10-CM 1. Well woman exam with routine gynecological exam Z01.419 2. Other screening mammogram Z12.31 Bilateral screening mammogram with tomosynthesis Assessment/Plan Orders Placed This Encounter Procedures Bilateral screening mammogram with tomosynthesis U/S and spot compression if indicated Standing Status: Future Standing Expiration Date: 10/13/2025 Order Specific Question: Reason for exam: Answer: screen Order Specific Question: Is the patient ? Answer: No documented in this encounterMineral Area Regional Medical [id number] Hospital Discharge instructions Patient Education 01/24/2024 14:10:04 Cystoscopy Cystoscopy [...] including vitamins, herbs, eye drops, creams, and kvgi-bjj-kuhardx medicines. Any problems you or family members [...] provider tells you to take them. Taking wcqj-vjy-wwwvyck medicines, vitamins, herbs, and supplements. Tests You [...] Follow these instructions at home: Medicines Take leqr-tjy-kasfobc and prescription medicines only as told by your health care provider. If you were prescribed an antibiotic medicine, take it as told by your health care provider. Do notstop taking the antibiotic even if you start [...] blood in your urine increases, call your healthcare provider. Follow instructions from your health care provider about eating or drinking restrictions. If a tissue sample was removed for testing (biopsy) during your procedure, it is up to you to get your test results. Ask your health care provider, or the department that is doing the test, when yourresults will be ready. Drink enough fluid to [...] blood in your urine increases, call your healthcare provider. If you were prescribed an antibiotic medicine, take it as told by your health care provider. Do notstop taking the antibiotic even if you start to feel better. This information is not intended to replace advice given to you by your health care provider. Make sure you discuss any questions you have with your health care provider. Document Revised: 06/09/2022 Document Reviewed: 05/08/2021 [employer] Patient Education 2022 [employer]. Follow Up Care 12/21/2023 09:45:00 With:PRASHANT TRAMMELL, Deshaun Aguirre, URL Address: [facility] [address] , [place] [address]- [phone] When: Unknown [facility] [place] 04-16-2024 NoteUrology Cystoscopy Cystoscopy is a procedure that is [...] including vitamins, herbs, eye drops, creams, and hbyq-wxm-tbawvnj medicines. ? Any problems you or family [...] tells you to take them. ? Taking mezs-suv-cjvbplx medicines, vitamins, herbs, and supplements. Tests You [...] taken to help prevent infection. These steps mayinclude: ? Washing skin with a germ-killing soap. [...] these instructions at home: Medicines ? Take xhbp-fdq-qtkowje and prescription medicines only as told by [...] procedure, it is up to you to getyour test results. Ask your health care provider, or the department th (more content not included)...[facility] 12-21-2023 NoteChief Complaint Referral HPI Staff Deonte is a 48 y.o. female new patient here for persistent microscopic hematuria. Referred by María Main. BUN 14.0 & CRE 1.21 done on 07/14/23. Renal US done on 08/01/23 @ [facility]. Dysuria: denies pain or burning Incomplete [...] voids granular particles. Shares when she drinks alot of fluids, she voids o41zje-5mo but when she doesn't drink a lot she voids q2-3hr. Explained hematuria workup. The patient is aware that a distinct etiology of the hematuria may not be clear upon conclusion of the workup. Will initiate hematuria workup to include upper urinary tract imaging, aswell as evaluation of the urinary cells with [...] has been obtained. Will order Local anesthesia. Prophylacticabx sent to [facility]. 2. Renal cyst (N28.1: Cyst of kidney, acquired) GUERITA 08/01/23 TB - Incidental small R renal cyst. 3. Weak urine stream (R39.12: Poor urinary stream) Shares sometimes it takes a long time to empty and has a weak stream. Feels she empties completely unless she holds her bladder. Follow-up With When Contact Information Deshaun CERDA MD, [facility] [address], (more content not included)...[facility] CenterComment on above:Result Comment: Electronically Signed By: Deshaun CERDA MD\.br\Date and Time Signed: 12/21/23 09:37 EDT\.br\Electronically Co-Signed By: Kady Macdonald\.br\Date and Time Co-Signed: 12/21/23 09:36 [id number] Hospital Discharge instructions Patient Education 12/21/2023 08:39:34 Hematuria, Adult Hematuria, Adult Hematuria is blood in the urine. Blood may be visible in the urine, or it may be identified with a test. This condition can be caused by infections of the bladder, urethra, kidney, or prostate. Otherpossible causes include: Kidney stones. Cancer of the [...] blood in your urine, even if it ispainless or the blood stops without treatment. Blood in the urine, when it happens and then stops and then happens again, can be a symptom of a very serious condition, including cancer. There is no pain in the initial stages of many urinary cancers. Follow these instructions at home: Medicines Take rudy-gid-hkufwjy and prescription medicines only as told by your health care provider. If you were prescribed an antibiotic medicine, take it as told by your health care provider. Do notstop taking the antibiotic even if you start to feel better. Eating and drinking Drink enough fluid to keep your urine pale yellow. It is recommended that you drink 3 4 quarts (2.83.8 L) a day. If you have been diagnosed with an infection, drinking cranberry juice in addition tolarge amounts of water is recommended. Avoid caffeine, [...] about any blood in your urine, even ifit is painless or the blood stops without treatment. Take hvxh-eco-cddgoel and prescription medicines only as told by your health care provider. Drink enough fluid to keep your urine pale yellow. This information is not intended to replace advice given to you by your health care provider. Make sure you discuss any questions you have with your health care provider. Document Revised: 05/27/2021 Document Reviewed: 05/27/2021 [employer] Patient Education 2022 [employer]. Follow Up Care 09/06/2023 12:54:24 With:PRASHANT TRAMMELL, Deshaun Aguirre, URL Address: [facility] [address] , [place] [address]- When: Unknown [facility] [place] [facility]* Encounter Date Diagnosis Assessment Notes [...] now as it would be low yield. Jul,High blood pressure (not hypertension) (ICD-10 - R03.0)Her blood pressure sometimes runs high in the office but been normal at home. I advised to continueto monitor blood pressure at home and stays above 140/90 mmHg then call office will start on antihypertensive medication. Jul,Nephrolithiasis (ICD-10 - N20.0)I have advised her to adequately hydrate herself and drinks close to 64 ounces of fluids. Jul,Vitamin D deficiency (ICD-10 - E55.9)Her vitamin D level is high normal but calcium phosphorus within normal limit. Advised her to decrease the vitamin D to 1000 unit daily Jul,IBS (irritable bowel syndrome) (ICD-10 - K58.9)Continue to follow with PCP Jul,Hyponatremia (ICD-10 - E87.1)She has hyponatremia either due to the medication induced SIADH or primary polydipsia. Other differential diagnoses are hypothyroidism and adrenal insufficiency. I have ordered urine sodium and urine osmolarity, TSH and cortisol. Jul,Microscopic hematuria (ICD-10 - R31.29)He has a microscopic hematuria possibly due to the passage of the gravels. We will repeat the UA. She denies any symptoms of UTI or menstruation. [facility] Other 10-12-2023 Evaluation note* Encounter Date Diagnosis [...] avoid NSAIDs or any other nephrotoxic medications. Jul,High blood pressure (not hypertension) (ICD-10 - R03.0)Her blood pressure sometimes runs high in the office but been normal at home. I advised to continueto monitor blood pressure at home and stays above 140/90 mmHg then call office will start on antihypertensive medication. Jul,Nephrolithiasis (ICD-10 - N20.0)I have advised her to adequately hydrate herself and drinks close to 64 ounces of fluids. Jul,Vitamin D deficiency (ICD-10 - E55.9)Her vitamin D level is high normal but calcium phosphorus within normal limit. Advised her to decrease the vitamin D to 1000 unit daily Jul,IBS (irritable bowel syndrome) (ICD-10 - K58.9)Continue to follow with PCP Jul,Hyponatremia (ICD-10 - E87.1)She has hyponatremia either due to the medication induced SIADH or primary polydipsia. Other differential diagnoses are hypothyroidism and adrenal insufficiency. I have ordered urine sodium and urine osmolarity, TSH and cortisol. Jul,Microscopic hematuria (ICD-10 - R31.29)He has a microscopic hematuria possibly due to the passage of the gravels. We will repeat the UA. She denies any symptoms of UTI or menstruation. [facility] Other 11-10-2022 Evaluation note* Encounter Date Diagnosis [...] with a urology evaluation for urethral stricture. 10 Aug, 2022High blood pressure (not hypertension) (ICD-10 - R03.0)Her blood pressure runs high but been normal at home. I advised to continue to monitor blood pressure at home and stays above 140/90 mmHg then call office will start on antihypertensive medication. Aug,Nephrolithiasis (ICD-10 - N20.0)I have advised her to adequately hydrate herself and drinks close to 72 ounces of fluids. Aug,Vitamin D deficiency (ICD-10 - E55.9)She currently takes oral vitamin D supplement. We will check the serum calcium and PTH. Aug,IBS (irritable bowel syndrome) (ICD-10 - K58.9)Continue to follow with PCP [facility] 11-04-2021 Evaluation note* Encounter Date Diagnosis [...] she gets diagnosis of any autoimmune disease. Aug,IBS (irritable bowel syndrome) (ICD-10 - K58.9) Continue to follow with PCP Aug,Nephrolithiasis (ICD-10 - N20.0) I have advised her to adequately hydrate herself and drinks close to 72 ounces of fluids. Aug,Vitamin D deficiency (ICD-10 - E55.9) She currently takes oral vitamin D supplement. We will check the serum calcium and PTH. [facility] Other 10-08-2018 Miscellaneous Notes* Telephone Encounter - Kayy Hernandez - 07/17/2018 2:36 PM EDT Called patient to schedule US she is going to have the US done at another facility. She wanted the order faxed to [phone]. Order was faxed on 07-17-2018. * Telephone Encounter - Carrie Tran - 07/15/2018 5:01 PM EDT Please schedule US thyroid. [facility] Future Appointments Appointment Date:01/24/2024 01:30:00 PM Scheduled Provider:Deshaun CERDA MD Location:[facility] Appointment Type:URO Procedure 15 min Diagnostic Tests Pending * Urine Cytology ([facility]) [facility] Future App[facility]ments Appointment Date:01/24/2024 01:30:00 PM Scheduled Provider:Deshaun CERDA MD Location:[facility] Appointment Type:URO Procedure 15 min [facility] Evaluation + Plan note Future Appointments Appointment Date:01/21/2025 10:45:00 AM Scheduled Provider:Deshaun CERDA MD Location:[facility] Appointment Type:URO Office Visit [facility] [place] evaluation note* Diagnosis Nontoxic single thyroid nodule- Primary Nontoxic uninodular goiter [facility] noteNo InformationNort ScaleArc Other evaluation noteNo assessment information available [facility] Work Phone: evaluation note* Diagnosis Onset Date Resolution Status CKD (chronic kidney disease) stage 3, GF R 30-59 ml/min acuteElevated blood-pressure reading, without diagnosis of hypertensionacute HyponatremiaacuteIBS (irritable bowel syndrome)acuteMicroscopic hematuriaacute NephrolithiasisacuteVitamin D deficiencyacute [facility] Work Phone: evaluation note* Diagnosis Well woman exam with routine gynecological exam- Primary Routine gynecological examination Other screening mammogram Menopausal symptoms Symptomatic menopausal or female climacteric states documented in this encounter [facility]Evaluation [facility]* Diagnosis Allergic rhinitis, unspecified seasonality, unspecified trigger- Primary Deviated nasal septum Hypertrophy of nasal turbinates Nasal valve collapse Other diseases of nasal cavity and sinuses [facility]* Diagnosis Nasal septal deviation- Primary Deviated nasal septum Nasal valve collapse Other diseases of nasal cavity and sinuses Nasal obstruction Other diseases of nasal cavity and sinuses Hypertrophy of both inferior nasal turbinates Hypertrophy of nasal turbinates [facility]* Diagnosis Allergic rhinitis due to animal hair and dander- Primary Allergic rhinitis due to animal (cat) (dog) hair and dander Allergic rhinitis due to mold Allergic rhinitis due to dust mite Nasal valve collapse Other diseases of nasal cavity and sinuses Nasal septal deviation Deviated nasal septum Nasal obstruction Other diseases of nasal cavity and sinuses Hypertrophy of both inferior nasal turbinates Hypertrophy of nasal turbinates [facility]* Diagnosis Onset Date Resolution Status Admit Date CKD (chronic kidney disease) stage 3, GF R 30-59 ml/min acuteMay 2024 9:17amHyponatremiaacuteMay 2024 9:17amIBS (irritable bowel syndrome)acuteMay 2024 9:17amMicroscopic hematuriaacuteMay 2024 9:17amNephrolithiasisacuteMay 2024 9:17amVitamin D deficiencyacuteMay 2024 9:17am [facility] Work Phone: Evaluation note* Diagnosis Pre-op evaluation- Primary Preoperative examination, unspecified Anxiety Anxiety state, unspecified Nasal valve collapse Other diseases of nasal cavity and sinuses Nasal septal deviation Deviated nasal septum Nasal obstruction Other diseases of nasal cavity and sinuses Hypertrophy of both inferior nasal turbinates Hypertrophy of nasal turbinates * Assessment & Plan Note - Karie López APRN.CNP - 04/01/2025 1:37 PM EDT Associated Problem(s): Anxiety Assessment: Controlled with cymbalta [facility]* Diagnosis Pre-op evaluation- Primary Preoperative examination, unspecified Anxiety Anxiety state, unspecified Nasal obstruction- Primary Other diseases of nasal cavity and sinuses documented in this encounter [facility] note* Diagnosis Routine general medical examination at a health care facility- Primary Major depressive disorder, single episode, mild Major depressive disorder, single episode, mild Anxiety Anxiety state, unspecified Stage 3a chronic kidney disease (CMS-HCC) documented in this encounter [facility] HealthcareHistory and physical note Author Bienvenido Yanes [facility] October 17, 2023 8:49amNote Date/TimeJan2023 8:[place] [address] Gastroenterology H&P Signed Patient: Deonte Donovan MR#: [id number] : 1975 Acct:[id number] Age/Sex: 48 / F Adm Date: 4 Loc: Room: Type: [facility] Attending Dr: Bienvenido Yanes MD Copies to: MD Caden Sarmiento, DO~ Date of Service: 10/17/2023 HISTORY & PHYSICAL: Patient's history with special attention to the cardiovascular, pulmonary systems and the current problem was reviewed with the patient immediately prior to the procedure. Present medications and doses reviewed in the EMR. Allergies and pertinent laboratory tests were also re viewedat this time in the EMR. The physical [...] Yanes M.D. Documented By: Bienvenido Yanes MD 10/17/2349 Signed By: <Electronically signed by Bienvenido Yanes MD> 10/17/23848 [facility] Work Phone: History general Narrative - Reported* Type Description Date Medical History anxiety Medical Historyeuthyroid syndromeMedical HistoryMODERATE DYSPLASIAMedical HistoryIRRITABLE BOWEL SYNDROMEMedical HistoryHYPOTHYROIDMedical History NEPHROLISTHASISMedical HistoryESS 2015Medical HistoryABNORMAL PAP 2009, 2013 Surgical HistoryadenoidectomySurgical HistoryCOLONOSCOPY X4 WITH BIOPSYSurgical HistoryLEEPSurgical HistoryEGD 2000Surgical HistoryNSVD [id number] Historychildbirth X 2Hospitalization HistorySEE ABOVE [facility] Other History general Narrative - Reported* Type Description Date Medical History anxiety Medical Historyeuthyroid syndromeMedical HistoryMODERATE DYSPLASIAMedical HistoryIRRITABLE BOWEL SYNDROMEMedical HistoryHYPOTHYROIDMedical History NEPHROLISTHASISMedical HistoryESS 2015Medical HistoryABNORMAL PAP 2013 Surgical HistoryadenoidectomySurgical HistoryCOLONOSCOPY X4 WITH BIOPSYSurgical HistoryLEEPSurgical HistoryEGD 2000Surgical HistoryNSVD [id number] HistoryLEFT SHOULDER SURGERY11/2021Hospitalization Historychildbirth X 2Hospitalization HistorySEE ABOVE [facility] Other Hospital course Narrative No data available for this section [facility] Discharge instructions Additional Instructions DISCHARGE INSTRUCTIONS [...] years. -Follow up with PCP. -Office number [phone]. [facility] Work Phone: Hospital Discharge instructions No data available for this section [facility] No data available for this section [facility] [place] Summary Purpose Family History Relationship Condition Age at Onset Recorded Date/T katelyn grandparent Malignant neoplasm of colon Unknown family memberMalignant neoplasm of colonUnknownfatherMalignant neoplasm of prostateUnknownNot SpecifiedFamily history of thyroid diseaseUnknowngrandparent Malignant neoplasm of breastUnknownMultiple sclerosisUnknowngrandparent Cerebrovascular accident (CVA)UnknowngrandparentPulmonary emphysemaUnknown Relationship Condition Age at Onset Recorded Date/T katelyn grandparent Malignant neoplasm of colon Unknown family memberMalignant neoplasm of colonUnknownfatherMalignant neoplasm of prostateUnknownNot SpecifiedFamily history of thyroid diseaseUnknowngrandparent Malignant neoplasm of breastUnknownMultiple sclerosisUnknowngrandparent Cerebrovascular accident (CVA)UnknowngrandparentPulmonary emphysemaUnknownfather Malignant neoplasmUnknown Relationship Condition Age at Onset Recorded Date/T katelyn grandparent Malignant neoplasm of colon Unknown family memberMalignant neoplasm of colonUnknownfatherMalignant neoplasm of prostateUnknownmotherFamily history of thyroid diseaseUnknowngrandparent Malignant neoplasm of breastUnknownMultiple sclerosisUnknowngrandparent Cerebrovascular accident (CVA)UnknowngrandparentPulmonary emphysemaUnknownfather Malignant neoplasmUnknown Advance Directives Advance Directive Response Recorded Date/ Time Advance Directives No September 1:12pm Advance Directive Response Recorded Date/ Time Advance Directives No September 2:12pm Chief Complaint and Reason for Visit Chief Complaint Screening Chief Complaint RENAL 6 month f/u Reason for Visit CKD (chronic kidney disease) stage 3, GFR 30-59 ml/min Elevated blood-pressure reading, without diagnosis of hypertension Hyponatremia IBS (irritable bowel syndrome) Microscopic hematuria Nephrolithiasis Vitamin D deficiency Chief Complaint Admit Date RENAL 1 YR F/U February 28, 2025 9:17a m Reason for Visit Admit Date CKD (chronic kidney disease) stage 3, GF R 30-59 ml/min February 28, 2025 9:17am Hyponatremia February 28, 2025 9:17a m IBS (irritable bowel syndrome) February 28, 2025 9:17am Microscopic hematuria February 28, 2025 9:1 7am Nephrolithiasis February 28, 2025 9:17a m Vitamin D deficiency February 28, 2025 9:17 am Additional Source Comments INFORMATION SOURCE (unrecogn ized section and content) DATE CREATED AUTHOR 04/03/2018 [facility] DATE CREATED AUTHOR AUTHOR'S ORGANIZ ATION 12/03/2022 [facility] DATE CREATED AUTHOR AUTHOR'S ORGANIZ ATION 10/28/2023 [facility] DATE CREATED AUTHOR AUTHOR'S ORGANIZ ATION 01/25/2024 [facility] DATE CREATED AUTHOR AUTHOR'S ORGANIZ ATION 04/23/2025 [facility] DATE CREATED AUTHOR AUTHOR'S ORGANIZ ATION 05/01/2025 [facility] DATE CREATED AUTHOR AUTHOR'S ORGANIZ ATION 05/10/2025 [facility] EPIC Source Comments (unrecognize d section and content) In the event this informatio n is protected by the Federal Confidentiality of Alcohol and Drug Abuse Patient Records regulations: The Federal rules restrict any use of the information to criminally investigate or prosecute any alcohol or drug abuse patient.[facility] CenterIn the event this information is protected by the Federal Confidentiality of Alcohol and Drug Abuse Patient Records regulations: The Federal rules restrict any use of the information to criminally investigate or prosecute any alcohol or drug abuse patient.[facility] CenterIn the event this information is protected by the Federal Confidentiality of Alcohol and Drug Abuse Patient Records regulations: The Federal rules restrict any use of the information to criminally investigate or prosecute any alcohol or drug abuse patient.[facility] CenterIn the event this information is protected by the Federal Confidentiality of Alcohol and Drug Abuse Patient Records regulations: The Federal rules restrict any use of the information to criminally investigate or prosecute any alcohol or drug abuse patient.[facility] CenterIn the event this information is protected by the Federal Confidentiality of Alcohol and Drug Abuse Patient Records regulations: The Federal rules restrict any use of the information to criminally investigate or prosecute any alcohol or drug abuse patient.[facility] CenterIn the event this information is protected by the Federal Confidentiality of Alcohol and Drug Abuse Patient Records regulations: The Federal rules restrict any use of the information to criminally investigate or prosecute any alcohol or drug abuse patient.[facility] CenterIn the event this information is protected by the Federal Confidentiality of Alcohol and Drug Abuse Patient Records regulations: The Federal rules restrict any use of the information to criminally investigate or prosecute any alcohol or drug abuse patient.[facility] Reason for Visit (unrecogniz ed section and content) ReasonOnset DateCommentsRadiology 07/15/2018ReasonCommentsDeviated Septum ReasonCommentsConsultSpecialtyDiagnoses / ProceduresReferred By ContactReferred To ContactEnt - Otolaryngology Diagnoses Nasal valve collapse Procedures CONSULT TO ENT OFFICE/OUTPATIENT [facility] 60 MINUTES Nakul Gracia MD [address] [place] [address] Phone: tel: fax: Referral IDStatusReasonStart DateExpiration DateVisits RequestedVisits [id number] PCP Requested Referral [id number] RhinitisSpecialtyDiagnoses / Procedures Referred By ContactReferred To ContactAllergy Diagnoses Allergic rhinitis, unspecified seasonality, unspecified trigger Procedures CONSULT TO ALLERGY/IMMUNOLOGY OFFICE/OUTPATIENT [facility] 60 MINUTES Nakul Gracia MD [address] [place] [address] Phone: tel: fax: Referral IDStatusReasonStart DateExpiration DateVisits RequestedVisits [id number] PCP Requested Referral [id number] ConsultReasonCommentsFollow UpPost op, patient has some discomfortReasonCommentsAnnual Exam Care Teams (unrecognized sec tion and content) Team Status: Active Member Role Status Dates Caden Benavides DO Primary Care Provider Active Team Status: Active Member Role Status Dates Caden Benavides DO Primary Care Provider Active Start: February 04, 2024 Etelvina María , MDAttending ProviderActiveStart: February 04, 2024 Team Status: Inactive Member Role Status Dates Caden Benavides DO Primary Care Provider Active Start: February 16, 2024 End: February 15bdul María , MDAttending ProviderActiveStart: February 16, 2024 End: February 16, 2024 Team Status: Inactive Member Role Status Dates Bienvenido Yanes MD Attending Provider Active Freida Jorgensen Care ProviderActiveTeam MemberRelationshipSpecialty Start DateEnd Date Caden Benavides DO [address] [place] [address] PCP - [facility]03/10/2312 Caden Benavides DO [address] [place] [address] PCP - General04/18/23 Otis Ibarra MD [address] [place] [address] Obstetrics and Gynecology11/01/23Team MemberRelationshipSpecialtyStart DateEnd Date Caden Benavides DO [address] [place] [address] PCP - [facility]03/10/2312 Caden Benavides DO [address] [place] [address] PCP - General04/18/23 Otis Ibarra MD [address] [place] [address] Obstetrics and Gynecology11/01/23Team MemberRelationshipSpecialtyStart DateEnd Date Balaji Peraza MD [address] [place] [address] (Fax) PCP - [facility] Onolqjqh73/5/18Team MemberRelationshipSpecialtyStart DateEnd Date Balaji Peraza MD [address] [place] [address] (Fax) PCP - Generalmi Jnriydhb04/5/18Team MemberRelationshipSpecialtyStart DateEnd Date Balaji Peraza MD [address] [place] [address] (Fax) PCP - GeneralFami Qsqvvexp48/5/18 Team Status: Active Member Role Status Dates Caden Benavides DO Primary Care Provider Active Start: February 07, 2025 EtelvinaSamuel Harmonending ProviderActiveStart: February 07, 2025 Team Status: Inactive Member Role Status Dates Caden Benavides DO Primary Care Provider Active Start: February 28, 2025 End: February 28bdSamuel Harmonending ProviderActiveStart: February 28, 2025 End: February 28, 2025Team MemberRelationshipSpecialtyStart DateEnd Date Balaji Peraza MD [address] [place] [address] PCP - Generalmily Raxfdzvh98/5/18Team MemberRelationshipSpecialtyStart DateEnd Date Caden Benavides, DO [address] [place] [address] PCP - [facility] Medicine03/20/25Team MemberRelationshipSpecialtyStart DateEnd Date Caden Benavides, DO [address] [place] [address] PCP - [facility] Medicine03/20/25Team MemberRelationshipSpecialtyStart DateEnd Date Caden Benavides, DO [address] [place] [address] [facility] - [facility]03/10/2312 Caden Benavides, DO [address] [place] [address] [facility] General04/18/23 Otis Ibarra MD [address] [place] [address] Obstetrics and Gynecology11/01/23Team MemberRelationshipSpecialtyStart DateEnd Date Caden Benavides DO [address] [place] [address] [facility] - [facility]03/10/2312 Caden Benavides DO [address] [place] [address] [facility] General04/18/23 Otis Ibarra MD [address] [place] [address] Obstetrics and Gynecology11/01/23 Goals (unrecognized section and content) Goals may be documented in a n alternate section FOR RECORDS PERTAINING TO PATIENTS WHO ARE [...] BE BASED ON THE PRIMARY CLINICAL RECORDS. [facility] [employer] [facility]. provides no warranty or guarantee of the accuracy or completeness of information in this document.
== END 2025-09-09 08:26 | disposition home or self-care (01) ==
LOC: MAMMO 08:25
PROVIDERS: PCP Family Medicine; Visit Provider Obstetrics & Gynecology
DX: Z12.31 Encounter for screening mammogram for malignant neoplasm of breast (principal); Z80.3 Family history of malignant neoplasm of breast; Z80.42 Family history of malignant neoplasm of prostate; Z80.0 Family history of malignant neoplasm of digestive organs
CPT/HCPCS: 77063; 77067